=== PATIENT | male | born 1940 | race Caucasian/White ===

== ENCOUNTER → 2017-12-30 | Outpatient (CLI) | payer MEDICARE ==
[2017-12-30 13:58] LABS: Blood Urea Nitrogen 20 mg/dL (9-20)
--- NOTE | 2017-12-31 12:35 | CT ---
EXAMINATION TYPE: CT angio abd aorta wo/w con DATE OF EXAM: 12/30/2017 COMPARISON: Prior CT of the chest 05/16/2015, CT chest abdomen 08/11/2012 HISTORY: Abdominal aortic aneurysm CT DLP: 2625 mGycm, Automated Exposure Control for Dose Reduction was Utilized. CONTRAST: CT scan of the abdomen and pelvis is performed with oral and without and with IV Contrast, patient in jected with 125 ml mL of Omnipaque 350. Three-dimensional reconstructions performed on an alternate w orkstation. FINDINGS: Patient is post median sternotomy. Heart is enlarged. There are coronary artery calcificati ons. Aortic root is dilated at 4.5 cm. Aorta shows atheromatous changes. Superior mesenteric artery, celiac axis are patent. Renal arteries are patent but shows atheromatous changes proximally. Inferior mesenteric artery is patent. Infrarena l abdominal aortic aneurysm shows a diameter of approximately 4.9 cm. The neck of the aneurysm is greater than 3 cm below the renal arteries. Common iliac arteries show extensive atheromatous change. There is short segment occlusion suspected within the external iliac artery on the left. High-grade stenosis also suspected within the proximal external iliac artery on the right. The right superficial femoral arteries occluded proximally, deep femoral artery branches are patent, there is reconstitution of the popliteal artery. Segment of distal superficial femoral artery shows a stent is occluded. Atheromatous changes are present within the popliteal artery, the tibioperoneal t runk, anterior tibial artery are patent, trifurcation vasculature enhances proximally and is patent i nto the distal leg, anterior and posterior tibial arteries thought present into the foot are enhancin g. The left deep femoral artery branches enhance, there is atheromatous change proximally in the supe rficial femoral artery, segmental tandem stenoses are present, at the level of Paul's canal there i s a high-grade stenosis present at the junction of superficial femoral and popliteal arteries. Trifur cation vasculature enhances as on the right and is patent more distally into the foot. LUNG BASES: No significant abnormality is appreciated. LIVER/GB: No significant abnormality is appreciated. Colonic interposition noted anterior to the li radha. PANCREAS: No significant abnormality is seen. SPLEEN: No significant abnormality is seen. ADRENALS: No significant abnormality is seen. KIDNEYS: Suspect some subcentimeter cortical cysts within the right kidney. BOWEL: Extensive divertic ular change in the sigmoid colon. PROSTATE/SEMINAL VESICLES: No gross abnormality seen. LYMPH NODES: No greater than 1cm abdominal or pelvic lymph nodes are appreciated. OSSEOUS STRUCTURES: No significant abnormality is seen. OTHER: Prostate gland is enlarged. IMPRESSION: Extensive peripheral vascular occlusive disease as described, infrarenal abdominal aortic aneurysm, dilated aortic root, and additional findings as above.
== END | disposition home or self-care (01) ==
LOC: RADCTMAIN 13:10
PROVIDERS: ATTEND Surgery
DX: I99.8 Other disorder of circulatory system (principal); I71.4 Abdominal aortic aneurysm, without rupture; I77.819 Aortic ectasia, unspecified site
CPT/HCPCS: 82565; 84520; 75635; 36415; Q9967

== ENCOUNTER → 2019-03-02 | Outpatient (CLI) | payer MEDICARE ==
[2019-03-02 12:50] LABS: Potassium 5.6 mmol/L (3.5-5.1)
[2019-03-02 12:52] LABS: Basophils # (A) 0.1 k/uL (0-0.2); Basophils % (A) 1 %; Eosinophils # (A) 0.2 k/uL (0-0.7); Eosinophils % (A) 2 %; HCT 45.4 % (39.0-53.0); HGB 14.3 gm/dL (13.0-17.5); Lymphocytes # (A) 1.9 k/uL (1.0-4.8); Lymphocytes % (A) 19 %; MCH 30.9 pg (25.0-35.0); MCHC 31.5 g/dL (31.0-37.0); MCV 98.1 fL (80.0-100.0); Mean Platelet Volume 7.9; Monocytes # (A) 0.8 k/uL (0-1.0); Monocytes % (A) 8 %; Neutrophils # (A) 6.5 k/uL (1.3-7.7); Neutrophils % (A) 67 %; Platelet Count 184 k/uL (150-450); RBC 4.62 m/uL (4.30-5.90); RDW 13.8 % (11.5-15.5); WBC 9.7 k/uL (3.8-10.6)
== END ==
LOC: LABPAT 12:20
PROVIDERS: ATTEND Surgery
DX: Z01.812 Encounter for preprocedural laboratory examination (principal); I73.9 Peripheral vascular disease, unspecified
CPT/HCPCS: 36415; 80051; 82565; 84520; 85025

== ENCOUNTER → 2019-03-17 | Day surgery (SDC) | payer MEDICARE ==
[2019-03-12 08:50] VITALS: BMI 27.1
[~2019-03-17] MED LIST: HEPARIN SODIUM 1,000 UN/ML (10ML VL) IV ONE; IOPAMIDOL-250 100ML BTL INTRAARTER ONE; IOPAMIDOL-250 50ML BTL INTRAARTER ONE; LIDOCAINE 1% INJ 10MG/ML (20 ML MDV) SQ ONE; SODIUM CHLORIDE 0.9% 1,000 ML in EMPTY BAG 1 BAG IV ONE; fentaNYL (PF) 50 MCG/ML 2 ML AMP IV ONE
[2019-03-17 08:02] VITALS: RESP 18; TEMP 96.8
--- NOTE | 2019-03-17 09:29 | P.OP ---
Date of Procedure: 03/17/19 Preoperative Diagnosis: Bilateral lower extremity disabling claudication Postoperative Diagnosis: Infrarenal abdominal aortic aneurysm Right external iliac stenosis approximately 90% Right superficial femoral artery chronic total occlusion at the takeoff with recollateralization at proximal popliteal artery above-knee Left superficial femoral artery atherosclerotic disease with multiple areas of stenosis greatest one at the Paul's canal approximately 60% Bilateral tibioperoneal trunk severe atherosclerotic occlusive disease with poor visualization of the tibial vessels at the ankle but appears to have left posterior tibial artery and right posterior tibial artery to the ankle Procedure(s) Performed: Aortogram with bilateral lower extremity runoff via left common femoral artery ultrasound guided access Right iliofemoral selective angiogram with percutaneous transluminal balloon angioplasty of the external iliac artery and percutaneous stent placement Implants: 9 x 40 mm absolute Pro self-expanding stent Anesthesia: local (Moderate sedation 48 minutes) Surgeon: Brando Krueger Estimated Blood Loss (ml): 5 IV fluids (ml): 500 Pathology: none sent Condition: stable Disposition: same day Indications for Procedure: 78-year-old gentleman who presented to the office secondary to bilateral lower extremity pain with ambulation as well as intermittent pain in the right lower extremity at rest. He states he's been having worsening pain but it is intermittent secondary to his COPD and he states he sometimes cannot walk far due to his breathing issues. He does state when he does ambulate and feels good but with his lungs he can't walk due to pain in his lower extremities buttocks and calf. He recently underwent arterial Dopplers with ABIs which demonstrated significant decrease in his ABIs bilaterally but more on the right. He does have a history of a stent in his right superficial femoral artery which is likely occluded. Upon physical examination patient had severely diminished right femoral pulse compared to the left. Operative Findings: Aorta: Patent with some intramural thrombus noted as well as infrarenal abdominal aortic aneurysm. Iliacs: Bilateral common iliac arteries are tortuous with atherosclerotic disease noted and some ectasia. The right external iliac artery just after the takeoff of the internal iliac artery demonstrates >90% stenosis. Left external iliac artery is patent with some at the stenotic disease. Femorals: Bilateral femoral arteries are patent with minimal after stenotic disease. There is a patent profunda bilaterally. Right superficial femoral artery is occluded at the takeoff and re-collateralizes distal to the previous stent at the Paul's canal. Left SFA has multiple areas of stenosis with greatest one being around 60% Popliteal: Bilateral popliteal arteries are patent with minimal disease. Tibioperoneal trunk: Bilateral tibioperoneal trunks are difficult to visualize due to patient constantly moving secondary to pain. It does appear there is good takeoff of the left anterior tibial artery but then has significant diminished lumen and likely occlusion after that. Posterior tibial artery does require I and extends to the ankle on the left. The right anterior tibial peroneal and posterior tibial arteries are difficult to visualize but demonstrates some posterior tibial artery flow at the ankle. Description of Procedure: After written informed consent was obtained the patient all risks benefits and competitions were described the patient was brought to the [facility] and laid in a supine position. The area of the groins were prepped and draped in usual sterile fashion. Local anesthetic was then utilized to anesthetize the area over the left common femoral artery which was visualized under ultrasound. Patient was also administered fentanyl for pain control and sedation. Utilizing ultrasound the left common femoral artery was accessed with a multipurpose needle and a 4-Rwandan sheath was placed followed by a 035 Glidewire in the aorta. Pigtail catheter was then placed and aortogram with runoff was obtained. Due to the significant stenosis of the right external iliac artery and angled oblique view was obtained demonstrating proximally 90% or greater stenosis of the right external iliac artery. The pigtail catheter was then removed 035 Glidewire followed by a RBI catheter was then placed and an up and over fashion the right femoral artery was entered. Patient was administered 3000 units of heparin. The lesion was crossed and a 5 x 40 mm balloon was utilized for balloon angioplasty this opened easily and a repeat angiogram was obtained demonstrating no improvement of the lumen size. Therefore a 8 x 40 mm balloon was placed and balloon angioplasty was performed with some improvement of the stenosis but recoiling of the area was noted. Due to this a 9 x 40 mm self- expanding stent was then placed across the lesion followed by the 8 x 40 mm balloon. Finally gram was obtained demonstrating approximately 20% residual stenosis. All guidewires and catheters were removed as well as the sheath and pressure was placed for hemostasis. Hemostasis was assured and patient was sent to recovery in stable condition. Patient at the conclusion of the procedure had a palpable femoral pulse on the right as well as the left. Plan - Discharge Summary Discharge Rx Participant: No New Discharge Prescriptions: No Action Simvastatin [Zocor] 20 mg PO HS Fluticasone/Salmeterol [Advair 500-50 Diskus] 1 inhalation PO QAM PRN PRN Reason: sob Aspirin 325 mg PO DAILY Ipratropium Nebulized [Atrovent Nebulized 0.2 MG/ML] 0.5 mg INHALATION QID Lisinopril 5 mg PO DAILY Gabapentin [Neurontin] 300 mg PO TID Metoprolol Tartrate [Lopressor] 25 mg PO BID Multivitamins, Thera [Multivitamin (formulary)] 1 tab PO DAILY Magnesium(Unknown Dose) 1 tab PO DAILY 2new Meds To Bring Info Day Of Discharge Medication List Aspirin 325 mg PO DAILY 01/27/15 [History] Fluticasone/Salmeterol [Advair 500-50 Diskus] 1 inhalation PO QAM PRN 01/27/15 [History] Ipratropium Nebulized [Atrovent Nebulized 0.2 MG/ML] 0.5 mg INHALATION QID 01/27/15 [History] Simvastatin [Zocor] 20 mg PO HS 01/27/15 [History] Lisinopril 5 mg PO DAILY 09/19/16 [History] 2new Meds To Bring Info Day Of 03/12/19 [History] Gabapentin [Neurontin] 300 mg PO TID 03/12/19 [History] Magnesium(Unknown Dose) 1 tab PO DAILY 03/12/19 [History] Metoprolol Tartrate [Lopressor] 25 mg PO BID 03/12/19 [History] Multivitamins, Thera [Multivitamin (formulary)] 1 tab PO DAILY 03/12/19 [History] Follow up Appointment(s)/Referral(s): Brando Krueger DO [STAFF PHYSICIAN] - 2 Weeks Patient Instructions/Handouts: Peripheral Vascular Stent Placement (DC) Activity/Diet/Wound Care/Special Instructions: No heavy lifting greater than 15 lbs x 1 week. No driving x 48 hours. Discharge Disposition: HOME SELF-CARE
[2019-03-17 16:13] VITALS: BP 112/69; PULSE 56
--- NOTE | 2019-03-18 11:33 | IR ---
Fluoroscopy HISTORY: Peripheral vascular occlusive disease 8.1 minutes fluoroscopy time supplied to the referring clinician. 860 intraoperative C-arm images do cument the procedure. See dictated report from vascular surgery.
== END | disposition home or self-care (01) ==
LOC: CATHCVL 07:22
PROVIDERS: ATTEND Surgery
DX: I70.213 Atherosclerosis of native arteries of extremities with intermittent claudication, bilateral legs (principal); I71.4 Abdominal aortic aneurysm, without rupture; I70.92 Chronic total occlusion of artery of the extremities; J44.9 Chronic obstructive pulmonary disease, unspecified; G62.9 Polyneuropathy, unspecified; E78.5 Hyperlipidemia, unspecified; I10 Essential (primary) hypertension; I25.10 Atherosclerotic heart disease of native coronary artery without angina pectoris; Z95.820 Peripheral vascular angioplasty status with implants and grafts; Z79.82 Long term (current) use of aspirin; Z79.899 Other long term (current) drug therapy; Z95.1 Presence of aortocoronary bypass graft
CPT/HCPCS: 37221; 75625; 75716; 84132; C1894 ×3; C1769 ×5; C1725; C1876; J2001; J3010; J1644; Q9966 ×2

== ENCOUNTER 2019-09-06 15:18 | Inpatient (IN) | payer MEDICARE ==
[2019-09-06] MEDS ORDERED: IPRATROPIUM-ALBUTEROL 3 ML NEB INHALATION STA ×2 (16:14)
[2019-09-06] MEDS ORDERED: methylPREDNISolone SOD SUCCI 125 MG/2 ML VIAL IV STA (16:16)
[2019-09-06] MEDS ORDERED: SODIUM CHLORIDE 0.9% 500 ML 500 ML IV ONE (16:16)
--- NOTE | 2019-09-06 16:37 | ED ---
SOB HPI - General Chief Complaint: Shortness of Breath Stated Complaint: EDMOND Time Seen by Provider: 09/06/19 15:25 Source: patient, family Mode of arrival: wheelchair Limitations: no limitations - History of Present Illness Initial Comments: The patient is a 78 year old male with past history of asthma and COPD on 2 L of home O2 who presents emergency room in with reported cough and shortness of breath. He states that every year around this time he will get a viral infection that exacerbates breathing. He states that he started to feel short of breath with a cough earlier this week. He followed up in Dr. Hatch's office. He got a steroid injection on Saturday. He started him on antibiotics and a prednisone taper at home. States that on he did feel better however his symptoms worsen once again. He admits to chills without fever. Denies chest pain but admits chest pressure. No palpitations. No nausea or vomiting. No history of cardiac arrhythmias. Does have a history of a CABG in 2004. He sees Dr. Briggs. No ripping or tearing sensation to his back. Denies any unilateral numbness or weakness. No abdominal pain or changes in his bowel or bladder habits. There are no alleviating, precipitating or modifying factors - Related Data Home Medications Medication Instructions Recorded Confirmed Simvastatin [Zocor] 20 mg PO HS 01/27/15 09/06/19 Lisinopril 5 mg PO DAILY 09/19/16 09/06/19 Clopidogrel Bisulfate [Plavix] 75 mg PO DAILY 09/06/19 09/06/19 Formoterol Fumarate [Perforomist] 20 mcg INHALATION RT-BID 09/06/19 09/06/19 Ipratropium-Albuterol Nebulize 3 ml INHALATION RT-Q4H 09/06/19 09/06/19 [Duoneb 0.5 mg-3 mg/3 ml Soln] Levofloxacin 500 mg PO DAILY 09/06/19 09/06/19 Metoprolol Tartrate [Lopressor] 50 mg PO BID 09/06/19 09/06/19 Theophylline 24 Hour [Antoine-24] 400 mg PO HS 09/06/19 09/06/19 predniSONE See Taper PO DAILY 09/06/19 09/06/19 Allergies Allergy/AdvReac Type Severity Reaction Status Date / Time Penicillins Allergy Unknown Verified 09/06/19 18:48 Review of Systems ROS Statement: Those systems with pertinent positive or pertinent negative responses have been documented in the HPI. ROS Other: All systems not noted in ROS Statement are negative. Past Medical History Past Medical History: Asthma, Coronary Artery Disease (CAD), COPD, Eye Disorder, Hyperlipidemia, Hypertension Additional Past Medical History / Comment(s): "spot on lung". BILAT CATARACTS History of Any Multi-Drug Resistant Organisms: None Reported Past Surgical History: Coronary Bypass/CABG, Hernia Repair, Tonsillectomy Additional Past Surgical History / Comment(s): surgery for "blockages in legs with one stent",rt cataract Past Anesthesia/Blood Transfusion Reactions: Postoperative Nausea & Vomiting (PONV) Past Psychological History: No Psychological Hx Reported Smoking Status: Current every day smoker Past Alcohol Use History: Daily Past Drug Use History: None Reported - Past Family History Brother(s) Family Medical History: Cancer Father Additional Family Medical History / Comment(s): Father at age 57 from myocardial infarction. Mother Additional Family Medical History / Comment(s): Mother at age 75 from cancer, patient does not know type. Sister(s) Additional Family Medical History / Comment(s): Patient has one sister that is passed from emphysema. Patient has 2 sons with no major medical problems. General Exam Limitations: no limitations General appearance: alert, anxious, in distress Head exam: Present: atraumatic, normocephalic Eye exam: Present: PERRL, EOMI ENT exam: Present: normal exam, normal oropharynx, mucous membranes moist Neck exam: Present: normal inspection. Absent: tenderness, meningismus Respiratory exam: Present: respiratory distress, wheezes, accessory muscle use, decreased breath sounds, prolonged expiratory, other (tachypnia, conversational dyspnea) Cardiovascular Exam: Present: tachycardia, irregular rhythm GI/Abdominal exam: Present: soft. Absent: distended, tenderness, guarding, rebound, rigid Extremities exam: Present: pedal edema Back exam: Present: normal inspection, full ROM Neurological exam: Present: alert, oriented X3 Psychiatric exam: Present: normal mood, anxious Skin exam: Present: warm, dry, intact Course Vital Signs 09/06/19 09/06/19 09/06/19 15:20 15:31 15:56 Temperature 97.6 F Pulse Rate 78 Pulse Rate [ Pulse Oximetery ] Respiratory 18 24 Rate Blood Pressure 94/69 Blood Pressure [Left Arm] O2 Sat by Pulse 95 95 Oximetry 09/06/19 09/06/19 09/06/19 16:00 16:30 16:46 Temperature Pulse Rate 122 H 123 H 98 Pulse Rate [ Pulse Oximetery ] Respiratory 23 22 32 H Rate Blood Pressure 95/68 Blood Pressure [Left Arm] O2 Sat by Pulse 99 Oximetry 09/06/19 09/06/19 09/06/19 16:57 17:00 17:20 Temperature Pulse Rate 112 H 117 H 117 H Pulse Rate [ Pulse Oximetery ] Respiratory 29 H 24 24 Rate Blood Pressure 117/84 117/84 Blood Pressure [Left Arm] O2 Sat by Pulse 99 99 Oximetry 09/06/19 09/06/19 09/06/19 17:23 17:30 18:00 Temperature Pulse Rate 124 H 134 H Pulse Rate [ Pulse Oximetery ] Respiratory 22 24 23 Rate Blood Pressure 135/102 Blood Pressure [Left Arm] O2 Sat by Pulse 100 98 Oximetry 09/06/19 09/06/19 09/06/19 18:26 19:27 20:19 Temperature Pulse Rate 134 H 144 H 89 Pulse Rate [ Pulse Oximetery ] Respiratory 23 22 20 Rate Blood Pressure 135/102 124/89 131/81 Blood Pressure [Left Arm] O2 Sat by Pulse 98 96 98 Oximetry 09/06/19 09/06/19 21:06 21:17 Temperature 97.4 F L Pulse Rate 80 Pulse Rate [ 87 Pulse Oximetery ] Respiratory 20 20 Rate Blood Pressure 128/89 Blood Pressure 140/85 [Left Arm] O2 Sat by Pulse 96 95 Oximetry Medical Decision Making - Medical Decision Making Upon arrival the patient is placed into room 3. A thorough history and physical exam is performed. I evaluated the patient and he is extremely tachypneic with accessory muscle use. I did recommend placing the patient on BiPAP for which he did agree. Patient is notably tachycardic. I did obtain a 12-lead EKG on the patient which demonstrates an irregular heart rhythm. There is diffuse ST d epression in lateral leads. I do suspect this is new onset A. fib. The patient denies a history of cardiac arrhythmia. I did recommend laboratory studies per the patient was given 2 DuoNeb breathing treatments. I also provided him with 125 mg of Solu-Medrol and a gram of magnesium. I recommended laboratory studies. WBC 12.4. Coags were normal. Sodium is 129. Chloride 94. CO2 21. Troponin is elevated at 0.052. BNP is 6060. Influenza A and B are not detected. Theophylline is therapeutic at 10.3. Chest x-ray demonstrates no acute cardiac process. I did recommend obtaining blood cultures. I did give the patient a dose of Rocephin and azithromycin. The patient continues to have an elevated heart rate. Placed him on a Cardizem drip. I did provide the patient with 1500 mL of normal saline because of his low sodium. Chest x-ray does not demonstrate any signs of volume overload. Because the patient's abnormal EKG I did discuss the case with Dr. Briggs who is his meat and seafood manager. He does recommend heparinizing the patient. He does state that the patient can remain on a Cardizem drip and may be titrated as needed. I did reevaluate the patient and he does request to come off the biPap. His breathing is much improved. I did reevaluate the heart rate and it is better controlled. We did repeat an EKG at a slower rate which does demonstrate A. fib. Patient has no contraindications to heparin therefore the heparin drip was ordered I will continue the patient on breathing treatments and steroids. I discussed case with Dr. Manzano who accepted admission for the patient. We'll consult cardiology and pulmonology.The patient remained in stable condition and was transported to the floor - Lab Data Result diagrams: 09/08/19 05:53 09/09/19 05:32 Lab Results 09/06/19 09/06/19 09/06/19 Range/Units 15:49 15:49 15:49 WBC 12.4 H (3.8-10.6) k/uL RBC 4.65 (4.30-5.90) m/uL Hgb 16.0 (13.0-17.5) gm/dL Hct 47.6 (39.0-53.0) % MCV 102.3 H (80.0-100.0) fL MCH 34.5 (25.0-35.0) pg MCHC 33.7 (31.0-37.0) g/dL RDW 13.2 (11.5-15.5) % Plt Count 226 (150-450) k/uL Neutrophils % 86 % Lymphocytes % 5 % Monocytes % 6 % Eosinophils % 0 % Basophils % 2 % Neutrophils # 10.8 H (1.3-7.7) k/uL Lymphocytes # 0.6 L (1.0-4.8) k/uL Monocytes # 0.7 (0-1.0) k/uL Eosinophils # 0.0 (0-0.7) k/uL Basophils # 0.2 (0-0.2) k/uL Macrocytosis Slight PT (9.0-12.0) sec INR (<1.2) APTT (22.0-30.0) sec Sodium 129 L (137-145) mmol/L Potassium 4.8 (3.5-5.1) mmol/L Chloride 94 L (98-107) mmol/L Carbon Dioxide 21 L (22-30) mmol/L Anion Gap 14 mmol/L BUN 23 H (9-20) mg/dL Creatinine 1.19 (0.66-1.25) mg/dL Est GFR (CKD-EPI)AfAm 68 (>60 ml/min/1.73 sqM) Est GFR (CKD-EPI)NonAf 59 (>60 ml/min/1.73 sqM) Glucose 125 H (74-99) mg/dL Plasma Lactic Acid Renny (0.7-2.0) mmol/L Calcium 9.2 (8.4-10.2) mg/dL Magnesium 1.6 (1.6-2.3) mg/dL Total Bilirubin 0.6 (0.2-1.3) mg/dL AST 29 (17-59) U/L ALT 25 (21-72) U/L Alkaline Phosphatase 57 (38-126) U/L Troponin I (0.000-0.034) ng/mL NT-Pro-B Natriuret Pep 6060 pg/mL Total Protein 6.6 (6.3-8.2) g/dL Albumin 4.0 (3.5-5.0) g/dL Influenza Type A RNA (Not Detectd) Influenza Type B (PCR) (Not Detectd) 09/06/19 09/06/19 09/06/19 Range/Units 15:49 15:49 16:44 WBC (3.8-10.6) k/uL RBC (4.30-5.90) m/uL Hgb (13.0-17.5) gm/dL Hct (39.0-53.0) % MCV (80.0-100.0) fL MCH (25.0-35.0) pg MCHC (31.0-37.0) g/dL RDW (11.5-15.5) % Plt Count (150-450) k/uL Neutrophils % % Lymphocytes % % Monocytes % % Eosinophils % % Basophils % % Neutrophils # (1.3-7.7) k/uL Lymphocytes # (1.0-4.8) k/uL Monocytes # (0-1.0) k/uL Eosinophils # (0-0.7) k/uL Basophils # (0-0.2) k/uL Macrocytosis PT 10.7 (9.0-12.0) sec INR 1.0 (<1.2) APTT 23.7 (22.0-30.0) sec Sodium (137-145) mmol/L Potassium (3.5-5.1) mmol/L Chloride (98-107) mmol/L Carbon Dioxide (22-30) mmol/L Anion Gap mmol/L BUN (9-20) mg/dL Creatinine (0.66-1.25) mg/dL Est GFR (CKD-EPI)AfAm (>60 ml/min/1.73 sqM) Est GFR (CKD-EPI)NonAf (>60 ml/min/1.73 sqM) Glucose (74-99) mg/dL Plasma Lactic Acid Renny 1.7 (0.7-2.0) mmol/L Calcium (8.4-10.2) mg/dL Magnesium (1.6-2.3) mg/dL Total Bilirubin (0.2-1.3) mg/dL AST (17-59) U/L ALT (21-72) U/L Alkaline Phosphatase (38-126) U/L Troponin I 0.052 H* (0.000-0.034) ng/mL NT-Pro-B Natriuret Pep pg/mL Total Protein (6.3-8.2) g/dL Albumin (3.5-5.0) g/dL Influenza Type A RNA (Not Detectd) Influenza Type B (PCR) (Not Detectd) 09/06/19 Range/Units 16:49 WBC (3.8-10.6) k/uL RBC (4.30-5.90) m/uL Hgb (13.0-17.5) gm/dL Hct (39.0-53.0) % MCV (80.0-100.0) fL MCH (25.0-35.0) pg MCHC (31.0-37.0) g/dL RDW (11.5-15.5) % Plt Count (150-450) k/uL Neutrophils % % Lymphocytes % % Monocytes % % Eosinophils % % Basophils % % Neutrophils # (1.3-7.7) k/uL Lymphocytes # (1.0-4.8) k/uL Monocytes # (0-1.0) k/uL Eosinophils # (0-0.7) k/uL Basophils # (0-0.2) k/uL Macrocytosis PT (9.0-12.0) sec INR (<1.2) APTT (22.0-30.0) sec Sodium (137-145) mmol/L Potassium (3.5-5.1) mmol/L Chloride (98-107) mmol/L Carbon Dioxide (22-30) mmol/L Anion Gap mmol/L BUN (9-20) mg/dL Creatinine (0.66-1.25) mg/dL Est GFR (CKD-EPI)AfAm (>60 ml/min/1.73 sqM) Est GFR (CKD-EPI)NonAf (>60 ml/min/1.73 sqM) Glucose (74-99) mg/dL Plasma Lactic Acid Renny (0.7-2.0) mmol/L Calcium (8.4-10.2) mg/dL Magnesium (1.6-2.3) mg/dL Total Bilirubin (0.2-1.3) mg/dL AST (17-59) U/L ALT (21-72) U/L Alkaline Phosphatase (38-126) U/L Troponin I (0.000-0.034) ng/mL NT-Pro-B Natriuret Pep pg/mL Total Protein (6.3-8.2) g/dL Albumin (3.5-5.0) g/dL Influenza Type A RNA Not Detected (Not Detectd) Influenza Type B (PCR) Not Detected (Not Detectd) - EKG Data EKG Comments: EKG appears to be A. fib with a rapid ventricular response of 125. QRS 120. QTC 473. There is in incomplete left bundle-branch block. There is ST depression in V4 through V6 as well as leads 2, 3 and aVF. There is no previous EKG to compare to. EKG obtained at 2006 demonstrates A. fib with a rate of 92. QRS 128. QTC 432. There is ST depression and T-wave inversion in the 5 through V6 Critical Care Time Critical Care Time: Yes Total Critical Care Time: 35 (minutes) Critical Care Time: Critical care time for management of BiPap settings, Cardizem and heparin drip for new onset afib and consultation with cardiology regarding abnormal EKG. Disposition Clinical Impression: BiPAP (biphasic positive airway pressure) dependence, New onset a-fib, COPD with exacerbation, NSTEMI (non-ST elevated myocardial infarction), Hyponatremia Disposition: ADMITTED IP TO THIS HOSP Condition: Serious Is patient prescribed a controlled substance at d/c from ED?: No Decision to Admit Reason: Admit from EC Decision Date: 09/06/19 Decision Time: 20:50
[2019-09-06 16:42] LABS: Basophils # (A) 0.2 k/uL (0-0.2); Basophils % (A) 2 %; Eosinophils % (A) 0 %; HCT 47.6 % (39.0-53.0); Lymphocytes # (A) 0.6 k/uL (1.0-4.8); Lymphocytes % (A) 5 %; MCH 34.5 pg (25.0-35.0); MCHC 33.7 g/dL (31.0-37.0); MCV 102.3 fL (80.0-100.0); Macrocytosis Slight; Mean Platelet Volume 7.1; Monocytes # (A) 0.7 k/uL (0-1.0); Monocytes % (A) 6 %; Neutrophils # (A) 10.8 k/uL (1.3-7.7); Neutrophils % (A) 86 %; Platelet Count 226 k/uL (150-450); RBC 4.65 m/uL (4.30-5.90); RDW 13.2 % (11.5-15.5); WBC 12.4 k/uL (3.8-10.6)
[2019-09-06 16:53] LABS: Calcium 9.2 mg/dL (8.4-10.2); Magnesium 1.6 mg/dL (1.6-2.3); Potassium 4.8 mmol/L (3.5-5.1); Total Bilirubin 0.6 mg/dL (0.2-1.3); Total Protein 6.6 g/dL (6.3-8.2)
[2019-09-06 16:56] LABS: Partial Thromboplastin Time 23.7 sec (22.0-30.0); Prothrombin Time 10.7 sec (9.0-12.0)
--- NOTE | 2019-09-06 17:43 | XR ---
EXAMINATION TYPE: XR chest 1V DATE OF EXAM: 09/06/2019 COMPARISON: 01/21/2015, 06/17/2019 INDICATION: Difficulty breathing TECHNIQUE: Single frontal view of the chest is obtained. FINDINGS: The heart size is normal. The pulmonary vasculature is normal. There is an irregular lobular nodule in the right lower lobe currently measuring 1.2 cm. This appears increased from 01/21/2015 previous measurement of 0.7 cm. Closer evaluation with CT chest is recommen ded. IMPRESSION: 1. No acute pulmonary process. 2. There is a nodular density in the right lower lobe which is increasing from 2014 and possibly from May 2019. Neoplasm is not excluded
[2019-09-06] MEDS ORDERED: DILTIAZEM 125 MG in SODIUM CHLORIDE 0.9% 100 ML IV SCH (18:00)
[2019-09-06] MEDS ORDERED: SODIUM CHLORIDE 0.9% 1,000 ML IV ONE (18:06)
[2019-09-06] MEDS ORDERED: cefTRIAXone IN SWFI 1,000 MG/10 ML SYRINGE IVP STA (18:08)
[2019-09-06] MEDS ORDERED: AZITHROMYCIN 500 MG in SODIUM CHLORIDE 0.9% 250 ML IVPB STA (18:08)
[2019-09-06] MEDS ORDERED: ONDANSETRON 4 MG/2 ML VIAL IVP STA (20:04)
[2019-09-06] MEDS ORDERED: NALOXONE 0.4 MG/ML 1 ML VIAL IV PRN (20:10)
[2019-09-06] MEDS ORDERED: HEPARIN SODIUM,PORCINE 5,000 UNIT/ML 1 ML VIAL IV PRN (20:10)
[2019-09-06] MEDS ORDERED: HEPARIN SODIUM,PORCINE 5,000 UNIT/ML 1 ML VIAL IV ONE (20:10)
[2019-09-06] MEDS: MAGNESIUM SULFATE-D5W PMX 1 GM in DEXTROSE/WATER 1 100ML.BAG IVPB SCH ×2 (20:11→21:18)
[2019-09-06] MEDS ORDERED: HEPARIN SOD,PORK IN 0.45% NACL 25,000 UNIT in 0.45% NACL 1 250ML.BAG IV SCH (20:15)
[2019-09-06] MEDS ORDERED: NICOTINE 21MG/24HR PATCH TRANSDERM STA (22:02)
[2019-09-06] MEDS: ATORVASTATIN 10 MG TAB PO SCH (22:25)
[2019-09-06] MEDS: THEOPHYLLINE 24 HOUR 400 MG CAP.ER.24H PO SCH (22:27)
[2019-09-06] MEDS: methylPREDNISolone SOD SUCCI 125 MG/2 ML VIAL IV SCH (23:33)
[2019-09-07] MEDS: IPRATROPIUM-ALBUTEROL 3 ML NEB INHALATION SCH ×7 (00:32→23:19)
[2019-09-07] MEDS ORDERED: ONDANSETRON 4 MG/2 ML VIAL IVP PRN (02:03)
[2019-09-07 03:51] LABS: Basophils # (A) 0.3 k/uL (0-0.2); Basophils % (A) 3 %; Eosinophils % (A) 0 %; HCT 41.5 % (39.0-53.0); HGB 13.9 gm/dL (13.0-17.5); Lymphocytes # (A) 0.3 k/uL (1.0-4.8); Lymphocytes % (A) 4 %; MCH 34.3 pg (25.0-35.0); MCHC 33.4 g/dL (31.0-37.0); MCV 102.6 fL (80.0-100.0); Macrocytosis Slight; Monocytes # (A) 0.4 k/uL (0-1.0); Monocytes % (A) 5 %; Neutrophils # (A) 6.7 k/uL (1.3-7.7); Neutrophils % (A) 87 %; Platelet Count 202 k/uL (150-450); RBC 4.05 m/uL (4.30-5.90); RDW 13.2 % (11.5-15.5); WBC 7.7 k/uL (3.8-10.6)
[2019-09-07 04:17] LABS: Calcium 8.6 mg/dL (8.4-10.2); Magnesium 2.1 mg/dL (1.6-2.3); Potassium 4.3 mmol/L (3.5-5.1)
[2019-09-07] MEDS: LISINOPRIL 10 MG TAB PO SCH (08:30)
[2019-09-07] MEDS: methylPREDNISolone SOD SUCCI 125 MG/2 ML VIAL IV SCH ×4 (08:31→23:28)
[2019-09-07] MEDS: FORMOTEROL FUMARATE 20 MCG/2 ML NEBU INHALATION SCH ×2 (08:36→18:51)
[2019-09-07] MEDS ORDERED: PANTOPRAZOLE 40 MG/10 ML VIAL IVP SCH (09:00)
[2019-09-07] MEDS ORDERED: IPRATROPIUM-ALBUTEROL 3 ML NEB INHALATION PRN (10:00)
--- NOTE | 2019-09-07 10:34 | P.CRDCN ---
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 Briggs in the office. Presents to the hospital with symptoms of progressively worsening shortness of breath. Patient notices shortness of breath over the past couple of weeks, he was also having a productive cough, he went to his primary care doctor's office and received a steroid injection on Saturday and he was initiated on antibiotics. He seemed to feel somewhat better, and then continued to progressively get worse. He does state that he's been experiencing chills at home, denies any fever. He does feel his heart racing fast, and states that intermittently he notices this feeling in his chest. Patient also gets associated lightheadedness and at times feels as though he may pass out. Chest x-ray on presentation here did not reveal any acute pulmonary process. There is a nodular density in the right lower lobe which is increasing from 2014 and possibly from May 2019. Neoplasm is not excluded. EKG on presentation here showed atrial fibrillation with a rapid ventricular response, incomplete right bundle branch block pattern and ST depression noted in the anterior lateral leads. The patient denies any prior history of atrial fibrillation. Blood pressure 110/70, heart rate on admission 122, in the 70s this morning. Afebrile. White blood cell count on admission 12.4, 7.7 this morning, hemoglobin 13.9, 16 on admission, platelet count 202. Sodium 129, potassium 4. 3, BUN 25 and creatinine 1.0. A medium 2.1, 1.6 on admission. Troponins 0.5, 0.4, 0.3. BNP level 6060. Influenza A and B-. At the time of my examination this morning, patient still feels quite short of breath but states it significantly better than on presentation here. He continues to cough up a significant amount of sputum, which is mainly clear in color. Past Medical History Past Medical History: Asthma, Coronary Artery Disease (CAD), COPD, Eye Disorder, Hyperlipidemia, Hypertension Additional Past Medical History / Comment(s): "spot on lung". BILAT CATARACTS History of Any Multi-Drug Resistant Organisms: None Reported Past Surgical History: Coronary Bypass/CABG, Hernia Repair, Tonsillectomy Additional Past Surgical History / Comment(s): surgery for "blockages in legs with one stent",rt cataract Past Anesthesia/Blood Transfusion Reactions: Postoperative Nausea & Vomiting (PONV) Past Psychological History: No Psychological Hx Reported Smoking Status: Current every day smoker Past Alcohol Use History: Daily Past Drug Use History: None Reported - Past Family History Brother(s) Family Medical History: Cancer Medications and Allergies Home Medications Medication Instructions Recorded Confirmed Type Simvastatin [Zocor] 20 mg PO HS 01/27/15 09/06/19 History Lisinopril 5 mg PO DAILY 09/19/16 09/06/19 History Clopidogrel Bisulfate [Plavix] 75 mg PO DAILY 09/06/19 09/06/19 History Formoterol Fumarate [Perforomist] 20 mcg INHALATION RT-BID 09/06/19 09/06/19 History Ipratropium-Albuterol Nebulize 3 ml INHALATION RT-Q4H 09/06/19 09/06/19 History [Duoneb 0.5 mg-3 mg/3 ml Soln] Levofloxacin 500 mg PO DAILY 09/06/19 09/06/19 History Metoprolol Tartrate [Lopressor] 50 mg PO BID 09/06/19 09/06/19 History Theophylline 24 Hour [Antoine-24] 400 mg PO HS 09/06/19 09/06/19 History predniSONE See Taper PO DAILY 09/06/19 09/06/19 History Allergies Allergy/AdvReac Type Severity Reaction Status Date / Time Penicillins Allergy Unknown Verified 09/06/19 18:48 Physical Exam Vitals: Vital Signs Temp Pulse Pulse Pulse Resp BP BP 09/07/19 08:53 84 09/07/19 08:46 92 09/07/19 08:45 92 09/07/19 08:36 84 09/07/19 08:00 98.3 F 60 86 20 111/76 09/07/19 05:17 96 09/07/19 05:06 92 09/07/19 04:00 98.1 F 86 22 150/84 09/07/19 01:08 100 09/07/19 00:51 100 09/07/19 00:00 97.5 F L 95 22 160/90 09/06/19 21:17 97.4 F L 87 20 140/85 09/06/19 21:06 80 20 128/89 09/06/19 20:19 89 20 131/81 09/06/19 19:27 144 H 22 124/89 09/06/19 18:26 134 H 23 135/102 09/06/19 18:00 134 H 23 135/102 09/06/19 17:30 124 H 24 09/06/19 17:23 22 09/06/19 17:20 117 H 24 117/84 09/06/19 17:00 117 H 24 117/84 09/06/19 16:57 112 H 29 H 09/06/19 16:46 98 32 H 09/06/19 16:30 123 H 22 09/06/19 16:00 122 H 23 95/68 09/06/19 15:56 24 09/06/19 15:31 09/06/19 15:20 97.6 F 78 18 94/69 Pulse Ox 09/07/19 08:53 09/07/19 08:46 09/07/19 08:45 09/07/19 08:36 09/07/19 08:00 93 L 09/07/19 05:17 09/07/19 05:06 09/07/19 04:00 96 09/07/19 01:08 09/07/19 00:51 09/07/19 00:00 95 09/06/19 21:17 95 09/06/19 21:06 96 09/06/19 20:19 98 09/06/19 19:27 96 09/06/19 18:26 98 09/06/19 18:00 98 09/06/19 17:30 100 09/06/19 17:23 09/06/19 17:20 99 09/06/19 17:00 99 09/06/19 16:57 09/06/19 16:46 09/06/19 16:30 99 09/06/19 16:00 09/06/19 15:56 09/06/19 15:31 95 09/06/19 15:20 95 Intake and Output 09/06/19 09/07/19 09/07/19 22:59 06:59 14:59 Intake Total 240 236 Output Total 225 Balance 15 236 Intake: Oral 240 236 Output: Urine 225 Other: Voiding Method Toilet Urinal # Voids 1 Weight 80.739 kg 80.8 kg PHYSICAL EXAMINATION: GENERAL: 78-year-old gentleman in no acute distress at the time of my examination HEENT: Head is atraumatic, normocephalic. Pupils equal, round. Sclera anicteric. Conjunctiva are clear. Mucous membranes of the mouth are moist. Ne ck is supple. There is elevated jugular venous pressure. Bilateral carotid bruit heard. HEART EXAMINATION: Heart S1 and S2 irregularly irregular a systolic murmur is heard CHEST EXAMINATION: Lungs reveal scattered coarse wheezing and rhonchi throughout ABDOMEN: Soft, nontender. Bowel sounds are heard. No organomegaly noted. EXTREMITIES: 1+ peripheral pulses with evidence of peripheral edema and no calf tenderness noted. NEUROLOGIC patient is awake, alert and oriented 3 . Results 09/07/19 03:37 09/07/19 03:37 Cardiac Enzymes 09/06/19 09/06/19 09/06/19 Range/Units 15:49 15:49 21:34 AST 29 (17-59) U/L Troponin I 0.052 H* 0.041 H* (0.000-0.034) ng/mL 09/07/19 Range/Units 03:37 AST (17-59) U/L Troponin I 0.038 H* (0.000-0.034) ng/mL Coagulation 09/06/19 09/07/19 09/07/19 Range/Units 15:49 01:54 03:37 PT 10.7 11.0 (9.0-12.0) sec APTT 23.7 54.2 H (22.0-30.0) sec CBC 09/06/19 09/07/19 Range/Units 15:49 03:37 WBC 12.4 H 7.7 (3.8-10.6) k/uL RBC 4.65 4.05 L (4.30-5.90) m/uL Hgb 16.0 13.9 (13.0-17.5) gm/dL Hct 47.6 41.5 (39.0-53.0) % Plt Count 226 202 (150-450) k/uL Comprehensive Metabolic Panel 09/06/19 09/07/19 Range/Units 15:49 03:37 Sodium 129 L 129 L (137-145) mmol/L Potassium 4.8 4.3 (3.5-5.1) mmol/L Chloride 94 L 98 (98-107) mmol/L Carbon Dioxide 21 L 23 (22-30) mmol/L BUN 23 H 25 H (9-20) mg/dL Creatinine 1.19 1.06 (0.66-1.25) mg/dL Glucose 125 H 199 H (74-99) mg/dL Calcium 9.2 8.6 (8.4-10.2) mg/dL AST 29 (17-59) U/L ALT 25 (21-72) U/L Alkaline Phosphatase 57 (38-126) U/L Total Protein 6.6 (6.3-8.2) g/dL Albumin 4.0 (3.5-5.0) g/dL Current Medications Generic Name Dose Route Start Last Admin Trade Name Freq PRN Reason Stop Dose Admin Albuterol/Ipratropium 3 ml 09/07/19 00:00 09/07/19 08:36 Duoneb 0.5 Mg-3 Mg/3 Ml Soln INHALATION 3 ml RT-Q4H KASSY Administration Albuterol/Ipratropium 3 ml 09/07/19 10:00 Duoneb 0.5 Mg-3 Mg/3 Ml Soln INHALATION RT-Q2H PRN Shortness Of Breath Or Wheezing Atorvastatin Calcium 10 mg 09/06/19 21:00 09/06/19 22:25 Lipitor PO 10 mg HS KASSY Administration Azithromycin 500 mg 09/07/19 10:00 Zithromax PO DAILY KASSY Budesonide 1 mg 09/07/19 20:00 Pulmicort INHALATION RT-BID KASSY Clopidogrel Bisulfate 75 mg 09/07/19 09:00 Plavix PO DAILY KASSY Formoterol Fumarate 20 mcg 09/07/19 08:00 09/07/19 08:36 Perforomist INHALATION 20 mcg RT-BID KASSY Administration Heparin Sodium (Porcine) 0 unit 09/06/19 20:10 Heparin IV PER PROTOCOL PRN Low PTT Protocol Diltiazem HCl 125 mg/ Sodium 125 mls @ 5 mls/hr 09/06/19 18:00 09/06/19 18:53 Chloride IV 5 mg/hr .Q24H KASSY 5 mls/hr Administration 5 MG/HR Heparin Sodium/Sodium Chloride 250 mls @ 9.689 mls/hr 09/06/19 20:15 09/06/19 21:03 25,000 unit/ Sodium Chloride IV 12 units/kg/hr .Q24H KASSY 9.689 mls/hr Administration Protocol 12 UNITS/KG/HR Ceftriaxone Sodium 1 gm/ 50 mls @ 100 mls/hr 09/07/19 10:00 Sodium Chloride IVPB Q24HR KASSY Lisinopril 5 mg 09/07/19 09:00 09/07/19 08:30 Zestril PO 5 mg DAILY KASSY Administration Methylprednisolone Sodium Succinate 60 mg 09/07/19 12:00 Solu-Medrol IV Q6HR KASSY Metoprolol Tartrate 50 mg 09/07/19 09:00 Lopressor PO BID KASSY Naloxone HCl 0.2 mg 09/06/19 20:10 Narcan IV Q2M PRN Opioid Reversal Ondansetron HCl 4 mg 09/07/19 02:03 09/07/19 02:19 Zofran IVP 4 mg Q6HR PRN Administration Nausea And Vomiting Pantoprazole Sodium 40 mg 09/08/19 07:30 Protonix PO AC-BRKFST KASSY Theophylline 400 mg 09/06/19 21:00 09/06/19 22:27 Antoine-24 PO 400 mg HS KASSY Administration Intake and Output 09/06/19 09/07/19 09/07/19 22:59 06:59 14:59 Intake Total 240 236 Output Total 225 Balance 15 236 Intake: Oral 240 236 Output: Urine 225 Other: Voiding Method Toilet Urinal # Voids 1 Weight 80.739 kg 80.8 kg 09/07/19 03:37 09/07/19 03:37 EKG Interpretations (text) EKG shows atrial fibrillation with rapid ventricular response, incomplete right bundle branch block pattern and lateral ST depression Assessment and Plan Plan: Assessment and plan #1 atrial fibrillation with rapid ventricular response, appears to be of new onset for the patient, likely paroxysmal #2 moderate to severe shortness of breath with possible elevation of COPD exacerbation, and tracheobronchitis #3 mild congestive heart failure, LV function unknown #4 hyperlipidemia #5 hypertension #6 mildly abnormal troponins, likely secondary to A. fib with RVR no significant rise and fall pattern #7 PAD with prior C[employer] CLERK of both [employer], as well as iliac stenting #8 abdominal aortic aneurysm history #9 nicotine dependence #10 COPD history with home O2 use #11 Irregular lobular nodule in the right lower lobe, appears increased from previous measurements. Neoplasm is not excluded. Pulmonary following. Plan We will obtain an echocardiogram with Doppler study as well as a TSH level. Patient has also been educated regarding the importance of anticoagulation for stroke prevention, we will look into the patient's coverage for xarelto, consider the addition of Xarelto 15 mg daily along with the Plavix. Optimize rate control. Further recommendations to follow. DNP note has been reviewed, I agree with a documented findings and plan of care. Patient was seen and examined.
[2019-09-07] MEDS: CLOPIDOGREL 75 MG TAB PO SCH (10:43)
[2019-09-07] MEDS: METOPROLOL TARTRATE 50 MG TAB PO SCH ×2 (10:43→21:25)
[2019-09-07] MEDS: AZITHROMYCIN 500 MG TAB PO SCH (10:43)
[2019-09-07] MEDS: VERAPAMIL SR 180 MG TABLET.ER PO SCH (10:43)
[2019-09-07] MEDS ORDERED: RX INFO: IV CONTRAST WAS GIVEN 1 EACH MISC MISCELLANE PRN (10:49)
[2019-09-07 11:42] LABS: Glucose,Whole Blood 156 mg/dL (75-99)
--- NOTE | 2019-09-07 11:55 | P.CNPUL ---
History of Present Illness Consult date: 09/07/19 Reason for consult: dyspnea, cough, COPD, abnormal CXR/CT Chief complaint: Dyspnea, cough, acute COPD exacerbation, A. fib RVR History of present illness: This is 78-year-old white male patient of Dr. Hatch, with past medical history of advanced COPD on home oxygen, long history of smoking, patient had quit and recently restarted, currently smoking a pack a day, carries a 60 year history of smoking. 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 Bob, dyslipidem ia, hypertension, coronary artery disease with previous history of two-vessel bypass grafting [place] [address] Sorto. Patient follows with Dr. Shepherd in the pulmonary clinic, and his outpatient PFT showed FEV1 of 0.87 L or 26% of predicted, consistent with stage IV COPD, there was significant improvement in the FVC following administration of bronchodilators suggesting possibility of asthma component. Patient's maintenance breathing medications include Pulmicort, Perforomist, DuoNeb, theophylline, and a rescue inhaler. For the past week patient has been having increased difficulty breathing, cough or congestion, he had some subjective chills, but no fever. He was frequently using his nebulized treatments, he saw Dr. Hatch last week early in the week, and was given a steroid injection, in addition to antibiotics and steroid taper. Despite that his symptoms continue to worsen, he was 7 difficulty walking related to severe shortness of breath. Denied any chest pain. Denied any lower extremity swelling. In the emergency department on 09/06/2019 chest x-ray showed no acute pulmonary process but did show a nodular density in the right lower lobe which seems to have increased from 2015 and is now measuring 1.2 cm from previously 0.7 cm. EKG showed A. fib with RVR, with a rate of 125 BPM and incomplete left bundle branch block and ST-T wave abnormality in the anterolateral leads. Labs showed a white blood cell count of 12.4, hemoglobin of 16.0, sodium was 129, potassium is 4.8, chloride is 94, CO2 is 21, B1 is 23 and creatinine is 1.19. Troponins were positive at 0.052, 0.041, and 0.038, BNP was 6060. Patient was quite dyspneic, congested and wheezy, he was started on empiric antibiotics, IV steroids and breathing treatments, influenza screen was negative. He did require BiPAP support initially, he is currently on 2 L of oxygen with a pulse ox of 93%, his heart rate is better controlled on Cardizem drip, and he is on heparin drip for anticoagulation. Review of Systems All systems: negative Constitutional: Denies chills, Denies fever Eyes: denies blurred vision, denies pain Ears, nose, mouth and throat: Denies headache, Denies sore throat Cardiovascular: Reports shortness of breath, Denies chest pain Respiratory: Reports congestion, Reports cough with sputum, Reports dyspnea, Reports home oxygen, Reports respiratory infections, Reports wheezing, Denies cough Gastrointestinal: Denies abdominal pain, Denies diarrhea, Denies nausea, Denies vomiting Musculoskeletal: Denies myalgias Integumentary: Denies pruritus, Denies rash Neurological: Denies numbness, Denies weakness Psychiatric: Denies anxiety, Denies depression Endocrine: Denies fatigue, Denies weight change Past Medical History Past Medical History: Asthma, Coronary Artery Disease (CAD), COPD, Eye Disorder, Hyperlipidemia, Hypertension Additional Past Medical History / Comment(s): "spot on lung". BILAT CATARACTS History of Any Multi-Drug Resistant Organisms: None Reported Past Surgical History: Coronary Bypass/CABG, Hernia Repair, Tonsillectomy Additional Past Surgical History / Comment(s): surgery for "blockages in legs with one stent",rt cataract Past Anesthesia/Blood Transfusion Reactions: Postoperative Nausea & Vomiting (PONV) Past Psychological History: No Psychological Hx Reported Smoking Status: Current every day smoker Past Alcohol Use History: Daily Additional Past Alcohol Use History / Comment(s): Patient is a smoker greater than 1 pack per day since he was a teenager. He also drinks 4 beers per night. He was at home alone. He has home oxygen and nebulizer at home. Past Drug Use History: None Reported - Past Family History Brother(s) Family Medical History: Cancer Medications and Allergies Home Medications Medication Instructions Recorded Confirmed Type Simvastatin [Zocor] 20 mg PO HS 01/27/15 09/06/19 History Lisinopril 5 mg PO DAILY 09/19/16 09/06/19 History Clopidogrel Bisulfate [Plavix] 75 mg PO DAILY 09/06/19 09/06/19 History Formoterol Fumarate [Perforomist] 20 mcg INHALATION RT-BID 09/06/19 09/06/19 History Ipratropium-Albuterol Nebulize 3 ml INHALATION RT-Q4H 09/06/19 09/06/19 History [Duoneb 0.5 mg-3 mg/3 ml Soln] Levofloxacin 500 mg PO DAILY 09/06/19 09/06/19 History Metoprolol Tartrate [Lopressor] 50 mg PO BID 09/06/19 09/06/19 History Theophylline 24 Hour [Antoine-24] 400 mg PO HS 09/06/19 09/06/19 History predniSONE See Taper PO DAILY 09/06/19 09/06/19 History Allergies Allergy/AdvReac Type Severity Reaction Status Date / Time Penicillins Allergy Unknown Verified 09/06/19 18:48 Physical Exam Vitals: Vital Signs Temp Pulse Pulse Pulse Resp BP BP 09/07/19 08:53 84 09/07/19 08:46 92 09/07/19 08:45 92 09/07/19 08:36 84 09/07/19 08:00 98.3 F 60 86 20 111/76 09/07/19 05:17 96 09/07/19 05:06 92 09/07/19 04:00 98.1 F 86 22 150/84 09/07/19 01:08 100 09/07/19 00:51 100 09/07/19 00:00 97.5 F L 95 22 160/90 09/06/19 21:17 97.4 F L 87 20 140/85 09/06/19 21:06 80 20 128/89 09/06/19 20:19 89 20 131/81 09/06/19 19:27 144 H 22 124/89 09/06/19 18:26 134 H 23 135/102 09/06/19 18:00 134 H 23 135/102 09/06/19 17:30 124 H 24 09/06/19 17:23 22 09/06/19 17:20 117 H 24 117/84 09/06/19 17:00 117 H 24 117/84 09/06/19 16:57 112 H 29 H 09/06/19 16:46 98 32 H 09/06/19 16:30 123 H 22 09/06/19 16:00 122 H 23 95/68 09/06/19 15:56 24 09/06/19 15:31 09/06/19 15:20 97.6 F 78 18 94/69 Pulse Ox 09/07/19 08:53 09/07/19 08:46 09/07/19 08:45 09/07/19 08:36 09/07/19 08:00 93 L 09/07/19 05:17 09/07/19 05:06 09/07/19 04:00 96 09/07/19 01:08 09/07/19 00:51 09/07/19 00:00 95 09/06/19 21:17 95 09/06/19 21:06 96 09/06/19 20:19 98 09/06/19 19:27 96 09/06/19 18:26 98 09/06/19 18:00 98 09/06/19 17:30 100 09/06/19 17:23 09/06/19 17:20 99 09/06/19 17:00 99 09/06/19 16:57 09/06/19 16:46 09/06/19 16:30 99 09/06/19 16:00 09/06/19 15:56 09/06/19 15:31 95 09/06/19 15:20 95 Intake and Output 09/06/19 09/07/19 09/07/19 22:59 06:59 14:59 Intake Total 240 236 Output Total 225 Balance 15 236 Intake: Oral 240 236 Output: Urine 225 Other: Voiding Method Toilet Urinal # Voids 1 Weight 80.739 kg 80.8 kg GENERAL EXAM: Alert, very pleasant, 78-year-old white male, on 3 L of oxygen with a pulse ox of 93%, but short of breath with conversation, audibly conges vicente, comfortable in no apparent distress. HEAD: Normocephalic/atraumatic. EYES: Normal reaction of pupils, equal size. Conjunctiva pink, sclera white. NOSE: Clear with pink turbinates. THROAT: No erythema or exudates. NECK: No masses, no JVD, no thyroid enlargement, no adenopathy. CHEST: No chest wall deformity. Symmetrical expansion. LUNGS: Equal air entry with diffuse coarse rhonchi throughout the lung gregory and diffuse wheezes CVS: Irregular rate and rhythm, normal S1 and S2, no gallops, no murmurs, no rubs ABDOMEN: Soft, nontender. No hepatosplenomegaly, normal bowel sounds, no guardi ng or rigidity. EXTREMITIES: No clubbing, no edema, no cyanosis, 2+ pulses and upper and lower extremities. MUSCULOSKELETAL: Muscle strength and tone normal. SPINE: No scoliosis or deformity SKIN: No rashes CENTRAL NERVOUS SYSTEM: Alert and oriented -3. No focal deficits, tone is normal in all 4 extremities. PSYCHIATRIC: Alert and oriented -3. Appropriate affect. Intact judgment and insight. Results - Laboratory Findings CBC and BMP: 09/07/19 03:37 09/07/19 03:37 PT/INR, D-dimer PT 11.0 sec (9.0-12.0) 09/07/19 03:37 INR 1.0 (<1.2) 09/07/19 03:37 Abnormal lab findings: Abnormal Labs 09/06/19 09/06/19 09/06/19 15:49 15:49 15:49 WBC 12.4 H RBC MCV 102.3 H Neutrophils # 10.8 H Lymphocytes # 0.6 L Basophils # APTT Sodium 129 L Chloride 94 L Carbon Dioxide 21 L BUN 23 H Glucose 125 H Troponin I 0.052 H* 09/06/19 09/07/19 09/07/19 21:34 01:54 03:37 WBC RBC MCV Neutrophils # Lymphocytes # Basophils # APTT 54.2 H Sodium Chloride Carbon Dioxide BUN Glucose Troponin I 0.041 H* 0.038 H* 09/07/19 09/07/19 03:37 03:37 WBC RBC 4.05 L MCV 102.6 H Neutrophils # Lymphocytes # 0.3 L Basophils # 0.3 H APTT Sodium 129 L Chloride Carbon Dioxide BUN 25 H Glucose 199 H Troponin I - Diagnostic Findings Chest x-ray: report reviewed, image reviewed Additional studies: EKG reviewed Assessment and Plan Plan: Assessment: #1. Acute exacerbation of COPD complicated by purulent tracheobronchitis, chest x-ray showed no evidence of pneumonia #2. Right lower lobe nodule measuring 1.2 cm with increase in size from 2015 film from 0.7 cm, likely calcified. We will obtain CT chest with contrast to characterize #3. New onset A. fib with RVR #4. Elevated troponins, EKG did show significant ST and T-wave abnormality with depression and inversion involving the anterolateral leads #5. Acute exacerbation of chronic congestive heart failure, with unknown LV function #6. Peripheral arterial disease with history of prior percutaneous angioplasty of both SFA and iliac stenting #7. History of abdominal aortic aneurysm under surveillance #8. Chronic and ongoing nicotine dependence, patient carries a [id number] smoking history, did quit for a few months but recently restarted, and is smoking a pack a day #9. History of stage IV COPD, and outpatient PFT showed FEV1 of 0.87 L or 26% of predicted, with response to bronchodilators suggesting possibility of asthma component in addition to COPD. #10. Coronary artery disease status post 2 vessel coronary artery bypass grafting [place] [address] Sorto #11. Hypertension #12. Hyperlipidemia Plan: Continue IV steroids, nebulized bronchodilators, theophylline, and antibiotics. Chest x-ray has been reviewed with Dr. Singleton, and the nodular lesion in the right lower lobe appears to be calcified, we'll obtain CT chest with contrast to characterize lesion. Reviewing his previous CAT scan from 2014 there was a area of scarring in the right apex, and area of scarring in the right lower lobe although not mentioned by the radiologist. We may utilize BiPAP as needed, will follow with cardiology and await their further recommendations, echocardiogram is pending. Smoking cessation was advised. We will treat the patient's for acute COPD exacerbation. I performed a history & physical examination of the patient and discussed their management with my nurse practitioner, Char Orellana. I reviewed the nurse practitioner's note and agree with the documented findings and plan of care. Lung sounds are positive for diffuse wheezes and rhonchi throughout the lung gregory. The findings and the impression was discussed with the patient. I attest to the documentation by the nurse practitioner. Time with Patient: Greater than 30
--- NOTE | 2019-09-07 12:01 | ECHOF ---
Referral Reason:afib MEASUREMENTS -------- HEIGHT: 180.3 cm WEIGHT: 80.7 kg BP: IVSd: 1.6 cm (0.6 - 1.1) LVIDd: 4.7 cm (3.9 - 5.3) LVPWd: 1.4 cm (0.6 - 1.1) IVSs: 2.3 cm LVIDs: 3.7 cm LVPWs: 1.7 cm RVIDd: 2.5 cm (< 3.3) LAESV Index (A-L): 30.20 ml/m Ao Diam: 3.8 cm (2.0 - 3.7) LA Diam: 4.3 cm (2.7 - 3.8) AV Cusp: 2.1 cm (1.5 - 2.6) AR PHT: 330 ms RAP: 5.00 mmHg RVSP: 17.97 mmHg FINDINGS -------- Atrial fibrillation. This was a technically adequate study. The left ventricular size is normal. There is moderate concentric left ventricular hypertrophy. O verall left ventricular systolic function is low-normal with, an EF between 50 - 55 %. Left ventric ular fillimg pressure cannot be estimated due to Atrial fibrillation. The right ventricle is normal in size. LA is midly dilated 29-33ml/m2. The right atrial size is normal. Aortic valve is trileaflet and is mildly thickened. Trace amount of aortic regurgitation. The mitral valve is normal. The mitral valve leaflets are mildly thickened. Mild mitral regurgita tion is present. The tricuspid valve appears structurally normal. Mild tricuspid regurgitation present. Right vent ricular systolic pressure is normal at < 35 mmHg. There is no pulmonic regurgitation present. The aortic root size is normal. Normal inferior vena cava with normal inspiratory collapse consistent with estimated right atrial pre ssure of 5 mmHg. There is no pericardial effusion. CONCLUSIONS -------- 1. Atrial fibrillation. 2. This was a technically adequate study. 3. The left ventricular size is normal. 4. There is moderate concentric left ventricular hypertrophy. 5. Overall left ventricular systolic function is low-normal with, an EF between 50 - 55 %. 6. Left ventricular fillimg pressure cannot be estimated due to Atrial fibrillation. 7. The right ventricle is normal in size. 8. LA is midly dilated 29-33ml/m2. 9. The right atrial size is normal. 10. Aortic valve is trileaflet and is mildly thickened. 11. Trace amount of aortic regurgitation. 12. The mitral valve is normal. 13. The mitral valve leaflets are mildly thickened. 14. Mild mitral regurgitation is present. 15. The tricuspid valve appears structurally normal. 16. Mild tricuspid regurgitation present. 17. Right ventricular systolic pressure is normal at < 35 mmHg. 18. There is no pulmonic regurgitation present. 19. The aortic root size is normal. 20. Normal inferior vena cava with normal inspiratory collapse consistent with estimated right atrial pressure of 5 mmHg. 21. There is no pericardial effusion. [employer] ROOM ATTENDANT: Rowan Dhaliwal RDCS
[2019-09-07] MEDS: INSULIN ASPART (NovoLOG) 100 UNIT/ML VIAL SQ SCH ×3 (12:37→21:21)
--- NOTE | 2019-09-07 12:37 | P.HPIM ---
History of Present Illness H&P Date: 09/07/19 Chief Complaint: Shortness of breath, cough This is a 78-year-old male patient of Drs. Ravin Hatch, Joao and Nahomi Briggs with past medical history of COPD with chronic hypoxic respiratory failure on home O2 at 2 L, hypertension, hyperlipidemia, coronary artery disease status post 2 vessel CAB[place] [address] Sorto, infrarenal aortic aneurysm and lower extremity claudication of the care of Dr. Dr. Krueger, tobacco use and dependence. Patient states that he was having difficulty breathing with cough and was seen by his PCP Saturday of last week and placed on a steroid injection, oral steroid and Levaquin. He states that in the next day he was feeling better but it quickly came back and he had increasing shortness of breath and cough. He was using his home O2 at 2 L and tried to turn it up to 3 L but it did not work. He noticed that he had palpitations in his heart was racing and he could hardly get into the house to sit down. He complains of c ough with sputum production. Patient came into [facility] emergency center for evaluation. Pulse ox 98%, heart rate in the 80s up to 134, blood pressure 117/84. EKG was atrial fibrillation at rate of 125 and patient was started on Cardizem and heparin drips. WBC 12.4, hemoglobin 16.0. Sodium 129, potassium 4.8, chloride 94, CO2 21, BUN 23 creatinine 1.19, temperature 125. Magnesium 1.6 and was replaced, liver function test within normal limits, proBNP 6060, lactic acid 1.7 . Initial troponin 0.052. Influenza testing negative. Repeat EKG was atrial fibrillation with nonspecific T-wave abnormalities, heart rate 92. Chest x-ray shows no acute pulmonary process. There is nodular density in the right lower lobe which has increased from 2015 and possibly from May 2019. Neoplasm not excluded. Patient was admitted to the cardiac stepdown unit and consult requested with cardiology and pulmonary medicine. Repeat troponins are 0.041 and 0.038. Repeat sodium level this morning is 129. Review of Systems Constitutional: Reports fatigue, Denies anorexia, Denies chills, Denies fever, Denies poor appetite Eyes: denies blurred vision, denies pain Ears, nose, mouth and throat: Denies dental pain, Denies dysphagia, Denies headache, Denies nasal congestion, Denies nasal discharge, Denies sore throat, Denies vertigo Cardiovascular: Reports decreased exercise tolerance, Reports dyspnea on exertion, Reports palpitations, Reports rapid heart beat, Reports shortness of breath, Denies chest pain, Denies syncope Respiratory: Reports cough, Reports cough with sputum, Reports dyspnea, Reports home oxygen, Reports respiratory infections, Reports wheezing, Denies excessive sputum, Denies hemoptysis, Denies sleep apnea Gastrointestinal: Denies abdominal pain, Denies diarrhea, Denies nausea, Denies vomiting Genitourinary: Denies dysuria, Denies urinary frequency, Denies urinary retention Musculoskeletal: Reports muscle weakness, Denies frequent falls, Denies gait dysfunction, Denies myalgias Integumentary: Denies pruritus, Denies rash, Denies wounds Neurological: Denies change in mentation, Denies change in speech, Denies numbness, Denies seizures, Denies weakness Psychiatric: Denies anxiety, Denies depression Endocrine: Denies fatigue, Denies weight change Past Medical History Past Medical History: Asthma, Coronary Artery Disease (CAD), COPD, Eye Disorder, Hyperlipidemia, Hypertension Additional Past Medical History / Comment(s): "spot on lung", peripheral vascular disease. BILAT CATARACTS History of Any Multi-Drug Resistant Organisms: None Reported Past Surgical History: Coronary Bypass/CABG, Hernia Repair, Tonsillectomy Additional Past Surgical History / Comment(s): surgery for "blockages in legs with one stent",rt cataract Past Anesthesia/Blood Transfusion Reactions: Postoperative Nausea & Vomiting (PONV) Past Psychological History: No Psychological Hx Reported Smoking Status: Current every day smoker Past Alcohol Use History: Daily Additional Past Alcohol Use History / Comment(s): Patient is a smoker greater than 1 pack per day since he was a teenager. He also drinks 4 beers per night. He was at home alone. He has home oxygen and nebulizer at home. Past Drug Use History: None Reported - Past Family History Brother(s) Family Medical History: Cancer Additional Family Medical History / Comment(s): Patient has 4 brothers: 2 have from myocardial infarction and one has history of CABG, one brother from drowning. Father Additional Family Medical History / Comment(s): Father at age 57 from myocardial infarction. Mother Additional Family Medical History / Comment(s): Mother at age 75 from cancer, patient does not know type. Sister(s) Additional Family Medical History / Comment(s): Patient has one sister that is passed from emphysema. Patient has 2 sons with no major medical problems. Medications and Allergies Home Medications Medication Instructions Recorded Confirmed Type Simvastatin [Zocor] 20 mg PO HS 01/27/15 09/06/19 History Lisinopril 5 mg PO DAILY 09/19/16 09/06/19 History Clopidogrel Bisulfate [Plavix] 75 mg PO DAILY 09/06/19 09/06/19 History Formoterol Fumarate [Perforomist] 20 mcg INHALATION RT-BID 09/06/19 09/06/19 History Ipratropium-Albuterol Nebulize 3 ml INHALATION RT-Q4H 09/06/19 09/06/19 History [Duoneb 0.5 mg-3 mg/3 ml Soln] Levofloxacin 500 mg PO DAILY 09/06/19 09/06/19 History Metoprolol Tartrate [Lopressor] 50 mg PO BID 09/06/19 09/06/19 History Theophylline 24 Hour [Antoine-24] 400 mg PO HS 09/06/19 09/06/19 History predniSONE See Taper PO DAILY 09/06/19 09/06/19 History Allergies Allergy/AdvReac Type Severity Reaction Status Date / Time Penicillins Allergy Unknown Verified 09/06/19 18:48 Physical Exam Vitals: Vital Signs Temp Pulse Pulse Pulse Resp BP BP 09/07/19 08:36 84 09/07/19 08:00 98.3 F 60 20 111/76 09/07/19 05:17 96 09/07/19 05:06 92 09/07/19 04:00 98.1 F 86 22 150/84 09/07/19 01:08 100 09/07/19 00:51 100 09/07/19 00:00 97.5 F L 95 22 160/90 09/06/19 21:17 97.4 F L 87 20 140/85 09/06/19 21:06 80 20 128/89 09/06/19 20:19 89 20 131/81 09/06/19 19:27 144 H 22 124/89 09/06/19 18:26 134 H 23 135/102 09/06/19 18:00 134 H 23 135/102 09/06/19 17:30 124 H 24 09/06/19 17:23 22 09/06/19 17:20 117 H 24 117/84 09/06/19 17:00 117 H 24 117/84 09/06/19 16:57 112 H 29 H 09/06/19 16:46 98 32 H 09/06/19 16:30 123 H 22 09/06/19 16:00 122 H 23 95/68 09/06/19 15:56 24 09/06/19 15:31 09/06/19 15:20 97.6 F 78 18 94/69 Pulse Ox 09/07/19 08:36 09/07/19 08:00 93 L 09/07/19 05:17 09/07/19 05:06 09/07/19 04:00 96 09/07/19 01:08 09/07/19 00:51 09/07/19 00:00 95 09/06/19 21:17 95 09/06/19 21:06 96 09/06/19 20:19 98 09/06/19 19:27 96 09/06/19 18:26 98 09/06/19 18:00 98 09/06/19 17:30 100 09/06/19 17:23 09/06/19 17:20 99 09/06/19 17:00 99 09/06/19 16:57 09/06/19 16:46 09/06/19 16:30 99 09/06/19 16:00 09/06/19 15:56 09/06/19 15:31 95 09/06/19 15:20 95 Intake and Output 09/06/19 09/07/19 09/07/19 22:59 06:59 14:59 Intake Total 240 236 Output Total 225 Balance 15 236 Intake: Oral 240 236 Output: Urine 225 Other: Voiding Method Toilet Urinal # Voids 1 Weight 80.739 kg 80.8 kg Gen: This is a 78-year-old male. HEENT: Head is atraumatic, normocephalic. Pupils equal, round. Sclerae is anicteric. NECK: Supple. No JVD. No lymphadenopathy. No thyromegaly. LUNGS: Bilateral wheezing and rhonchi. No intercostal retractions. HEART: Irregular rate and rhythm. Systolic ejection murmur. ABDOMEN: Soft. Bowel sounds are present. No masses. No tenderness. EXTREMITIES: No pedal edema. No calf tenderness. NEUROLOGICAL: Patient is awake, alert and oriented x3. Cranial nerves 2 through 12 are grossly intact. Results CBC & Chem 7: 09/08/19 05:53 09/07/19 03:37 Labs: Abnormal Lab Results - Last 24 Hours (Table) 09/06/19 09/06/19 09/06/19 Range/Units 15:49 15:49 15:49 WBC 12.4 H (3.8-10.6) k/uL RBC (4.30-5.90) m/uL MCV 102.3 H (80.0-100.0) fL Neutrophils # 10.8 H (1.3-7.7) k/uL Lymphocytes # 0.6 L (1.0-4.8) k/uL Basophils # (0-0.2) k/uL APTT (22.0-30.0) sec Sodium 129 L (137-145) mmol/L Chloride 94 L (98-107) mmol/L Carbon Dioxide 21 L (22-30) mmol/L BUN 23 H (9-20) mg/dL Glucose 125 H (74-99) mg/dL Troponin I 0.052 H* (0.000-0.034) ng/mL 09/06/19 09/07/19 09/07/19 Range/Units 21:34 01:54 03:37 WBC (3.8-10.6) k/uL RBC (4.30-5.90) m/uL MCV (80.0-100.0) fL Neutrophils # (1.3-7.7) k/uL Lymphocytes # (1.0-4.8) k/uL Basophils # (0-0.2) k/uL APTT 54.2 H (22.0-30.0) sec Sodium (137-145) mmol/L Chloride (98-107) mmol/L Carbon Dioxide (22-30) mmol/L BUN (9-20) mg/dL Glucose (74-99) mg/dL Troponin I 0.041 H* 0.038 H* (0.000-0.034) ng/mL 09/07/19 09/07/19 Range/Units 03:37 03:37 WBC (3.8-10.6) k/uL RBC 4.05 L (4.30-5.90) m/uL MCV 102.6 H (80.0-100.0) fL Neutrophils # (1.3-7.7) k/uL Lymphocytes # 0.3 L (1.0-4.8) k/uL Basophils # 0.3 H (0-0.2) k/uL APTT (22.0-30.0) sec Sodium 129 L (137-145) mmol/L Chloride (98-107) mmol/L Carbon Dioxide (22-30) mmol/L BUN 25 H (9-20) mg/dL Glucose 199 H (74-99) mg/dL Troponin I (0.000-0.034) ng/mL Thrombosis Risk Factor Assmnt - DVT/VTE Prophylaxis DVT/VTE Prophylaxis: Pharmacologic Prophylaxis ordered - Choose All That Apply Each Factor Represents 1 point: Abnormal pulmonary function (COPD) Each Risk Factor Represents 3 Points: Age 75 years or older Thrombosis Risk Factor Assessment Total Risk Factor Score: 4 Thrombosis Risk Factor Assessment Level: Moderate Risk Assessment and Plan Plan: 1. New onset atrial fibrillation, probable paroxysmal atrial fibrillation. Patient has been started on Cardizem and heparin drips. Cardiology consult. Resume Lopressor 50 mg twice daily. Echocardiogram ordered. Xarelto coverage to be checked. 2. Hyponatremia. Patient has been on IV fluids. Recheck sodium tomorrow 3. Elevated troponins most likely secondary to A. fib with RVR. Cardiology consult appreciated. 4. COPD, acute exacerbation. Continue Solu-Medrol 60 mg IV every 6 hours, DuoNeb treatments every 4 hours, ceftriaxone, azithromycin, Perforomist 20 g twice daily, Pulmicort 1 mg twice daily, theophylline 400 mg at bedtime. Consult with pulmonary medicine 5. Chronic hypoxic respiratory failure on home O2 at 2 L nasal cannula. 6. Coronary artery disease status post CABG. continue Lasix, atorvastatin. 7. Hypertension. Continue lisinopril 5 mg daily and Lopressor 50 mg twice daily. 8. Hyperlipidemia. Continue atorvastatin. 9. Peripheral vascular disease: Infrarenal abdominal aortic aneurysm, right external iliac stenosis, chronic total occlusion of the right superficial femoral artery, status post balloon angioplasty of the external iliac artery and percutaneous stent placement February 2019. Continue Plavix 75 mg daily 10. Tobacco use and dependence. Nicotine patch. 11. Alcohol abuse. 12. Right lower lobe nodule. Pulmonary medicine on consult. 13. DVT prophylaxis. Heparin drip to be transitioned to Xarelto. 14. GI prophylaxis. Protonix. Patient will be admitted to the hospital for a minimum of 2 night stay. Discharge plan: To be determined Impression and plan of care have been directed as dictated by the signing physician. Lila Nur nurse practitioner acting as scribe for signing physician.
[2019-09-07 16:50] LABS: Glucose,Whole Blood 175 mg/dL (75-99)
[2019-09-07] MEDS: RIVAROXABAN 15 MG TAB PO SCH (18:06)
[2019-09-07] MEDS: BUDESONIDE 1 MG/2 ML NEBU INHALATION SCH (18:51)
[2019-09-07] MEDS ORDERED: FUROSEMIDE 10 MG/ML 2 ML VIAL IV ONE (18:53)
[2019-09-07] MEDS ORDERED: ALPRAZolam 0.25 MG TAB PO STA (18:54)
[2019-09-07 20:28] LABS: Glucose,Whole Blood 123 mg/dL (75-99)
[2019-09-07] MEDS: THEOPHYLLINE 24 HOUR 400 MG CAP.ER.24H PO SCH (21:25)
[2019-09-07] MEDS: ATORVASTATIN 10 MG TAB PO SCH (21:25)
[2019-09-08] MEDS: IPRATROPIUM-ALBUTEROL 3 ML NEB INHALATION SCH ×7 (04:19→23:01)
[2019-09-08 06:06] LABS: Glucose,Whole Blood 171 mg/dL (75-99)
[2019-09-08] MEDS: PANTOPRAZOLE 40 MG TABLET PO SCH (06:17)
[2019-09-08] MEDS: methylPREDNISolone SOD SUCCI 125 MG/2 ML VIAL IV SCH ×4 (06:17→23:11)
[2019-09-08 06:20] LABS: Basophils # (A) 0.3 k/uL (0-0.2); Basophils % (A) 2 %; Eosinophils % (A) 0 %; HCT 39.7 % (39.0-53.0); HGB 13.4 gm/dL (13.0-17.5); Lymphocytes # (A) 0.4 k/uL (1.0-4.8); Lymphocytes % (A) 3 %; MCH 34.8 pg (25.0-35.0); MCHC 33.8 g/dL (31.0-37.0); MCV 102.7 fL (80.0-100.0); Macrocytosis Slight; Mean Platelet Volume 6.3; Monocytes # (A) 0.7 k/uL (0-1.0); Monocytes % (A) 5 %; Neutrophils # (A) 11.8 k/uL (1.3-7.7); Neutrophils % (A) 88 %; Platelet Count 212 k/uL (150-450); RBC 3.86 m/uL (4.30-5.90); RDW 13.3 % (11.5-15.5); WBC 13.3 k/uL (3.8-10.6)
[2019-09-08 06:28] LABS: INR 1.3 (<1.2); Prothrombin Time 13.1 sec (9.0-12.0)
[2019-09-08] MEDS: INSULIN ASPART (NovoLOG) 100 UNIT/ML VIAL SQ SCH ×4 (06:40→20:29)
[2019-09-08] MEDS: BUDESONIDE 1 MG/2 ML NEBU INHALATION SCH ×2 (08:12→18:36)
[2019-09-08] MEDS: FORMOTEROL FUMARATE 20 MCG/2 ML NEBU INHALATION SCH ×2 (08:12→18:36)
--- NOTE | 2019-09-08 08:54 | P.PN ---
Subjective Progress Note Date: 09/08/19 Principal diagnosis: Paroxysmal atrial fibrillation This is a pleasant 78-year-old gentleman with history of COPD who was admitted to the hospital with atrial fibrillation with RVR as well as COPD exacerbation On follow-up with him today, is feeling overall better intermittent shortness of breath. No chest pain or chest discomfort. He continues to be in atrial fibrillation was controlled heart rate. We started the patient yesterday on oral anticoagulation he is tolerating it. The echo showed normal LV function. Objective - Vital Signs Vital signs: Vital Signs Temp 97.8 F 09/08/19 03:26 Pulse 84 09/08/19 08:36 Resp 22 09/08/19 03:26 BP 143/88 09/08/19 03:26 Pulse Ox 92 L 09/08/19 03:26 Intake & Output 09/07/19 09/08/19 09/08/19 18:59 06:59 18:59 Intake Total 472 240 Output Total 250 225 Balance 222 15 Weight 82.8 kg Intake: Oral 472 240 Output: Urine 250 225 Other: Voiding Method Toilet Urinal # Voids 300 - Constitutional General appearance: Present: no acute distress - Respiratory Respiratory: bilateral: diminished - Cardiovascular Rhythm: regular Heart sounds: normal: S1 (Is), S2 - Labs CBC & Chem 7: 09/08/19 05:53 09/07/19 03:37 Labs: Abnormal Lab Results - Last 24 Hours (Table) 09/07/19 09/07/19 09/07/19 Range/Units 03:37 11:41 16:48 WBC (3.8-10.6) k/uL RBC (4.30-5.90) m/uL MCV (80.0-100.0) fL Neutrophils # (1.3-7.7) k/uL Lymphocytes # (1.0-4.8) k/uL Basophils # (0-0.2) k/uL PT (9.0-12.0) sec INR (<1.2) POC Glucose (mg/dL) 156 H 175 H (75-99) mg/dL TSH 0.351 L (0.465-4.680) mIU/L 09/07/19 09/08/19 09/08/19 Range/Units 20:26 05:53 05:53 WBC 13.3 H (3.8-10.6) k/uL RBC 3.86 L (4.30-5.90) m/uL MCV 102.7 H (80.0-100.0) fL Neutrophils # 11.8 H (1.3-7.7) k/uL Lymphocytes # 0.4 L (1.0-4.8) k/uL Basophils # 0.3 H (0-0.2) k/uL PT 13.1 H (9.0-12.0) sec INR 1.3 H (<1.2) POC Glucose (mg/dL) 123 H (75-99) mg/dL TSH (0.465-4.680) mIU/L 09/08/19 Range/Units 06:05 WBC (3.8-10.6) k/uL RBC (4.30-5.90) m/uL MCV (80.0-100.0) fL Neutrophils # (1.3-7.7) k/uL Lymphocytes # (1.0-4.8) k/uL Basophils # (0-0.2) k/uL PT (9.0-12.0) sec INR (<1.2) POC Glucose (mg/dL) 171 H (75-99) mg/dL TSH (0.465-4.680) mIU/L Microbiology - Last 24 Hours (Table) 09/06/19 16:44 Blood Culture - Preliminary Blood No Growth after 24 hours Assessment and Plan Assessment: Assessment #1 COPD exacerbation #2 atrial fibrillation was controlled heart rate #3 probably paroxysmal atrial fibrillation Plan #1 continue the current medical regimen #2 the echo showed normal LV function #3 if he continues to be in atrial fibrillation now with consider EMEKA cardioversion down the line in 4 weeks
[2019-09-08] MEDS: AZITHROMYCIN 500 MG TAB PO SCH (09:01)
[2019-09-08] MEDS: CLOPIDOGREL 75 MG TAB PO SCH (09:01)
[2019-09-08] MEDS: LISINOPRIL 10 MG TAB PO SCH (09:01)
[2019-09-08] MEDS: VERAPAMIL SR 180 MG TABLET.ER PO SCH (09:01)
[2019-09-08] MEDS: METOPROLOL TARTRATE 50 MG TAB PO SCH ×2 (09:02→20:16)
[2019-09-08 11:50] LABS: Glucose,Whole Blood 176 mg/dL (75-99)
--- NOTE | 2019-09-08 13:37 | P.PN ---
Subjective Progress Note Date: 09/08/19 This is a 78-year-old male patient of Joao Delacruz and Nahomi Briggs with past medical history of COPD with chronic hypoxic respiratory failure on home O2 at 2 L, hypertension, hyperlipidemia, coronary artery disease status post 2 vessel CAB[place] [address] Sorto, infrarenal aortic aneurysm and lower extremity claudication of the care of Dr. Dr. Krueger, tobacco use and dependence. Patient states that he was having difficulty breathing with cough and was seen by his PCP Saturday of last week and placed on a steroid injection, oral steroid and Levaquin. He states that in the next day he was feeling better but it quickly came back and he had increasing shortness of breath and cough. He was using his home O2 at 2 L and tried to turn it up to 3 L but it did not work. He noticed that he had palpitations in his heart was racing and he could hardly get into the house to sit down. He complains of cough with sputum production. Patient came into [facility] emergency center for evaluation. Pulse ox 98%, heart rate in the 80s up to 134, blood pressure 117/84. EKG was atrial fibrillation at rate of 125 and patient was started on Cardizem and heparin drips. WBC 12.4, hemoglobin 16.0. Sodium 129, potassium 4.8, chloride 94, CO2 21, BUN 23 creatinine 1.19, temperature 125. Magnesium 1.6 and was replaced, liver function test within normal limits, proBNP 6060, lactic acid 1.7. Initial troponin 0.052. Influenza testing negative. Repeat EKG was atr ial fibrillation with nonspecific T-wave abnormalities, heart rate 92. Chest x- ray shows no acute pulmonary process. There is nodular density in the right lower lobe which has increased from 2015 and possibly from May 2019. Neoplasm not excluded. Patient was admitted to the cardiac stepdown unit and consult requested with cardiology and pulmonary medicine. Repeat troponins are 0.041 and 0.038. Repeat sodium level this morning is 129. 09/08: Patient's shortness of breath is somewhat improved today. He continues to have cough with sputum production. He is on Solu-Medrol at 60 mg every 6 hours which will be continued. He denies having any dizziness or lightheadedness. He states he slept well last night. He did try BiPAP but was unable to tolerate. He remains in atrial fibrillation with controlled rate. He has been started on Xarelto. Echocardiogram reveals EF 50-55%, moderate concentric left hypertrophy, trace aortic regurgitation, mild mitral regurgitation, mild tricuspid regurgitation. Cardiology May consider EMEKA and cardioversion in 4 weeks. Pulmonary has ordered CAT scan of the chest. Review of Systems Constitutional: Reports fatigue, Denies anorexia, Denies chills, Denies fever, Denies poor appetite Eyes: denies blurred vision, denies pain Ears, nose, mouth and throat: Denies dental pain, Denies dysphagia, Denies headache, Denies nasal congestion, Denies nasal discharge, Denies sore throat, Denies vertigo Cardiovascular: Reports decreased exercise tolerance, Reports dyspnea on exertion, Reports palpitations, Reports rapid heart beat, Reports shortness of breath, Denies chest pain, Denies syncope Respiratory: Reports cough, Reports cough with sputum, Reports dyspnea, Reports home oxygen, Reports respiratory infections, Reports wheezing, Denies excessive sputum, Denies hemoptysis, Denies sleep apnea Gastrointestinal: Denies abdominal pain, Denies diarrhea, Denies nausea, Denies vomiting Genitourinary: Denies dysuria, Denies urinary frequency, Denies urinary retention Musculoskeletal: Reports muscle weakness, Denies frequent falls, Denies gait dysfunction, Denies myalgias Integumentary: Denies pruritus, Denies rash, Denies wounds Neurological: Denies change in mentation, Denies change in speech, Denies numbness, Denies seizures, Denies weakness Psychiatric: Denies anxiety, Denies depression Endocrine: Denies fatigue, Objective - Vital Signs Vital signs: Vital Signs Temp 97.3 F L 09/08/19 08:50 Pulse 89 09/08/19 08:50 Resp 20 09/08/19 08:50 BP 131/67 09/08/19 08:50 Pulse Ox 92 L 09/08/19 08:50 Intake & Output 09/07/19 09/08/19 09/08/19 18:59 06:59 18:59 Intake Total 472 240 Output Total 250 225 Balance 222 15 Weight 82.8 kg Intake: Oral 472 240 Output: Urine 250 225 Other: Voiding Method Toilet Urinal # Voids 300 - Exam Gen: This is a 78-year-old male. Area and he is resting in bed and appears to be comfortable but having mild shortness of breath with conversation. HEENT: Head is atraumatic, normocephalic. Pupils equal, round. Sclerae is anicteric. NECK: Supple. No JVD. No lymphadenopathy. No thyromegaly. LUNGS: Bilateral wheezing and rhonchi. No intercostal retractions. HEART: Irregular rate and rhythm. Systolic ejection murmur. ABDOMEN: Soft. Bowel sounds are present. No masses. No tenderness. EXTREMITIES: No pedal edema. No calf tenderness. NEUROLOGICAL: Patient is awake, alert and oriented x3. Cranial nerves 2 through 12 are grossly intact. - Labs CBC & Chem 7: 09/08/19 05:53 09/07/19 03:37 Labs: Abnormal Lab Results - Last 24 Hours (Table) 09/07/19 09/07/19 09/07/19 Range/Units 03:37 11:41 16:48 WBC (3.8-10.6) k/uL RBC (4.30-5.90) m/uL MCV (80.0-100.0) fL Neutrophils # (1.3-7.7) k/uL Lymphocytes # (1.0-4.8) k/uL Basophils # (0-0.2) k/uL PT (9.0-12.0) sec INR (<1.2) POC Glucose (mg/dL) 156 H 175 H (75-99) mg/dL TSH 0.351 L (0.465-4.680) mIU/L 09/07/19 09/08/19 09/08/19 Range/Units 20:26 05:53 05:53 WBC 13.3 H (3.8-10.6) k/uL RBC 3.86 L (4.30-5.90) m/uL MCV 102.7 H (80.0-100.0) fL Neutrophils # 11.8 H (1.3-7.7) k/uL Lymphocytes # 0.4 L (1.0-4.8) k/uL Basophils # 0.3 H (0-0.2) k/uL PT 13.1 H (9.0-12.0) sec INR 1.3 H (<1.2) POC Glucose (mg/dL) 123 H (75-99) mg/dL TSH (0.465-4.680) mIU/L 09/08/19 Range/Units 06:05 WBC (3.8-10.6) k/uL RBC (4.30-5.90) m/uL MCV (80.0-100.0) fL Neutrophils # (1.3-7.7) k/uL Lymphocytes # (1.0-4.8) k/uL Basophils # (0-0.2) k/uL PT (9.0-12.0) sec INR (<1.2) POC Glucose (mg/dL) 171 H (75-99) mg/dL TSH (0.465-4.680) mIU/L Microbiology - Last 24 Hours (Table) 09/06/19 16:44 Blood Culture - Preliminary Blood No Growth after 24 hours Assessment and Plan Plan: 1. New onset atrial fibrillation, probable paroxysmal atrial fibrillation. Cardiology consult. Continue Lopressor 50 mg twice daily, Xarelto 50 mg daily, verapamil 180 mg day. Echocardiogram as above. 2. Hyponatremia. Patient has been on IV fluids. Recheck sodium tomorrow 3. Elevated troponins most likely secondary to A. fib with RVR. Cardiology consult appreciated. 4. COPD, acute exacerbation. Continue Solu-Medrol 60 mg IV every 6 hours, DuoNeb treatments every 4 hours, ceftriaxone, azithromycin, Perforomist 20 g twice daily, Pulmicort 1 mg twice daily, theophylline 400 mg at bedtime. Consult with pulmonary medicine appreciated. Computed tomography scan of the chest. 5. Chronic hypoxic respiratory failure on home O2 at 2 L nasal cannula. 6. Coronary artery disease status post CABG. continue Lasix, atorvastatin. 7. Hypertension. Continue lisinopril 5 mg daily and Lopressor 50 mg twice daily. 8. Hyperlipidemia. Continue atorvastatin. 9. Peripheral vascular disease: Infrarenal abdominal aortic aneurysm, right external iliac stenosis, chronic total occlusion of the right superficial femoral artery, status post balloon angioplasty of the external iliac artery and percutaneous stent placement February 2019. Continue Plavix 75 mg daily 10. Tobacco use and dependence. Nicotine patch. 11. Alcohol abuse. 12. Right lower lobe nodule. Pulmonary medicine on consult. Computed tomography scan of the chest 13. DVT prophylaxis. Xarelto. 14. GI prophylaxis. Protonix. Discharge plan: Home Impression and plan of care have been directed as dictated by the signing physic ian. Lila Nur nurse practitioner acting as scribe for signing physician.
--- NOTE | 2019-09-08 13:41 | P.PN ---
Subjective Progress Note Date: 09/08/19 Principal diagnosis: Dyspnea cough, acute COPD exacerbation A. fib RVR This is 78-year-old white male patient of Dr. Hatch, with past medical history of advanced COPD on home oxygen, long history of smoking, patient had quit and recently restarted, currently smoking a pack a day, carries a 60 year history of smoking. Other medical history includes peripheral vascular disease status post [employer] of both SFA angioplasty and stenting of the external iliac artery, abdominal aortic aneurysm under surveillance by Dr. Bob, dyslipidemia, hypertension, coronary artery disease with previous history of two-vessel bypass grafting in [address] Sorto. Patient follows with Dr. Shepherd in the pulmonary clinic, and his outpatient PFT showed FEV1 of 0.87 L or 26% of predicted, consistent with stage IV COPD, there was significant improvement in the FVC following administration of bronchodilators suggesting possibility of asthma component. Patient's maintenance breathing medications include Pulmicort, Perforomist, DuoNeb, theophylline, and a rescue inhaler. For the past week patient has been having increased difficulty breathing, cough or congestion, he had some subjective chills, but no fever. He was frequently using his nebulized treatments, he saw Dr. Hatch last week early in the week, and was given a steroid injection, in addition to antibiotics and steroid taper. Despite that his symptoms continue to worsen, he was 7 difficulty walking related to severe shortness of breath. Denied any chest pain. Denied any lower extremity swelling. In the emergency department on 09/06/2019 chest x-ray showed no acute pulmonary process but did show a nodular density in the right lower lobe which seems to have increased from 2015 and is now measuring 1.2 cm from previously 0.7 cm. EKG showed A. fib with RVR, with a rate of 125 BPM and incomplete left bundle branch block and ST-T wave abnormality in the anterolateral leads. Labs showed a white blood cell count of 12.4, hemoglobin of 16.0, sodium was 129, potassium is 4.8, chloride is 94, CO2 is 21, B1 is 23 and creatinine is 1.19. Troponins were positive at 0.052, 0.041, and 0.038, BNP was 6060. Patient was quite dyspneic, congested and wheezy, he was started on empiric antibiotics, IV steroids and breathing treatments, influenza screen was negative. He did require BiPAP support initially, he is currently on 2 L of oxygen with a pulse ox of 93%, his heart rate is better controlled on Cardizem drip, and he is on heparin drip for anticoagulation. On 09/08/2017 patient seen in follow-up on selective care unit, still dyspneic, and bronchospastic, but less congested on today's exam, he is starting to bring up large amounts of thick yellow sputum, no fever or chills, remains in A. fib with a controlled rate with a rate of 92 BPM, no complaints of chest pain, he was started on oral anticoagulation in the form of Xarelto and IV Cardizem was transitioned to oral Isoptin. Remains on IV steroids, nebulized bronchodilators, and empiric antibiotics, sounds slightly improved on today's exam. Yesterday we ordered BiPAP support on as-needed basis however patient was unable to tolerate it for longer than half an hour. Maintenance supplement oxygen at 3 L, and his pulse ox is 93%, no fever or chills. Objective - Vital Signs Vital signs: Vital Signs Temp 97 F L 09/08/19 12:18 Pulse 91 09/08/19 12:18 Resp 20 09/08/19 12:18 BP 149/80 09/08/19 12:18 Pulse Ox 93 L 09/08/19 12:18 Intake & Output 09/07/19 09/08/19 09/08/19 18:59 06:59 18:59 Intake Total 472 240 50 Output Total 250 225 Balance 222 15 50 Weight 82.8 kg Intake: Intake, IV Titration 50 Amount cefTRIAXone 1 gm In 50 Sodium Chloride 0.9% 50 ml @ 100 mls/hr IVPB Q24HR [facility] Rx#:[id number] Oral 472 240 Output: Urine 250 225 Other: Voiding Method Toilet Urinal # Voids 300 # Bowel Movements 0 - Exam GENERAL EXAM: Alert, pleasant, 78-year-old white male, on 3 L of oxygen with pulse ox of 93%, comfortable in no apparent distress. HEAD: Normocephalic/atraumatic. EYES: Normal reaction of pupils, equal size. Conjunctiva pink, sclera white. NOSE: Clear with pink turbinates. THROAT: No erythema or exudates. NECK: No masses, no JVD, no thyroid enlargement, no adenopathy. CHEST: No chest wall deformity. Symmetrical expansion. LUNGS: Equal air entry with diffuse wheezes and a few scattered rhonchi CVS: Irregular rate and rhythm, normal S1 and S2, no gallops, no murmurs, no rubs ABDOMEN: Soft, nontender. No hepatosplenomegaly, normal bowel sounds, no guarding or rigidity. EXTREMITIES: No clubbing, no edema, no cyanosis, 2+ pulses and upper and lower extremities. MUSCULOSKELETAL: Muscle strength and tone normal. SPINE: No scoliosis or deformity SKIN: No rashes CENTRAL NERVOUS SYSTEM: Alert and oriented -3. No focal deficits, tone is normal in all 4 extremities. PSYCHIATRIC: Alert and oriented -3. Appropriate affect. Intact judgment and insight. - Labs CBC & Chem 7: 09/08/19 05:53 09/07/19 03:37 Labs: Abnormal Lab Results - Last 24 Hours (Table) 09/07/19 09/07/19 09/08/19 Range/Units 16:48 20:26 05:53 WBC 13.3 H (3.8-10.6) k/uL RBC 3.86 L (4.30-5.90) m/uL MCV 102.7 H (80.0-100.0) fL Neutrophils # 11.8 H (1.3-7.7) k/uL Lymphocytes # 0.4 L (1.0-4.8) k/uL Basophils # 0.3 H (0-0.2) k/uL PT (9.0-12.0) sec INR (<1.2) POC Glucose (mg/dL) 175 H 123 H (75-99) mg/dL 09/08/19 09/08/19 09/08/19 Range/Units 05:53 06:05 11:49 WBC (3.8-10.6) k/uL RBC (4.30-5.90) m/uL MCV (80.0-100.0) fL Neutrophils # (1.3-7.7) k/uL Lymphocytes # (1.0-4.8) k/uL Basophils # (0-0.2) k/uL PT 13.1 H (9.0-12.0) sec INR 1.3 H (<1.2) POC Glucose (mg/dL) 171 H 176 H (75-99) mg/dL Microbiology - Last 24 Hours (Table) 09/06/19 16:44 Blood Culture - Preliminary Blood No Growth after 24 hours Assessment and Plan Plan: Assessment: #1. Acute exacerbation of COPD complicated by purulent tracheobronchitis, chest x-ray showed no evidence of pneumonia #2. Right lower lobe nodule measuring 1.2 cm with increase in size from 2015 film from 0.7 cm, likely calcified. We will obtain CT chest with contrast to characterize #3. New onset A. fib with RVR #4. Elevated troponins, EKG did show significant ST and T-wave abnormality with depression and inversion involving the anterolateral leads #5. Acute exacerbation of chronic congestive heart failure, with unknown LV function #6. Peripheral arterial disease with history of prior percutaneous angioplasty of both SFA and iliac stenting #7. History of abdominal aortic aneurysm under surveillance #8. Chronic and ongoing nicotine dependence, patient carries a [id number] smoking history, did quit for a few months but recently restarted, and is smok ing a pack a day #9. History of stage IV COPD, and outpatient PFT showed FEV1 of 0.87 L or 26% of predicted, with response to bronchodilators suggesting possibility of asthma component in addition to COPD. #10. Coronary artery disease status post 2 vessel coronary artery bypass grafting [place] [address] Sorto #11. Hypertension #12. Hyperlipidemia Plan: Continue current medical treatment, continue steroids, empiric antibiotics, send a sputum for culture, patient sounds slightly improved on today's exam, but still very dyspneic and bronchospastic, slightly less congested. He is clearing phlegm, no fever or chills, his heart rate is better controlled. I performed a history & physical examination of the patient and discussed their management with my nurse practitioner, Char Orellana. I reviewed the nurse practitioner's note and agree with the documented findings and plan of care. Lung sounds are positive for diffuse wheezes and rhonchi throughout the lung gregory. The findings and the impression was discussed with the patient. I attest to the documentation by the nurse practitioner. Time with Patient: Less than 30
[2019-09-08 16:59] LABS: Glucose,Whole Blood 265 mg/dL (75-99)
[2019-09-08] MEDS: RIVAROXABAN 15 MG TAB PO SCH (17:12)
[2019-09-08] MEDS: NICOTINE 21MG/24HR PATCH TRANSDERM SCH (18:23)
[2019-09-08] MEDS: ATORVASTATIN 10 MG TAB PO SCH (20:16)
[2019-09-08] MEDS: THEOPHYLLINE 24 HOUR 400 MG CAP.ER.24H PO SCH (20:16)
[2019-09-08 20:29] LABS: Glucose,Whole Blood 99 mg/dL (75-99)
[2019-09-08] MEDS ORDERED: ALPRAZolam 0.25 MG TAB PO STA (23:22)
[2019-09-09] MEDS: IPRATROPIUM-ALBUTEROL 3 ML NEB INHALATION SCH ×6 (03:32→23:23)
[2019-09-09 06:17] LABS: Glucose,Whole Blood 141 mg/dL (75-99)
[2019-09-09] MEDS: methylPREDNISolone SOD SUCCI 125 MG/2 ML VIAL IV SCH ×4 (06:22→22:15)
[2019-09-09] MEDS: PANTOPRAZOLE 40 MG TABLET PO SCH (06:22)
[2019-09-09] MEDS: INSULIN ASPART (NovoLOG) 100 UNIT/ML VIAL SQ SCH ×4 (06:23→22:15)
[2019-09-09 06:33] LABS: Calcium 8.9 mg/dL (8.4-10.2); Potassium 4.3 mmol/L (3.5-5.1)
[2019-09-09] MEDS: BUDESONIDE 1 MG/2 ML NEBU INHALATION SCH ×2 (08:40→20:15)
[2019-09-09] MEDS: FORMOTEROL FUMARATE 20 MCG/2 ML NEBU INHALATION SCH ×2 (08:40→20:15)
[2019-09-09] MEDS: CLOPIDOGREL 75 MG TAB PO SCH (08:41)
[2019-09-09] MEDS: LISINOPRIL 10 MG TAB PO SCH (08:41)
[2019-09-09] MEDS: VERAPAMIL SR 180 MG TABLET.ER PO SCH (08:41)
[2019-09-09] MEDS: NICOTINE 21MG/24HR PATCH TRANSDERM SCH (08:42)
[2019-09-09] MEDS: AZITHROMYCIN 500 MG TAB PO SCH (08:42)
[2019-09-09] MEDS: METOPROLOL TARTRATE 50 MG TAB PO SCH ×2 (08:42→21:01)
--- NOTE | 2019-09-09 10:31 | P.PN ---
Subjective Progress Note Date: 09/09/19 Principal diagnosis: Paroxysmal atrial fibrillation This is a pleasant 78-year-old gentleman with history of COPD who was admitted to the hospital with atrial fibrillation with RVR as well as COPD exacerbation On follow-up with the patient today, 09/09/2019, the patient still short of breath. On examination he does have diminished bilateral breathing sounds and wheezing. He continues to be on antibiotic as well as treatment for COPD exacerbation. The echo revealed normal LV function. The heart rate is under good control. He is on oral anticoagulation. Objective - Vital Signs Vital signs: Vital Signs Temp 97.8 F 09/09/19 08:00 Pulse 68 09/09/19 09:07 Resp 20 09/09/19 08:00 BP 137/61 09/09/19 08:00 Pulse Ox 96 09/09/19 08:00 Intake & Output 09/08/19 09/09/19 09/09/19 18:59 06:59 18:59 Intake Total 50 240 Output Total 200 300 Balance 50 -200 -60 Weight 80.7 kg Intake: Intake, IV Titration 50 Amount cefTRIAXone 1 gm In 50 Sodium Chloride 0.9% 50 ml @ 100 mls/hr IVPB Q24HR [facility] Rx#:[id number] Oral 240 Output: Urine 200 300 Other: Voiding Method Toilet Urinal # Voids 1 1 # Bowel Movements 0 - Constitutional General appearance: Present: no acute distress - Respiratory Respiratory: bilateral: diminished, wheezing - Cardiovascular Rhythm: regular Heart sounds: normal: S1, S2 - Labs CBC & Chem 7: 09/08/19 05:53 09/09/19 05:32 Labs: Abnormal Lab Results - Last 24 Hours (Table) 09/08/19 09/08/19 09/09/19 Range/Units 11:49 16:58 05:32 Sodium 131 L (137-145) mmol/L Chloride 95 L (98-107) mmol/L BUN 39 H (9-20) mg/dL Glucose 139 H (74-99) mg/dL POC Glucose (mg/dL) 176 H 265 H (75-99) mg/dL 09/09/19 Range/Units 06:16 Sodium (137-145) mmol/L Chloride (98-107) mmol/L BUN (9-20) mg/dL Glucose (74-99) mg/dL POC Glucose (mg/dL) 141 H (75-99) mg/dL Microbiology - Last 24 Hours (Table) 09/06/19 16:44 Blood Culture - Preliminary Blood No Growth after 48 hours Assessment and Plan Assessment: Assessment #1 COPD exacerbation #2 atrial fibrillation was controlled heart rate #3 probably paroxysmal atrial fibrillation Plan #1 continue the current medical regimen #2 the echo showed normal LV function #3 if he continues to be in atrial fibrillation now with consider EMEKA cardioversion down the line in 4 weeks
--- NOTE | 2019-09-09 10:32 | CT ---
EXAMINATION TYPE: CT chest w con DATE OF EXAM: 09/07/2019 COMPARISON: 05/16/2015 HISTORY: SOB, RLL nodule CT DLP: 463.6 mGycm Automated exposure control for dose reduction was used. CONTRAST: CT scan of the chest is performed with IV Contrast, patient injected with 100 mL of Isovue 300. FINDINGS: LUNGS: Stable right upper lobe spiculated scarring unchanged from prior study with current measuremen t 1.1 cm versus 1.7 cm previously. Parenchymal scarring left lower lobe. [id number] scattered e mphysematous changes. No focal consolidation or volume loss. No pleural effusion. MEDIASTINUM: There are no greater than 1 cm hilar or mediastinal lymph nodes. No pericardial effusi on is seen. Thoracic aorta is of normal caliber. The heart is not enlarged. UPPER ABDOMEN: Partially imaged upper abdominal aortic aneurysm at 4.7 cm AP dimension. OTHER: No additional significant abnormality is seen. IMPRESSION: 1. Stable areas of parenchymal scarring. No suspicious nodule or mass seen. 2. Partially imaged AAA. 3. [id number] scattered emphysematous changes.
[2019-09-09 11:32] LABS: Glucose,Whole Blood 129 mg/dL (75-99)
--- NOTE | 2019-09-09 13:46 | P.PN ---
Subjective Progress Note Date: 09/09/19 Principal diagnosis: Dyspnea cough, acute COPD exacerbation A. fib RVR This is 78-year-old white male patient of Dr. Hatch, with past medical history of advanced COPD on home oxygen, long history of smoking, patient had quit and recently restarted, currently smoking a pack a day, carries a 60 year history of smoking. Other medical history includes peripheral vascular disease status post [employer] of both SFA angioplasty and stenting of the external iliac artery, abdominal aortic aneurysm under surveillance by Dr. Bob, dyslipidemia, hypertension, coronary artery disease with previous history of two-vessel bypass grafting in [address] Sorto. Patient follows with Dr. Shepherd in the pulmonary clinic, and his outpatient PFT showed FEV1 of 0.87 L or 26% of predicted, consistent with stage IV COPD, there was significant improvement in the FVC following administration of bronchodilators suggesting possibility of asthma component. Patient's maintenance breathing medications include Pulmicort, Perforomist, DuoNeb, theophylline, and a rescue inhaler. For the past week patient has been having increased difficulty breathing, cough or congestion, he had some subjective chills, but no fever. He was frequently using his nebulized treatments, he saw Dr. Hatch last week early in the week, and was given a steroid injection, in addition to antibiotics and steroid taper. Despite that his symptoms continue to worsen, he was 7 difficulty walking related to severe shortness of breath. Denied any chest pain. Denied any lower extremity swelling. In the emergency department on 09/06/2019 chest x-ray showed no acute pulmonary process but did show a nodular density in the right lower lobe which seems to have increased from 2015 and is now measuring 1.2 cm from previously 0.7 cm. EKG showed A. fib with RVR, with a rate of 125 BPM and incomplete left bundle branch block and ST-T wave abnormality in the anterolateral leads. Labs showed a white blood cell count of 12.4, hemoglobin of 16.0, sodium was 129, potassium is 4.8, chloride is 94, CO2 is 21, B1 is 23 and creatinine is 1.19. Troponins were positive at 0.052, 0.041, and 0.038, BNP was 6060. Patient was quite dyspneic, congested and wheezy, he was started on empiric antibiotics, IV steroids and breathing treatments, influenza screen was negative. He did require BiPAP support initially, he is currently on 2 L of oxygen with a pulse ox of 93%, his heart rate is better controlled on Cardizem drip, and he is on heparin drip for anticoagulation. On 09/08/2017 patient seen in follow-up on selective care unit, still dyspneic, and bronchospastic, but less congested on today's exam, he is starting to bring up large amounts of thick yellow sputum, no fever or chills, remains in A. fib with a controlled rate with a rate of 92 BPM, no complaints of chest pain, he was started on oral anticoagulation in the form of Xarelto and IV Cardizem was transitioned to oral Isoptin. Remains on IV steroids, nebulized bronchodilators, and empiric antibiotics, sounds slightly improved on today's exam. Yesterday we ordered BiPAP support on as-needed basis however patient was unable to tolerate it for longer than half an hour. Maintenance supplement oxygen at 3 L, and his pulse ox is 93%, no fever or chills. On 09/09/2019 patient is seen in follow-up on selective care unit, he is awake and alert, in no acute distress, still has dyspnea and wheezing, but is improving, lung sounds reveal diminished breath sounds, with scattered wheezing and rhonchi, but less bronchospastic and congested compared to yesterday's exam. In A. fib with a controlled rate, he's been started on oral anticoagulation, he continues on IV steroids and breathing treatments and antibiotics. Bring up much sputum on today's exam, blood culture showed no growth, have been no fever or chills. Objective - Vital Signs Vital signs: Vital Signs Temp 97.3 F L 09/09/19 12:00 Pulse 68 09/09/19 12:21 Resp 20 09/09/19 12:00 BP 122/66 09/09/19 12:00 Pulse Ox 94 L 09/09/19 12:00 Intake & Output 09/08/19 09/09/19 09/09/19 18:59 06:59 18:59 Intake Total 50 480 Output Total 200 300 Balance 50 -200 180 Weight 80.7 kg Intake: Intake, IV Titration 50 Amount cefTRIAXone 1 gm In 50 Sodium Chloride 0.9% 50 ml @ 100 mls/hr IVPB Q24HR [facility] Rx#:[id number] Oral 480 Output: Urine 200 300 Other: Voiding Method Toilet Toilet Urinal Urinal # Voids 1 1 # Bowel Movements 0 - Exam GENERAL EXAM: Alert, pleasant, 78-year-old white male, on 3 L of oxygen with pulse ox of 93%, comfortable in no apparent distress. HEAD: Normocephalic/atraumatic. EYES: Normal reaction of pupils, equal size. Conjunctiva pink, sclera white. NOSE: Clear with pink turbinates. THROAT: No erythema or exudates. NECK: No masses, no JVD, no thyroid enlargement, no adenopathy. CHEST: No chest wall deformity. Symmetrical expansion. LUNGS: Equal air entry with diffuse wheezes and a few scattered rhonchi CVS: Irregular rate and rhythm, normal S1 and S2, no gallops, no murmurs, no rubs ABDOMEN: Soft, nontender. No hepatosplenomegaly, normal bowel sounds, no guarding or rigidity. EXTREMITIES: No clubbing, no edema, no cyanosis, 2+ pulses and upper and lower extremities. MUSCULOSKELETAL: Muscle strength and tone normal. SPINE: No scoliosis or deformity SKIN: No rashes CENTRAL NERVOUS SYSTEM: Alert and oriented -3. No focal deficits, tone is normal in all 4 extremities. PSYCHIATRIC: Alert and oriented -3. Appropriate affect. Intact judgment and insight. - Labs CBC & Chem 7: 09/08/19 05:53 09/09/19 05:32 Labs: Abnormal Lab Results - Last 24 Hours (Table) 09/08/19 09/09/19 09/09/19 Range/Units 16:58 05:32 06:16 Sodium 131 L (137-145) mmol/L Chloride 95 L (98-107) mmol/L BUN 39 H (9-20) mg/dL Glucose 139 H (74-99) mg/dL POC Glucose (mg/dL) 265 H 141 H (75-99) mg/dL 09/09/19 Range/Units 11:31 Sodium (137-145) mmol/L Chloride (98-107) mmol/L BUN (9-20) mg/dL Glucose (74-99) mg/dL POC Glucose (mg/dL) 129 H (75-99) mg/dL Microbiology - Last 24 Hours (Table) 09/06/19 16:44 Blood Culture - Preliminary Blood No Growth after 48 hours Assessment and Plan Plan: Assessment: #1. Acute exacerbation of COPD complicated by purulent tracheobronchitis, chest x-ray showed no evidence of pneumonia #2. Right lower lobe nodule measuring 1.2 cm with increase in size from 2015 film from 0.7 cm, likely calcified. We will obtain CT chest with contrast to characterize #3. New onset A. fib with RVR #4. Elevated troponins, EKG did show significant ST and T-wave abnormality with depression and inversion involving the anterolateral leads #5. Acute exacerbation of chronic congestive heart failure, with unknown LV function #6. Peripheral arterial disease with history of prior percutaneous angioplasty of both SFA and iliac stenting #7. History of abdominal aortic aneurysm under surveillance #8. Chronic and ongoing nicotine dependence, patient carries a [id number] smoking history, did quit for a few months but recently restarted, and is smoking a pack a day #9. History of stage IV COPD, and outpatient PFT showed FEV1 of 0.87 L or 26% of predicted, with response to bronchodilators suggesting possibility of asthma component in addition to COPD. #10. Coronary artery disease status post 2 vessel coronary artery bypass grafting [place] [address] Sorto #11. Hypertension #12. Hyperlipidemia Plan: Continue current antibiotics, current dose of IV steroids, patient is improving, still bronchospastic and dyspneic, quite back to baseline, CT chest with contrast has been reviewed, showing stable areas of parenchymal scarring, no suspicious nodule or mass. Mild to moderate scattered emphysematous changes. Continue with oral anticoagulation, will follow cardiology recommendation I performed a history & physical examination of the patient and discussed their management with my nurse practitioner, Char Orellana. I reviewed the nurse practitioner's note and agree with the documented findings and plan of care. Lung sounds are positive for diffuse wheezes and rhonchi throughout the lung gregory. The findings and the impression was discussed with the patient. I attest to the documentation by the nurse practitioner. Time with Patient: Less than 30
--- NOTE | 2019-09-09 14:31 | P.PN ---
Subjective Progress Note Date: 09/09/19 This is a 78-year-old male patient of Joao Delacruz and Nahomi Briggs with past medical history of COPD with chronic hypoxic respiratory failure on home O2 at 2 L, hypertension, hyperlipidemia, coronary artery disease status post 2 vessel CAB[place] [address] Sorto, infrarenal aortic aneurysm and lower extremity claudication of the care of Dr. Dr. Krueger, tobacco use and dependence. Patient states that he was having difficulty breathing with cough and was seen by his PCP Saturday of last week and placed on a steroid injection, oral steroid and Levaquin. He states that in the next day he was feeling better but it quickly came back and he had increasing shortness of breath and cough. He was using his home O2 at 2 L and tried to turn it up to 3 L but it did not work. He noticed that he had palpitations in his heart was racing and he could hardly get into the house to sit down. He complains of cough with sputum production. Patient came into [facility] emergency center for evaluation. Pulse ox 98%, heart rate in the 80s up to 134, blood pressure 117/84. EKG was atrial fibrillation at rate of 125 and patient was started on Cardizem and heparin drips. WBC 12.4, hemoglobin 16.0. Sodium 129, potassium 4.8, chloride 94, CO2 21, BUN 23 creatinine 1.19, temperature 125. Magnesium 1.6 and was replaced, liver function test within normal limits, proBNP 6060, lactic acid 1.7. Initial troponin 0.052. Influenza testing negative. Repeat EKG was atr ial fibrillation with nonspecific T-wave abnormalities, heart rate 92. Chest x- ray shows no acute pulmonary process. There is nodular density in the right lower lobe which has increased from 2015 and possibly from May 2019. Neoplasm not excluded. Patient was admitted to the cardiac stepdown unit and consult requested with cardiology and pulmonary medicine. Repeat troponins are 0.041 and 0.038. Repeat sodium level this morning is 129. 09/08: Patient's shortness of breath is somewhat improved today. He continues to have cough with sputum production. He is on Solu-Medrol at 60 mg every 6 hours which will be continued. He denies having any dizziness or lightheadedness. He states he slept well last night. He did try BiPAP but was unable to tolerate. He remains in atrial fibrillation with controlled rate. He has been started on Xarelto. Echocardiogram reveals EF 50-55%, moderate concentric left hypertrophy, trace aortic regurgitation, mild mitral regurgitation, mild tricuspid regurgitation. Cardiology May consider EMEKA and cardioversion in 4 weeks. Pulmonary has ordered CAT scan of the chest. 09/09: Patient states he continues to have a cough but not bringing up very much sputum. He is progressing and improving very slowly. He is still on Solu- Medrol 60 every 6 hours which will not be changed today. He has been afebrile, heart rate 64, blood pressure 122/66, pulse ox 94% on 2 L nasal cannula. Repeat lab work reveals sodium 131, potassium 4.3, chloride 95, CO2 30, BUN 3090 creatinine 1.15. Blood sugars running between 99-265. Review of Systems Constitutional: Reports fatigue, Denies anorexia, Denies chills, Denies fever, Denies poor appetite Ears, nose, mouth and throat: Denies dental pain, Denies dysphagia, Denies headache, Denies nasal congestion, Denies nasal discharge, Denies sore throat, Denies vertigo Cardiovascular: Reports decreased exercise tolerance, Reports dyspnea on exertion, Reports palpitations, Reports rapid heart beat, Reports shortness of breath, Denies chest pain, Denies syncope Respiratory: Reports cough, Reports cough with sputum, Reports dyspnea, Reports home oxygen, Reports respiratory infections, Reports wheezing, Denies excessive sputum, Denies hemoptysis, Denies sleep apnea Gastrointestinal: Denies abdominal pain, Denies diarrhea, Denies nausea, Denies vomiting Genitourinary: Denies dysuria, Denies urinary frequency, Denies urinary retention Musculoskeletal: Reports muscle weakness, Denies frequent falls, Denies gait dysfunction, Denies myalgias Integumentary: Denies pruritus, Denies rash, Denies wounds Neurological: Denies change in mentation, Denies change in speech, Denies numbness, Denies seizures, Denies weakness Psychiatric: Denies anxiety, Denies depression Endocrine: Denies fatigue, Objective - Vital Signs Vital signs: Vital Signs Temp 97.8 F 09/09/19 08:00 Pulse 68 09/09/19 09:07 Resp 20 09/09/19 08:00 BP 137/61 09/09/19 08:00 Pulse Ox 96 11/13/19 08:00 Intake & Output 09/08/19 09/09/19 09/09/19 18:59 06:59 18:59 Intake Total 50 240 Output Total 200 300 Balance 50 -200 -60 Weight 80.7 kg Intake: Intake, IV Titration 50 Amount cefTRIAXone 1 gm In 50 Sodium Chloride 0.9% 50 ml @ 100 mls/hr IVPB Q24HR [facility] Rx#:[id number] Oral 240 Output: Urine 200 300 Other: Voiding Method Toilet Urinal # Voids 1 1 # Bowel Movements 0 - Exam Gen: This is a 78-year-old male. He is resting in a chair and appears to be comfortable but having mild shortness of breath with conversation. HEENT: Head is atraumatic, normocephalic. Pupils equal, round. Sclerae is anicteric. NECK: Supple. No JVD. No lymphadenopathy. No thyromegaly. LUNGS: Bilateral wheezing and rhonchi. No intercostal retractions. HEART: Irregular rate and rhythm. Systolic ejection murmur. ABDOMEN: Soft. Bowel sounds are present. No masses. No tenderness. EXTREMITIES: No pedal edema. No calf tenderness. NEUROLOGICAL: Patient is awake, alert and oriented x3. Cranial nerves 2 through 12 are grossly intact. - Labs CBC & Chem 7: 09/08/19 05:53 09/09/19 05:32 Labs: Abnormal Lab Results - Last 24 Hours (Table) 09/08/19 09/08/19 09/09/19 Range/Units 11:49 16:58 05:32 Sodium 131 L (137-145) mmol/L Chloride 95 L (98-107) mmol/L BUN 39 H (9-20) mg/dL Glucose 139 H (74-99) mg/dL POC Glucose (mg/dL) 176 H 265 H (75-99) mg/dL 09/09/19 Range/Units 06:16 Sodium (137-145) mmol/L Chloride (98-107) mmol/L BUN (9-20) mg/dL Glucose (74-99) mg/dL POC Glucose (mg/dL) 141 H (75-99) mg/dL Microbiology - Last 24 Hours (Table) 09/06/19 16:44 Blood Culture - Preliminary Blood No Growth after 48 hours Assessment and Plan Plan: 1. New onset atrial fibrillation, probable paroxysmal atrial fibrillation. Cardiology consult. Continue Lopressor 50 mg twice daily, Xarelto 50 mg daily, verapamil 180 mg day. Echocardiogram as above. Patient remains in atrial fibrillation. 2. Hyponatremia. Patient has been on IV fluids. Recheck sodium tomorrow 3. Elevated troponins most likely secondary to A. fib with RVR. Cardiology consult appreciated. 4. COPD, acute exacerbation. Continue Solu-Medrol 60 mg IV every 6 hours, DuoNeb treatments every 4 hours, ceftriaxone, azithromycin, Perforomist 20 g twice daily, Pulmicort 1 mg twice daily, theophylline 400 mg at bedtime. Consult with pulmonary medicine appreciated. Computed tomography scan of the chest. 5. Chronic hypoxic respiratory failure on home O2 at 2 L nasal cannula. 6. Coronary artery disease status post CABG. continue Lasix, atorvastatin. 7. Hypertension. Continue lisinopril 5 mg daily and Lopressor 50 mg twice daily. 8. Hyperlipidemia. Continue atorvastatin. 9. Peripheral vascular disease: Infrarenal abdominal aortic aneurysm, right external iliac stenosis, chronic total occlusion of the right superficial femoral artery, status post balloon angioplasty of the external iliac artery and percutaneous stent placement February 2019. Continue Plavix 75 mg daily 10. Tobacco use and dependence. Nicotine patch. 11. Alcohol abuse. 12. Right lower lobe nodule. Pulmonary medicine on consult. Computed tomography scan of the chest 13. DVT prophylaxis. Xarelto. 14. GI prophylaxis. Protonix. Discharge plan: Home Impression and plan of care have been directed as dictated by the signing physician. Lila Nur nurse practitioner acting as scribe for signing physician.
[2019-09-09 16:50] LABS: Glucose,Whole Blood 155 mg/dL (75-99)
[2019-09-09] MEDS: RIVAROXABAN 15 MG TAB PO SCH (17:44)
[2019-09-09 20:40] LABS: Glucose,Whole Blood 206 mg/dL (75-99)
[2019-09-09] MEDS: ATORVASTATIN 10 MG TAB PO SCH (21:01)
[2019-09-09] MEDS: THEOPHYLLINE 24 HOUR 400 MG CAP.ER.24H PO SCH (21:01)
[2019-09-10] MEDS: IPRATROPIUM-ALBUTEROL 3 ML NEB INHALATION SCH ×6 (03:38→23:35)
[2019-09-10 06:30] LABS: Glucose,Whole Blood 168 mg/dL (75-99)
[2019-09-10] MEDS: methylPREDNISolone SOD SUCCI 125 MG/2 ML VIAL IV SCH (06:38)
[2019-09-10] MEDS: PANTOPRAZOLE 40 MG TABLET PO SCH (06:41)
[2019-09-10] MEDS: INSULIN ASPART (NovoLOG) 100 UNIT/ML VIAL SQ SCH ×4 (06:41→20:54)
[2019-09-10] MEDS: BUDESONIDE 1 MG/2 ML NEBU INHALATION SCH ×2 (08:15→19:51)
[2019-09-10] MEDS: FORMOTEROL FUMARATE 20 MCG/2 ML NEBU INHALATION SCH ×2 (08:15→19:51)
[2019-09-10] MEDS: NICOTINE 21MG/24HR PATCH TRANSDERM SCH (08:51)
[2019-09-10] MEDS: CLOPIDOGREL 75 MG TAB PO SCH (08:51)
[2019-09-10] MEDS: LISINOPRIL 10 MG TAB PO SCH (08:52)
--- NOTE | 2019-09-10 08:52 | P.PN ---
Subjective Progress Note Date: 09/10/19 Principal diagnosis: Paroxysmal atrial fibrillation This is a pleasant 78-year-old gentleman with history of COPD who was admitted to the hospital with atrial fibrillation with RVR as well as COPD exacerbation I did see the patient today 09/10/2019, he seems slightly better compared to yesterday. He still have diminished breathing sounds bilaterally and also bilateral expiratory wheezing. Hemodynamically he is stable. He continues to be on oral anticoagulation. Objective - Vital Signs Vital signs: Vital Signs Temp 97.4 F L 09/10/19 08:00 Pulse 72 09/10/19 08:36 Resp 24 09/10/19 08:00 BP 154/85 09/10/19 08:00 Pulse Ox 95 09/10/19 08:00 Intake & Output 09/09/19 09/10/19 09/10/19 18:59 06:59 18:59 Intake Total 560 736 Output Total 300 Balance 260 736 Weight 80.4 kg Intake: Oral 560 736 Output: Urine 300 Other: Voiding Method Toilet Toilet Urinal Urinal # Voids 3 1 - Constitutional General appearance: Present: no acute distress - Respiratory Respiratory: bilateral: diminished, wheezing - Cardiovascular Heart sounds: normal: S1, S2 - Labs CBC & Chem 7: 09/08/19 05:53 09/09/19 05:32 Labs: Abnormal Lab Results - Last 24 Hours (Table) 09/09/19 09/09/19 09/09/19 Range/Units 11:31 16:48 20:39 POC Glucose (mg/dL) 129 H 155 H 206 H (75-99) mg/dL 09/10/19 Range/Units 06:28 POC Glucose (mg/dL) 168 H (75-99) mg/dL Microbiology - Last 24 Hours (Table) 09/06/19 16:44 Blood Culture - Preliminary Blood No Growth after 72 hours Assessment and Plan Assessment: Assessment #1 COPD exacerbation #2 atrial fibrillation was controlled heart rate #3 paroxysmal atrial fibrillation Plan #1 continue the current medical regimen #2 the echo showed normal LV function
[2019-09-10] MEDS: VERAPAMIL SR 180 MG TABLET.ER PO SCH (08:53)
[2019-09-10] MEDS: METOPROLOL TARTRATE 50 MG TAB PO SCH ×2 (08:53→20:53)
[2019-09-10] MEDS: AZITHROMYCIN 500 MG TAB PO SCH (08:53)
[2019-09-10] MEDS: guaiFENesin 600 MG TABLET.ER PO SCH ×2 (11:05→20:53)
[2019-09-10] MEDS: PSYLLIUM HUSK 100% 6 GM PACKET PO SCH (11:06)
[2019-09-10 11:44] LABS: Glucose,Whole Blood 195 mg/dL (75-99)
--- NOTE | 2019-09-10 11:44 | P.PN ---
Subjective Progress Note Date: 09/10/19 Principal diagnosis: Dyspnea cough, acute COPD exacerbation A. fib RVR This is 78-year-old white male patient of Dr. Hatch, with past medical history of advanced COPD on home oxygen, long history of smoking, patient had quit and recently restarted, currently smoking a pack a day, carries a 60 year history of smoking. Other medical history includes peripheral vascular disease status post VALVE LAPPER of both SFA angioplasty and stenting of the external iliac artery, abdominal aortic aneurysm under surveillance by Dr. Bob, dyslipidemia, hypertension, coronary artery disease with previous history of two-vessel bypass grafting in [address] Sorto. Patient follows with Dr. Shepherd in the pulmonary clinic, and his outpatient PFT showed FEV1 of 0.87 L or 26% of predicted, consistent with stage IV COPD, there was significant improvement in the FVC following administration of bronchodilators suggesting possibility of asthma component. Patient's maintenance breathing medications include Pulmicort, Perforomist, DuoNeb, theophylline, and a rescue inhaler. For the past week patient has been having increased difficulty breathing, cough or congestion, he had some subjective chills, but no fever. He was frequently using his nebulized treatments, he saw Dr. Hatch last week early in the week, and was given a steroid injection, in addition to antibiotics and steroid taper. Despite that his symptoms continue to worsen, he was 7 difficulty walking related to severe shortness of breath. Denied any chest pain. Denied any lower extremity swelling. In the emergency department on 09/06/2019 chest x-ray showed no acute pulmonary process but did show a nodular density in the right lower lobe which seems to have increased from 2015 and is now measuring 1.2 cm from previously 0.7 cm. EKG showed A. fib with RVR, with a rate of 125 BPM and incomplete left bundle branch block and ST-T wave abnormality in the anterolateral leads. Labs showed a white blood cell count of 12.4, hemoglobin of 16.0, sodium was 129, potassium is 4.8, chloride is 94, CO2 is 21, B1 is 23 and creatinine is 1.19. Troponins were positive at 0.052, 0.041, and 0.038, BNP was 6060. Patient was quite dyspneic, congested and wheezy, he was started on empiric antibiotics, IV steroids and breathing treatments, influenza screen was negative. He did require BiPAP support initially, he is currently on 2 L of oxygen with a pulse ox of 93%, his heart rate is better controlled on Cardizem drip, and he is on heparin drip for anticoagulation. On 09/08/2017 patient seen in follow-up on selective care unit, still dyspneic, and bronchospastic, but less congested on today's exam, he is starting to bring up large amounts of thick yellow sputum, no fever or chills, remains in A. fib with a controlled rate with a rate of 92 BPM, no complaints of chest pain, he was started on oral anticoagulation in the form of Xarelto and IV Cardizem was transitioned to oral Isoptin. Remains on IV steroids, nebulized bronchodilators, and empiric antibiotics, sounds slightly improved on today's exam. Yesterday we ordered BiPAP support on as-needed basis however patient was unable to tolerate it for longer than half an hour. Maintenance supplement oxygen at 3 L, and his pulse ox is 93%, no fever or chills. On 09/09/2019 patient is seen in follow-up on selective care unit, he is awake and alert, in no acute distress, still has dyspnea and wheezing, but is improving, lung sounds reveal diminished breath sounds, with scattered wheezing and rhonchi, but less bronchospastic and congested compared to yesterday's exam. In A. fib with a controlled rate, he's been started on oral anticoagulation, he continues on IV steroids and breathing treatments and antibiotics. Bring up much sputum on today's exam, blood culture showed no growth, have been no fever or chills. On 09/10/2019 patient seen in follow-up on selective care unit. Awake and alert, in no acute distress. Breathing much easier today, much less bronchospastic and congested on today's exam, lung sounds reveal and expiratory wheezes, occasional cough, appears to be much more comfortable today, patient has been ambulating to the bathroom, and walking short distances within the room, and his son states he still dyspneic, but seems to be improving. Remains on oxygen, likely on 2 L, earlier his pulse ox was 95% on 3 L of oxygen, there has been no fever or chills, cough culture has shown no growth. No labs today. He remains in atrial fibrillation with a controlled rate, he is on oral anticoagulation, his IV Cardizem has been transitioned to verapamil. Echocardiogram was completed showing preserved left ventricular systolic function with low normal EF of 50-55%, mild MR, and mild TR. Clinically stable, significantly improved in the last 24-48 hours. Objective - Vital Signs Vital signs: Vital Signs Temp 97.4 F L 09/10/19 08:00 Pulse 72 09/10/19 08:36 Resp 24 09/10/19 08:00 BP 154/85 09/10/19 08:00 Pulse Ox 95 09/10/19 08:00 Intake & Output 09/09/19 09/10/19 09/10/19 18:59 06:59 18:59 Intake Total 560 786 Output Total 300 Balance 260 786 Weight 80.4 kg Intake: Oral 560 736 TPN/PPN 50 cefTRIAXone 1 gm In 50 Sodium Chloride 0.9% 50 ml @ 100 mls/hr IVPB Q24HR KASSY Rx#:[id number] Output: Urine 300 Other: Voiding Method Toilet Toilet Toilet Urinal Urinal Urinal # Voids 3 1 - Exam GENERAL EXAM: Alert, pleasant, 78-year-old white male, on 3 L of oxygen with pulse ox of 95%, comfortable in no apparent distress. HEAD: Normocephalic/atraumatic. EYES: Normal reaction of pupils, equal size. Conjunctiva pink, sclera white. NOSE: Clear with pink turbinates. THROAT: No erythema or exudates. NECK: No masses, no JVD, no thyroid enlargement, no adenopathy. CHEST: No chest wall deformity. Symmetrical expansion. LUNGS: Equal air entry with end expiratory wheezes CVS: Irregular rate and rhythm, normal S1 and S2, no gallops, no murmurs, no rubs ABDOMEN: Soft, nontender. No hepatosplenomegaly, normal bowel sounds, no guarding or rigidity. EXTREMITIES: No clubbing, no edema, no cyanosis, 2+ pulses and upper and lower extremities. MUSCULOSKELETAL: Muscle strength and tone normal. SPINE: No scoliosis or deformity SKIN: No rashes CENTRAL NERVOUS SYSTEM: Alert and oriented -3. No focal deficits, tone is normal in all 4 extremities. PSYCHIATRIC: Alert and oriented -3. Appropriate affect. Intact judgment and insight. - Labs CBC & Chem 7: 09/08/19 05:53 11/13/19 05:32 Labs: Abnormal Lab Results - Last 24 Hours (Table) 09/09/19 09/09/19 09/10/19 Range/Units 16:48 20:39 06:28 POC Glucose (mg/dL) 155 H 206 H 168 H (75-99) mg/dL Microbiology - Last 24 Hours (Table) 09/06/19 16:44 Blood Culture - Preliminary Blood No Growth after 72 hours Assessment and Plan Plan: Assessment: #1. Acute exacerbation of COPD complicated by purulent tracheobronchitis, chest x-ray showed no evidence of pneumonia #2. Right lower lobe nodule measuring 1.2 cm with increase in size from 2015 film from 0.7 cm, likely calcified. We will obtain CT chest with contrast to characterize. Chest CT with contrast was obtained, showing stable areas of parenchymal scarring no suspicious nodule or mass. This was on the background of [id number] scattered emphysematous changes. #3. New onset A. fib with RVR #4. Elevated troponins, EKG did show significant ST and T-wave abnormality with depression and inversion involving the anterolateral leads #5. Acute exacerbation of chronic congestive heart failure, with unknown LV fun ction #6. Peripheral arterial disease with history of prior percutaneous angioplasty of both SFA and iliac stenting #7. History of abdominal aortic aneurysm under surveillance #8. Chronic and ongoing nicotine dependence, patient carries a [id number] smoking history, did quit for a few months but recently restarted, and is smoking a pack a day #9. History of stage IV COPD, and outpatient PFT showed FEV1 of 0.87 L or 26% of predicted, with response to bronchodilators suggesting possibility of asthma component in addition to COPD. #10. Coronary artery disease status post 2 vessel coronary artery bypass grafting in [address] Sorto #11. Hypertension #12. Hyperlipidemia Plan: Continue current antibiotic coverage, continue IV steroids , as the patient remains inpatient, however in the last 24-48 hours patient has shown significant improvement in terms of wheezing, congestion, and shortness of breath. Still has some exertional dyspnea, but he has been tolerating ambulation around the room, normally he only wears oxygen at bedtime, currently he is on supplemental oxygen around the clock, we will do well home oxygen assessment patient may need oxygen around the clock until he fully recovers. No fever or chills, could possibly be considered for discharge home if has been cleared by cardiology. I performed a history & physical examination of the patient and discussed their management with my nurse practitioner, Char Orellana. I reviewed the nurse practitioner's note and agree with the documented findings and plan of care. Lung sounds are positive for diffuse wheezes and rhonchi throughout the lung gregory. The findings and the impression was discussed with the patient. I attest to the documentation by the nurse practitioner. Time with Patient: Less than 30
--- NOTE | 2019-09-10 14:09 | P.PN ---
Subjective Progress Note Date: 09/10/19 This is a 78-year-old male patient of Joao Delacruz and Nahomi Briggs with past medical history of COPD with chronic hypoxic respiratory failure on home O2 at 2 L, hypertension, hyperlipidemia, coronary artery disease status post 2 vessel CAB[place] [address] Sorto, infrarenal aortic aneurysm and lower extremity claudication of the care of Dr. Dr. Krueger, tobacco use and dependence. Patient states that he was having difficulty breathing with cough and was seen by his PCP Saturday of last week and placed on a steroid injection, oral steroid and Levaquin. He states that in the next day he was feeling better but it quickly came back and he had increasing shortness of breath and cough. He was using his home O2 at 2 L and tried to turn it up to 3 L but it did not work. He noticed that he had palpitations in his heart was racing and he could hardly get into the house to sit down. He complains of cough with sputum production. Patient came into [facility] emergency [facility] for evaluation. Pulse ox 98%, heart rate in the 80s up to 134, blood pressure 117/84. EKG was atrial fibrillation at rate of 125 and patient was started on Cardizem and heparin drips. WBC 12.4, hemoglobin 16.0. Sodium 129, potassium 4.8, chloride 94, CO2 21, BUN 23 creatinine 1.19, temperature 125. Magnesium 1.6 and was replaced, liver function test within normal limits, proBNP 6060, lactic acid 1.7. Initial troponin 0.052. Influenza testing negative. Repeat EKG was atr ial fibrillation with nonspecific T-wave abnormalities, heart rate 92. Chest x- ray shows no acute pulmonary process. There is nodular density in the right lower lobe which has increased from 2015 and possibly from May 2019. Neoplasm not excluded. Patient was admitted to the cardiac stepdown unit and consult requested with cardiology and pulmonary medicine. Repeat troponins are 0.041 and 0.038. Repeat sodium level this morning is 129. 09/08: Patient's shortness of breath is somewhat improved today. He continues to have cough with sputum production. He is on Solu-Medrol at 60 mg every 6 hours which will be continued. He denies having any dizziness or lightheadedness. He states he slept well last night. He did try BiPAP but was unable to tolerate. He remains in atrial fibrillation with controlled rate. He has been started on Xarelto. Echocardiogram reveals EF 50-55%, moderate concentric left hypertrophy, trace aortic regurgitation, mild mitral regurgitation, mild tricuspid regurgitation. Cardiology May consider EMEKA and cardioversion in 4 weeks. Pulmonary has ordered CAT scan of the chest. 09/09: Patient states he continues to have a cough but not bringing up very much sputum. He is progressing and improving very slowly. He is still on Solu- Medrol 60 every 6 hours which will not be changed today. He has been afebrile, heart rate 64, blood pressure 122/66, pulse ox 94% on 2 L nasal cannula. Repeat lab work reveals sodium 131, potassium 4.3, chloride 95, CO2 30, BUN 3090 creatinine 1.15. Blood sugars running between 99-265. 09/10: Patient is found sitting up in a chair. His breathing status is a little bit better from yesterday. We will decrease Solu-Medrol to 40 mg every 8 hours. Patient is requesting Mucinex. Patient also complains of constipation and Metamucil will be added as well as stool softener. Patient has been afebrile, heart rate 72, blood pressure 110/68, pulse ox 98% on 2 L nasal cannula. Blood sugars are running between 160-206. Review of Systems Constitutional: Reports fatigue, Denies anorexia, Denies chills, Denies fever, Denies poor appetite Ears, nose, mouth and throat: Denies dental pain, Denies dysphagia, Denies headache, Denies nasal congestion, Denies nasal discharge, Denies sore throat, Denies vertigo Cardiovascular: Reports decreased exercise tolerance, Reports dyspnea on exertion, Reports palpitations, Reports rapid heart beat, Reports shortness of breath, Denies chest pain, Denies syncope Respiratory: Reports cough, Reports cough with sputum, Reports dyspnea, Reports home oxygen, Reports respiratory infections, Reports wheezing, Denies excessive sputum, Denies hemoptysis, Denies sleep apnea Gastrointestinal: Denies abdominal pain, Denies diarrhea, Denies nausea, Denies vomiting, reports constipation Genitourinary: Denies dysuria, Denies urinary frequency, Denies urinary retention Musculoskeletal: Reports muscle weakness, Denies frequent falls, Denies gait dysfunction, Denies myalgias Integumentary: Denies pruritus, Denies rash, Denies wounds Neurological: Denies change in mentation, Denies change in speech, Denies numbness, Denies seizures, Denies weakness Psychiatric: Denies anxiety, Denies depression Endocrine: Denies fatigue, Objective - Vital Signs Vital signs: Vital Signs Temp 97.4 F L 09/10/19 08:00 Pulse 72 09/10/19 08:36 Resp 24 09/10/19 08:00 BP 154/85 09/10/19 08:00 Pulse Ox 95 09/10/19 08:00 Intake & Output 09/09/19 09/10/19 09/10/19 18:59 06:59 18:59 Intake Total 560 736 Output Total 300 Balance 260 736 Weight 80.4 kg Intake: Oral 560 736 Output: Urine 300 Other: Voiding Method Toilet Toilet Urinal Urinal # Voids 3 1 - Exam Gen: This is a 78-year-old male. He is resting in a chair and appears to be comfortable. HEENT: Head is atraumatic, normocephalic. Pupils equal, round. Sclerae is anicteric. NECK: Supple. No JVD. No lymphadenopathy. No thyromegaly. LUNGS: Bilateral wheezing and rhonchi-improving. No intercostal retractions. HEART: Irregular rate and rhythm. Systolic ejection murmur. ABDOMEN: Soft. Bowel sounds are present. No masses. No tenderness. EXTREMITIES: No pedal edema. No calf tenderness. NEUROLOGICAL: Patient is awake, alert and oriented x3. Cranial nerves 2 through 12 are grossly intact. - Labs CBC & Chem 7: 09/08/19 05:53 09/09/19 05:32 Labs: Abnormal Lab Results - Last 24 Hours (Table) 09/09/19 09/09/19 09/09/19 Range/Units 11:31 16:48 20:39 POC Glucose (mg/dL) 129 H 155 H 206 H (75-99) mg/dL 09/10/19 Range/Units 06:28 POC Glucose (mg/dL) 168 H (75-99) mg/dL Microbiology - Last 24 Hours (Table) 09/06/19 16:44 Blood Culture - Preliminary Blood No Growth after 72 hours Assessment and Plan Plan: 1. New onset atrial fibrillation, probable paroxysmal atrial fibrillation. Cardiology consult. Continue Lopressor 50 mg twice daily, Xarelto 50 mg daily, verapamil 180 mg day. Echocardiogram as above. Patient remains in atrial fibrillation. 2. Hyponatremia. Patient has been on IV fluids. Recheck sodium tomorrow 3. Elevated troponins most likely secondary to A. fib with RVR. Cardiology consult appreciated. 4. COPD, acute exacerbation. Continue Solu-Medrol but decreased to 40 mg every 8 hours, DuoNeb treatments every 4 hours, ceftriaxone, azithromycin, Perforomist 20 g twice daily, Pulmicort 1 mg twice daily, theophylline 400 mg at bedtime. Consult with pulmonary medicine appreciated. Computed tomography scan of the chest. 5. Chronic hypoxic respiratory failure on home O2 at 2 L nasal cannula. 6. Coronary artery disease status post CABG. continue Lasix, atorvastatin. 7. Hypertension. Continue lisinopril 5 mg daily and Lopressor 50 mg twice daily. 8. Hyperlipidemia. Continue atorvastatin. 9. Peripheral vascular disease: Infrarenal abdominal aortic aneurysm, right external iliac stenosis, chronic total occlusion of the right superficial femoral artery, status post balloon angioplasty of the external iliac artery and percutaneous stent placement February 2019. Continue Plavix 75 mg daily 10. Tobacco use and dependence. Nicotine patch. 11. Alcohol abuse. 12. Right lower lobe nodule. Pulmonary medicine on consult. Computed tomography scan of the chest 13. DVT prophylaxis. Xarelto. 14. GI prophylaxis. Protonix. Discharge plan: Home Impression and plan of care have been directed as dictated by the signing physician. Lila Nur nurse practitioner acting as scribe for signing physician.
[2019-09-10] MEDS: methylPREDNISolone SOD SUCCI 40 MG/ML 1 ML VIAL IV SCH ×2 (15:57→21:51)
[2019-09-10 16:53] LABS: Glucose,Whole Blood 123 mg/dL (75-99)
[2019-09-10] MEDS: RIVAROXABAN 15 MG TAB PO SCH (17:23)
[2019-09-10] MEDS: ATORVASTATIN 10 MG TAB PO SCH (20:53)
[2019-09-10] MEDS: SENNOSIDES-DOCUSATE SODIUM 1 EACH TAB PO SCH (20:53)
[2019-09-10 20:54] LABS: Glucose,Whole Blood 156 mg/dL (75-99)
[2019-09-10] MEDS: THEOPHYLLINE 24 HOUR 400 MG CAP.ER.24H PO SCH (20:54)
[2019-09-10] MEDS ORDERED: ALPRAZolam 0.25 MG TAB PO STA (21:47)
[2019-09-11] MEDS: IPRATROPIUM-ALBUTEROL 3 ML NEB INHALATION SCH ×6 (04:04→23:51)
[2019-09-11] MEDS: PANTOPRAZOLE 40 MG TABLET PO SCH (06:06)
[2019-09-11 06:12] LABS: Glucose,Whole Blood 129 mg/dL (75-99)
[2019-09-11] MEDS: INSULIN ASPART (NovoLOG) 100 UNIT/ML VIAL SQ SCH ×4 (06:56→20:31)
[2019-09-11] MEDS: BUDESONIDE 1 MG/2 ML NEBU INHALATION SCH ×2 (07:31→19:09)
[2019-09-11] MEDS: FORMOTEROL FUMARATE 20 MCG/2 ML NEBU INHALATION SCH ×2 (07:31→19:09)
[2019-09-11 07:59] LABS: Calcium 9.4 mg/dL (8.4-10.2); Potassium 4.9 mmol/L (3.5-5.1)
[2019-09-11 08:09] LABS: HCT 43.8 % (39.0-53.0); HGB 14.5 gm/dL (13.0-17.5); MCV 103.2 fL (80.0-100.0); Macrocytosis Slight; Mean Platelet Volume 7.7; Platelet Count 177 k/uL (150-450); RBC 4.25 m/uL (4.30-5.90); RDW 13.1 % (11.5-15.5); WBC 19.2 k/uL (3.8-10.6)
--- NOTE | 2019-09-11 08:36 | P.PN ---
Subjective Progress Note Date: 09/11/19 Principal diagnosis: Paroxysmal atrial fibrillation This is a pleasant 78-year-old gentleman with history of COPD who was admitted to the hospital with atrial fibrillation with RVR as well as COPD exacerbation The patient was seen this morning, 09/11/2019. Overall he is feeling better. On examination he still have very diminished breathing sounds bilaterally and mild bilateral lower extent is pitting edema. He continues to be in atrial fibrillation was controlled heart rate. I am going to add a small dose of hydrochlorothiazide to the current medical regimen for the lower extremities edema and also for the blood pressure. Objective - Vital Signs Vital signs: Vital Signs Temp 98.0 F 09/11/19 04:00 Pulse 76 09/11/19 07:52 Resp 19 09/11/19 04:00 BP 146/81 09/11/19 04:00 Pulse Ox 97 09/11/19 04:04 Intake & Output 09/10/19 09/11/19 09/11/19 18:59 06:59 18:59 Intake Total 2322 360 Output Total 400 Balance 2322 -400 360 Weight 85.8 kg Intake: Oral 2272 360 TPN/PPN 50 cefTRIAXone 1 gm In 50 Sodium Chloride 0.9% 50 ml @ 100 mls/hr IVPB Q24HR K[facility] Rx#:[id number] Output: Urine 400 Other: Voiding Method Toilet Toilet Urinal Urinal # Voids 1 - Constitutional General appearance: Present: no acute distress - Respiratory Respiratory: bilateral: diminished - Cardiovascular Rhythm: irregularly irregular Heart sounds: normal: S1, S2 - Labs CBC & Chem 7: 09/11/19 06:08 09/11/19 06:08 Labs: Abnormal Lab Results - Last 24 Hours (Table) 09/10/19 09/10/19 09/10/19 Range/Units 11:43 16:52 20:53 WBC (3.8-10.6) k/uL RBC (4.30-5.90) m/uL MCV (80.0-100.0) fL Sodium (137-145) mmol/L BUN (9-20) mg/dL Glucose (74-99) mg/dL POC Glucose (mg/dL) 195 H 123 H 156 H (75-99) mg/dL 09/11/19 09/11/19 09/11/19 Range/Units 06:08 06:08 06:11 WBC 19.2 H (3.8-10.6) k/uL RBC 4.25 L (4.30-5.90) m/uL MCV 103.2 H (80.0-100.0) fL Sodium 134 L (137-145) mmol/L BUN 44 H (9-20) mg/dL Glucose 126 H (74-99) mg/dL POC Glucose (mg/dL) 129 H (75-99) mg/dL Microbiology - Last 24 Hours (Table) 09/06/19 16:44 Blood Culture - Preliminary Blood No Growth after 96 hours Assessment and Plan Assessment: Assessment #1 COPD exacerbation #2 atrial fibrillation was controlled heart rate #3 paroxysmal atrial fibrillation Plan #1 continue the current medical regimen #2 add small dose of hydrochlorothiazide #3 from the cardiovascular standpoint of view, he can be discharged home
[2019-09-11] MEDS: VERAPAMIL SR 180 MG TABLET.ER PO SCH (09:17)
[2019-09-11] MEDS: CLOPIDOGREL 75 MG TAB PO SCH (09:17)
[2019-09-11] MEDS: guaiFENesin 600 MG TABLET.ER PO SCH ×2 (09:17→20:30)
[2019-09-11] MEDS: METOPROLOL TARTRATE 50 MG TAB PO SCH ×2 (09:17→20:31)
[2019-09-11] MEDS: HYDROCHLOROTHIAZIDE 12.5 MG CAP PO SCH (09:17)
[2019-09-11] MEDS: AZITHROMYCIN 500 MG TAB PO SCH (09:17)
[2019-09-11] MEDS: methylPREDNISolone SOD SUCCI 40 MG/ML 1 ML VIAL IV SCH (09:17)
[2019-09-11] MEDS: NICOTINE 21MG/24HR PATCH TRANSDERM SCH (09:17)
[2019-09-11] MEDS: PSYLLIUM HUSK 100% 6 GM PACKET PO SCH (09:17)
--- NOTE | 2019-09-11 10:13 | XR ---
EXAMINATION TYPE: XR chest 1V portable DATE OF EXAM: 09/11/2019 COMPARISON: 09/06/2019 HISTORY: Shortness of breath TECHNIQUE: Single frontal view of the chest is obtained. FINDINGS: Post CABG changes are seen of the chest. Tenting of the left hemidiaphragm is unchanged fr om the prior and may relate to an area of scarring at the left lung base. Underlying emphysematous ch enoc with biapical lucency. Cardia mediastinal silhouette is nonenlarged. Generalized osseous deminer alization. No new pleural effusion. Faint left basilar airspace disease could represent atelectasis o r early developing pneumonia. IMPRESSION: Faint left basilar airspace disease may represent atelectasis or early developing pneumo fina. Other chronic changes.
--- NOTE | 2019-09-11 10:14 | P.PN ---
Subjective Progress Note Date: 09/11/19 Principal diagnosis: Dyspnea cough, acute COPD exacerbation A. fib RVR This is 78-year-old white male patient of Dr. Hatch, with past medical history of advanced COPD on home oxygen, long history of smoking, patient had quit and recently restarted, currently smoking a pack a day, carries a 60 year history of smoking. Other medical history includes peripheral vascular disease status post FREIGHT ADJUSTER of both SFA angioplasty and stenting of the external iliac artery, abdominal aortic aneurysm under surveillance by Dr. Bob, dyslipidemia, hypertension, coronary artery disease with previous history of two-vessel bypass grafting in [address] Sorto. Patient follows with Dr. Shepherd in the pulmonary clinic, and his outpatient PFT showed FEV1 of 0.87 L or 26% of predicted, consistent with stage IV COPD, there was significant improvement in the FVC following administration of bronchodilators suggesting possibility of asthma component. Patient's maintenance breathing medications include Pulmicort, Perforomist, DuoNeb, theophylline, and a rescue inhaler. For the past week patient has been having increased difficulty breathing, cough or congestion, he had some subjective chills, but no fever. He was frequently using his nebulized treatments, he saw Dr. Hatch last week early in the week, and was given a steroid injection, in addition to antibiotics and steroid taper. Despite that his symptoms continue to worsen, he was 7 difficulty walking related to severe shortness of breath. Denied any chest pain. Denied any lower extremity swelling. In the emergency department on 09/06/2019 chest x-ray showed no acute pulmonary process but did show a nodular density in the right lower lobe which seems to have increased from 2015 and is now measuring 1.2 cm from previously 0.7 cm. EKG showed A. fib with RVR, with a rate of 125 BPM and incomplete left bundle branch block and ST-T wave abnormality in the anterolateral leads. Labs showed a white blood cell count of 12.4, hemoglobin of 16.0, sodium was 129, potassium is 4.8, chloride is 94, CO2 is 21, B1 is 23 and creatinine is 1.19. Troponins were positive at 0.052, 0.041, and 0.038, BNP was 6060. Patient was quite dyspneic, congested and wheezy, he was started on empiric antibiotics, IV steroids and breathing treatments, influenza screen was negative. He did require BiPAP support initially, he is currently on 2 L of oxygen with a pulse ox of 93%, his heart rate is better controlled on Cardizem drip, and he is on heparin drip for anticoagulation. On 09/08/2017 patient seen in follow-up on selective care unit, still dyspneic, and bronchospastic, but less congested on today's exam, he is starting to bring up large amounts of thick yellow sputum, no fever or chills, remains in A. fib with a controlled rate with a rate of 92 BPM, no complaints of chest pain, he was started on oral anticoagulation in the form of Xarelto and IV Cardizem was transitioned to oral Isoptin. Remains on IV steroids, nebulized bronchodilators, and empiric antibiotics, sounds slightly improved on today's exam. Yesterday we ordered BiPAP support on as-needed basis however patient was unable to tolerate it for longer than half an hour. Maintenance supplement oxygen at 3 L, and his pulse ox is 93%, no fever or chills. On 09/09/2019 patient is seen in follow-up on selective care unit, he is awake and alert, in no acute distress, still has dyspnea and wheezing, but is improving, lung sounds reveal diminished breath sounds, with scattered wheezing and rhonchi, but less bronchospastic and congested compared to yesterday's exam. In A. fib with a controlled rate, he's been started on oral anticoagulation, he continues on IV steroids and breathing treatments and antibiotics. Bring up much sputum on today's exam, blood culture showed no growth, have been no fever or chills. On 09/10/2019 patient seen in follow-up on selective care unit. Awake and alert, in no acute distress. Breathing much easier today, much less bronchospastic and congested on today's exam, lung sounds reveal and expiratory wheezes, occasional cough, appears to be much more comfortable today, patient has been ambulating to the bathroom, and walking short distances within the room, and his son states he still dyspneic, but seems to be improving. Remains on oxygen, likely on 2 L, earlier his pulse ox was 95% on 3 L of oxygen, there has been no fever or chills, cough culture has shown no growth. No labs today. He remains in atrial fibrillation with a controlled rate, he is on oral anticoagulation, his IV Cardizem has been transitioned to verapamil. Echocardiogram was completed showing preserved left ventricular systolic function with low normal EF of 50-55%, mild MR, and mild TR. Clinically stable, significantly improved in the last 24-48 hours. On 09/11/2019 patient seen in follow-up on selective care unit, he sitting up in the chair, he states he is having increasing shortness of breath today, his son stated that patient had episode of respiratory distress yesterday after walking to the bathroom, requiring breathing treatments and took him a while to recover. Lung sounds reveal very diminished lung sounds over right posterior upper and lower lobes, better air entry noted over anterior right chest, tight wheezes over left lung. Ration has developed lower extremity edema, he isn't positive 5.4 kg fluid balance over the last 24 hours, remains in A. fib with a controlled rate, this was discussed with the attending physician and Lasix was recommended, and added at 20 mg once daily, will obtain a stat chest x-ray, will continue with IV steroids, nebulized bronchodilators. No fever or chills. His lab work has been reviewed, showing white blood cell count of 19.2, hemoglobin of 14.5, sodium of 134, the rest of a left was were within normal limits, BUN was 44 creatinine was 1.0 Objective - Vital Signs Vital signs: Vital Signs Temp 98.0 F 09/11/19 04:00 Pulse 85 09/11/19 09:56 Resp 20 09/11/19 08:00 BP 122/69 09/11/19 08:00 Pulse Ox 94 L 09/11/19 08:30 Intake & Output 09/10/19 09/11/19 09/11/19 18:59 06:59 18:59 Intake Total 2322 360 Output Total 400 Balance 2322 -400 360 Weight 85.8 kg Intake: Oral 2272 360 TPN/PPN 50 cefTRIAXone 1 gm In 50 Sodium Chloride 0.9% 50 ml @ 100 mls/hr IVPB Q24HR [facility] Rx#:[id number] Output: Urine 400 Other: Voiding Method Toilet Toilet Urinal Urinal # Voids 1 - Exam GENERAL EXAM: Alert, pleasant, 78-year-old white male, on 2 L of oxygen with pulse ox of 96%, comfortable in no apparent distress. HEAD: Normocephalic/atraumatic. EYES: Normal reaction of pupils, equal size. Conjunctiva pink, sclera white. NOSE: Clear with pink turbinates. THROAT: No erythema or exudates. NECK: No masses, no JVD, no thyroid enlargement, no adenopathy. CHEST: No chest wall deformity. Symmetrical expansion. LUNGS: Very diminished breath sounds over posterior right upper and lower lobes, with better air entry over anterior right lung, diminished breath sounds on the left with end expiratory wheezes CVS: Irregular rate and rhythm, normal S1 and S2, no gallops, no murmurs, no rubs ABDOMEN: Soft, nontender. No hepatosplenomegaly, normal bowel sounds, no guarding or rigidity. EXTREMITIES: No clubbing, 1+ lower extremity edema and pedal edema, no cyanosis, 2+ pulses and upper and lower extremities. MUSCULOSKELETAL: Muscle strength and tone normal. SPINE: No scoliosis or deformity SKIN: No rashes CENTRAL NERVOUS SYSTEM: Alert and oriented -3. No focal deficits, tone is normal in all 4 extremities. PSYCHIATRIC: Alert and oriented -3. Appropriate affect. Intact judgment and insight. - Labs CBC & Chem 7: 09/11/19 06:08 09/11/19 06:08 Labs: Abnormal Lab Results - Last 24 Hours (Table) 09/10/19 09/10/19 09/10/19 Range/Units 11:43 16:52 20:53 WBC (3.8-10.6) k/uL RBC (4.30-5.90) m/uL MCV (80.0-100.0) fL Sodium (137-145) mmol/L BUN (9-20) mg/dL Glucose (74-99) mg/dL POC Glucose (mg/dL) 195 H 123 H 156 H (75-99) mg/dL 09/11/19 09/11/19 09/11/19 Range/Units 06:08 06:08 06:11 WBC 19.2 H (3.8-10.6) k/uL RBC 4.25 L (4.30-5.90) m/uL MCV 103.2 H (80.0-100.0) fL Sodium 134 L (137-145) mmol/L BUN 44 H (9-20) mg/dL Glucose 126 H (74-99) mg/dL POC Glucose (mg/dL) 129 H (75-99) mg/dL Microbiology - Last 24 Hours (Table) 09/06/19 16:44 Blood Culture - Preliminary Blood No Growth after 96 hours Assessment and Plan Plan: Assessment: #1. Acute exacerbation of COPD complicated by purulent tracheobronchitis, chest x-ray showed no evidence of pneumonia #2. Right lower lobe nodule measuring 1.2 cm with increase in size from 2015 film from 0.7 cm, likely calcified. We will obtain CT chest with contrast to characterize. Chest CT with contrast was obtained, showing stable areas of parenchymal scarring no suspicious nodule or mass. This was on the background of [id number] scattered emphysematous changes. #3. New onset A. fib with RVR #4. Elevated troponins, EKG did show significant ST and T-wave abnormality with depression and inversion involving the anterolateral leads #5. Acute exacerbation of chronic congestive heart failure, with unknown LV function #6. Peripheral arterial disease with history of prior percutaneous angioplasty of both SFA and iliac stenting #7. History of abdominal aortic aneurysm under surveillance #8. Chronic and ongoing nicotine dependence, patient carries a [id number] smoking history, did quit for a few months but recently restarted, and is smoking a pack a day #9. History of stage IV COPD, and outpatient PFT showed FEV1 of 0.87 L or 26% of predicted, with response to bronchodilators suggesting possibility of asthma component in addition to COPD. #10. Coronary artery disease status post 2 vessel coronary artery bypass grafting [place] [address] Sorto #11. Hypertension #12. Hyperlipidemia #13. Fluid volume overload with lower extremity edema and increased shortness of breath on today's exam on 09/11/2019, chest x-ray pending, and patient has been started on a daily dose of IV Lasix Plan: We will obtain a stat portable chest x-ray, patient is complaining of increased shortness of breath, he has developed lower extremity edema, he is a +5 kg over the last 24 hours, has been started on daily dose of IV Lasix, and continue with the IV steroids and nebulized bronchodilators, very dyspneic with any exertion, takes a while to recover. His discharge is being held today, and he will continue being monitored. I performed a history & physical examination of the patient and discussed their management with my nurse practitioner, Char Orellana. I reviewed the nurse practitioner's note and agree with the documented findings and plan of care. Lung sounds are positive for diffuse wheezes and rhonchi throughout the lung gregory. The findings and the impression was discussed with the patient. I attest to the documentation by the nurse practitioner. Time with Patient: Less than 30
[2019-09-11] MEDS: LISINOPRIL 10 MG TAB PO SCH (12:13)
[2019-09-11] MEDS: FUROSEMIDE 10 MG/ML 2 ML VIAL IV SCH (12:14)
[2019-09-11 12:21] LABS: Glucose,Whole Blood 115 mg/dL (75-99)
--- NOTE | 2019-09-11 13:10 | P.PN ---
Subjective Progress Note Date: 09/11/19 This is a 78-year-old male patient of Joao Delacruz and Nahomi Briggs with past medical history of COPD with chronic hypoxic respiratory failure on home O2 at 2 L, hypertension, hyperlipidemia, coronary artery disease status post 2 vessel CAB[place] [address] Sorto, infrarenal aortic aneurysm and lower extremity claudication of the care of Dr. Dr. Krueger, tobacco use and dependence. Patient states that he was having difficulty breathing with cough and was seen by his PCP Saturday of last week and placed on a steroid injection, oral steroid and Levaquin. He states that in the next day he was feeling better but it quickly came back and he had increasing shortness of breath and cough. He was using his home O2 at 2 L and tried to turn it up to 3 L but it did not work. He noticed that he had palpitations in his heart was racing and he could hardly get into the house to sit down. He complains of cough with sputum production. Patient came into [facility] emergency center for evaluation. Pulse ox 98%, heart rate in the 80s up to 134, blood pressure 117/84. EKG was atrial fibrillation at rate of 125 and patient was started on Cardizem and heparin drips. WBC 12.4, hemoglobin 16.0. Sodium 129, potassium 4.8, chloride 94, CO2 21, BUN 23 creatinine 1.19, temperature 125. Magnesium 1.6 and was replaced, liver function test within normal limits, proBNP 6060, lactic acid 1.7. Initial troponin 0.052. Influenza testing negative. Repeat EKG was atr ial fibrillation with nonspecific T-wave abnormalities, heart rate 92. Chest x- ray shows no acute pulmonary process. There is nodular density in the right lower lobe which has increased from 2015 and possibly from May 2019. Neoplasm not excluded. Patient was admitted to the cardiac stepdown unit and consult requested with cardiology and pulmonary medicine. Repeat troponins are 0.041 and 0.038. Repeat sodium level this morning is 129. 09/08: Patient's shortness of breath is somewhat improved today. He continues to have cough with sputum production. He is on Solu-Medrol at 60 mg every 6 hours which will be continued. He denies having any dizziness or lightheadedness. He states he slept well last night. He did try BiPAP but was unable to tolerate. He remains in atrial fibrillation with controlled rate. He has been started on Xarelto. Echocardiogram reveals EF 50-55%, moderate concentric left hypertrophy, trace aortic regurgitation, mild mitral regurgitation, mild tricuspid regurgitation. Cardiology May consider EMEKA and cardioversion in 4 weeks. Pulmonary has ordered CAT scan of the chest. 09/09: Patient states he continues to have a cough but not bringing up very much sputum. He is progressing and improving very slowly. He is still on Solu- Medrol 60 every 6 hours which will not be changed today. He has been afebrile, heart rate 64, blood pressure 122/66, pulse ox 94% on 2 L nasal cannula. Repeat lab work reveals sodium 131, potassium 4.3, chloride 95, CO2 30, BUN 3090 creatinine 1.15. Blood sugars running between 99-265. CT of the chest showed stable areas of surgical scarring. No suspicious nodule or mass. Partially imaged AAA. Mild to moderate scattered emphysematous changes. 09/10: Patient is found sitting up in a chair. His breathing status is a little bit better from yesterday. We will decrease Solu-Medrol to 40 mg every 8 hours. Patient is requesting Mucinex. Patient also complains of constipation and Metamucil will be added as well as stool softener. Patient has been afebrile, heart rate 72, blood pressure 110/68, pulse ox 98% on 2 L nasal cannula. Blood sugars are running between 160-206. 09/11: Patient is showing significant improvement since admission with shortness of breath and cough. Patient did have a rough night and had difficulty ambulating from bathroom back to bed due to dyspnea. Jaylon will be decreased to 40 mg IV every 12 hours and start prednisone in the morning. Due to lower extremity edema, patient started on Lasix 20 mg IV daily. Repeat chest x-ray reveals faint left basilar airspace disease may represent atelectasis or early developing pneumonia. Incentive spirometry will be added. Patient has worked with PT and OT and recommended walker which will be ordered in case management will make arrangements. Constipation has resolved. Anticipate probable discharge tomorrow. Review of Systems Constitutional: Reports fatigue, Denies anorexia, Denies chills, Denies fever, Denies poor appetite Ears, nose, mouth and throat: Denies dental pain, Denies dysphagia, Denies headache, Denies nasal congestion, Denies nasal discharge, Denies sore throat, Denies vertigo Cardiovascular: Reports decreased exercise tolerance, Reports dyspnea on exertion, Reports palpitations, denies rapid heart beat, Reports shortness of breath, Denies chest pain, Denies syncope Respiratory: Reports cough, Reports cough with sputum, Reports dyspnea, Reports home oxygen, Reports respiratory infections, Reports wheezing, Denies excessive sputum, Denies hemoptysis, Denies sleep apnea Gastrointestinal: Denies abdominal pain, Denies diarrhea, Denies nausea, Denies vomiting, reports constipation Genitourinary: Denies dysuria, Denies urinary frequency, Denies urinary retention Musculoskeletal: Reports muscle weakness, Denies frequent falls, Denies gait dysfunction, Denies myalgias Integumentary: Denies pruritus, Denies rash, Denies wounds Neurological: Denies change in mentation, Denies change in speech, Denies numbness, Denies seizures, Denies weakness Psychiatric: Denies anxiety, Denies depression Endocrine: Denies fatigue, Objective - Vital Signs Vital signs: Vital Signs Temp 98.0 F 09/11/19 04:00 Pulse 85 09/11/19 08:00 Resp 20 09/11/19 08:00 BP 122/69 09/11/19 08:00 Pulse Ox 94 L 09/11/19 08:30 Intake & Output 09/10/19 09/11/19 09/11/19 18:59 06:59 18:59 Intake Total 2322 360 Output Total 400 Balance 2322 -400 360 Weight 85.8 kg Intake: Oral 2272 360 TPN/PPN 50 cefTRIAXone 1 gm In 50 Sodium Chloride 0.9% 50 ml @ 100 mls/hr IVPB Q24HR [facility] Rx#:[id number] Output: Urine 400 Other: Voiding Method Toilet Toilet Urinal Urinal # Voids 1 - Exam Gen: This is a 78-year-old male. He is resting in a chair and appears to be comfortable. HEENT: Head is atraumatic, normocephalic. Pupils equal, round. Sclerae is anicteric. NECK: Supple. No JVD. No lymphadenopathy. No thyromegaly. LUNGS: Bilateral wheezing and rhonchi-improving diminished bilaterally. No intercostal retractions. HEART: Irregular rate and rhythm. Systolic ejection murmur. ABDOMEN: Soft. Bowel sounds are present. No masses. No tenderness. EXTREMITIES: 1+ pedal edema. No calf tenderness. NEUROLOGICAL: Patient is awake, alert and oriented x3. Cranial nerves 2 through 12 are grossly intact. - Labs CBC & Chem 7: 09/11/19 06:08 09/11/19 06:08 Labs: Abnormal Lab Results - Last 24 Hours (Table) 09/10/19 09/10/19 09/10/19 Range/Units 11:43 16:52 20:53 WBC (3.8-10.6) k/uL RBC (4.30-5.90) m/uL MCV (80.0-100.0) fL Sodium (137-145) mmol/L BUN (9-20) mg/dL Glucose (74-99) mg/dL POC Glucose (mg/dL) 195 H 123 H 156 H (75-99) mg/dL 09/11/19 09/11/19 09/11/19 Range/Units 06:08 06:08 06:11 WBC 19.2 H (3.8-10.6) k/uL RBC 4.25 L (4.30-5.90) m/uL MCV 103.2 H (80.0-100.0) fL Sodium 134 L (137-145) mmol/L BUN 44 H (9-20) mg/dL Glucose 126 H (74-99) mg/dL POC Glucose (mg/dL) 129 H (75-99) mg/dL Microbiology - Last 24 Hours (Table) 09/06/19 16:44 Blood Culture - Preliminary Blood No Growth after 96 hours Assessment and Plan Plan: 1. New onset atrial fibrillation, probable paroxysmal atrial fibrillation. Cardiology consult. Continue Lopressor 50 mg twice daily, Xarelto 50 mg daily, verapamil 180 mg day. Echocardiogram as above. Patient remains in atrial fibrillation. 2. Hyponatremia. Patient has been on IV fluids. Recheck sodium tomorrow 3. Elevated troponins most likely secondary to A. fib with RVR. Cardiology consult appreciated. 4. COPD, acute exacerbation. Continue Solu-Medrol but decreased to 40 mg every 12 hours and start oral prednisone in the morning, DuoNeb treatments every 4 hours, ceftriaxone, azithromycin, Perforomist 20 g twice daily, Pulmicort 1 mg twice daily, theophylline 400 mg at bedtime. Consult with pulmonary medicine appreciated. 5. Chronic hypoxic respiratory failure on home O2 at 2 L nasal cannula. 6. Coronary artery disease status post CABG. continue Lasix, atorvastatin. 7. Hypertension. Continue lisinopril 5 mg daily and Lopressor 50 mg twice daily. 8. Hyperlipidemia. Continue atorvastatin. 9. Peripheral vascular disease: Infrarenal abdominal aortic aneurysm, right external iliac stenosis, chronic total occlusion of the right superficial femoral artery, status post balloon angioplasty of the external iliac artery and percutaneous stent placement February 2019. Continue Plavix 75 mg daily 10. Tobacco use and dependence. Nicotine patch. 11. Alcohol abuse. 12. Right lower lobe nodule. Pulmonary medicine on consult. Computed tomography scan of the chest 13. DVT prophylaxis. Xarelto. 14. GI prophylaxis. Protonix. 15. Acute diastolic heart failure with chronic cor pulmonale. Patient started on Lasix 20 mg IV daily, continue lisinopril 5 mg daily Discharge plan: Home Impression and plan of care have been directed as dictated by the signing physician. Lila Nur nurse practitioner acting as scribe for signing physician.
[2019-09-11 14:09] VITALS: BMI 25.6
[2019-09-11 17:03] LABS: Glucose,Whole Blood 157 mg/dL (75-99)
[2019-09-11] MEDS: RIVAROXABAN 15 MG TAB PO SCH (17:11)
[2019-09-11 19:50] LABS: Glucose,Whole Blood 132 mg/dL (75-99)
[2019-09-11] MEDS: ATORVASTATIN 10 MG TAB PO SCH (20:30)
[2019-09-11] MEDS: THEOPHYLLINE 24 HOUR 400 MG CAP.ER.24H PO SCH (20:31)
[2019-09-11] MEDS: SENNOSIDES-DOCUSATE SODIUM 1 EACH TAB PO SCH (20:31)
[2019-09-11] MEDS ORDERED: methylPREDNISolone SOD SUCCI 40 MG/ML 1 ML VIAL IV SCH (21:00)
[2019-09-12] MEDS: IPRATROPIUM-ALBUTEROL 3 ML NEB INHALATION SCH ×3 (04:11→11:12)
[2019-09-12 05:04] VITALS: RESP 16; TEMP 97.4
[2019-09-12 06:05] LABS: Glucose,Whole Blood 190 mg/dL (75-99)
[2019-09-12] MEDS: PANTOPRAZOLE 40 MG TABLET PO SCH (06:33)
[2019-09-12] MEDS: INSULIN ASPART (NovoLOG) 100 UNIT/ML VIAL SQ SCH ×2 (06:33→12:11)
[2019-09-12] MEDS: BUDESONIDE 1 MG/2 ML NEBU INHALATION SCH (07:31)
[2019-09-12] MEDS: FORMOTEROL FUMARATE 20 MCG/2 ML NEBU INHALATION SCH (07:31)
[2019-09-12] MEDS ORDERED: predniSONE 20 MG TAB PO SCH (09:00)
[2019-09-12] MEDS: HYDROCHLOROTHIAZIDE 12.5 MG CAP PO SCH (09:04)
[2019-09-12] MEDS: NICOTINE 21MG/24HR PATCH TRANSDERM SCH (09:04)
[2019-09-12] MEDS: PSYLLIUM HUSK 100% 6 GM PACKET PO SCH (09:04)
[2019-09-12] MEDS: AZITHROMYCIN 500 MG TAB PO SCH (09:04)
[2019-09-12] MEDS: LISINOPRIL 10 MG TAB PO SCH (09:04)
[2019-09-12] MEDS: guaiFENesin 600 MG TABLET.ER PO SCH (09:04)
[2019-09-12] MEDS: VERAPAMIL SR 180 MG TABLET.ER PO SCH (09:04)
[2019-09-12] MEDS: METOPROLOL TARTRATE 50 MG TAB PO SCH (09:05)
[2019-09-12] MEDS: FUROSEMIDE 10 MG/ML 2 ML VIAL IV SCH (09:06)
[2019-09-12] MEDS: CLOPIDOGREL 75 MG TAB PO SCH (09:06)
[2019-09-12 09:16] VITALS: BP 136/81
[2019-09-12 11:15] VITALS: PULSE 68
--- NOTE | 2019-09-12 11:30 | P.PN ---
Progress Note - Text Progress Note Date: 09/12/19 This is a 78-year-old gentleman with history of COPD who was admitted to the hospital with COPD Exacerbation and atrial fibrillation with rapid ventricular response. Patient seemed to be doing better. He is chronically short of breath but seemed to be improved compared to the admission status. His heart rate is better controlled. His tolerating hydrochlorothiazide. The edema of the legs is cleared. From Cardec standpoint patient could be discharged home. Follow-up with with audioprosthologist in the office. Physical exam: Reveals elderly gentleman who is alert and oriented. Doesn't appear to be in acute distress. Blood pressure is 136/81. Pulse is in 68, respirations of 66. Lungs show diminished air exchange. Heart distant heart sounds but seemed to become rate control. Final impression: #1. Atypical fibrillation with controlled heart rate. #2. Exacerbation of COPD Plan: Patient could be discharged home.
--- NOTE | 2019-09-12 11:31 | P.PN ---
Subjective Progress Note Date: 09/12/19 Principal diagnosis: Acute exacerbation of chronic obstructive pulmonary disease, atrial fibrillation with a rapid ventricular response This is 78-year-old white male patient of Dr. Hatch, with past medical history of advanced COPD on home oxygen, long history of smoking, patient had quit and recently restarted, currently smoking a pack a day, carries a 60 year history of smoking. Other medical history includes peripheral vascular disease status post [employer] of both SFA angioplasty and stenting of the external iliac artery, abdominal aortic aneurysm under surveillance by Dr. Bob, dyslipidemia, hypertension, coronary artery disease with previous history of two-vessel bypass grafting [place] [address] Sorto. Patient follows with Dr. Shepherd in the pulmonary clinic, and his outpatient PFT showed FEV1 of 0.87 L or 26% of predicted, consistent with stage IV COPD, there was significant improvement in the FVC following administration of bronchodilators suggesting possibility of asthma component. Patient's maintenance breathing medications include Pulmicort, Perforomist, DuoNeb, theophylline, and a rescue inhaler. For the past week patient has been having increased difficulty breathing, cough or congestion, he had some subjective chills, but no fever. He was frequently using his nebulized treatments, he saw Dr. Hatch last week early in the week, and was given a steroid injection, in addition to antibiotics and steroid taper. Despite that his symptoms continue to worsen, he was 7 difficulty walking related to severe shortness of breath. Denied any chest pain. Denied any lower extremity swelling. In the emergency department on 09/06/2019 chest x-ray showed no acute pulmonary process but did show a nodular density in the right lower lobe which seems to have increased from 2015 and is now measuring 1.2 cm from previously 0.7 cm. EKG showed A. fib with RVR, with a rate of 125 BPM and incomplete left bundle branch block and ST-T wave abnormality in the anterolateral leads. Labs showed a white blood cell count of 12.4, hemoglobin of 16.0, sodium was 129, potassium is 4.8, chloride is 94, CO2 is 21, B1 is 23 and creatinine is 1.19. Troponins were positive at 0.052, 0.041, and 0.038, BNP was 6060. Patient was quite dyspneic, congested and wheezy, he was started on empiric antibiotics, IV steroids and breathing treatments, influenza screen was negative. He did require BiPAP support initially, he is currently on 2 L of oxygen with a pulse ox of 93%, his heart rate is better controlled on Cardizem drip, and he is on heparin drip for anticoagulation. On 09/08/2017 patient seen in follow-up on selective care unit, still dyspneic, and bronchospastic, but less congested on today's exam, he is starting to bring up large amounts of thick yellow sputum, no fever or chills, remains in A. fib with a controlled rate with a rate of 92 BPM, no complaints of chest pain, he was started on oral anticoagulation in the form of Xarelto and IV Cardizem was transitioned to oral Isoptin. Remains on IV steroids, nebulized bronchodilators, and empiric antibiotics, sounds slightly improved on today's exam. Yesterday we ordered BiPAP support on as-needed basis however patient was unable to tolerate it for longer than half an hour. Maintenance supplement oxygen at 3 L, and his pulse ox is 93%, no fever or chills. On 09/09/2019 patient is seen in follow-up on selective care unit, he is awake and alert, in no acute distress, still has dyspnea and wheezing, but is improving, lung sounds reveal diminished breath sounds, with scattered wheezing and rhonchi, but less bronchospastic and congested compared to yesterday's exam. In A. fib with a controlled rate, he's been started on oral anticoagulation, he continues on IV steroids and breathing treatments and antibiotics. Bring up much sputum on today's exam, blood culture showed no growth, have been no fever or chills. On 09/10/2019 patient seen in follow-up on selective care unit. Awake and alert, in no acute distress. Breathing much easier today, much less bronchospastic and congested on today's exam, lung sounds reveal and expiratory wheezes, occasional cough, appears to be much more comfortable today, patient has been ambulating to the bathroom, and walking short distances within the room, and his son states he still dyspneic, but seems to be improving. Remains on oxygen, likely on 2 L, earlier his pulse ox was 95% on 3 L of oxygen, there has been no fever or chills, cough culture has shown no growth. No labs today. He remains in atrial fibrillation with a controlled rate, he is on oral anticoagulation, his IV Cardizem has been transitioned to verapamil. Echo cardiogram was completed showing preserved left ventricular systolic function with low normal EF of 50-55%, mild MR, and mild TR. Clinically stable, significantly improved in the last 24-48 hours. On 09/11/2019 patient seen in follow-up on selective care unit, he sitting up in the chair, he states he is having increasing shortness of breath today, his son stated that patient had episode of respiratory distress yesterday after walking to the bathroom, requiring breathing treatments and took him a while to recover. Lung sounds reveal very diminished lung sounds over right posterior upper and lower lobes, better air entry noted over anterior right chest, tight wheezes over left lung. Ration has developed lower extremity edema, he isn't positive 5.4 kg fluid balance over the last 24 hours, remains in A. fib with a controlled rate, this was discussed with the attending physician and Lasix was recommended, and added at 20 mg once daily, will obtain a stat chest x-ray, will continue with IV steroids, nebulized bronchodilators. No fever or chills. His lab work has been reviewed, showing white blood cell count of 19.2, hemoglobin of 14.5, sodium of 134, the rest of a left was were within normal limits, BUN was 44 creatinine was 1.0 The patient is seen today 09/12/2019 in follow-up on the selective care unit. He is currently sitting up in a chair at the bedside. Awake and alert in no acute distress. He is currently maintaining O2 saturation in the mid 90s on room air. He's afebrile. Hemodynamically stable. He remains in atrial fibrillation with a controlled ventricular response. Anticoagulated with Xarelto. Blood glucose 190. Yesterday's chest x-ray revealed a faint left basilar airspace disease suggestive of atelectasis. Chronic changes. He has been maintained on DuoNeb inhalations, Pulmicort and Perforomist inhalations, prednisone, theophylline. Antibiotics in the form of ceftriaxone and azithromycin. IV diuretics. NicoDerm patch in place. Objective - Vital Signs Vital signs: Vital Signs Temp 97.4 F L 09/12/19 04:00 Pulse 68 09/12/19 11:14 Resp 16 09/12/19 08:00 BP 136/81 09/12/19 08:00 Pulse Ox 97 09/12/19 08:00 Intake & Output 09/11/19 09/12/19 09/12/19 18:59 06:59 18:59 Intake Total 1200 180 Output Total 900 250 Balance 300 -250 180 Weight 85.8 kg 85.5 kg Intake: Oral 1200 180 Output: Urine 900 250 Other: Voiding Method Toilet Toilet Toilet Urinal Urinal Urinal # Voids 1 - Exam GENERAL EXAM: Alert, 78-year-old white male, on room air with pulse ox of 97%, comfortable in no apparent distress. HEAD: Normocephalic/atraumatic. EYES: Normal reaction of pupils, equal size. Conjunctiva pink, sclera white. NOSE: Clear with pink turbinates. THROAT: No erythema or exudates. NECK: No masses, no JVD, no thyroid enlargement, no adenopathy. CHEST: No chest wall deformity. Symmetrical expansion. LUNGS: Very diminished breath sounds bilaterally. CVS: Irregular rate and rhythm, normal S1 and S2, no gallops, no murmurs, no rubs ABDOMEN: Soft, nontender. No hepatosplenomegaly, normal bowel sounds, no guarding or rigidity. EXTREMITIES: No clubbing, 1+ lower extremity edema and pedal edema, no cyanosis, 2+ pulses and upper and lower extremities. MUSCULOSKELETAL: Muscle strength and tone normal. SPINE: No scoliosis or deformity SKIN: No rashes CENTRAL NERVOUS SYSTEM: No focal deficits, tone is normal in all 4 extremities. PSYCHIATRIC: Alert and oriented -3. Appropriate affect. Intact judgment and insight. - Labs CBC & Chem 7: 09/11/19 06:08 09/11/19 06:08 Labs: Abnormal Lab Results - Last 24 Hours (Table) 09/11/19 09/11/19 09/11/19 Range/Units 12:01 17:01 19:48 POC Glucose (mg/dL) 115 H 157 H 132 H (75-99) mg/dL 09/12/19 Range/Units 06:04 POC Glucose (mg/dL) 190 H (75-99) mg/dL Microbiology - Last 24 Hours (Table) 09/06/19 16:44 Blood Culture - Preliminary Blood No Growth after 120 hours Assessment and Plan Assessment: #1. Acute exacerbation of COPD complicated by purulent tracheobronchitis #2. Right lower lobe nodule measuring 1.2 cm with increase in size from 2015 film from 0.7 cm, likely calcified. We will obtain CT chest with contrast to characterize. Chest CT with contrast was obtained, showing stable areas of parenchymal scarring no suspicious nodule or mass. This was on the background of [id number] scattered emphysematous changes. #3. New onset A. fib with RVR, initiated on Xarelto #4. Elevated troponins, EKG did show significant ST and T-wave abnormality with depression and inversion involving the anterolateral leads #5. Acute exacerbation of chronic congestive heart failure, with unknown LV function #6. Peripheral arterial disease with history of prior percutaneous angioplasty of both SFA and iliac stenting #7. History of abdominal aortic aneurysm under surveillance #8. Chronic and ongoing nicotine dependence, patient carries a [id number] smoking history, did quit for a few months but recently restarted, and is smoking a pack a day #9. History of stage IV COPD, and outpatient PFT showed FEV1 of 0.87 L or 26% of predicted, with response to bronchodilators suggesting possibility of asthma component in addition to COPD. #10. Coronary artery disease status post 2 vessel coronary artery bypass grafting [place] [address] Sorto #11. Hypertension #12. Hyperlipidemia Plan: The patient was seen and evaluated by Dr. Garcia. Chest x-ray reviewed. He is improved today compared to yesterday. On room air. Still quite dyspneic with minimal exertion. Continued on DuoNeb inhalations, Pulmicort and Perforomist inhalations, prednisone. On IV diuretics. We will increase his activity as tolerated. Home once cleared medically. He is again educated regarding the importance of complete smoking cessation. He'll follow up with Dr. Shepherd in our office in 1-2 weeks' time. I, the cosigning physician, performed a history & physical examination of the patient. Lungs sounds diminished throughout. Maintaining good O2 saturations in the 90s on room air. I discussed the assessment and plan of care with my nurse practitioner, Rachel Johnson. I attest to the above note as dictated by her.
[2019-09-12 12:05] LABS: Glucose,Whole Blood 116 mg/dL (75-99)
--- NOTE | 2019-09-14 13:41 | P.DS ---
Providers Date of admission: 09/06/19 20:49 Expected date of discharge: 09/12/19 Attending physician: Mireya Manzano Consults: 09/06/19 20:46 Consult Physician Urgent Consulting Provider: Ximena Paz Consult Reason/Comments: NIVDRF, AECOPD Do you want consulting provider notified?: Yes 09/06/19 20:47 Consult Physician Urgent Consulting Provider: Shad Briggs Consult Reason/Comments: new onset afib with rvr Do you want consulting provider notified?: Already Contacted [facility] Course: This is a 78-year-old male patient of Drs. Ravin Hatch, Joao and Nahomi Briggs with past medical history of COPD with chronic hypoxic respiratory failure on home O2 at 2 L, hypertension, hyperlipidemia, coronary artery disease status post 2 vessel CAB[place] [address] Sorto, infrarenal aortic aneurysm and lower extremity claudication of the care of Dr. Dr. Krueger, tobacco use and dependence. Patient states that he was having difficulty breathing with cough and was seen by his PCP Saturday of last week and placed on a steroid injection, oral steroid and Levaquin. He states that in the next day he was feeling better but it quickly came back and he had increasing shortness of breath and cough. He was using his home O2 at 2 L and tried to turn it up to 3 L but it did not work. He noticed that he had palpitations in his heart was racing and he could hardly get into the house to sit down. He complains of cough with sputum production. Patient came into [facility] emergency center for evaluation. Pulse ox 98%, heart rate in the 80s up to 134, blood pressure 117/84. EKG was atrial fibrillation at rate of 125 and patient was started on Cardizem and heparin drips. WBC 12.4, hemoglobin 16.0. Sodium 129, potassium 4.8, chloride 94, CO2 21, BUN 23 creatinine 1.19, temperature 125. Magnesium 1.6 and was replaced, liver function test within normal limits, proBNP 6060, lactic acid 1.7. Initial troponin 0.052. Influenza testing negative. Repeat EKG was atrial fibrillation with nonspecific T-wave abnormalities, heart rate 92. Chest x-ray shows no acute pulmonary process. There is nodular density in the right lower lobe which has increased from 2014 and possibly from May 2019. Neoplasm not excluded. Patient was admitted to the cardiac stepdown unit and consult requested with cardiology and pulmonary medicine. Repeat troponins are 0.041 and 0.038. Repeat sodium level this morning is 129. 09/08: Patient's shortness of breath is somewhat improved today. He continues to have cough with sputum production. He is on Solu-Medrol at 60 mg every 6 hours which will be continued. He denies having any dizziness or lightheadedness. He states he slept well last night. He did try BiPAP but was unable to tolerate. He remains in atrial fibrillation with controlled rate. He has been started on Xarelto. Echocardiogram reveals EF 50-55%, moderate concentric left hypertrophy, trace aortic regurgitation, mild mitral regurgitation, mild tricuspid regurgitation. Cardiology May consider EMEKA and cardioversion in 4 weeks. Pulmonary has ordered CAT scan of the chest. 09/09: Patient states he continues to have a cough but not bringing up very much sputum. He is progressing and improving very slowly. He is still on Solu- Medrol 60 every 6 hours which will not be changed today. He has been afebrile, heart rate 64, blood pressure 122/66, pulse ox 94% on 2 L nasal cannula. Repeat lab work reveals sodium 131, potassium 4.3, chloride 95, CO2 30, BUN 3090 creatinine 1.15. Blood sugars running between 99-265. CT of the chest showed stable areas of surgical scarring. No suspicious nodule or mass. Partially imaged AAA. Mild to moderate scattered emphysematous changes. 09/10: Patient is found sitting up in a chair. His breathing status is a little bit better from yesterday. We will decrease Solu-Medrol to 40 mg every 8 hours. Patient is requesting Mucinex. Patient also complains of constipation and Metamucil will be added as well as stool softener. Patient has been afebrile, heart rate 72, blood pressure 110/68, pulse ox 98% on 2 L nasal cannula. Blood sugars are running between 160-206. 09/11: Patient is showing significant improvement since admission with shortness of breath and cough. Patient did have a rough night and had difficulty ambulating from bathroom back to bed due to dyspnea. Jaylon will be decreased to 40 mg IV every 12 hours and start prednisone in the morning. Due to lower extremity edema, patient started on Lasix 20 mg IV daily. Repeat chest x-ray reveals faint left basilar airspace disease may represent atelectasis or early developing pneumonia. Incentive spirometry will be added. Patient has worked with PT and OT and recommended walker which will be ordered in case management will make arrangements. Constipation has resolved. Anticipate probable discharge tomorrow. 09/12: Patient is seen today. He is sitting up and dressed for discharge. Patient is anxious to be discharged home today and has been cleared by consultants. He has been afebrile, heart rate 68, blood pressure 136/81 and pulse ox 97% on room air. Patient will be discharged home today in stable condition. Discharge diagnoses: 1. New onset atrial fibrillation, probable paroxysmal atrial fibrillation. 2. Hyponatremia. 3. Elevated troponins most likely secondary to A. fib with RVR. 4. COPD, acute exacerbation. 5. Chronic hypoxic respiratory failure on home O2 at night at 2 L nasal cannula. 6. Coronary artery disease status post CABG. 7. Hypertension. 8. Hyperlipidemia. 9. Peripheral vascular disease: Infrarenal abdominal aortic aneurysm, right external iliac stenosis, chronic total occlusion of the right superficial femoral artery, status post balloon angioplasty of the external iliac artery and percutaneous stent placement February 2019. 10. Tobacco use and dependence. 11. Alcohol abuse. 12. Right lower lobe nodule. 13. Acute diastolic heart failure with chronic cor pulmonale. Discharge plan: Home Impression and plan of care have been directed as dictated by the signing ysician. Lila Nur nurse practitioner acting as scribe for signing physician. Patient Condition at Discharge: Good Plan - Discharge Summary Discharge Rx Participant: No New Discharge Prescriptions: New Verapamil Sr [Isoptin Sr] 180 mg PO DAILY #30 tablet.er Potassium Chloride ER [K-Dur 10] 10 meq PO DAILY #30 tab Furosemide [Lasix] 20 mg PO DAILY #30 tab guaiFENesin [Mucinex] 1,200 mg PO Q12HR tablet.er predniSONE 0 mg PO DIRECTED #30 tab Budesonide [Pulmicort] 1 mg INHALATION RT-BID #60 nebu Rivaroxaban [Xarelto] 15 mg PO W/SUPPER #30 tab Continue Simvastatin [Zocor] 20 mg PO HS Lisinopril 5 mg PO DAILY Levofloxacin 500 mg PO DAILY Formoterol Fumarate [Perforomist] 20 mcg INHALATION RT-BID Theophylline 24 Hour [Antoine-24] 400 mg PO HS Metoprolol Tartrate [Lopressor] 50 mg PO BID Ipratropium-Albuterol Nebulize [Duoneb 0.5 mg-3 mg/3 ml Soln] 3 ml INHALATION RT-Q4H Clopidogrel Bisulfate [Plavix] 75 mg PO DAILY Discontinued predniSONE See Taper PO DAILY Discharge Medication List Simvastatin [Zocor] 20 mg PO HS 01/27/15 [History] Lisinopril 5 mg PO DAILY 09/19/16 [History] Clopidogrel Bisulfate [Plavix] 75 mg PO DAILY 09/06/19 [History] Formoterol Fumarate [Perforomist] 20 mcg INHALATION RT-BID 09/06/19 [History] Ipratropium-Albuterol Nebulize [Duoneb 0.5 mg-3 mg/3 ml Soln] 3 ml INHALATION RT-Q4H 09/06/19 [History] Levofloxacin 500 mg PO DAILY 09/06/19 [History] Metoprolol Tartrate [Lopressor] 50 mg PO BID 09/06/19 [History] Theophylline 24 Hour [Antoine-24] 400 mg PO HS 09/06/19 [History] Budesonide [Pulmicort] 1 mg INHALATION RT-BID #60 nebu 09/12/19 [Rx] Furosemide [Lasix] 20 mg PO DAILY #30 tab 09/12/19 [Rx] Potassium Chloride ER [K-Dur 10] 10 meq PO DAILY #30 tab 09/12/19 [Rx] Rivaroxaban [Xarelto] 15 mg PO W/SUPPER #30 tab 09/12/19 [Rx] Verapamil Sr [Isoptin Sr] 180 mg PO DAILY #30 tablet.er 09/12/19 [Rx] guaiFENesin [Mucinex] 1,200 mg PO Q12HR tablet.er 09/12/19 [Rx] predniSONE 0 mg PO DIRECTED #30 tab 09/12/19 [Rx] Follow up Appointment(s)/Referral(s): Klever Escobar [NON-STAFF] - Frederic Shepherd DO [Doctor of Osteopathic Medicine] - 09/30/19 1:30 pm (Pulmonary) Shad Briggs MD [STAFF PHYSICIAN] - 09/15/19 3:30 pm Mahad Hatch MD [Primary Care Provider] - 1 Week (Office closed September 11 - . Please call Saturday and make a follow up appointment. ) Patient Instructions/Handouts: A-fib (Atrial Fibrillation) (DC), Pulmonary Nodules (DC), Safe Use of Anticoagulants (DC) Discharge Disposition: HOME WITH HOME HEALTH SERVICES
== END 2019-09-12 13:23 | disposition home health service (06) | DRG 308 ==
LOC: EC 15:18 → 3SCARD 20:49
PROVIDERS: ADMIT Internal Medicine; ATTEND Internal Medicine
PROC: 5A09557 Assistance with Respiratory Ventilation, Greater than 96 Consecutive Hours, Continuous Positive Airway Pressure (ICD-10-PCS; principal; 2019-09-04)
DX: I48.0 Paroxysmal atrial fibrillation (principal); I50.31 Acute diastolic (congestive) heart failure; E87.1 Hypo-osmolality and hyponatremia; J44.1 Chronic obstructive pulmonary disease with (acute) exacerbation; J96.11 Chronic respiratory failure with hypoxia; I70.92 Chronic total occlusion of artery of the extremities; I11.0 Hypertensive heart disease with heart failure; E78.5 Hyperlipidemia, unspecified; F32.9 Major depressive disorder, single episode, unspecified; I25.10 Atherosclerotic heart disease of native coronary artery without angina pectoris; H26.9 Unspecified cataract; F17.200 Nicotine dependence, unspecified, uncomplicated; I71.4 Abdominal aortic aneurysm, without rupture; I73.9 Peripheral vascular disease, unspecified; K59.00 Constipation, unspecified; I08.3 Combined rheumatic disorders of mitral, aortic and tricuspid valves; F10.10 Alcohol abuse, uncomplicated; R91.1 Solitary pulmonary nodule; I44.7 Left bundle-branch block, unspecified; Z86.79 Personal history of other diseases of the circulatory system; Z99.81 Dependence on supplemental oxygen; Z82.49 Family history of ischemic heart disease and other diseases of the circulatory system; Z82.5 Family history of asthma and other chronic lower respiratory diseases; Z80.9 Family history of malignant neoplasm, unspecified; Z95.1 Presence of aortocoronary bypass graft; Z79.51 Long term (current) use of inhaled steroids; Z79.01 Long term (current) use of anticoagulants; Z79.899 Other long term (current) drug therapy; Z79.02 Long term (current) use of antithrombotics/antiplatelets; Z79.52 Long term (current) use of systemic steroids; Z88.0 Allergy status to penicillin; Z98.890 Other specified postprocedural states; Z90.89 Acquired absence of other organs; Z98.41 Cataract extraction status, right eye; Z95.820 Peripheral vascular angioplasty status with implants and grafts; Z99.89 Dependence on other enabling machines and devices
CPT/HCPCS: 36415; 71045; 71260; 80048; 80053; 80198; 83605; 83735; 83880; 84443; 84484; 85025; 85027; 85610; 85730; 87040; 87502; 93005; 93306; 94640; 94660; 94760; 96361; 96365; 96366; 96367; 96368; 96375; 96376; 99291

== ENCOUNTER 2019-09-30 13:47 | Emergency (ER) | payer MEDICARE ==
[2019-09-30 13:57] VITALS: TEMP 97.7
[2019-09-30] MEDS ORDERED: ALBUTEROL NEBULIZED 2.5 MG/3 ML INHALATION STA (14:09)
[2019-09-30] MEDS ORDERED: methylPREDNISolone SOD SUCCI 125 MG/2 ML VIAL IV STA (14:09)
[2019-09-30] MEDS ORDERED: IPRATROPIUM 0.5 MG/2.5 ML NEBU INHALATION STA (14:09)
--- NOTE | 2019-09-30 14:21 | ED ---
General Adult HPI - General Chief complaint: Shortness of Breath Stated complaint: SOB Time Seen by Provider: 09/30/19 14:00 Source: patient, family, RN notes reviewed, old records reviewed Mode of arrival: wheelchair Limitations: no limitations - History of Present Illness Initial comments: 78-year-old male presents for evaluation of dyspnea, cough, generalized weakness. Patient was sent in by his home care nurse for evaluation of low blood pressure, low heart rate and worsening cough. Patient also reports abnormal lab test from his primary care physician but is uncertain what this lab abnormality was. He denies fever or chills. He reports a mild chest pain which is worse with cough. He has history of A. fib and is anticoagulated. His been taking breathing treatments at home with minimal improvement. - Related Data Home Medications Medication Instructions Recorded Confirmed Simvastatin [Zocor] 20 mg PO HS 01/27/15 09/06/19 Lisinopril 5 mg PO DAILY 09/19/16 09/06/19 Clopidogrel Bisulfate [Plavix] 75 mg PO DAILY 09/06/19 09/06/19 Formoterol Fumarate [Perforomist] 20 mcg INHALATION RT-BID 09/06/19 09/06/19 Ipratropium-Albuterol Nebulize 3 ml INHALATION RT-Q4H 09/06/19 09/06/19 [Duoneb 0.5 mg-3 mg/3 ml Soln] Levofloxacin 500 mg PO DAILY 09/06/19 09/06/19 Metoprolol Tartrate [Lopressor] 50 mg PO BID 09/06/19 09/06/19 Theophylline 24 Hour [Antoine-24] 400 mg PO HS 09/06/19 09/06/19 Previous Rx's Medication Instructions Recorded Budesonide [Pulmicort] 1 mg INHALATION RT-BID #60 nebu 09/12/19 Furosemide [Lasix] 20 mg PO DAILY #30 tab 09/12/19 Potassium Chloride ER [K-Dur 10] 10 meq PO DAILY #30 tab 09/12/19 Rivaroxaban [Xarelto] 15 mg PO W/SUPPER #30 tab 09/12/19 Verapamil Sr [Isoptin Sr] 180 mg PO DAILY #30 tablet.er 09/12/19 guaiFENesin [Mucinex] 1,200 mg PO Q12HR tablet.er 09/12/19 predniSONE 0 mg PO DIRECTED #30 tab 09/12/19 ALPRAZolam [Xanax] 0.25 mg PO Q8HR PRN 3 Days #15 tab 09/30/19 Furosemide [Lasix] 20 mg PO DAILY #45 tab 09/30/19 Allergies Allergy/AdvReac Type Severity Reaction Status Date / Time Penicillins Allergy Unknown Verified 09/30/19 13:57 Review of Systems ROS Statement: Those systems with pertinent positive or pertinent negative responses have been documented in the HPI. ROS Other: All systems not noted in ROS Statement are negative. Past Medical History Past Medical History: Asthma, Coronary Artery Disease (CAD), COPD, Eye Disorder, Hyperlipidemia, Hypertension Additional Past Medical History / Comment(s): "spot on lung". BILAT CATARACTS History of Any Multi-Drug Resistant Organisms: None Reported Past Surgical History: Coronary Bypass/CABG, Hernia Repair, Tonsillectomy Additional Past Surgical History / Comment(s): surgery for "blockages in legs with one stent",rt cataract Past Anesthesia/Blood Transfusion Reactions: Postoperative Nausea & Vomiting (PONV) Past Psychological History: No Psychological Hx Reported Smoking Status: Current every day smoker Past Alcohol Use History: Daily Past Drug Use History: None Reported - Past Family History Father Additional Family Medical History / Comment(s): Father at age 57 from myocardial infarction. Mother Additional Family Medical History / Comment(s): Mother at age 75 from cancer, patient does not know type. Sister(s) Additional Family Medical History / Comment(s): Patient has one sister that is passed from emphysema. Patient has 2 sons with no major medical problems. Brother(s) Family Medical History: Cancer General Exam Limitations: no limitations General appearance: alert, in no apparent distress Head exam: Present: atraumatic, normocephalic Eye exam: Present: normal appearance, PERRL ENT exam: Present: normal exam Neck exam: Present: normal inspection. Absent: tenderness, meningismus Respiratory exam: Present: wheezes, decreased breath sounds Cardiovascular Exam: Present: regular rate, normal rhythm GI/Abdominal exam: Present: soft. Absent: distended, tenderness Extremities exam: Present: normal inspection, normal capillary refill Neurological exam: Present: alert, oriented X3 Psychiatric exam: Present: normal affect, normal mood Skin exam: Present: warm, dry, intact. Absent: cyanosis, diaphoretic Course Vital Signs 09/30/19 09/30/19 09/30/19 13:53 13:57 14:13 Temperature 97.7 F Pulse Rate 53 L Respiratory 22 20 18 Rate Blood Pressure 108/59 O2 Sat by Pulse 96 Oximetry 09/30/19 09/30/19 14:57 15:36 Temperature Pulse Rate 45 L Respiratory 18 Rate Blood Pressure 110/80 O2 Sat by Pulse Oximetry EKG Findings - EKG Comments: EKG Findings:: EKG: Sinus bradycardia with first-degree AV block and PAC, incomplete left bundle rate of 47, UT interval 282, QRS duration 112, QTC [address] segment elevation Medical Decision Making - Medical Decision Making 78 -year-old male with cough dyspnea, low heart rate and blood pressure at home as well as an unknown lab abnormality. Patient has decreased air entry bilaterally, wheezing. Blood pressure stable, he is bradycardic which is sinus bradycardia and EKG, he's had been bradycardic since discharge he is currently on metoprolol. Laboratory studies reveal white count normal 10.1, hemoglobin stable at 13.3, creatinine is mildly elevated 1.5 agreeable 1. He has down trending BNP at 2000 from 6000 and previous admission, negative troponin. He has a chest x-ray showing COPD with no yashira pulmonary edema. I suspect the patient has been over diuresed with 40 mg of daily Lasix given the up trending creatinine as well as blood pressure on the low side of normal. I offered admission to this patient for further treatment of COPD., And for close m onitoring of vital signs. Patient declines she prefers outpatient follow-up. He will drop his Lasix dose from 40 daily 240 every other day and 20 mg every other day. He will follow-up with his primary care physician. Return with worsening or changing symptoms. - Lab Data Result diagrams: 09/30/19 14:35 09/30/19 14:35 Lab Results 09/30/19 09/30/19 09/30/19 Range/Units 14:35 14:35 14:35 WBC 10.1 (3.8-10.6) k/uL RBC 3.83 L (4.30-5.90) m/uL Hgb 13.3 (13.0-17.5) gm/dL Hct 39.3 (39.0-53.0) % MCV 102.7 H (80.0-100.0) fL MCH 34.8 (25.0-35.0) pg MCHC 33.9 (31.0-37.0) g/dL RDW 13.3 (11.5-15.5) % Plt Count 179 (150-450) k/uL Neutrophils % 77 % Lymphocytes % 12 % Monocytes % 7 % Eosinophils % 2 % Basophils % 0 % Neutrophils # 7.7 (1.3-7.7) k/uL Lymphocytes # 1.3 (1.0-4.8) k/uL Monocytes # 0.8 (0-1.0) k/uL Eosinophils # 0.2 (0-0.7) k/uL Basophils # 0.0 (0-0.2) k/uL Macrocytosis Slight PT (9.0-12.0) sec INR (<1.2) APTT (22.0-30.0) sec Sodium 135 L (137-145) mmol/L Potassium 4.3 (3.5-5.1) mmol/L Chloride 98 (98-107) mmol/L Carbon Dioxide 29 (22-30) mmol/L Anion Gap 8 mmol/L BUN 39 H (9-20) mg/dL Creatinine 1.53 H (0.66-1.25) mg/dL Est GFR (CKD-EPI)AfAm 50 (>60 ml/min/1.73 sqM) Est GFR (CKD-EPI)NonAf 44 (>60 ml/min/1.73 sqM) Glucose 127 H (74-99) mg/dL Plasma Lactic Acid Renny (0.7-2.0) mmol/L Calcium 9.1 (8.4-10.2) mg/dL Magnesium 1.8 (1.6-2.3) mg/dL Total Bilirubin 0.9 (0.2-1.3) mg/dL AST 20 (17-59) U/L ALT 16 L (21-72) U/L Alkaline Phosphatase 67 (38-126) U/L Troponin I (0.000-0.034) ng/mL NT-Pro-B Natriuret Pep 2060 pg/mL Total Protein 5.8 L (6.3-8.2) g/dL Albumin 3.5 (3.5-5.0) g/dL Influenza Type A RNA (Not Detectd) Influenza Type B (PCR) (Not Detectd) 09/30/19 09/30/19 09/30/19 Range/Units 14:35 14:35 14:35 WBC (3.8-10.6) k/uL RBC (4.30-5.90) m/uL Hgb (13.0-17.5) gm/dL Hct (39.0-53.0) % MCV (80.0-100.0) fL MCH (25.0-35.0) pg MCHC (31.0-37.0) g/dL RDW (11.5-15.5) % Plt Count (150-450) k/uL Neutrophils % % Lymphocytes % % Monocytes % % Eosinophils % % Basophils % % Neutrophils # (1.3-7.7) k/uL Lymphocytes # (1.0-4.8) k/uL Monocytes # (0-1.0) k/uL Eosinophils # (0-0.7) k/uL Basophils # (0-0.2) k/uL Macrocytosis PT 11.7 (9.0-12.0) sec INR 1.1 (<1.2) APTT 31.6 H (22.0-30.0) sec Sodium (137-145) mmol/L Potassium (3.5-5.1) mmol/L Chloride (98-107) mmol/L Carbon Dioxide (22-30) mmol/L Anion Gap mmol/L BUN (9-20) mg/dL Creatinine (0.66-1.25) mg/dL Est GFR (CKD-EPI)AfAm (>60 ml/min/1.73 sqM) Est GFR (CKD-EPI)NonAf (>60 ml/min/1.73 sqM) Glucose (74-99) mg/dL Plasma Lactic Acid Renny 1.3 (0.7-2.0) mmol/L Calcium (8.4-10.2) mg/dL Magnesium (1.6-2.3) mg/dL Total Bilirubin (0.2-1.3) mg/dL AST (17-59) U/L ALT (21-72) U/L Alkaline Phosphatase (38-126) U/L Troponin I <0.012 (0.000-0.034) ng/mL NT-Pro-B Natriuret Pep pg/mL Total Protein (6.3-8.2) g/dL Albumin (3.5-5.0) g/dL Influenza Type A RNA (Not Detectd) Influenza Type B (PCR) (Not Detectd) 09/30/19 Range/Units 15:03 WBC (3.8-10.6) k/uL RBC (4.30-5.90) m/uL Hgb (13.0-17.5) gm/dL Hct (39.0-53.0) % MCV (80.0-100.0) fL MCH (25.0-35.0) pg MCHC (31.0-37.0) g/dL RDW (11.5-15.5) % Plt Count (150-450) k/uL Neutrophils % % Lymphocytes % % Monocytes % % Eosinophils % % Basophils % % Neutrophils # (1.3-7.7) k/uL Lymphocytes # (1.0-4.8) k/uL Monocytes # (0-1.0) k/uL Eosinophils # (0-0.7) k/uL Basophils # (0-0.2) k/uL Macrocytosis PT (9.0-12.0) sec INR (<1.2) APTT (22.0-30.0) sec Sodium (137-145) mmol/L Potassium (3.5-5.1) mmol/L Chloride (98-107) mmol/L Carbon Dioxide (22-30) mmol/L Anion Gap mmol/L BUN (9-20) mg/dL Creatinine (0.66-1.25) mg/dL Est GFR (CKD-EPI)AfAm (>60 ml/min/1.73 sqM) Est GFR (CKD-EPI)NonAf (>60 ml/min/1.73 sqM) Glucose (74-99) mg/dL Plasma Lactic Acid Renny (0.7-2.0) mmol/L Calcium (8.4-10.2) mg/dL Magnesium (1.6-2.3) mg/dL Total Bilirubin (0.2-1.3) mg/dL AST (17-59) U/L ALT (21-72) U/L Alkaline Phosphatase (38-126) U/L Troponin I (0.000-0.034) ng/mL NT-Pro-B Natriuret Pep pg/mL Total Protein (6.3-8.2) g/dL Albumin (3.5-5.0) g/dL Influenza Type A RNA Not Detected (Not Detectd) Influenza Type B (PCR) Not Detected (Not Detectd) Disposition Clinical Impression: COPD (chronic obstructive pulmonary disease) Disposition: HOME SELF-CARE Condition: Fair Instructions (If sedation given, give patient instructions): COPD (Chronic Obstructive Pulmonary Disease) (ED) Additional Instructions: Please decreased Lasix dose from 40 daily to 40 every other day, 20 every other day. Prescriptions: Furosemide [Lasix] 20 mg PO DAILY #45 tab ALPRAZolam [Xanax] 0.25 mg PO Q8HR PRN 3 Days #15 tab PRN Reason: Agitation Is patient prescribed a controlled substance at d/c from ED?: No Referrals: Mahad Hatch MD [Primary Care Provider] - 1-2 days Time of Disposition: 15:55
[2019-09-30 14:48] LABS: Basophils % (A) 0 %; Eosinophils # (A) 0.2 k/uL (0-0.7); Eosinophils % (A) 2 %; HCT 39.3 % (39.0-53.0); HGB 13.3 gm/dL (13.0-17.5); Lymphocytes # (A) 1.3 k/uL (1.0-4.8); Lymphocytes % (A) 12 %; MCH 34.8 pg (25.0-35.0); MCHC 33.9 g/dL (31.0-37.0); MCV 102.7 fL (80.0-100.0); Macrocytosis Slight; Mean Platelet Volume 7.6; Monocytes # (A) 0.8 k/uL (0-1.0); Monocytes % (A) 7 %; Neutrophils # (A) 7.7 k/uL (1.3-7.7); Neutrophils % (A) 77 %; Platelet Count 179 k/uL (150-450); RBC 3.83 m/uL (4.30-5.90); RDW 13.3 % (11.5-15.5); WBC 10.1 k/uL (3.8-10.6)
[2019-09-30 14:59] LABS: INR 1.1 (<1.2); Partial Thromboplastin Time 31.6 sec (22.0-30.0); Prothrombin Time 11.7 sec (9.0-12.0)
[2019-09-30 15:12] LABS: Albumin 3.5 g/dL (3.5-5.0); Calcium 9.1 mg/dL (8.4-10.2); Magnesium 1.8 mg/dL (1.6-2.3); Potassium 4.3 mmol/L (3.5-5.1); Total Bilirubin 0.9 mg/dL (0.2-1.3); Total Protein 5.8 g/dL (6.3-8.2)
--- NOTE | 2019-09-30 15:21 | XR ---
EXAMINATION TYPE: XR chest 2V DATE OF EXAM: 09/30/2019 COMPARISON: 09/11/2019 HISTORY: Shortness of breath. History of asthma and CABG. TECHNIQUE: Frontal and lateral views of the chest are obtained. FINDINGS: There is no focal air space opacity, pleural effusion, or pneumothorax seen. Increased ret rosternal airspace and flattening of the diaphragms on the lateral view is indicative of underlying C OPD. The cardiac silhouette size is within normal limits. Post CABG changes the chest are seen. The osseous structures are intact. There is diffuse osseous demineralization seen. IMPRESSION: No acute cardiopulmonary process. Underlying COPD.
[2019-09-30 16:09] VITALS: BP 118/70; PULSE 58; RESP 20
== END 2019-09-30 16:13 | disposition home or self-care (01) ==
LOC: EC 13:47
DX: J44.9 Chronic obstructive pulmonary disease, unspecified (principal); R00.1 Bradycardia, unspecified; R79.89 Other specified abnormal findings of blood chemistry; R53.1 Weakness; I48.91 Unspecified atrial fibrillation; I25.10 Atherosclerotic heart disease of native coronary artery without angina pectoris; E78.5 Hyperlipidemia, unspecified; I10 Essential (primary) hypertension; F17.200 Nicotine dependence, unspecified, uncomplicated; Z88.0 Allergy status to penicillin; Z79.01 Long term (current) use of anticoagulants; Z79.02 Long term (current) use of antithrombotics/antiplatelets; Z79.899 Other long term (current) drug therapy; Z95.1 Presence of aortocoronary bypass graft; Z90.89 Acquired absence of other organs; Z82.5 Family history of asthma and other chronic lower respiratory diseases; Z82.49 Family history of ischemic heart disease and other diseases of the circulatory system; Z53.20 Procedure and treatment not carried out because of patient's decision for unspecified reasons
CPT/HCPCS: 36415; 94640; 83880; 80053; 83605; 83735; 84484; 85025; 85610; 85730; 87040; 87502; 71046; 99285; 96374; J2930

== ENCOUNTER 2019-12-28 08:22 | Inpatient (IN) | payer MEDICARE ==
[2019-12-28] MEDS: SODIUM CHLORIDE 0.9% 500 ML 500 ML IV SCH ×2 (09:29→11:20)
[2019-12-28 09:36] LABS: Basophils % (A) 0 %; Eosinophils # (A) 0.1 k/uL (0-0.7); Eosinophils % (A) 0 %; HCT 33.1 % (39.0-53.0); HGB 10.9 gm/dL (13.0-17.5); Lymphocytes # (A) 1.1 k/uL (1.0-4.8); Lymphocytes % (A) 6 %; MCH 34.8 pg (25.0-35.0); MCV 105.4 fL (80.0-100.0); Macrocytosis Moderate; Mean Platelet Volume 8.4; Monocytes # (A) 1.7 k/uL (0-1.0); Monocytes % (A) 10 %; Neutrophils # (A) 14.4 k/uL (1.3-7.7); Neutrophils % (A) 82 %; Platelet Count 150 k/uL (150-450); RBC 3.14 m/uL (4.30-5.90); RDW 14.3 % (11.5-15.5); WBC 17.6 k/uL (3.8-10.6)
[2019-12-28] MEDS ORDERED: CLINDAMYCIN 600 MG in DEXTROSE 5% IN WATER 50 ML IVPB STA ×2 (09:40)
[2019-12-28 09:44] LABS: Partial Thromboplastin Time 26.7 sec (22.0-30.0); Prothrombin Time 10.6 sec (9.0-12.0)
[2019-12-28] MEDS ORDERED: HYDROmorphone 0.5 MG/0.5 ML SYRINGE IVP STA (09:46)
[2019-12-28 09:49] LABS: ALT 16 U/L (4-49); AST 37 U/L (17-59); African American GFR (CKD) 25 (>60 ml/min/1.73 sqM); Albumin 3.5 g/dL (3.5-5.0); Alcohol <10 mg/dL; Alkaline Phosphatase 54 U/L (38-126); Anion Gap 11 mmol/L; Blood Urea Nitrogen 69 mg/dL (9-20); Calcium 9.2 mg/dL (8.4-10.2); Carbon Dioxide 22 mmol/L (22-30); Chloride 97 mmol/L (98-107); Glucose 86 mg/dL (74-99); Magnesium 2.2 mg/dL (1.6-2.3); Non-African American GFR(CKD) 21 (>60 ml/min/1.73 sqM); Potassium 4.9 mmol/L (3.5-5.1); Sodium 130 mmol/L (137-145); Total Bilirubin 1.2 mg/dL (0.2-1.3); Total Protein 5.8 g/dL (6.3-8.2)
--- NOTE | 2019-12-28 10:06 | ED ---
General Adult HPI - General Chief complaint: Psychiatric Symptoms Stated complaint: mental health Source: patient, RN notes reviewed Mode of arrival: ambulatory Limitations: no limitations - History of Present Illness Initial comments: 79-year-old male presents to the emergency room for multiple complaints. Patient's daughter states that he called her this morning and stated that there were people in his house. States that he was out of it. However daughter states he is back to normal mentation at this time. Patient does admit to drinking alcohol today. States he "drank a few beers". Patient also states that he fell a week ago onto his right lower extremity. He is a poor historian and was not able to actually tell me type fall but does deny hitting his head or headaches over the past week. States that R leg has been purple black for the past week. States it is very painful. Patient had a 9 x 40 mm self expanding stent placed in the right femoral artery in February 2019. Denies fevers or chills. States he did see his doctor and had x-rays performed and it was recommended he went to the emergency department at that time but did not go. Patient is currently anticoagulated on Eliquis and Plavix. Patient has no other complaints at this time including shortness of breath, chest pain, abdominal pain, nausea or vomiting, headache, or visual changes. - Related Data Home Medications Medication Instructions Recorded Confirmed Simvastatin [Zocor] 20 mg PO HS 01/27/15 12/28/19 Lisinopril 5 mg PO DAILY 09/19/16 12/28/19 Clopidogrel Bisulfate [Plavix] 75 mg PO DAILY 09/06/19 12/28/19 Formoterol Fumarate [Perforomist] 20 mcg INHALATION RT-BID 09/06/19 12/28/19 Ipratropium-Albuterol Nebulize 3 ml INHALATION RT-QID 09/06/19 12/28/19 [Duoneb 0.5 mg-3 mg/3 ml Soln] Metoprolol Tartrate [Lopressor] 25 mg PO DAILY 09/06/19 12/28/19 Theophylline 24 Hour [Antoine-24] 400 mg PO HS 09/06/19 12/28/19 Albuterol Sulfate [Ventolin HFA] 1 puff INHALATION RT-BID PRN 12/28/19 12/28/19 Apixaban [Eliquis] 5 mg PO BID 12/28/19 12/28/19 Aspirin EC [Ecotrin] 162.5 mg PO DAILY 12/28/19 12/28/19 Budesonide [Pulmicort] 0.5 mg INHALATION RT-BID 12/28/19 12/28/19 Famotidine [Pepcid] 20 mg PO BID 12/28/19 12/28/19 Furosemide [Lasix] 40 mg PO DAILY 12/28/19 12/28/19 Magnesium 250 mg PO DAILY 12/28/19 12/28/19 Multivitamins, Thera [Multivitamin 1 tab PO DAILY 12/28/19 12/28/19 (formulary)] Potassium Chloride [Klor-Con 10] 10 meq PO DAILY 12/28/19 12/28/19 Tamsulosin HCl [Flomax] 0.4 mg PO HS 12/28/19 12/28/19 Thiamine [Vitamin B-1] 100 mg PO DAILY 12/28/19 12/28/19 predniSONE See Taper PO DIRECTED 12/28/19 12/28/19 Previous Rx's Medication Instructions Recorded Verapamil Sr [Isoptin Sr] 180 mg PO DAILY #30 tablet.er 09/12/19 Allergies Allergy/AdvReac Type Severity Reaction Status Date / Time Penicillins Allergy Unknown Verified 12/28/19 10:21 Review of Systems ROS Statement: Those systems with pertinent positive or pertinent negative responses have been documented in the HPI. ROS Other: All systems not noted in ROS Statement are negative. Past Medical History Past Medical History: Asthma, Coronary Artery Disease (CAD), COPD, Eye Disorder, Hyperlipidemia, Hypertension Additional Past Medical History / Comment(s): "spot on lung". BILAT CATARACTS History of Any Multi-Drug Resistant Organisms: None Reported Past Surgical History: Coronary Bypass/CABG, Hernia Repair, Tonsillectomy Additional Past Surgical History / Comment(s): surgery for "blockages in legs with one stent",rt cataract Past Anesthesia/Blood Transfusion Reactions: Postoperative Nausea & Vomiting (PONV) Past Psychological History: No Psychological Hx Reported Smoking Status: Current every day smoker Past Alcohol Use History: Daily Past Drug Use History: None Reported - Past Family History Father Additional Family Medical History / Comment(s): Father at age 57 from myocardial infarction. Mother Additional Family Medical History / Comment(s): Mother at age 75 from cancer, patient does not know type. Sister(s) Additional Family Medical History / Comment(s): Patient has one sister that is passed from emphysema. Patient has 2 sons with no major medical problems. Brother(s) Family Medical History: Cancer General Exam Limitations: no limitations General appearance: alert, in no apparent distress Head exam: Present: atraumatic, normocephalic, normal inspection Eye exam: Present: normal appearance, PERRL, EOMI. Absent: scleral icterus, conjunctival injection, periorbital swelling ENT exam: Present: normal exam, mucous membranes moist Neck exam: Present: normal inspection, full ROM. Absent: tenderness, meningismus, lymphadenopathy Respiratory exam: Present: normal lung sounds bilaterally. Absent: respiratory distress, wheezes, rales, rhonchi, stridor Cardiovascular Exam: Present: regular rate, normal rhythm, normal heart sounds. Absent: systolic murmur, diastolic murmur, rubs, gallop, clicks GI/Abdominal exam: Present: soft, normal bowel sounds. Absent: distended, tenderness, guarding, rebound, rigid Extremities exam: Present: full ROM (Range of motion of the right lower extremity. Full range of motion of the right hip and knee. Patient is able to wiggle toes.), normal capillary refill (Capillary refill diminished. PT pulse on doppler. No DP pulse), other (Patient has significant ecchymosis noted to the right foot with puprlish dark discoloartion and erythema extending proximally to just inferior to the right knee). Absent: tenderness (Patient has tenderness generalized in nature from the distal tib-fib down to the right foot.), pedal edema, joint swelling, calf tenderness Course Vital Signs 12/28/19 12/28/19 12/28/19 08:27 09:27 09:30 Temperature 97.8 F Pulse Rate 68 66 Respiratory 18 Rate Blood Pressure 99/47 100/65 O2 Sat by Pulse 99 100 96 Oximetry 12/28/19 12/28/19 09:40 10:20 Temperature Pulse Rate 71 68 Respiratory Rate Blood Pressure 103/66 114/65 O2 Sat by Pulse 97 97 Oximetry EKG Findings - EKG Comments: EKG Findings:: Sinus rhythm with sinus arrhythmia, left bundle branch block, ventricular rate 68, CO interval 224, QTc 463, compared to previous EKG from 09/30/2019, reviewed by Dr. Cervantes Procedures - Orthopedic Splinting/Casting Injury #1 Side: right Lower Extremity Injury Location: short leg Lower Extremity Immobilizer: stirrup splint Medical Decision Making - Medical Decision Making Vitals are stable. HPI and physical exam is documented. Concern for ecchymosis versus vascular compromise of the right lower extremity. PT signals evident on Doppler. Cap refill is sluggish. Patient does have history of stents in the right lower extremity which does have history of reocclusion. CBC does show white blood cell count of 17.6, patient was started on clindamycin and given penicillin ALLERGY In combination with acute renal failure. Troponin is elevated which is likely secondary to renal failure. He is anticoagulated currently. X-ray of the tib-fib shows an obliquely oriented distal fibular fracture with mild displacement and minimal impaction. CTA of the right lower started was not performed given renal failure. Patient will be admitted. Vascular did see him down in the emergency department as well as Dr. Manzano. - Lab Data Result diagrams: 12/28/19 08:40 12/28/19 08:40 Lab Results 12/28/19 12/28/19 12/28/19 Range/Units 08:40 08:40 08:40 WBC 17.6 H (3.8-10.6) k/uL RBC 3.14 L (4.30-5.90) m/uL Hgb 10.9 L (13.0-17.5) gm/dL Hct 33.1 L (39.0-53.0) % MCV 105.4 H (80.0-100.0) fL MCH 34.8 (25.0-35.0) pg MCHC 33.0 (31.0-37.0) g/dL RDW 14.3 (11.5-15.5) % Plt Count 150 (150-450) k/uL Neutrophils % 82 % Lymphocytes % 6 % Monocytes % 10 % Eosinophils % 0 % Basophils % 0 % Neutrophils # 14.4 H (1.3-7.7) k/uL Lymphocytes # 1.1 (1.0-4.8) k/uL Monocytes # 1.7 H (0-1.0) k/uL Eosinophils # 0.1 (0-0.7) k/uL Basophils # 0.0 (0-0.2) k/uL Macrocytosis Moderate PT 10.6 (9.0-12.0) sec INR 1.0 (<1.2) APTT 26.7 (22.0-30.0) sec Sodium 130 L (137-145) mmol/L Potassium 4.9 (3.5-5.1) mmol/L Chloride 97 L (98-107) mmol/L Carbon Dioxide 22 (22-30) mmol/L Anion Gap 11 mmol/L BUN 69 H (9-20) mg/dL Creatinine 2.73 H (0.66-1.25) mg/dL Est GFR (CKD-EPI)AfAm 25 (>60 ml/min/1.73 sqM) Est GFR (CKD-EPI)NonAf 21 (>60 ml/min/1.73 sqM) Glucose 86 (74-99) mg/dL Plasma Lactic Acid Renny (0.7-2.0) mmol/L Calcium 9.2 (8.4-10.2) mg/dL Magnesium 2.2 (1.6-2.3) mg/dL Total Bilirubin 1.2 (0.2-1.3) mg/dL AST 37 (17-59) U/L ALT 16 (4-49) U/L Alkaline Phosphatase 54 (38-126) U/L Troponin I (0.000-0.034) ng/mL Total Protein 5.8 L (6.3-8.2) g/dL Albumin 3.5 (3.5-5.0) g/dL Serum Alcohol <10 mg/dL 12/28/19 12/28/19 Range/Units 08:40 08:40 WBC (3.8-10.6) k/uL RBC (4.30-5.90) m/uL Hgb (13.0-17.5) gm/dL Hct (39.0-53.0) % MCV (80.0-100.0) fL MCH (25.0-35.0) pg MCHC (31.0-37.0) g/dL RDW (11.5-15.5) % Plt Count (150-450) k/uL Neutrophils % % Lymphocytes % % Monocytes % % Eosinophils % % Basophils % % Neutrophils # (1.3-7.7) k/uL Lymphocytes # (1.0-4.8) k/uL Monocytes # (0-1.0) k/uL Eosinophils # (0-0.7) k/uL Basophils # (0-0.2) k/uL Macrocytosis PT (9.0-12.0) sec INR (<1.2) APTT (22.0-30.0) sec Sodium (137-145) mmol/L Potassium (3.5-5.1) mmol/L Chloride (98-107) mmol/L Carbon Dioxide (22-30) mmol/L Anion Gap mmol/L BUN (9-20) mg/dL Creatinine (0.66-1.25) mg/dL Est GFR (CKD-EPI)AfAm (>60 ml/min/1.73 sqM) Est GFR (CKD-EPI)NonAf (>60 ml/min/1.73 sqM) Glucose (74-99) mg/dL Plasma Lactic Acid Renny 2.0 (0.7-2.0) mmol/L Calcium (8.4-10.2) mg/dL Magnesium (1.6-2.3) mg/dL Total Bilirubin (0.2-1.3) mg/dL AST (17-59) U/L ALT (4-49) U/L Alkaline Phosphatase (38-126) U/L Troponin I 0.147 H* (0.000-0.034) ng/mL Total Protein (6.3-8.2) g/dL Albumin (3.5-5.0) g/dL Serum Alcohol mg/dL Disposition Clinical Impression: Leukocytosis, PAD (peripheral artery disease), Fibula fracture, Acute renal failure Disposition: ADMITTED IP TO THIS [facility] Condition: Serious Time of Disposition: 11:44
--- NOTE | 2019-12-28 10:12 | XR ---
EXAMINATION TYPE: XR foot complete RT DATE OF EXAM: 12/28/2019 CLINICAL HISTORY: Fall one week ago. Lower extremity bruising. Foot pain. TECHNIQUE: Frontal, lateral, and oblique images of the left foot are obtained. COMPARISON: None FINDINGS: There is no acute fracture/dislocation evident in the left foot. The joint spaces in the left foot appear aligned however there is marked arthropathy of the first metatarsophalangeal joint w ith joint space narrowing and bony proliferative change as well as opposing surface sclerosis. Angulo 's toe is incidentally noted. Old fracture deformity of the proximal fourth phalanx. Small vessel ath erosclerosis noted. Extensive soft tissue swelling of the dorsal midfoot. Small plantar heel spur. IMPRESSION: There is no acute fracture or dislocation in the left foot. Pronounced soft tissue swell ing over the dorsal midfoot.
--- NOTE | 2019-12-28 10:23 | XR ---
EXAMINATION TYPE: XR tibia fibula RT DATE OF EXAM: 12/28/2019 CLINICAL HISTORY: Right lower extremity pain and bruising after fall TECHNIQUE: Two views of the right leg are obtained. COMPARISON: None. FINDINGS: There is an obliquely oriented distal fibular fracture with 5 mm displacement of the distal fracture fragment and some minimal 2 mm impaction. No comminution. This extends into the syndesmosis . Ankle alignment is maintained. Small vessel atherosclerosis seen. Diffuse osseous demineralization. No additional fracture. IMPRESSION: Obliquely oriented distal fibular fracture with mild displacement and minimal impaction.
[2019-12-28] MEDS ORDERED: NALOXONE 0.4 MG/ML 1 ML VIAL IV PRN (11:45)
[2019-12-28] MEDS: SODIUM CHLORIDE 0.9% 1,000 ML IV SCH (12:41)
--- NOTE | 2019-12-28 13:05 | P.GSCN ---
History of Present Illness Consult date: 12/28/19 Reason for Consult: Chronic peripheral arterial disease with possible acute vascular compromise History of present illness: The patient is a 79-year-old male who presented to the emergency room with confusion and right sided bruaising after sustaining a fall. The patient's daughter states her father called her stating there were people in his house. When she got to his home she had seen that he had altered mental status, bruisin g along heis right lower extremity and stated he had fallen on his right side last week Saturday. The patient has a significant history for alcohol abuse and tobacco abuse. His past medical history includes asthma, coronary artery disease, COPD, cataracts, hyperlipidemia, hypertension, and chronic peripheral arterial disease. States he had 4-5 beers this morning before coming to the hospital. The patient himself is a poor historian, he is drifting off to sleep. His son and daughter are at the bedside, the son and daughter both state that they do not recall him complaining of any prior lower extremity pain, difficulty walking other than shortness of breath from his lungs, or any discoloration of his right lower extremity prior to the fall. The patient has chronic peripheral arterial disease, who underwent a right iliofemoral selective angiogram with percutaneous transluminal balloon angioplasty of the external iliac artery and percutaneous stent placement with Dr. Krueger in February 2019. The patient has been maintained on Plavix, Eliquis, and aspirin daily. White blood cell count 17.6, hemoglobin 10.9, hematocrit 33, platelets are 105, INR is 1.0, BUNs 69, creatinine 2.73. Right x-ray of tibia fibula shows obliquely oriented distal fibular fracture with 5 mm displacement of the distal fracture fragment and minimal 2 mm impaction. The patient has pain to the right lower extremity, with edema to the dorsal aspect of the right foot with weeping of serosanguineous drainage, he has chronic shortness of breath denies any chest pain. Review of Systems Review of systems completed and all pertinent positives and negatives as stated in the HPI. Past Medical History Past Medical History: Asthma, Coronary Artery Disease (CAD), COPD, Eye Disorder, Hyperlipidemia, Hypertension Additional Past Medical History / Comment(s): "spot on lung". BILAT CATARACTS History of Any Multi-Drug Resistant Organisms: None Reported Past Surgical History: Coronary Bypass/CABG, Hernia Repair, Tonsillectomy Additional Past Surgical History / Comment(s): surgery for "blockages in legs with one stent",rt cataract Past Anesthesia/Blood Transfusion Reactions: Postoperative Nausea & Vomiting (PONV) Past Psychological History: No Psychological Hx Reported Smoking Status: Current every day smoker Past Alcohol Use History: Daily Past Drug Use History: None Reported - Past Family History Father Additional Family Medical History / Comment(s): Father at age 57 from myocardial infarction. Mother Additional Family Medical History / Comment(s): Mother at age 75 from cancer, patient does not know type. Sister(s) Additional Family Medical History / Comment(s): Patient has one sister that is passed from emphysema. Patient has 2 sons with no major medical problems. Brother(s) Family Medical History: Cancer Medications and Allergies Home Medications Medication Instructions Recorded Confirmed Type Simvastatin [Zocor] 20 mg PO HS 01/27/15 12/28/19 History Lisinopril 5 mg PO DAILY 09/19/16 12/28/19 History Clopidogrel Bisulfate [Plavix] 75 mg PO DAILY 09/06/19 12/28/19 History Formoterol Fumarate [Perforomist] 20 mcg INHALATION RT-BID 09/06/19 12/28/19 History Ipratropium-Albuterol Nebulize 3 ml INHALATION RT-QID 09/06/19 12/28/19 History [Duoneb 0.5 mg-3 mg/3 ml Soln] Metoprolol Tartrate [Lopressor] 25 mg PO DAILY 09/06/19 12/28/19 History Theophylline 24 Hour [Antoine-24] 400 mg PO HS 09/06/19 12/28/19 History Verapamil Sr [Isoptin Sr] 180 mg PO DAILY #30 tablet.er 09/12/19 12/28/19 Rx Albuterol Sulfate [Ventolin HFA] 1 puff INHALATION RT-BID PRN 12/28/19 12/28/19 History Apixaban [Eliquis] 5 mg PO BID 12/28/19 12/28/19 History Aspirin EC [Ecotrin] 162.5 mg PO DAILY 12/28/19 12/28/19 History Budesonide [Pulmicort] 0.5 mg INHALATION RT-BID 12/28/19 12/28/19 History Famotidine [Pepcid] 20 mg PO BID 12/28/19 12/28/19 History Furosemide [Lasix] 40 mg PO DAILY 12/28/19 12/28/19 History Magnesium 250 mg PO DAILY 12/28/19 12/28/19 History Multivitamins, Thera [Multivitamin 1 tab PO DAILY 12/28/19 12/28/19 History (formulary)] Potassium Chloride [Klor-Con 10] 10 meq PO DAILY 12/28/19 12/28/19 History Tamsulosin HCl [Flomax] 0.4 mg PO HS 12/28/19 12/28/19 History Thiamine [Vitamin B-1] 100 mg PO DAILY 12/28/19 12/28/19 History predniSONE See Taper PO DIRECTED 12/28/19 12/28/19 History Allergies Allergy/AdvReac Type Severity Reaction Status Date / Time Penicillins Allergy Unknown Verified 12/28/19 10:21 Surgical - Exam Vital Signs Temp Pulse Resp BP Pulse Ox 97.8 F 68 18 99/47 99 12/28/19 08:27 12/28/19 08:27 12/28/19 08:27 12/28/19 08:27 12/28/19 08:27 General appearance: The patient is asleep but easily arousable. Somewhat confused and disoriented. HET: Head is normocephalic and atraumatic. Neck: Supple without lymphadenopathy. Trachea midline. Heart: S1 S2. Regular rate and rhythm. Lungs: No crackles or wheezes are heard. Abdomen: Soft, nontender, nondistended with bowel sounds. Extremities: Right lateral lower extremity with full range of motion, patient is able to wiggle toes. Palpable bilateral femoral and popliteal pulses, monophasic PT Doppler signal, unable to obtain dorsalis pedis Doppler signal likely related to edema. Left monophasic PT and DP signal. Right lower extremity anterior and posterior ecchymosis from his knee down to his toes, dark purple ecchymosis and pedal edema with weeping serosanguineous drainage. Neurological: Motor-sensory intact. Results - Labs 12/28/19 08:40 12/28/19 08:40 Abnormal Lab Results - Last 24 Hours (Table) 12/28/19 12/28/19 12/28/19 Range/Units 08:40 08:40 08:40 WBC 17.6 H (3.8-10.6) k/uL RBC 3.14 L (4.30-5.90) m/uL Hgb 10.9 L (13.0-17.5) gm/dL Hct 33.1 L (39.0-53.0) % MCV 105.4 H (80.0-100.0) fL Neutrophils # 14.4 H (1.3-7.7) k/uL Monocytes # 1.7 H (0-1.0) k/uL Sodium 130 L (137-145) mmol/L Chloride 97 L (98-107) mmol/L BUN 69 H (9-20) mg/dL Creatinine 2.73 H (0.66-1.25) mg/dL Troponin I 0.147 H* (0.000-0.034) ng/mL Total Protein 5.8 L (6.3-8.2) g/dL Diabetes panel 12/28/19 Range/Units 08:40 Sodium 130 L (137-145) mmol/L Potassium 4.9 (3.5-5.1) mmol/L Chloride 97 L (98-107) mmol/L Carbon Dioxide 22 (22-30) mmol/L BUN 69 H (9-20) mg/dL Creatinine 2.73 H (0.66-1.25) mg/dL Glucose 86 (74-99) mg/dL Calcium 9.2 (8.4-10.2) mg/dL AST 37 (17-59) U/L ALT 16 (4-49) U/L Alkaline Phosphatase 54 (38-126) U/L Total Protein 5.8 L (6.3-8.2) g/dL Albumin 3.5 (3.5-5.0) g/dL Calcium panel 12/28/19 Range/Units 08:40 Calcium 9.2 (8.4-10.2) mg/dL Albumin 3.5 (3.5-5.0) g/dL Pituitary panel 12/28/19 Range/Units 08:40 Sodium 130 L (137-145) mmol/L Potassium 4.9 (3.5-5.1) mmol/L Chloride 97 L (98-107) mmol/L Carbon Dioxide 22 (22-30) mmol/L BUN 69 H (9-20) mg/dL Creatinine 2.73 H (0.66-1.25) mg/dL Glucose 86 (74-99) mg/dL Calcium 9.2 (8.4-10.2) mg/dL Adrenal panel 12/28/19 Range/Units 08:40 Sodium 130 L (137-145) mmol/L Potassium 4.9 (3.5-5.1) mmol/L Chloride 97 L (98-107) mmol/L Carbon Dioxide 22 (22-30) mmol/L BUN 69 H (9-20) mg/dL Creatinine 2.73 H (0.66-1.25) mg/dL Glucose 86 (74-99) mg/dL Calcium 9.2 (8.4-10.2) mg/dL Total Bilirubin 1.2 (0.2-1.3) mg/dL AST 37 (17-59) U/L ALT 16 (4-49) U/L Alkaline Phosphatase 54 (38-126) U/L Total Protein 5.8 L (6.3-8.2) g/dL Albumin 3.5 (3.5-5.0) g/dL Assessment and Plan Assessment: #1 Chronic peripheral arterial disease with prior history of right iliofemoral angiogram and transluminal balloon angioplasty of the external iliac artery and stent placement #2 right distal fibular fracture with mild displacement and minimal impaction #3 acute renal failure #4 EtOH abuse #5 tobacco abuse #6 hypertension #7 hyperlipidemia Plan: Right lower extremity coloring likely due to bruising from recent fall and fibular fracture. At this time due to acute kidney failure unable to perform CT angiogram with run-off. We will order ALFONSO for waveform of bilateral lower extremities. Discussed with Dr. Olivarez. Further recommendations to follow. Thank you for this consultation and allowing us to take part plan of care of this patient during his hospital stay. The above dictated assessment and findings were discussed with Dr. Olivarez. The impression and plan of care have been directed as dictated.
[2019-12-28] MEDS ORDERED: LORazepam 2 MG/ML INJ IV PRN ×3 (14:47)
[2019-12-28] MEDS ORDERED: THIAMINE 100 MG/ML 2 ML VIAL IM STA (14:47)
--- NOTE | 2019-12-28 15:07 | P.HPIM ---
History of Present Illness H&P Date: 12/28/19 Chief Complaint: Hallucinations This is a 79-year-old male patient of Drs. Ravin Hatch, Nahomi Shepherd and Evans with past medical history of COPD with chronic hypoxic respiratory failure on home O2 at 2 L, hypertension, hyperlipidemia, coronary artery disease status post 2 vessel CAB[place] [address] Sorto, infrarenal aortic aneurysm and lower extremity claudication of the care of Dr. Dr. Krueger, tobacco use and dependence, alcohol abuse. Patient was last hospitalized in August 2019 for new onset atrial fibrillation and hyponatremia and patient was discharged home. Family brought patient into the hospital as he called them last week and injured his right leg now presents with a purple black discoloration that apparently has been going on for one week. He complains of pain to the area, no fever no chills. Patient came into [facility] emergency center for evaluation. Pulse ox 99%, heart rate 68, blood pressure 99/47. EKG was sinus rhythm with left bundle branch block. WBC 17.6, hemoglobin 10.9, platelet count 150. Sodium 130, potassium 4.9, chloride 97, CO2 22, BUN 69 creatinine 2.73, liver function tests normal. Lactic acid 2.0, troponin 0.147. X-ray of the right tib- fib shows an obliquely oriented distal fibular fracture with mild displacement and minimal impaction. Dorsalis pedis is unobtainable by Doppler. Dorsalis pedis palpable. Patient was started on clindamycin and admitted to the [facility] floor with consults to vascular surgeon, orthopedics, nephrology. Review of Systems Constitutional: Reports daytime sleepiness, Reports fatigue, Reports lethargy, Reports malaise, Reports poor appetite Eyes: denies blurred vision, denies pain Ears, nose, mouth and throat: Denies headache, Denies nasal congestion, Denies nasal discharge, Denies sore throat Cardiovascular: Reports leg edema, Denies chest pain, Denies decreased exercise tolerance, Denies dyspnea on exertion, Denies edema, Denies lightheadedness, Denies palpitations, Denies shortness of breath, Denies syncope Respiratory: Denies congestion, Denies cough, Denies cough with sputum, Denies dyspnea, Denies excessive sputum, Denies hemoptysis, Denies home oxygen, Denies respiratory infections, Denies wheezing Gastrointestinal: Denies abdominal pain, Denies diarrhea, Denies loss of appetite, Denies nausea, Denies vomiting Genitourinary: Denies dysuria, Denies urinary retention Musculoskeletal: Reports gait dysfunction, Reports muscle weakness, Denies myalgias Integumentary: Reports darkening of skin, Reports unusual bruising, Reports wounds, Denies pruritus, Denies rash Neurological: Reports change in mentation, Reports gait dysfunction, Denies change in speech, Denies numbness, Denies seizures, Denies weakness Psychiatric: Denies anxiety, Denies depression Endocrine: Denies fatigue, Denies weight change Past Medical History Past Medical History: Asthma, Coronary Artery Disease (CAD), COPD, Eye Disorder, Hyperlipidemia, Hypertension Additional Past Medical History / Comment(s): "spot on lung". BILAT CATARACTS History of Any Multi-Drug Resistant Organisms: None Reported Past Surgical History: Coronary Bypass/CABG, Hernia Repair, Tonsillectomy Additional Past Surgical History / Comment(s): surgery for "blockages in legs with one stent",rt cataract Past Anesthesia/Blood Transfusion Reactions: Postoperative Nausea & Vomiting (PONV) Past Psychological History: No Psychological Hx Reported Smoking Status: Current every day smoker Past Alcohol Use History: Daily Additional Past Alcohol Use History / Comment(s): Patient is a smoker of 2 packs per day since he was a teenager. Patient drinks between 4 and 12 beers per day. He lives at home alone. He has home oxygen and nebulizer. Past Drug Use History: None Reported - Past Family History Father Additional Family Medical History / Comment(s): Father at age 57 from myocardial infarction. Mother Additional Family Medical History / Comment(s): Mother at age 75 from cancer, patient does not know type. Sister(s) Additional Family Medical History / Comment(s): Patient has one sister that is passed from emphysema. Patient has 2 sons with no major medical problems. Brother(s) Family Medical History: Cancer Additional Family Medical History / Comment(s): Patient has 4 brothers: 2 have from myocardial infarction and one has history of CABG, one brother from drowning. Medications and Allergies Home Medications Medication Instructions Recorded Confirmed Type Simvastatin [Zocor] 20 mg PO HS 01/27/15 12/28/19 History Lisinopril 5 mg PO DAILY 09/19/16 12/28/19 History Clopidogrel Bisulfate [Plavix] 75 mg PO DAILY 09/06/19 12/28/19 History Formoterol Fumarate [Perforomist] 20 mcg INHALATION RT-BID 09/06/19 12/28/19 History Ipratropium-Albuterol Nebulize 3 ml INHALATION RT-QID 09/06/19 12/28/19 History [Duoneb 0.5 mg-3 mg/3 ml Soln] Metoprolol Tartrate [Lopressor] 25 mg PO DAILY 09/06/19 12/28/19 History Theophylline 24 Hour [Antoine-24] 400 mg PO HS 09/06/19 12/28/19 History Verapamil Sr [Isoptin Sr] 180 mg PO DAILY #30 tablet.er 09/12/19 12/28/19 Rx Albuterol Sulfate [Ventolin HFA] 1 puff INHALATION RT-BID PRN 12/28/19 12/28/19 History Apixaban [Eliquis] 5 mg PO BID 12/28/19 12/28/19 History Aspirin EC [Ecotrin] 162.5 mg PO DAILY 12/28/19 12/28/19 History Budesonide [Pulmicort] 0.5 mg INHALATION RT-BID 12/28/19 12/28/19 History Famotidine [Pepcid] 20 mg PO BID 12/28/19 12/28/19 History Furosemide [Lasix] 40 mg PO DAILY 12/28/19 12/28/19 History Magnesium 250 mg PO DAILY 12/28/19 12/28/19 History Multivitamins, Thera [Multivitamin 1 tab PO DAILY 12/28/19 12/28/19 History (formulary)] Potassium Chloride [Klor-Con 10] 10 meq PO DAILY 12/28/19 12/28/19 History Tamsulosin HCl [Flomax] 0.4 mg PO HS 12/28/19 12/28/19 History Thiamine [Vitamin B-1] 100 mg PO DAILY 12/28/19 12/28/19 History predniSONE See Taper PO DIRECTED 12/28/19 12/28/19 History Allergies Allergy/AdvReac Type Severity Reaction Status Date / Time Penicillins Allergy Unknown Verified 12/28/19 10:21 Physical Exam Vitals: Vital Signs Temp Pulse Resp BP Pulse Ox 12/28/19 10:20 68 114/65 97 12/28/19 09:40 71 103/66 97 12/28/19 09:30 66 100/65 96 12/28/19 09:27 100 12/28/19 08:27 97.8 F 68 18 99/47 99 Intake and Output 12/27/19 12/28/19 12/28/19 22:59 06:59 14:59 Other: Weight 80.739 kg Gen: This is a 78-year-old male found in the ER on the stretcher. Patient is awake but unable to answer questions appropriately.. HEENT: Head is atraumatic, normocephalic. Pupils equal, round. Sclerae is ani cteric. NECK: Supple. No JVD. No lymphadenopathy. No thyromegaly. LUNGS: Bilateral wheezing and rhonchi. No intercostal retractions. HEART: Irregular rate and rhythm. Systolic ejection murmur. ABDOMEN: Soft. Bowel sounds are present. No masses. No tenderness. EXTREMITIES: To the right lower extremity. Posterior tibial is obtainable by Doppler, no dorsalis pedis. Significant edema and ecchymosis from the knee down to his toes with purple ecchymosis along with repeat of serosanguineous corry inage. NEUROLOGICAL: Patient is awake, oriented to person, place. Cranial nerves 2 through 12 are grossly intact. Generalized weakness noted. Results CBC & Chem 7: 12/28/19 08:40 12/28/19 08:40 Labs: Abnormal Lab Results - Last 24 Hours (Table) 12/28/19 12/28/19 12/28/19 Range/Units 08:40 08:40 08:40 WBC 17.6 H (3.8-10.6) k/uL RBC 3.14 L (4.30-5.90) m/uL Hgb 10.9 L (13.0-17.5) gm/dL Hct 33.1 L (39.0-53.0) % MCV 105.4 H (80.0-100.0) fL Neutrophils # 14.4 H (1.3-7.7) k/uL Monocytes # 1.7 H (0-1.0) k/uL Sodium 130 L (137-145) mmol/L Chloride 97 L (98-107) mmol/L BUN 69 H (9-20) mg/dL Creatinine 2.73 H (0.66-1.25) mg/dL Troponin I 0.147 H* (0.000-0.034) ng/mL Total Protein 5.8 L (6.3-8.2) g/dL Thrombosis Risk Factor Assmnt - DVT/VTE Prophylaxis DVT/VTE Prophylaxis: Pharmacologic Prophylaxis ordered Assessment and Plan Plan: 1. Toxic encephalopathy secondary to alcohol intoxication with hallucinations. Patient will be started on the CIWA protocol. Family is asking regarding substance abuse rehab. Consult with social work will be placed. Continue thiamine twice daily, multivitamin 2. Acute right fibular fracture. Splint to be placed in the ER. Consult with orthopedics. 3. Acute kidney injury most likely due to poor oral intake. Continue IV fluids, consult nephrology, hold Lasix and lisinopril. 4. Chronic peripheral artery disease with prior right iliofemoral angiogram and transluminal balloon angioplasty of the external iliac artery are and stent placement. Continue clindamycin. Resume Plavix. 3. Paroxysmal atrial fibrillation. Continue Lopressor, resume eliquis. 4. Hyponatremia most likely secondary to alcohol abuse. 5. COPD. Continue Perforomist twice daily, Pulmicort twice daily, DuoNeb treatments 4 times daily. 6. Chronic hypoxic respiratory failure on home O2 at 2 L nasal cannula. 7. Coronary artery disease status post CABG. Hold aspirin. Continue simva statin, Plavix, Lopressor. 8. Hyperlipidemia. Continue statin. 9. Hypertension. Hold Lasix and lisinopril. Continue verapamil with parameters, continue Lopressor 10. Tobacco use and dependence. Nicotine patch. 11. DVT prophylaxis. Eliquis. 12. GI prophylaxis. Protonix daily. 13. Benign prostatic hypertrophy. Continue Flomax 0.4 mg daily, monitor for urinary retention. 14. Chronic kidney disease stage III. Patient will be admitted to the hospital for a minimum of 2 night stay. Discharge plan: To be determined. Impression and plan of care have been directed as dictated by the signing physician. Lila Nur nurse practitioner acting as scribe for signing physician.
--- NOTE | 2019-12-28 16:01 | P.CNOR ---
History of Present Illness - [facility] Consult date: 12/28/19 Consult reason: fracture History of present illness: 79-year-old patient who was admitted for peripheral artery disease with history of lower extremity claudication and concern for vascular compromise. He reports injuring his ankle about 1 week ago. He reports progressive discoloration of the right foot since his injury. He has been full weightbearing on his ankle since injury. He is on blood thinners. He denies any other current orthopedic complaints other than the right ankle/leg pain. Review of Systems Constitutional: Reports as per HPI Past Medical History Past Medical History: Asthma, Coronary Artery Disease (CAD), COPD, Eye Disorder, Hyperlipidemia, Hypertension Additional Past Medical History / Comment(s): "spot on lung". BILAT CATARACTS Last Myocardial Infarction Date:: 2006 History of Any Multi-Drug Resistant Organisms: None Reported Past Surgical History: Coronary Bypass/CABG, Hernia Repair, Tonsillectomy Additional Past Surgical History / Comment(s): surgery for "blockages in legs with one stent",rt cataract Past Anesthesia/Blood Transfusion Reactions: Postoperative Nausea & Vomiting (PONV) Additional Past Anesthesia/Blood Transfusion Reaction / Comm: Seizure Past Psychological History: No Psychological Hx Reported Smoking Status: Current every day smoker Past Alcohol Use History: Daily Additional Past Alcohol Use History / Comment(s): Patient is a smoker of 2 packs per day since he was a teenager. Patient drinks between 4 and 12 beers per day. He lives at home alone. He has home oxygen and nebulizer. Past Drug Use History: None Reported - Past Family History Father Additional Family Medical History / Comment(s): Father at age 57 from myocardial infarction. Mother Additional Family Medical History / Comment(s): Mother at age 75 from cancer, patient does not know type. Sister(s) Additional Family Medical History / Comment(s): Patient has one sister that is passed from emphysema. Patient has 2 sons with no major medical problems. Brother(s) Family Medical History: Cancer Additional Family Medical History / Comment(s): Patient has 4 brothers: 2 have from myocardial infarction and one has history of CABG, one brother from drowning. Medications and Allergies Home Medications Medication Instructions Recorded Confirmed Type Simvastatin [Zocor] 20 mg PO HS 01/27/15 12/28/19 History Lisinopril 5 mg PO DAILY 09/19/16 12/28/19 History Clopidogrel Bisulfate [Plavix] 75 mg PO DAILY 09/06/19 12/28/19 History Formoterol Fumarate [Perforomist] 20 mcg INHALATION RT-BID 09/06/19 12/28/19 History Ipratropium-Albuterol Nebulize 3 ml INHALATION RT-QID 09/06/19 12/28/19 History [Duoneb 0.5 mg-3 mg/3 ml Soln] Metoprolol Tartrate [Lopressor] 25 mg PO DAILY 09/06/19 12/28/19 History Theophylline 24 Hour [Antoine-24] 400 mg PO HS 09/06/19 12/28/19 History Verapamil Sr [Isoptin Sr] 180 mg PO DAILY #30 tablet.er 09/12/19 12/28/19 Rx Albuterol Sulfate [Ventolin HFA] 1 puff INHALATION RT-BID PRN 12/28/19 12/28/19 History Apixaban [Eliquis] 5 mg PO BID 12/28/19 12/28/19 History Aspirin EC [Ecotrin] 162.5 mg PO DAILY 12/28/19 12/28/19 History Budesonide [Pulmicort] 0.5 mg INHALATION RT-BID 12/28/19 12/28/19 History Famotidine [Pepcid] 20 mg PO BID 12/28/19 12/28/19 History Furosemide [Lasix] 40 mg PO DAILY 12/28/19 12/28/19 History Magnesium 250 mg PO DAILY 12/28/19 12/28/19 History Multivitamins, Thera [Multivitamin 1 tab PO DAILY 12/28/19 12/28/19 History (formulary)] Potassium Chloride [Klor-Con 10] 10 meq PO DAILY 12/28/19 12/28/19 History Tamsulosin HCl [Flomax] 0.4 mg PO HS 12/28/19 12/28/19 History Thiamine [Vitamin B-1] 100 mg PO DAILY 12/28/19 12/28/19 History predniSONE See Taper PO DIRECTED 12/28/19 12/28/19 History Allergies Allergy/AdvReac Type Severity Reaction Status Date / Time Penicillins Allergy Unknown Verified 12/28/19 10:21 Physical Examination Osteopathic Statement: *. No significant issues noted on an osteopathic structural exam other than those noted in the History and Physical/Consult. There is significant bruising of the right foot. There is a fair amount of swelling along the dorsal aspect of the right foot. I am unable to palpate a dorsalis pedis pulse. The right foot and toes however are nice and warm and in fact are warmer than the left foot and toes. He is able to gently wiggle his toes with no pain. He does have tenderness along the anterior lateral malle olus. Homans and Maurilio are negative. Gentle log rolling of the hip is without pain. He appears to have some decreased global sensation distally. Results - Labs Labs: Abnormal Lab Results - Last 24 Hours (Table) 12/28/19 12/28/19 12/28/19 Range/Units 08:40 08:40 08:40 WBC 17.6 H (3.8-10.6) k/uL RBC 3.14 L (4.30-5.90) m/uL Hgb 10.9 L (13.0-17.5) gm/dL Hct 33.1 L (39.0-53.0) % MCV 105.4 H (80.0-100.0) fL Neutrophils # 14.4 H (1.3-7.7) k/uL Monocytes # 1.7 H (0-1.0) k/uL Sodium 130 L (137-145) mmol/L Chloride 97 L (98-107) mmol/L BUN 69 H (9-20) mg/dL Creatinine 2.73 H (0.66-1.25) mg/dL Troponin I 0.147 H* (0.000-0.034) ng/mL Total Protein 5.8 L (6.3-8.2) g/dL H & H 12/28/19 Range/Units 08:40 Hgb 10.9 L (13.0-17.5) gm/dL Hct 33.1 L (39.0-53.0) % Coagulation 12/28/19 Range/Units 08:40 INR 1.0 (<1.2) Result Diagrams: 12/28/19 08:40 12/28/19 08:40 - Diagnostic results Ankle/Foot x-ray: image reviewed (Mildly displaced right ankle lateral malleolus fracture, mortise is stable) Assessment and Plan Assessment: 1. Right ankle lateral malleolar fracture with minimal displacement and stable- appearing mortise' 2. Significant bruising to the right footprobably secondary to acute fracture and concomitant blood thinners 3. History of peripheral artery disease 4. History of multiple medical comorbidities Plan: 1. Fracture brace right lower extremity 2. Await vascular recommendations 3. From my perspective the patient may begin progressive ambulation nonweightbearing right lower extremity with a fracture brace I took the opportunity to discuss the case with the patient and his family who were present. I reviewed his minimally displaced fracture with stable mortise. I recommended conservative treatment for this. I discussed my recommendation for the fracture brace and nonweightbearing status. Of course we will await the final recommendations from vascular surgery. Questions were answered to the family the patient's satisfaction. Time with Patient: Less than 30
[2019-12-28] MEDS: IPRATROPIUM-ALBUTEROL 3 ML NEB INHALATION SCH ×2 (16:54→20:17)
[2019-12-28] MEDS ORDERED: THIAMINE 100 MG TAB PO SCH (17:30)
[2019-12-28] MEDS: HYDROmorphone 0.5 MG/0.5 ML SYRINGE IVP PRN ×2 (18:21→21:11)
[2019-12-28] MEDS: CLINDAMYCIN 600 MG in DEXTROSE 5% IN WATER 50 ML IVPB SCH ×2 (19:29)
[2019-12-28] MEDS ORDERED: BUDESONIDE 0.5 MG/2 ML NEBU INHALATION SCH (20:00)
[2019-12-28] MEDS: FORMOTEROL FUMARATE 20 MCG/2 ML NEBU INHALATION SCH (20:17)
[2019-12-28] MEDS ORDERED: FAMOTIDINE 20 MG TAB PO SCH (21:00)
[2019-12-28] MEDS ORDERED: ATORVASTATIN 10 MG TAB PO SCH (21:00)
[2019-12-28] MEDS: THEOPHYLLINE 24 HOUR 400 MG CAP.ER.24H PO SCH (21:18)
[2019-12-28] MEDS: TAMSULOSIN 0.4 MG CAP.ER.24H PO SCH (21:18)
[2019-12-28] MEDS: APIXABAN 5 MG TAB PO SCH (21:18)
[2019-12-29] MEDS: IPRATROPIUM-ALBUTEROL 3 ML NEB INHALATION SCH ×5 (04:24→19:39)
[2019-12-29 04:38] LABS: Glucose,Whole Blood 97 mg/dL (75-99)
--- NOTE | 2019-12-29 04:41 | XR ---
EXAMINATION TYPE: XR chest 1V portable DATE OF EXAM: 12/29/2019 COMPARISON: 09/30/2019 HISTORY: Short of breath TECHNIQUE: FINDINGS: There is no heart failure nor confluent pneumonic infiltrate. Costophrenic angles are clear . There are sternal wires. There is no pleural effusion. IMPRESSION: No active cardiopulmonary disease. No change.
[2019-12-29 05:08] LABS: ABG Base Excess -5.2 mmol/L; ABG HCO3 21 mmol/L (21-25); ABG Oxygen Saturation 97.4 % (94-97); ABG PCO2 43 mmHg (35-45); ABG PO2 201 mmHg (83-108); ABG TCO2 23 mmol/L (19-24); Allen Test Performed? Yes
[2019-12-29 05:09] LABS: Basophils % (A) 0 %; Eosinophils # (A) 0.1 k/uL (0-0.7); Eosinophils % (A) 0 %; HCT 32.9 % (39.0-53.0); HGB 10.2 gm/dL (13.0-17.5); Hypochromasia Slight; Lymphocytes # (A) 1.1 k/uL (1.0-4.8); Lymphocytes % (A) 6 %; MCH 34.4 pg (25.0-35.0); Macrocytosis Marked; Mean Platelet Volume 8.5; Monocytes # (A) 1.8 k/uL (0-1.0); Monocytes % (A) 10 %; Neutrophils # (A) 15.4 k/uL (1.3-7.7); Neutrophils % (A) 82 %; Platelet Count 136 k/uL (150-450); RBC 2.97 m/uL (4.30-5.90); RDW 14.2 % (11.5-15.5); WBC 18.9 k/uL (3.8-10.6)
[2019-12-29 05:18] LABS: Albumin 3.3 g/dL (3.5-5.0); Potassium 5.3 mmol/L (3.5-5.1); Total Bilirubin 0.8 mg/dL (0.2-1.3); Total Protein 5.6 g/dL (6.3-8.2)
[2019-12-29] MEDS: CLINDAMYCIN 600 MG in DEXTROSE 5% IN WATER 50 ML IVPB SCH ×6 (06:36→18:06)
--- NOTE | 2019-12-29 08:16 | US ---
EXAMINATION TYPE: US venous doppler duplex LE RT DATE OF EXAM: 12/29/2019 7:51 AM COMPARISON: NONE CLINICAL HISTORY: edema, fibular fx. Right leg edema SIDE PERFORMED: Right TECHNIQUE: The lower extremity deep venous system is examined utilizing real time linear array sonog lottie with graded compression, doppler sonography and color-flow sonography. VESSELS IMAGED: External Iliac Vein (EIV) Common Femoral Vein Deep Femoral Vein Greater Saphenous Vein * Femoral Vein Popliteal Vein Small Saphenous Vein * Proximal Calf Veins (* superficial vessels) Only one transverse image done of popliteal vein due to patient unable to straighten leg Right Leg: Visualized portion appear negative for DVT IMPRESSION: 1. Right lower extremity ultrasound negative for deep venous thrombosis
[2019-12-29] MEDS: BUDESONIDE 1 MG/2 ML NEBU INHALATION SCH ×2 (08:56→19:39)
[2019-12-29] MEDS: FORMOTEROL FUMARATE 20 MCG/2 ML NEBU INHALATION SCH ×2 (08:56→19:39)
[2019-12-29] MEDS ORDERED: VERAPAMIL SR 180 MG TABLET.ER PO SCH (09:00)
[2019-12-29] MEDS ORDERED: METOPROLOL TARTRATE 25 MG TAB PO SCH (09:00)
[2019-12-29] MEDS ORDERED: THIAMINE 100 MG TAB PO SCH (09:00)
[2019-12-29] MEDS ORDERED: CLOPIDOGREL 75 MG TAB PO SCH (09:00)
[2019-12-29] MEDS ORDERED: SODIUM CHLORIDE 0.9% 500 ML 500 ML IV ONE ×3 (09:40→12:00)
--- NOTE | 2019-12-29 09:42 | CONS ---
CONSULTATION Mr. Rivera is a 79-year-old male who presented with change in mental status after a fall. The timing of the fall is unclear. Patient had a distal fibular fracture on the right side. He has a known history of coronary artery disease, status post coronary artery bypass grafting, history of peripheral disease, status post percutaneous revascularization who has been followed by Dr. Iraheta. The patient has a known history of chronic tobacco use as well as chronic alcohol intake. He is not able to answer question. He is on BiPAP. Last night, he became hypoxic. Patient was admitted to the hospital in August, was paroxysmal fibrillation, anticoagulation was initiated at that time and he is in sinus mechanism since his presentation. He has been seen by Dr. Olivarez upon his admission. I am not able to obtain any other history from him at this time. His coronary risk factors are remarkable for history of hypertension, hyperlipidemia, and chronic tobacco use. He is a non diabetic. MEDICATIONS: Include Eliquis 5 mg twice a day, Pulmicort, Plavix, Lasix, DuoNeb, lisinopril 5 mg daily, metoprolol tartrate 25 mg daily, simvastatin 20 mg daily, tamsulosin, thiamin, and verapamil SR 180 mg daily. REVIEW OF SYSTEMS: Review of systems could not be well obtained and documented, but the patient has a history of chronic obstructive lung disease with chronic tobacco use. He has history of chronic alcohol intake. PHYSICAL EXAMINATION: He is a 79-year-old male, answering some questions, confused on BiPAP. Blood pressure 104/60 with a heart rate in the 80s. HEAD: Normocephalic. EYES : Sclerae nonicteric. NECK: Good upstroke, no bruit. LUNGS: Decreased air exchange, no wheezes. HEART: Regular rate and rhythm, S1, S2. No S3 with systolic ejection murmur, no diastolic murmur, no rub. ABDOMEN: Soft, nontender. Positive bowel sounds, no organomegaly. EXTREMITIES: Cast noted on the right lower extremity with ecchymoses and bluish toes on the right side. Good pulses on the left side. No edema. LAB DATA: Revealed a hemoglobin of 10.9, white blood cell of 17.9, BUN and creatinine 69 and 2.73, which is much worse than in August of last year when it was normal. His pH 7.3, PCO2 of 43, PO2 of 201. His troponin 0.147 and 0.483, NT proBNP 5907. His alcohol level was less than 10 on presentation. His EKG revealed a sinus mechanism with a left bundle branch block, left axis deviation with occasional PVCs. His chest x-ray revealed no acute infiltrate. IMPRESSION: 1. Change in mental status with possible alcoholic component. 2. History of coronary artery disease with mild troponin elevation. No clear evidence to suggest acute ischemic event. 3. History of peripheral vascular disease, status post revascularization done by Dr. Krueger in February of 2019. 4. Paroxysmal atrial fibrillation. 5. Renal failure new. RECOMMENDATION: From the cardiac standpoint, I will stop the Plavix at this time. I will continue on the anticoagulation. I will obtain echocardiogram with Doppler. Continue on the beta mackenzie. I will follow his renal function closely. Continue supportive care and depending on his progress, further recommendation will be made. Thank you for this consult. Will follow with you. CHACE / ALEXN: [id number] /
--- NOTE | 2019-12-29 09:51 | CONS ---
CONSULTATION PULMONARY/CRITICAL CARE CONSULTATION: DATE OF CONSULTATION: December 29, 2019. This is a 79-year-old male who apparently was evaluated in the emergency room yesterday about 8:30 in the morning. He came into the emergency room with multiple complaints. Apparently his daughter stated that he was claiming that there were people in his house. This was not true. He apparently was not behaving normally. The patient apparently was back to normal mentation when he presented to the emergency room. He apparently does drink on a daily basis. He is a heavy smoker as well. The patient apparently also injured his right lower extremity a week prior to admission. Very poor historian in the emergency room. Currently cannot give any additional history. His right foot apparently had been turning purple/black over the last week or so, this is from the recent injury. The patient does have a history of peripheral artery disease and did have a self expanding stent placed in his right femoral artery back in February 2019. Apparently last night, he became very confused and disoriented. His respiratory status declined. It apparently occurred after he received some Dilaudid and Ativan. An A team was called. I was called by the nurse and we decided to move him to the ICU. I actually spoke to his primary doctor, Dr. Manzano. The patient was placed on BiPAP at 10 and 5 and 40%. In addition, blood gases were done at that time, and his pO2 was 201, pCO2 was 43, and pH was 7.30, that was on 60% FiO2. He was admitted to the hospital on the and moved to the ICU on 28 of December. He has been seen by Vascular Surgery. Again, he is a very poor historian. Very confused and disoriented. I am not sure whether or not the Dilaudid and Ativan had an effect on his respiratory status, which required transfer. It certainly may have. MEDICATIONS: His home medications are reviewed. He is on Zocor, lisinopril, Plavix, Perforomist, DuoNeb, metoprolol, theophylline, albuterol inhaler, Eliquis, Ecotrin, Pulmicort, Pepcid, Lasix, magnesium, multivitamins, potassium replacement, Flomax, thiamine, and prednisone with a taper. He was also on verapamil as well. ALLERGIES: PENICILLIN. MEDICAL HISTORY: Medical history includes COPD/asthma, CAD, hyperlipidemia, hypertension, solitary pulmonary nodule, and bilateral cataracts. SURGICAL HISTORY: Surgical history includes among other things bypass grafting, hernia repair, tonsillectomy, and stent placements in the lower extremities. SOCIAL HISTORY: Positive for daily alcohol use and ongoing tobacco use. There is no history of illicit drug use. FAMILY HISTORY: Positive for a father who at age 57 from [place]. A mother who at age 75 from cancer and a sister that from emphysema. He has 2 sons with no major medical problems. He has another brother with cancer. REVIEW OF SYSTEMS: The patient cannot give an actual review of systems at this time. He is way too confused and disoriented. He actually came in with mental status changes initially. Please see my history of present illness. PHYSICAL EXAMINATION: VITAL SIGNS: Current vital signs are reviewed. His temperature is 98.7, heart rate 80, respiratory rate 18, blood pressure 104/61, mean 75, saturations are 97% on the BiPAP at 40%. GENERAL: Appears in no acute distress. Very confused and disoriented. He does arouse. Does not speak in full sentences and does not really make much sense when he does speak. HEENT: Examination is grossly unremarkable. BiPAP mask in place. NECK: Supple. Full range of motion. CARDIOVASCULAR: Examination reveals regular rhythm and rate. S1, S2 normal. Heart rate 80. There is a well-healed scar from previous median sternotomy. LUNGS: Reveal diffuse coarse rhonchi. No wheezes. No crackles. Breath sounds equal. ABDOMEN: Soft. EXTREMITIES: Are intact. The right lower extremity is quite purple in color. There is some edema bilaterally, more so on the right side. There is also some chronic venous stasis changes bilaterally. SKIN: Without rash other than what was mentioned above. NEUROLOGIC: Examination is difficult to assess. He appears to be very confused. LAB DATA: Lab data is reviewed. White count 18.9, hemoglobin 10.2, hematocrit 32.9, platelet count 136,000. PT/INR, PTT all normal. D-dimer normal. Blood gases have been mentioned. Sodium 132, potassium 5.3, chloride 103, CO2 is 19. Anion gap is 10. BUN and creatinine were 73 and 2.40 down from 69 and 2.73. Troponins were 0.147 and 0.483. N terminal proBNP is elevated at 5970. Albumin 3.3. His most recent chest x-ray dated December 28 shows it to be normal. Tib-fib x-rays show an obliquely oriented distal fibular fracture with mild displacement and minimal impaction. The foot x-ray shows no fracture or dislocation. There is some soft tissue swelling. MEDICATIONS: Medications are reviewed. From the pulmonary standpoint, he is on Pulmicort 0.5 mg, formoterol 20 mcg, DuoNeb, nicotine patch, and theophylline. ASSESSMENT: 1. Acute mental status changes with respiratory decline, of unclear etiology. This could relate to medications including Dilaudid and Ativan or something more ominous such as chronic obstructive pulmonary disease exacerbation and/or myocardial infarction. 2. Current BiPAP therapy for respiratory distress and desaturation. 3. Mental status changes, of unclear etiology. May relate to chronic alcohol use/abuse. 4. Rule out acute myocardial infarction. 5. Right distal fibular fracture. 6. History of chronic obstructive pulmonary disease, seemingly quite severe. 7. Coronary artery disease. 8. Hyperlipidemia. 9. Hypertension. 10.History of bilateral cataracts. 11.Solitary pulmonary nodule. 12.Status post bypass grafting. 13.Severe peripheral artery disease with previous femoral stent. PLAN: Cardiology should be consulted. Additional recommendations and suggestions are forthcoming. We will make sure that his updrafts are okay. He was also on prednisone recently. We will likely give him a dose of prednisone as well maybe Solu-Medrol. We will continue the formoterol and budesonide. Additional recommendations and suggestions are forthcoming. Prognosis is guarded. For the time being, he can stay on BiPAP. We will attempt to remove him off BiPAP later today. MMODL / IJN: [id number] /
[2019-12-29] MEDS: methylPREDNISolone SOD SUCCI 40 MG/ML 1 ML VIAL IV SCH ×3 (09:57→23:30)
[2019-12-29] MEDS: NICOTINE 21MG/24HR PATCH TRANSDERM SCH (09:57)
[2019-12-29] MEDS: PANTOPRAZOLE 40 MG/10 ML VIAL IVP SCH (09:57)
[2019-12-29] MEDS: SODIUM CHLORIDE 0.9% 1,000 ML IV SCH ×3 (10:14→18:06)
--- NOTE | 2019-12-29 11:04 | P.NPCON ---
History of Present Illness - Reason for Consult acute renal failure - History of Present Illness Reason for consultation: Acute kidney injury History of present illness: Patient is a 79-year-old male seen in renal consultation for acute kidney injury. Patient's creatinine in August 2019 was 1.0. It was elevated at 2.73 this admission and is down to 2.4 today. Patient sustained a fall about 2 weeks ago but did not follow up with physician. He has history of alcohol abuse. Patient is noted to have a fibula fracture and is being followed by orthopedic surgery. No surgical interventions are planned at this time. Patient is currently not a reliable historian. Patient's blood pressure is low in the systolic 70s. He is currently not receiving IV fluids. No edema. Chest x-ray reveals no evidence of congestive heart failure. Patient was taking lisinopril as well as Lasix at home which are both currently held. His serum alcohol level was less than 10. No history of diabetes. I don't see any nonsteroidals and his home medications. No history of diabetes. Vital signs are stable. Blood pressure on the lower side. General: The patient appeared well nourished and normally developed. HEENT: Head exam is unremarkable. Neck is without jugular venous distension. LUNGS: Lungs are clear to auscultation and percussion. Breath sounds decreased. HEART: Rate and Rhythm are regular. First and second heart sounds normal. No murmurs, rubs or gallops. ABDOMEN: Abdominal exam reveals normal bowel sounds. Non-tender and non- distended. EXTREMITITES: No clubbing, cyanosis, or edema. Past Medical History Past Medical History: Asthma, Coronary Artery Disease (CAD), COPD, Eye Disorder, Hyperlipidemia, Hypertension Additional Past Medical History / Comment(s): "spot on lung". BILAT CATARACTS Last Myocardial Infarction Date:: 2006 History of Any Multi-Drug Resistant Organisms: None Reported Past Surgical History: Coronary Bypass/CABG, Hernia Repair, Tonsillectomy Additional Past Surgical History / Comment(s): surgery for "blockages in legs with one stent",rt cataract Past Anesthesia/Blood Transfusion Reactions: Postoperative Nausea & Vomiting (PONV) Additional Past Anesthesia/Blood Transfusion Reaction / Comment(s): Seizure Past Psychological History: No Psychological Hx Reported Smoking Status: Current every day smoker Past Alcohol Use History: Daily Additional Past Alcohol Use History / Comment(s): Patient is a smoker of 2 packs per day since he was a teenager. Patient drinks between 4 and 12 beers per day. He lives at home alone. He has home oxygen and nebulizer. Past Drug Use History: None Reported - Past Family History Father Additional Family Medical History / Comment(s): Father at age 57 from myocardial infarction. Mother Additional Family Medical History / Comment(s): Mother at age 75 from cancer, patient does not know type. Sister(s) Additional Family Medical History / Comment(s): Patient has one sister that is passed from emphysema. Patient has 2 sons with no major medical problems. Brother(s) Family Medical History: Cancer Additional Family Medical History / Comment(s): Patient has 4 brothers: 2 have from myocardial infarction and one has history of CABG, one brother from drowning. Medications and Allergies Home Medications Medication Instructions Recorded Confirmed Type Simvastatin [Zocor] 20 mg PO HS 01/27/15 12/28/19 History Lisinopril 5 mg PO DAILY 09/19/16 12/28/19 History Clopidogrel Bisulfate [Plavix] 75 mg PO DAILY 09/06/19 12/28/19 History Formoterol Fumarate [Perforomist] 20 mcg INHALATION RT-BID 09/06/19 12/28/19 History Ipratropium-Albuterol Nebulize 3 ml INHALATION RT-QID 09/06/19 12/28/19 History [Duoneb 0.5 mg-3 mg/3 ml Soln] Metoprolol Tartrate [Lopressor] 25 mg PO DAILY 09/06/19 12/28/19 History Theophylline 24 Hour [Antoine-24] 400 mg PO HS 09/06/19 12/28/19 History Verapamil Sr [Isoptin Sr] 180 mg PO DAILY #30 tablet.er 09/12/19 12/28/19 Rx Albuterol Sulfate [Ventolin HFA] 1 puff INHALATION RT-BID PRN 12/28/19 12/28/19 History Apixaban [Eliquis] 5 mg PO BID 12/28/19 12/28/19 History Aspirin EC [Ecotrin] 162.5 mg PO DAILY 12/28/19 12/28/19 History Budesonide [Pulmicort] 0.5 mg INHALATION RT-BID 12/28/19 12/28/19 History Famotidine [Pepcid] 20 mg PO BID 12/28/19 12/28/19 History Furosemide [Lasix] 40 mg PO DAILY 12/28/19 12/28/19 History Magnesium 250 mg PO DAILY 12/28/19 12/28/19 History Multivitamins, Thera [Multivitamin 1 tab PO DAILY 12/28/19 12/28/19 History (formulary)] Potassium Chloride [Klor-Con 10] 10 meq PO DAILY 12/28/19 12/28/19 History Tamsulosin HCl [Flomax] 0.4 mg PO HS 12/28/19 12/28/19 History Thiamine [Vitamin B-1] 100 mg PO DAILY 12/28/19 12/28/19 History predniSONE See Taper PO DIRECTED 12/28/19 12/28/19 History Allergies Allergy/AdvReac Type Severity Reaction Status Date / Time Penicillins Allergy Unknown Verified 12/28/19 10:21 Physical Exam Vitals: Vital Signs Temp Pulse Pulse Resp BP BP Pulse Ox 12/29/19 10:00 92 22 83/58 96 12/29/19 09:31 86 12/29/19 09:20 82 12/29/19 09:19 82 12/29/19 09:00 82 29 H 99/67 99 12/29/19 08:56 83 12/29/19 08:00 86 70 H 113/102 100 12/29/19 07:40 81 18 12/29/19 07:00 80 18 104/61 97 12/29/19 06:00 80 18 103/66 96 12/29/19 04:48 88 12/29/19 04:24 85 12/29/19 00:00 81 20 108/70 90 L 12/28/19 20:00 82 20 110/62 91 L 12/28/19 17:12 80 12/28/19 16:54 78 100 12/28/19 16:00 98.7 F 77 18 116/51 93 L 12/28/19 14:27 97.8 F 83 18 91/57 97 12/28/19 14:21 83 18 91/57 97 12/28/19 12:48 75 18 167/88 98 Intake and Output 12/28/19 12/29/19 12/29/19 22:59 06:59 14:59 Intake Total 20 560 Output Total 100 210 Balance -80 350 Intake: IV 20 560 0.9 NS 20 560 Output: Urine 100 210 Stool 0 Other: Voiding Method Indwelling Catheter # Voids 0 0 Weight 90 kg Results - Lab Results Most recent lab results ABG pH 7.30 (7.35-7.45) L 12/29/19 05:05 ABG pCO2 43 mmHg (35-45) 12/29/19 05:05 ABG pO2 201 mmHg (83-108) H 12/29/19 05:05 ABG HCO3 21 mmol/L (21-25) 12/29/19 05:05 ABG O2 Saturation 97.4 % (94-97) H 12/29/19 05:05 Calcium 9.0 mg/dL (8.4-10.2) 12/29/19 04:41 Magnesium 2.2 mg/dL (1.6-2.3) 12/28/19 08:40 12/29/19 04:41 12/29/19 04:41 Assessment and Plan Plan: Assessment: 1. Acute kidney injury mostly prerenal secondary to hypotension and further worsened with the use of lisinopril and Lasix. Creatinine 2.73 on admission and is 2.4 today. 2. Hypovolemic hyponatremia improving with IV hydration. 3. Metabolic acidosis secondary to acute kidney injury and IV fluids. 4. Status post fall with fibula fracture. 5. Chronic diastolic CHF. 6. History of alcohol abuse. Plan: Start normal saline at 75 mL an hour. 1 L bolus with normal saline now. Add oral sodium bicarbonate. Check urinalysis. Check renal ultrasound. Avoid nephrotoxins. Continue to monitor renal function and urine output. Thank you for the consultation. I will continue to follow the patient with you during his hospital stay.
[2019-12-29] MEDS: APIXABAN 5 MG TAB PO SCH (11:07)
[2019-12-29] MEDS: ASPIRIN 81 MG PO SCH (11:08)
[2019-12-29] MEDS: MULTIVITAMINS, THERA 1 EACH TAB PO SCH (11:08)
[2019-12-29] MEDS: METOPROLOL TARTRATE 25 MG TAB PO SCH ×2 (11:08→20:41)
[2019-12-29] MEDS: MAGNESIUM OXIDE 400 MG TAB PO SCH (11:08)
[2019-12-29 11:30] LABS: Appearance,Urine Cloudy (Clear); Bacteria,Urine Rare /hpf; Bilirubin,Urine Negative (Negative); Blood,Urine Large (Negative); Color,Urine Yellow; Glucose,Urine (UA) Negative (Negative); Ketones,Urine Trace (Negative); Leukocyte Esterase,Urine Large (Negative); Mucus,Urine Rare /hpf; Nitrite,Urine Negative (Negative); Protein,Urine Trace (Negative); RBC,Urine >182 /hpf (0-5); Specific Gravity,Urine 1.016 (1.001-1.035); Squamous Epithelial Cell,Urine <1 /hpf (0-4); Urobilinogen,Urine <2.0 mg/dL (<2.0); WBC,Urine 111 /hpf (0-5)
--- NOTE | 2019-12-29 11:33 | P.PN ---
Subjective Progress Note Date: 12/29/19 Patient seen and evaluated lying in bed asleep, however easily arousable. His right lower extremity is splinted with an Alex bandage wrap. Patient was transferred from the medical unit to the ICU last night for changes in mental status, and hypoxemia. His nurse yesterday evening found him to be difficult to arouse, had to use sternal rub, had some foaming from the mouth, and a drop in his oxygen saturation on room air to 79%. He was brought to the ICU and put on BiPAP. This morning he is only requiring oxygen supplementation per nasal cannula. He is only oriented to self, however did follow commands. Upon evaluation of the patient's right lower extremity he did moan with some discomfort. Doppler ultrasound of the right lower extremity was negative for DVT. Objective - Vital Signs Vital signs: Vital Signs Temp 98.7 F 12/28/19 16:00 Pulse 93 12/29/19 11:00 Resp 29 H 12/29/19 11:00 BP 89/60 12/29/19 10:45 Pulse Ox 98 12/29/19 11:00 Intake & Output 12/28/19 12/29/19 12/29/19 18:59 06:59 18:59 Intake Total 140 20 685 Output Total 2 100 260 Balance 138 -80 425 Weight 80.739 kg 90 kg Intake: IV 20 685 0.9 NS 20 635 Clindamycin 600 mg In 50 Dextrose 5% in Water 50 ml @ 50 mls/hr IVPB Q8H [facility] Rx#:[id number] Oral 140 Output: Urine 2 100 260 Stool 0 0 Other: Voiding Method Indwelling Catheter # Voids 0 - Exam General appearance: Drousy, arousable. HET: Head is normocephalic and atraumatic. Neck: Supple without lymphadenopathy. Trachea midline. Heart: S1 S2. Regular rate and rhythm. Lungs: Bilateral crackles and wheezes Abdomen: Soft, nontender, nondistended with bowel sounds. Extremities: Right lower extremity with splint and Alex bandage. Bilateral palpable femoral pulses. PT doppler signal present. Sensory motor intact bilaterally. Patient able to move toes. Tenderness to palpation. Ecchymosis to the right leg and foot, sparing the plantar side of toes . Edema, ecchymosis and hematoma to dorsal side of right foot. Decreased capillary refill. Neurological: Easily arousable, follows commands. - Labs CBC & Chem 7: 12/29/19 04:41 12/29/19 04:41 Labs: Abnormal Lab Results - Last 24 Hours (Table) 12/29/19 12/29/19 12/29/19 Range/Units 04:41 04:41 04:52 WBC 18.9 H (3.8-10.6) k/uL RBC 2.97 L (4.30-5.90) m/uL Hgb 10.2 L (13.0-17.5) gm/dL Hct 32.9 L (39.0-53.0) % MCV 111.0 H D (80.0-100.0) fL Plt Count 136 L (150-450) k/uL Neutrophils # 15.4 H (1.3-7.7) k/uL Monocytes # 1.8 H (0-1.0) k/uL Macrocytosis Marked A ABG pH (7.35-7.45) ABG pO2 (83-108) mmHg ABG O2 Saturation (94-97) % Sodium 132 L (137-145) mmol/L Potassium 5.3 H (3.5-5.1) mmol/L Carbon Dioxide 19 L (22-30) mmol/L BUN 73 H (9-20) mg/dL Creatinine 2.40 H (0.66-1.25) mg/dL Troponin I 0.483 H* (0.000-0.034) ng/mL Total Protein 5.6 L (6.3-8.2) g/dL Albumin 3.3 L (3.5-5.0) g/dL 12/29/19 Range/Units 05:05 WBC (3.8-10.6) k/uL RBC (4.30-5.90) m/uL Hgb (13.0-17.5) gm/dL Hct (39.0-53.0) % MCV (80.0-100.0) fL Plt Count (150-450) k/uL Neutrophils # (1.3-7.7) k/uL Monocytes # (0-1.0) k/uL Macrocytosis ABG pH 7.30 L (7.35-7.45) ABG pO2 201 H (83-108) mmHg ABG O2 Saturation 97.4 H (94-97) % Sodium (137-145) mmol/L Potassium (3.5-5.1) mmol/L Carbon Dioxide (22-30) mmol/L BUN (9-20) mg/dL Creatinine (0.66-1.25) mg/dL Troponin I (0.000-0.034) ng/mL Total Protein (6.3-8.2) g/dL Albumin (3.5-5.0) g/dL Assessment and Plan Assessment: #1 Chronic peripheral arterial disease with prior history of right iliofemoral angiogram and transluminal balloon angioplasty of the external iliac artery and stent placement #2 right distal fibular fracture with mild displacement and minimal impaction #3 acute renal failure #4 EtOH abuse #5 tobacco abuse #6 hypertension #7 hyperlipidemia Plan: Plavix was discontinued. Recommend holding Eliquis if okay with cardiology. Continue to monitor for sensory motor changes and maintain pain control. Continue to follow recommendations per orthopedic service. Alex wrap to right lower extremity to help reduce swelling. Further recommendations to follow. The above dictated assessment and findings were discussed with Dr. Olivarez. The impression and plan of care have been directed as dictated.
--- NOTE | 2019-12-29 12:03 | P.PN ---
Subjective Progress Note Date: 12/29/19 Principal diagnosis: Minimally displaced right ankle lateral malleolus fracture, peripheral vascular disease, multiple medical comorbidities Patient is examined today at bedside, he was transferred to the ICU unit due to change in mental status and hypoxemia. He is being followed by multiple medical specialties at this time. Discussed with the nurse at bedside, they did place the order for the Cam Walker boot. He remains in the posterior touch splint with Alex bandage fixation. He is on BiPAP at this time on the ICU unit, significant agitation as noted Objective - Vital Signs Vital signs: Vital Signs Temp 98.7 F 12/28/19 16:00 Pulse 93 12/29/19 11:42 Resp 29 H 12/29/19 11:15 BP 89/60 12/29/19 10:45 Pulse Ox 98 12/29/19 11:00 Intake & Output 12/28/19 12/29/19 12/29/19 18:59 06:59 18:59 Intake Total 140 20 685 Output Total 2 100 260 Balance 138 -80 425 Weight 80.739 kg 90 kg Intake: IV 20 685 0.9 NS 20 635 Clindamycin 600 mg In 50 Dextrose 5% in Water 50 ml @ 50 mls/hr IVPB Q8H [facility] Rx#:[id number] Oral 140 Output: Urine 2 100 260 Stool 0 0 Other: Voiding Method Indwelling Catheter # Voids 0 - Exam Right lower extremity: Alex bandage and posterior splinter in good position and condition. No obvious open lesions are visualized. Significant ecchymosis and soft tissue swelling present throughout the dorsum of the foot. Ecchymosis noted over the dorsum of the foot on the medial and lateral aspects of the ankle and also to the dorsal aspect of the foot. Skin is warm to touch on the dorsal and plantar aspect of the foot. He does wiggle the toes with minimal difficulty. - Labs CBC & Chem 7: 12/29/19 04:41 12/29/19 04:41 Labs: Abnormal Lab Results - Last 24 Hours (Table) 12/29/19 12/29/19 12/29/19 Range/Units 04:41 04:41 04:52 WBC 18.9 H (3.8-10.6) k/uL RBC 2.97 L (4.30-5.90) m/uL Hgb 10.2 L (13.0-17.5) gm/dL Hct 32.9 L (39.0-53.0) % MCV 111.0 H D (80.0-100.0) fL Plt Count 136 L (150-450) k/uL Neutrophils # 15.4 H (1.3-7.7) k/uL Monocytes # 1.8 H (0-1.0) k/uL Macrocytosis Marked A ABG pH (7.35-7.45) ABG pO2 (83-108) mmHg ABG O2 Saturation (94-97) % Sodium 132 L (137-145) mmol/L Potassium 5.3 H (3.5-5.1) mmol/L Carbon Dioxide 19 L (22-30) mmol/L BUN 73 H (9-20) mg/dL Creatinine 2.40 H (0.66-1.25) mg/dL Troponin I 0.483 H* (0.000-0.034) ng/mL Total Protein 5.6 L (6.3-8.2) g/dL Albumin 3.3 L (3.5-5.0) g/dL Urine Protein (Negative) Urine Ketones (Negative) Urine Blood (Negative) Ur Leukocyte Esterase (Negative) Urine RBC (0-5) /hpf Urine WBC (0-5) /hpf Urine Bacteria (None) /hpf Urine Mucus (None) /hpf 12/29/19 12/29/19 Range/Units 05:05 10:50 WBC (3.8-10.6) k/uL RBC (4.30-5.90) m/uL Hgb (13.0-17.5) gm/dL Hct (39.0-53.0) % MCV (80.0-100.0) fL Plt Count (150-450) k/uL Neutrophils # (1.3-7.7) k/uL Monocytes # (0-1.0) k/uL Macrocytosis ABG pH 7.30 L (7.35-7.45) ABG pO2 201 H (83-108) mmHg ABG O2 Saturation 97.4 H (94-97) % Sodium (137-145) mmol/L Potassium (3.5-5.1) mmol/L Carbon Dioxide (22-30) mmol/L BUN (9-20) mg/dL Creatinine (0.66-1.25) mg/dL Troponin I (0.000-0.034) ng/mL Total Protein (6.3-8.2) g/dL Albumin (3.5-5.0) g/dL Urine Protein Trace H (Negative) Urine Ketones Trace H (Negative) Urine Blood Large H (Negative) Ur Leukocyte Esterase Large H (Negative) Urine RBC >182 H (0-5) /hpf Urine WBC 111 H (0-5) /hpf Urine Bacteria Rare H (None) /hpf Urine Mucus Rare H (None) /hpf Assessment and Plan Assessment: Minimally displaced right ankle lateral malleolus fracture, stable mortise History of recent fall Peripheral vascular disease Multiple medical comorbidities Plan: Awaiting fracture boot at this time, continue Alex bandage and posterior splint. After being fitted with a boot, he will remain nonweightbearing on the right lower extremity all times. He will utilize the boot at all times Elevate the extremity 20/05 Other director of medical services recommendations Please contact with any questions regarding the fracture boot Time with Patient: Less than 30
--- NOTE | 2019-12-29 12:09 | US ---
EXAMINATION TYPE: US kidneys/renal and bladder DATE OF EXAM: 12/29/2019 COMPARISON: CT CLINICAL HISTORY: cat. EXAM MEASUREMENTS: Right Kidney: 8.8 x 4.9 x 5.1 cm Left Kidney: 8.9 x 5.1 x 5.0 cm Technically difficult study performed portably on a patient in ICU who was rolled up to right side an d would not lay flat. Left renal imaged first due to patient position. Right Kidney: limited visualization due to patient position. Left Kidney: Small exophytic cyst measures 0.7 x 0.6 x 0.7 cm. Bladder: not seen, patient has catheter. Olivarez catheter balloon identified. IMPRESSION: 1. Limited examination. No suspicious acute renal abnormality by ultrasound
[2019-12-29] MEDS: LORazepam 2 MG/ML INJ IV PRN ×4 (13:09→16:12)
--- NOTE | 2019-12-29 15:47 | P.PN ---
Subjective Progress Note Date: 12/29/19 This is a 79-year-old male patient of Drs. Ravin Hatch, Nahomi Shepherd and Evans with past medical history of COPD with chronic hypoxic respiratory failure on home O2 at 2 L, hypertension, hyperlipidemia, coronary artery disease status post 2 vessel CAB[place] [address] Sorto, infrarenal aortic aneurysm and lower extremity claudication of the care of Dr. Dr. Krueger, tobacco use and dependence, alcohol abuse. Patient was last hospitalized in August 2019 for new onset atrial fibrillation and hyponatremia and patient was discharged home. Family brought patient into the hospital as he called them last week and injured his right leg now presents with a purple black discoloration that apparently has been going on for one week. He complains of pain to the area, no fever no chills. Patient came into [facility] emergency center for evaluation. Pulse ox 99%, heart rate 68, blood pressure 99/47. EKG was sinus rhythm with left bundle branch block. WBC 17.6, hemoglobin 10.9, platelet count 150. Sodium 130, potassium 4.9, chloride 97, CO2 22, BUN 69 creatinine 2.73, liver function tests normal. Lactic acid 2.0, troponin 0.147. X-ray of the right tib- fib shows an obliquely oriented distal fibular fracture with mild displacement and minimal impaction. Dorsalis pedis is unobtainable by Doppler. Dorsalis pedis palpable. Patient was started on clindamycin and admitted to the [facility] floor with consults to vascular surgeon, orthopedics, nephrology. 3/3: 4 AM this morning, patient was found by his nurse arousable to name but foaming at the mouth. Mouth was suctioned. Pulse ox was low at 79% on room air. O2 was applied and pulse ox came up to 90%. Patient was arousable to sternal rub and oriented to person. A-Team was called and patient was placed on BiPAP and patient became somewhat more alert and arousable. Patient was transferred to the intensive care unit. The patient has been hypotensive status post 500 mL fluid bolus. Patient is having tremors and confusion and narcotics and sedatives of all been discontinued. Patient is not able to take any oral intake or take oral medications. We do have blood culture are ready yet obtain ed in the emergency center urine culture was never obtained which will be done now and sputum culture added. Temperature max 99.1 axillary, heart rate 93, heart rate 29, blood pressure 103/73, pulse ox 96% on 2 L nasal cannula. Repeat blood work reveals WBC 18.9, hemoglobin 10.2, platelet count 136. Sodium 132, potassium 5.3, chloride 103, CO2 19, BUN 73 and creatinine 2.4. Troponin this morning was 0.483. Urinalysis cloudy, blood large, ketones trace, leukoesterase large, RBCs greater than 182, wbc's 111. Chest x-ray reveals no acute cardio primary process. Ultrasound of the right lower extremity was negative for DVT. Patient is seen and followed by multiple consultants including Dr. Johnson from cardiology. No clear evidence of acute ischemic event. Plavix stopped. Echocardiogram is pending. Patient was seen by vascular surgeon is acute ischemic issue with the right leg is doubtful. Monitor for compartment syndrome from swelling. No Plavix going forward, iliac stent procedure was greater than 6 months ago and resumption of eliquis upon cardiology recommendations. Dr. Ramon has ordered for IV fluids at 75 mL per hour and bolus as needed for blood pressure, sodium bicarb is been added. Renal ultrasound reveals no suspicious acute renal abnormality. The patient has been seen by orthopedics with plan for cam walker boot. For now splint is in place. Discussed patient's condition with the son in detail and discuss CODE STATUS. Son is adamant that he and his father wish for him to be full CODE STATUS and want him to be treated aggressively. Objective - Vital Signs Vital signs: Vital Signs Temp 98.7 F 12/28/19 16:00 Pulse 92 12/29/19 10:00 Resp 22 12/29/19 10:00 BP 83/58 12/29/19 10:00 Pulse Ox 96 12/29/19 10:00 Intake & Output 12/28/19 12/29/19 12/29/19 18:59 06:59 18:59 Intake Total 140 20 560 Output Total 2 100 210 Balance 138 -80 350 Weight 80.739 kg 90 kg Intake: IV 20 560 0.9 NS 20 560 Oral 140 Output: Urine 2 100 210 Stool 0 0 Other: Voiding Method Indwelling Catheter # Voids 0 - Exam Review of Systems--unable to be obtained due to mental status changes Physical examination: Gen: This is a 78-year-old male in the ICU bed. Patient is obtunded and unable to answer any questions. Tremors noted. HEENT: Head is atraumatic, normocephalic. Pupils equal, round. Sclerae is anicteric. NECK: Supple. No JVD. No lymphadenopathy. No thyromegaly. LUNGS: Decreased breath sounds bilaterally with coarse rhonchi. No intercostal retractions. Tachypneic. HEART: regular rate and rhythm. Systolic ejection murmur. ABDOMEN: Soft. Bowel sounds are present. No masses. No tenderness. Olivarez catheter in place EXTREMITIES: To the right lower extremity. Posterior tibial is obtainable by Doppler, no dorsalis pedis. Significant edema and ecchymosis from the knee down to his toes with purple ecchymosis, posterior splint with Alex wrap in place. Dorsalis pedis palpable on the left, no edema. NEUROLOGICAL: Patient is obtunded and unable to follow directions. - Labs CBC & Chem 7: 12/29/19 04:41 12/29/19 04:41 Labs: Abnormal Lab Results - Last 24 Hours (Table) 12/29/19 12/29/19 12/29/19 Range/Units 04:41 04:41 04:52 WBC 18.9 H (3.8-10.6) k/uL RBC 2.97 L (4.30-5.90) m/uL Hgb 10.2 L (13.0-17.5) gm/dL Hct 32.9 L (39.0-53.0) % MCV 111.0 H D (80.0-100.0) fL Plt Count 136 L (150-450) k/uL Neutrophils # 15.4 H (1.3-7.7) k/uL Monocytes # 1.8 H (0-1.0) k/uL Macrocytosis Marked A ABG pH (7.35-7.45) ABG pO2 (83-108) mmHg ABG O2 Saturation (94-97) % Sodium 132 L (137-145) mmol/L Potassium 5.3 H (3.5-5.1) mmol/L Carbon Dioxide 19 L (22-30) mmol/L BUN 73 H (9-20) mg/dL Creatinine 2.40 H (0.66-1.25) mg/dL Troponin I 0.483 H* (0.000-0.034) ng/mL Total Protein 5.6 L (6.3-8.2) g/dL Albumin 3.3 L (3.5-5.0) g/dL 12/29/19 Range/Units 05:05 WBC (3.8-10.6) k/uL RBC (4.30-5.90) m/uL Hgb (13.0-17.5) gm/dL Hct (39.0-53.0) % MCV (80.0-100.0) fL Plt Count (150-450) k/uL Neutrophils # (1.3-7.7) k/uL Monocytes # (0-1.0) k/uL Macrocytosis ABG pH 7.30 L (7.35-7.45) ABG pO2 201 H (83-108) mmHg ABG O2 Saturation 97.4 H (94-97) % Sodium (137-145) mmol/L Potassium (3.5-5.1) mmol/L Carbon Dioxide (22-30) mmol/L BUN (9-20) mg/dL Creatinine (0.66-1.25) mg/dL Troponin I (0.000-0.034) ng/mL Total Protein (6.3-8.2) g/dL Albumin (3.5-5.0) g/dL Assessment and Plan Plan: 1. Toxic encephalopathy secondary to alcohol intoxication with hallucinations and active delirium tremors with hypotension, present on admission. CIWA protocol discontinued when patient went to the intensive care unit. Patient is currently hypotensive status post fluid bolus. Patient is followed by multiple consultants. Consult with social work. Continue thiamine, multivitamin 2. Acute right fibular fracture. Splint to be placed in the ER. Consult with orthopedics appreciated. Awaiting cam boot. 3. Acute kidney injury most likely due to poor oral intake, lisinopril and Lasix. Continue IV fluids, consult nephrology, hold Lasix and lisinopril. 4. Chronic peripheral artery disease with prior right iliofemoral angiogram and transluminal balloon angioplasty of the external iliac artery are and stent placement. Continue clindamycin. Discontinue Plavix. 5. Paroxysmal atrial fibrillation. Continue Lopressor, discontinue eliquis. Cardiology consult appreciated. 6. Hyponatremia most likely secondary to alcohol abuse. 7. Acute hypoxic respiratory failure requiring transfer into the intensive care unit. Patient has been on BiPAP. Consult with Dr. Shepherd appreciated. 8. COPD, exacerbation. Continue Perforomist twice daily, Pulmicort twice daily, DuoNeb treatments 4 times daily, Solu-Medrol 40 mg IV every 8. 9. Chronic hypoxic respiratory failure on home O2 at 2 L nasal cannula. 10. Coronary artery disease status post CABG. resume aspirin and hold Plavix. Continue simvastatin, Lopressor. 11. Hyperlipidemia. Continue statin. 12. Hypertension. Hold Lasix, lisinopril, verapamil, continue Lopressor 13. Tobacco use and dependence. Nicotine patch. 14. DVT prophylaxis. 15. GI prophylaxis. Protonix daily. 16. Benign prostatic hypertrophy. Continue Flomax 0.4 mg daily, monitor for urinary retention. 17. Chronic kidney disease stage III. 18. Elevated troponins. Cardiology consult appreciated. Acute coronary syndrome ruled out. CODE STATUS: Full code. Discussed with patient's son. He verbalizes that patient wishes would be as focal and all aggressive treatment. Discharge plan: [facility] or [facility]. Impression and plan of care have been directed as dictated by the signing physician. Lila Nur nurse practitioner acting as scribe for signing physician.
[2019-12-29] MEDS: ATORVASTATIN 40 MG TAB PO SCH (20:41)
[2019-12-29] MEDS: TAMSULOSIN 0.4 MG CAP.ER.24H PO SCH (20:41)
[2019-12-29] MEDS: THEOPHYLLINE 24 HOUR 400 MG CAP.ER.24H PO SCH (20:41)
[2019-12-30] MEDS: CLINDAMYCIN 600 MG in DEXTROSE 5% IN WATER 50 ML IVPB SCH ×6 (02:08→18:36)
[2019-12-30 05:00] LABS: Basophils % (A) 0 %; Eosinophils % (A) 0 %; HCT 30.2 % (39.0-53.0); HGB 9.4 gm/dL (13.0-17.5); Hypochromasia Slight; Lymphocytes # (A) 0.6 k/uL (1.0-4.8); Lymphocytes % (A) 6 %; MCH 34.4 pg (25.0-35.0); MCHC 31.2 g/dL (31.0-37.0); MCV 110.2 fL (80.0-100.0); Macrocytosis Marked; Mean Platelet Volume 8.3; Monocytes # (A) 0.8 k/uL (0-1.0); Monocytes % (A) 7 %; Neutrophils # (A) 9.5 k/uL (1.3-7.7); Neutrophils % (A) 86 %; Platelet Count 141 k/uL (150-450); RBC 2.74 m/uL (4.30-5.90); RDW 14.3 % (11.5-15.5)
[2019-12-30 05:03] LABS: Potassium 5.3 mmol/L (3.5-5.1)
[2019-12-30] MEDS: SODIUM CHLORIDE 0.9% 1,000 ML IV SCH ×2 (05:26→16:57)
[2019-12-30 05:41] LABS: Polychromasia Present
[2019-12-30] MEDS: BUDESONIDE 1 MG/2 ML NEBU INHALATION SCH ×2 (07:32→19:13)
[2019-12-30] MEDS: IPRATROPIUM-ALBUTEROL 3 ML NEB INHALATION SCH ×4 (07:32→19:13)
[2019-12-30] MEDS: FORMOTEROL FUMARATE 20 MCG/2 ML NEBU INHALATION SCH ×2 (07:32→19:13)
--- NOTE | 2019-12-30 07:51 | PN ---
PROGRESS NOTE PULMONARY/CRITICAL CARE PROGRESS NOTE: DATE OF SERVICE: 12/30/2019 This is a 79-year-old gentleman who we have seen in the past. We saw him in consultation yesterday. My impression was that he had acute mental status changes with respiratory decline, which may have related to excess Dilaudid and Ativan. In addition, the patient could have had a COPD exacerbation and/or myocardial infarction. Currently, he is in the ICU on BiPAP at 10/5 and 40% receiving saline at 75 mL an hour. Other medical issues include right distal fibular fracture, COPD, CAD, hyperlipidemia, hypertension, history of bilateral cataracts, solitary pulmonary nodule, status post bypass grafting, and history of severe peripheral artery disease with previous femoral stent. Anyway, the patient appears according to the nurse to be doing a bit better. Currently still on BiPAP. We are going to recommend some nasal O2. Currently, he has no complaints. Current vital signs include temperature 97.4, heart rate 92, respiratory rate 28, blood pressure 143/77 mean 99, and saturations are 100% on BiPAP 10, 5 and 40%. There is no acute distress. Somewhat restless but thus settled down. HEENT: Examination is grossly unremarkable. BiPAP mask in place. NECK: Supple. Full range of motion. No adenopathy. Neck veins are flat. CARDIOVASCULAR: Examination reveals regular rhythm and rate. Heart rate about 100 beats per minute. S1, S2 normal. LUNGS: Reveal a few scattered rhonchi. No wheezes or crackles. Breath sounds are equal but diminished throughout. ABDOMEN: Soft. No bowel sounds. EXTREMITIES: Intact. Both lower extremities are edematous. The right lower extremity is purplish in color and much more swollen. NEUROLOGIC: Examination is difficult to assess. He does settle down. Seems a bit agitated initially. Does move all 4 extremities. Microbiology is thus far negative. LABS: Reviewed. White count 11, hemoglobin 9.4, hematocrit 30.2, platelet count 141,000, sodium 139, potassium 5.3, chloride 112. CO2 is 21, anion gap is 6. BUN and creatinine were 57 and 1.43 compared to 73 and 2.40 yesterday. Troponins were 0.147 and 0.483. N terminal proBNP was 5970. Urine looked suspicious for a urinary tract infection. Chest x-ray looks pretty stable. MEDICATIONS: Reviewed. He is currently on aspirin, Lipitor, Pulmicort, clindamycin, formoterol, DuoNeb, Ativan per CIWA scale, Mag-Ox, Solu-Medrol metoprolol, multivitamins, Narcan p.r.n., nicotine patch, Protonix, 0.9 IV, Flomax and theophylline. ASSESSMENT: 1. Acute mental status changes with respiratory decline, of unclear etiology. This may relate to excessive Dilaudid and/or Ativan or more ominously, chronic obstructive pulmonary disease exacerbation and/or an WI. 2. Current BiPAP therapy for respiratory distress and desaturation, improved. 3. Mental status changes of unclear etiology, may relate to chronic alcohol use/abuse. 4. Rule out acute myocardial infarction. 5. Right distal fibular fracture. 6. History of chronic obstructive pulmonary disease, severe. 7. History of coronary artery disease. 8. Hyperlipidemia by history. 9. Hypertension. 10.History of bilateral cataracts. 11.Solitary pulmonary nodule, being followed on outpatient basis. 12.Status post bypass grafting. 13.Severe peripheral artery disease with previous femoral stent. PLAN: Medications are reviewed. Overall prognosis remains guarded. We will try the patient off the BiPAP today. We can go with either nasal O2 or Venturi mask. Additional recommendations and suggestions are forthcoming. Prognosis is guarded. I did speak to Dr. Manzano about this patient yesterday. CHACE / ALEXN: [id number] /
--- NOTE | 2019-12-30 08:06 | PN ---
PROGRESS NOTE Mr. Rivera is a 79-year-old male who presented to the hospital after being found with a fractured right tibia. He has a known history of coronary artery disease, status post coronary artery bypass grafting, history of peripheral vascular disease, history of chronic tobacco and alcohol intake. He is awake, but confused. He is in sinus mechanism with episode of sinus tachycardia. He has been seen by the Vascular Surgeon as well as Nephrology. His blood pressure is stable. There is no evidence of malignant arrhythmia. He continues to be at this time on aspirin once a day, Lipitor 80 mg daily, metoprolol tartrate 25 mg twice a day. His anticoagulation was held per the vascular surgery service. PHYSICAL EXAMINATION: Blood pressure 126/80 with the heart rate in the low 100s. The patient is alert, but confused. HEAD: Normocephalic. EYES: Sclerae anicteric. LUNGS: Clear to auscultation anteriorly. HEART: Tachycardic, S1, S2. No S3 with a systolic murmur. ABDOMEN: Soft, nontender. No organomegaly. EXTREMITIES: Left side no edema; right side with ecchymoses Alex wrap in place. LAB DATA: Lab data revealed a hemoglobin 9.4, white blood cell of 11,000. BUN and creatinine of 57 and 1.43, which is much improved compared with yesterday. His potassium is 5.3. IMPRESSION: 1. Status post fall and fracture of the right leg. 2. History of coronary artery disease, status post coronary artery bypass grafting. No evidence of acute ischemic event. 3. Paroxysmal atrial fibrillation. 4. Renal failure improving with acute renal injury. 5. Peripheral vascular disease. 6. Confusion. 7. History of alcohol use. RECOMMENDATION: I will review the results of his echocardiogram. Continue the rest of his medical regimen. Will continue to hold his anticoagulation until it is agreeable with the vascular surgery service to re-initiate because of his history of paroxysmal atrial fibrillation. Depending on his blood pressure and heart rate, the dose of his beta mackenzie can be further adjusted. MMODL / IJN: [id number] /
--- NOTE | 2019-12-30 08:33 | XR ---
EXAMINATION TYPE: XR chest 1V DATE OF EXAM: 12/30/2019 COMPARISON: 12/29/2019 HISTORY: COPD. Shortness of breath. TECHNIQUE: Single frontal view of the chest is obtained. FINDINGS: Cardiomediastinal silhouette is enlarged with post CABG changes. Biapical pleural-parenchy mal scarring is seen with stable nodular component of the right lung apex. Pulmonary hyperinflation o f underlying COPD. Right basilar 1 cm pulmonary nodule is not seen. CT could assess this finding as a spiculated nodule in the right upper lobe as seen on the prior CT of 09/07/2019. No sizable pneumoth orax or pleural effusion. No acute osseous pathology. IMPRESSION: 1. Right lower lobe 1.0 cm pulmonary nodule that could be further evaluated with CT thorax. 2. Radiographic sequela of COPD.
[2019-12-30] MEDS: MAGNESIUM OXIDE 400 MG TAB PO SCH (08:50)
[2019-12-30] MEDS: PANTOPRAZOLE 40 MG/10 ML VIAL IVP SCH (08:50)
[2019-12-30] MEDS: methylPREDNISolone SOD SUCCI 40 MG/ML 1 ML VIAL IV SCH ×2 (08:50→16:58)
[2019-12-30] MEDS: NICOTINE 21MG/24HR PATCH TRANSDERM SCH (08:51)
[2019-12-30] MEDS: METOPROLOL TARTRATE 25 MG TAB PO SCH ×2 (08:51→20:34)
[2019-12-30] MEDS: ASPIRIN 81 MG PO SCH (08:51)
[2019-12-30] MEDS: MULTIVITAMINS, THERA 1 EACH TAB PO SCH (08:51)
--- NOTE | 2019-12-30 09:04 | ECHOF ---
Referral Reason:cad MEASUREMENTS -------- HEIGHT: 180.3 cm WEIGHT: 89.8 kg BP: RVIDd: 3.3 cm (< 3.3) IVSd: 1.4 cm (0.6 - 1.1) LVIDd: 4.7 cm (3.9 - 5.3) LVPWd: 1.4 cm (0.6 - 1.1) IVSs: 1.2 cm LVIDs: 4.3 cm LVPWs: 1.5 cm LAESV Index (A-L): 31.16 ml/m Ao Diam: 4.1 cm (2.0 - 3.7) AV Cusp: 2.5 cm (1.5 - 2.6) LA Diam: 4.4 cm (2.7 - 3.8) MV EXCURSION: 14.447 mm (> 18.000) MV EF SLOPE: 85 mm/s (70 - 150) EPSS: 1.3 cm MV E Kevyn: 1.25 m/s MV DecT: 75 ms MV A Kevyn: 0.40 m/s MV E/A Ratio: 3.11 AR PHT: 479 ms RAP: 5.00 mmHg RVSP: 28.70 mmHg FINDINGS -------- Undetermined rhythm. This was a technically difficult study with suboptimal views. The left ventricular size is normal. There is moderate concentric left ventricular hypertrophy. O verall left ventricular systolic function is moderately impaired with, an EF between 35 - 40 %. The right ventricle is mildly enlarged. LA is midly dilated 29-33ml/m2. The right atrial size is normal. Lumason used Aortic valve is trileaflet and is mildly thickened. There is mild aortic regurgitation. The mitral valve is normal. The mitral valve leaflets are mildly thickened. Mild mitral annular c alcification present. There is trace mitral regurgitation. The tricuspid valve appears structurally normal. Mild tricuspid regurgitation present. Right vent ricular systolic pressure is normal at < 35 mmHg. There is no pulmonic regurgitation present. The aortic root size is normal. IVC Not well visulized. There is no pericardial effusion. CONCLUSIONS -------- 1. Undetermined rhythm. 2. This was a technically difficult study with suboptimal views. 3. The left ventricular size is normal. 4. There is moderate concentric left ventricular hypertrophy. 5. Overall left ventricular systolic function is moderately impaired with, an EF between 35 - 40 %. 6. The right ventricle is mildly enlarged. 7. LA is midly dilated 29-33ml/m2. 8. The inferior wall is hypokinetic 9. Lumason used 10. Aortic valve is trileaflet and is mildly thickened. 11. There is mild aortic regurgitation. 12. The mitral valve is normal. 13. The mitral valve leaflets are mildly thickened. 14. Mild mitral annular calcification present. 15. There is trace mitral regurgitation. 16. The tricuspid valve appears structurally normal. 17. Mild tricuspid regurgitation present. 18. Right ventricular systolic pressure is normal at < 35 mmHg. 19. There is no pulmonic regurgitation present. 20. The aortic root size is normal. 21. IVC Not well visulized. 22. There is no pericardial effusion. DIRECTOR OF DIRECT MARKETING: Rowan Dhaliwal RDCS
[2019-12-30] MEDS: LORazepam 2 MG/ML INJ IV PRN ×6 (09:25→23:01)
[2019-12-30] MEDS ORDERED: SODIUM BICARB 8.4% 50 ML SYR (1 MEQ/ML) IV STA ×2 (09:36→09:58)
--- NOTE | 2019-12-30 10:19 | P.ARTDOP ---
Arterial Doppler LOWER EXTREMITY ARTERIAL DOPPLER: DATE OF SERVICE: 12/28/2019 Reason for study: Bilateral leg ulcers. Doppler waveforms: Atypical at the femoral level and popliteal level. Monophasic below. Pulse volume recording: []. Pressure gradients: No pressures recorded on either side. No arterial flow detected in the toes Ankle-brachial indices: Cannot measure. Toe brachial indices: [] on the right, [] on the left Impression: Severe bilateral femoral popliteal disease with possible iliac components bilaterally.
--- NOTE | 2019-12-30 10:28 | P.PN ---
Subjective Patient is seen in follow-up for acute kidney injury. Renal function is improving. Creatinine down to 1.43 today. He is maintained on IV fluids. Currently nothing by mouth. Vital signs are stable. General: The patient appeared well nourished and normally developed. HEENT: Head exam is unremarkable. Neck is without jugular venous distension. LUNGS: Lungs are clear to auscultation and percussion. Breath sounds decreased. HEART: Rate and Rhythm are regular. First and second heart sounds normal. No murmurs, rubs or gallops. ABDOMEN: Abdominal exam reveals normal bowel sounds. Non-tender and non- distended. No evidence of peritonitis. EXTREMITITES: No clubbing, cyanosis, or edema. Objective - Vital Signs Vital signs: Vital Signs Temp 97.4 F L 12/30/19 04:00 Pulse 112 H 12/30/19 07:59 Resp 17 12/30/19 07:00 BP 126/85 12/30/19 07:00 Pulse Ox 98 12/30/19 07:00 Intake & Output 12/29/19 12/30/19 12/30/19 18:59 06:59 18:59 Intake Total 1685 900 75 Output Total 924 800 30 Balance 761 100 45 Weight 77.6 kg Intake: IV 1685 900 75 0.9 NS 1585 900 75 Clindamycin 600 mg In 100 Dextrose 5% in Water 50 ml @ 50 mls/hr IVPB Q8H [facility] Rx#:[id number] Output: Urine 924 800 30 Stool 0 Other: Voiding Method Indwelling Catheter Indwelling Catheter - Labs CBC & Chem 7: 12/30/19 04:11 12/30/19 04:11 Labs: Abnormal Lab Results - Last 24 Hours (Table) 12/29/19 12/30/19 12/30/19 Range/Units 10:50 04:11 04:11 WBC 11.0 H (3.8-10.6) k/uL RBC 2.74 L (4.30-5.90) m/uL Hgb 9.4 L (13.0-17.5) gm/dL Hct 30.2 L (39.0-53.0) % MCV 110.2 H (80.0-100.0) fL Plt Count 141 L (150-450) k/uL Neutrophils # 9.5 H (1.3-7.7) k/uL Lymphocytes # 0.6 L (1.0-4.8) k/uL Macrocytosis Marked A Potassium 5.3 H (3.5-5.1) mmol/L Chloride 112 H (98-107) mmol/L Carbon Dioxide 21 L (22-30) mmol/L BUN 57 H (9-20) mg/dL Creatinine 1.43 H (0.66-1.25) mg/dL Glucose 121 H (74-99) mg/dL Urine Protein Trace H (Negative) Urine Ketones Trace H (Negative) Urine Blood Large H (Negative) Ur Leukocyte Esterase Large H (Negative) Urine RBC >182 H (0-5) /hpf Urine WBC 111 H (0-5) /hpf Urine Bacteria Rare H (None) /hpf Urine Mucus Rare H (None) /hpf Microbiology - Last 24 Hours (Table) 12/29/19 10:50 Urine Culture - Preliminary Urine,Voided 12/28/19 14:15 Blood Culture - Preliminary Blood No Growth after 24 hours Assessment and Plan Plan: Assessment: 1. Acute kidney injury mostly prerenal secondary to hypotension and further worsened with the use of lisinopril and Lasix. Creatinine 2.73 on admission and is 1.43 today. Kidneys noted to be small in size. No hydronephrosis noted. 2. Hypovolemic hyponatremia improved with IV hydration. 3. Metabolic acidosis secondary to acute kidney injury and IV fluids. Better. 4. Status post fall with fibula fracture. 5. Chronic diastolic CHF. 6. History of alcohol abuse. 7. Mild hyperkalemia secondary to metabolic acidosis. Plan: Maintain normal saline at 75 mL an hour. 2 amps of bicarb IV push. Avoid nephrotoxins. Continue to monitor renal function and urine output. Swallow eval today.
[2019-12-30] MEDS: ACETAMINOPHEN IV (For NPO) 1,000 MG in EMPTY BAG 1 BAG IVPB SCH ×2 (10:40→15:13)
--- NOTE | 2019-12-30 12:11 | P.PN ---
Subjective Progress Note Date: 12/30/19 Principal diagnosis: Minimally displaced right ankle lateral malleolus fracture, peripheral vascular disease, multiple medical comorbidities Patient is examined today at bedside, he remains on BiPAP in the ICU. They have noted improvement, they are attempting to wean him off BiPAP today. Patient still remains agitated with regards to lower extremity. He did receive the [facility] ture boot yesterday, they have not placed at this time. Objective - Vital Signs Vital signs: Vital Signs Temp 97.4 F L 12/30/19 04:00 Pulse 112 H 12/30/19 07:59 Resp 17 12/30/19 07:00 BP 126/85 12/30/19 07:00 Pulse Ox 98 12/30/19 07:00 Intake & Output 12/29/19 12/30/19 12/30/19 18:59 06:59 18:59 Intake Total 1685 900 75 Output Total 924 800 30 Balance 761 100 45 Weight 77.6 kg Intake: IV 1685 900 75 0.9 NS 1585 900 75 Clindamycin 600 mg In 100 Dextrose 5% in Water 50 ml @ 50 mls/hr IVPB Q8H [facility] Rx#:[id number] Output: Urine 924 800 30 Stool 0 Other: Voiding Method Indwelling Catheter Indwelling Catheter - Exam Right lower extremity: Posterior splint and Alex wrap were removed. Significant ecchymosis and swelling noted throughout the foot, there is slight improvement. There are a few blisters noted on the dorsum and medial and lateral aspects of the ankle. These were dressed by myself today at bedside with ointment based bandages. He is able to wiggle the toes, the skin is warm to touch. Unable to appreciate a dorsalis pedis pulse. Soft, no tenderness with palpation. - Labs CBC & Chem 7: 12/30/19 04:11 12/30/19 04:11 Labs: Abnormal Lab Results - Last 24 Hours (Table) 12/30/19 12/30/19 Range/Units 04:11 04:11 WBC 11.0 H (3.8-10.6) k/uL RBC 2.74 L (4.30-5.90) m/uL Hgb 9.4 L (13.0-17.5) gm/dL Hct 30.2 L (39.0-53.0) % MCV 110.2 H (80.0-100.0) fL Plt Count 141 L (150-450) k/uL Neutrophils # 9.5 H (1.3-7.7) k/uL Lymphocytes # 0.6 L (1.0-4.8) k/uL Macrocytosis Marked A Potassium 5.3 H (3.5-5.1) mmol/L Chloride 112 H (98-107) mmol/L Carbon Dioxide 21 L (22-30) mmol/L BUN 57 H (9-20) mg/dL Creatinine 1.43 H (0.66-1.25) mg/dL Glucose 121 H (74-99) mg/dL Microbiology - Last 24 Hours (Table) 12/29/19 10:50 Urine Culture - Preliminary Urine,Voided 12/28/19 14:15 Blood Culture - Preliminary Blood No Growth after 24 hours Assessment and Plan Plan: Fracture boot was placed today at bedside. The blisters along the foot and ankle were addressed. He will remain nonweightbearing at this time, he must utilize the boot at all times. Elevate the extremity 20/05 Other medical superintendent recommendations Please contact with any questions regarding the fracture boot Time with Patient: Less than 30
--- NOTE | 2019-12-30 13:31 | P.PN ---
Subjective Progress Note Date: 12/30/19 Patient seen and examined sitting up in bed with BiPAP. Patient does not have orthopedic boot to right lower extremity. Alex wrap to right lower extremity with serosanguineous drainage. No acute changes through the night. Anticoagulants remain on hold at this time. Objective - Vital Signs Vital signs: Vital Signs Temp 97.4 F L 12/30/19 04:00 Pulse 112 H 12/30/19 07:59 Resp 17 12/30/19 07:00 BP 126/85 12/30/19 07:00 Pulse Ox 98 12/30/19 07:00 Intake & Output 12/29/19 12/30/19 12/30/19 18:59 06:59 18:59 Intake Total 1685 900 75 Output Total 924 800 30 Balance 761 100 45 Weight 77.6 kg Intake: IV 1685 900 75 0.9 NS 1585 900 75 Clindamycin 600 mg In 100 Dextrose 5% in Water 50 ml @ 50 mls/hr IVPB Q8H [facility] Rx#:[id number] Output: Urine 924 800 30 Stool 0 Other: Voiding Method Indwelling Catheter Indwelling Catheter - Exam General appearance: Awake and Alert to person. HET: Head is normocephalic and atraumatic. Neck: Supple without lymphadenopathy. Trachea midline. Heart: S1 S2. Regular rate and rhythm. Lungs: Bilateral crackles and wheezes Abdomen: Soft, nontender, nondistended with bowel sounds. Extremities: Right lower extremity with Alex bandage with serosanguineous corry inage Bilateral palpable femoral pulses. PT doppler signal present. Sensory motor intact bilaterally. Patient able to move toes. Tenderness to palpation. Ecchymosis to the right leg and foot, sparing the plantar side of toes . Edema, ecchymosis and hematoma to dorsal side of right foot. Decreased capillary refill. The medial lateral aspect of foot with blisters, and areas with skin tears and weeping. Neurological: Alert, follows commands. - Labs CBC & Chem 7: 12/30/19 04:11 12/30/19 04:11 Labs: Abnormal Lab Results - Last 24 Hours (Table) 12/29/19 12/30/19 12/30/19 Range/Units 10:50 04:11 04:11 WBC 11.0 H (3.8-10.6) k/uL RBC 2.74 L (4.30-5.90) m/uL Hgb 9.4 L (13.0-17.5) gm/dL Hct 30.2 L (39.0-53.0) % MCV 110.2 H (80.0-100.0) fL Plt Count 141 L (150-450) k/uL Neutrophils # 9.5 H (1.3-7.7) k/uL Lymphocytes # 0.6 L (1.0-4.8) k/uL Macrocytosis Marked A Potassium 5.3 H (3.5-5.1) mmol/L Chloride 112 H (98-107) mmol/L Carbon Dioxide 21 L (22-30) mmol/L BUN 57 H (9-20) mg/dL Creatinine 1.43 H (0.66-1.25) mg/dL Glucose 121 H (74-99) mg/dL Urine Protein Trace H (Negative) Urine Ketones Trace H (Negative) Urine Blood Large H (Negative) Ur Leukocyte Esterase Large H (Negative) Urine RBC >182 H (0-5) /hpf Urine WBC 111 H (0-5) /hpf Urine Bacteria Rare H (None) /hpf Urine Mucus Rare H (None) /hpf Microbiology - Last 24 Hours (Table) 12/29/19 10:50 Urine Culture - Preliminary Urine,Voided 12/28/19 14:15 Blood Culture - Preliminary Blood No Growth after 24 hours Assessment and Plan Assessment: #1 Chronic peripheral arterial disease with prior history of right iliofemoral angiogram and transluminal balloon angioplasty of the external iliac artery and stent placement #2 right distal fibular fracture with mild displacement and minimal impaction #3 acute renal failure #4 EtOH abuse #5 tobacco abuse #6 hypertension #7 hyperlipidemia Plan: Continue to hold Plavix and Eliquis. Continue to monitor for sensory motor mooney ges and maintain pain control. Continue to follow recommendations per orthopedic service. Alex wrap to right lower extremity to help reduce swelling. We will continue to follow. The above dictated assessment and findings were discussed with Dr. Olivarez. The impression and plan of care have been directed as dictated.
--- NOTE | 2019-12-30 15:16 | P.PN ---
Subjective Progress Note Date: 12/30/19 This is a 79-year-old male patient of Drs. Ravin Hatch, Nahomi Shepherd and Evans with past medical history of COPD with chronic hypoxic respiratory failure on home O2 at 2 L, hypertension, hyperlipidemia, coronary artery disease status post 2 vessel CAB[place] [address] Sorto, infrarenal aortic aneurysm and lower extremity claudication of the care of Dr. Krueger, tobacco use and dependence, alcohol abuse. Patient was last hospitalized in August 2019 for new onset atrial fibrillation and hyponatremia and patient was discharged home. Family brought patient into the hospital as he called them last week and injured his right leg now presents with a purple black discoloration that apparently has been going on for one week. He complains of pain to the area, no fever no chills. Patient came into [facility] emergency center for evaluation. Pulse ox 99%, heart rate 68, blood pressure 99/47. EKG was sinus rhythm with left bundle branch block. WBC 17.6, hemoglobin 10.9, platelet count 150. Sodium 130, potassium 4.9, chloride 97, CO2 22, BUN 69 creatinine 2.73, liver function tests normal. Lactic acid 2.0, troponin 0.147. X-ray of the right tib- fib shows an obliquely oriented distal fibular fracture with mild displacement and minimal impaction. Dorsalis pedis is unobtainable by Doppler. Dorsalis pedis palpable. Patient was started on clindamycin and admitted to the [facility] floor with consults to vascular surgeon, orthopedics, nephrology. 3/3: 4 AM this morning, patient was found by his nurse arousable to name but foaming at the mouth. Mouth was suctioned. Pulse ox was low at 79% on room air. O2 was applied and pulse ox came up to 90%. Patient was arousable to sternal rub and oriented to person. A-Team was called and patient was placed on BiPAP and patient became somewhat more alert and arousable. Patient was transferred to the intensive care unit. The patient has been hypotensive status post 500 mL fluid bolus. Patient is having tremors and confusion and narcotics and sedatives of all been discontinued. Patient is not able to take any oral intake or take oral medications. We do have blood culture are ready yet obtained in the emergency center urine culture was never obtained which will be done now and sputum culture added. Temperature max 99.1 axillary, heart rate 93, heart rate 29, blood pressure 103/73, pulse ox 96% on 2 L nasal cannula. Repeat blood work reveals WBC 18.9, hemoglobin 10.2, platelet count 136. Sodium 132, potassium 5.3, chloride 103, CO2 19, BUN 73 and creatinine 2.4. Troponin this morning was 0.483. Urinalysis cloudy, blood large, ketones trace, leukoesterase large, RBCs greater than 182, wbc's 111. Chest x-ray reveals no acute cardio primary process. Ultrasound of the right lower extremity was negative for DVT. Patient is seen and followed by multiple consultants including Dr. Johnson from cardiology. No clear evidence of acute ischemic event. Plavix stopped. Echocardiogram is pending. Patient was seen by vascular surgeon is acute ischemic issue with the right leg is doubtful. Monitor for compartment syndrome from swelling. No Plavix going forward, iliac stent procedure was greater than 6 months ago and resumption of eliquis upon cardiology recommendations. Dr. Ramon has ordered for IV fluids at 75 mL per hour and bolus as needed for blood pressure, sodium bicarb is been added. Renal ultrasound reveals no suspicious acute renal abnormality. The patient has been seen by orthopedics with plan for cam walker boot. For now splint is in place. Discussed patient's condition with the son in detail and discuss CODE STATUS. Son is adamant that he and his father wish for him to be full CODE STATUS and want him to be treated aggressively. 3/4: Patient remains in the intensive care unit. He has been on and off BiPAP as he is not tolerating it very well. Patient is slightly more alert today from yesterday. He knows his name and where he is. He can follow simple commands but is still very agitated, tremorous. Patient has been to Neck. Respiratory rate is been in the 30s. Speech therapy has been consulted due to concern for aspiration. Patient is currently nothing by mouth due to mental status as well. Repeat chest x-ray reveals a right lower lobe 1 cm pulmonary nodule could be further evaluated by CAT scan of the thorax. COPD. Dr. Ramon is recommended IV fluids at 75 and 2 A of bicarb IV push. Arterial study reveals severe bilateral femoral popliteal disease with possible iliac components bilaterally. Eliquis and Plavix remain on hold. Patient is waiting for boot for the right lower extremity. Objective - Vital Signs Vital signs: Vital Signs Temp 97.4 F L 12/30/19 04:00 Pulse 112 H 12/30/19 07:59 Resp 17 12/30/19 07:00 BP 126/85 12/30/19 07:00 Pulse Ox 98 12/30/19 07:00 Intake & Output 12/29/19 12/30/19 12/30/19 18:59 06:59 18:59 Intake Total 1685 900 75 Output Total 924 800 30 Balance 761 100 45 Weight 77.6 kg Intake: IV 1685 900 75 0.9 NS 1585 900 75 Clindamycin 600 mg In 100 Dextrose 5% in Water 50 ml @ 50 mls/hr IVPB Q8H [facility] 234 BEDS AT THE [facility] Rx#:[id number] Output: Urine 924 800 30 Stool 0 Other: Voiding Method Indwelling Catheter Indwelling Catheter - Exam Review of Systems--unable to be obtained due to mental status changes Physical examination: Gen: This is a 78-year-old male in the ICU bed. HEENT: Head is atraumatic, normocephalic. Pupils equal, round. Sclerae is anicteric. NECK: Supple. No JVD. No lymphadenopathy. No thyromegaly. LUNGS: Decreased breath sounds bilaterally with coarse rhonchi. No intercostal retractions. Tachypneic. HEART: regular rate and rhythm. Systolic ejection murmur. ABDOMEN: Soft. Bowel sounds are present. No masses. No tenderness. Olivarez catheter in place EXTREMITIES: To the right lower extremity. Posterior tibial is obtainable by Doppler, no dorsalis pedis. Significant edema and ecchymosis from the knee down to his toes with purple ecchymosis, posterior splint with Alex wrap in place. Dorsalis pedis palpable on the left, no edema. NEUROLOGICAL: Patient is awake and able to answer a few simple questions and able to follow simple instructions with poor short-term memory and needs redirection constantly - Labs CBC & Chem 7: 12/30/19 04:11 12/30/19 04:11 Labs: Abnormal Lab Results - Last 24 Hours (Table) 12/30/19 12/30/19 Range/Units 04:11 04:11 WBC 11.0 H (3.8-10.6) k/uL RBC 2.74 L (4.30-5.90) m/uL Hgb 9.4 L (13.0-17.5) gm/dL Hct 30.2 L (39.0-53.0) % MCV 110.2 H (80.0-100.0) fL Plt Count 141 L (150-450) k/uL Neutrophils # 9.5 H (1.3-7.7) k/uL Lymphocytes # 0.6 L (1.0-4.8) k/uL Macrocytosis Marked A Potassium 5.3 H (3.5-5.1) mmol/L Chloride 112 H (98-107) mmol/L Carbon Dioxide 21 L (22-30) mmol/L BUN 57 H (9-20) mg/dL Creatinine 1.43 H (0.66-1.25) mg/dL Glucose 121 H (74-99) mg/dL Microbiology - Last 24 Hours (Table) 12/29/19 10:50 Urine Culture - Preliminary Urine,Voided 12/28/19 14:15 Blood Culture - Preliminary Blood No Growth after 24 hours Assessment and Plan Plan: 1. Toxic encephalopathy secondary to alcohol intoxication with hallucinations and active delirium tremors with hypotension, present on admission. CIWA protocol discontinued when patient went to the intensive care unit. Patient is currently hypotensive status post fluid bolus. Patient is followed by multiple consultants. Consult with social work. Continue thiamine, multivitamin 2. Acute right fibular fracture. Splint to be placed in the ER. Consult with orthopedics appreciated. Awaiting cam boot. 3. Acute kidney injury most likely due to poor oral intake, lisinopril and Lasix. Continue IV fluids, consult nephrology, hold Lasix and lisinopril. 4. Chronic peripheral artery disease with prior right iliofemoral angiogram and transluminal balloon angioplasty of the external iliac artery are and stent placement. Continue clindamycin. Discontinue Plavix. 5. Paroxysmal atrial fibrillation. Continue Lopressor, discontinue eliquis. Cardiology consult appreciated. 6. Hyponatremia most likely secondary to alcohol abuse. 7. Acute hypoxic respiratory failure requiring transfer into the intensive care unit. Patient has been on BiPAP. Consult with Dr. Shepherd appreciated. 8. COPD, exacerbation. Continue Perforomist twice daily, Pulmicort twice daily, DuoNeb treatments 4 times daily, Solu-Medrol 40 mg IV every 8. 9. Chronic hypoxic respiratory failure on home O2 at 2 L nasal cannula. 10. Coronary artery disease status post CABG. resume aspirin and hold Plavix. Continue simvastatin, Lopressor. 11. Hyperlipidemia. Continue statin. 12. Hypertension. Hold Lasix, lisinopril, verapamil, continue Lopressor 13. Tobacco use and dependence. Nicotine patch. 14. DVT prophylaxis. 15. GI prophylaxis. Protonix daily. 16. Benign prostatic hypertrophy. Continue Flomax 0.4 mg daily, monitor for urinary retention. 17. Chronic kidney disease stage III. 18. Elevated troponins. Cardiology consult appreciated. Acute coronary syndrome ruled out. 19. Metabolic acidosis secondary to acute kidney injury. Patient's been ordered by nephrology for sodium bicarb IV push. CODE STATUS: Full code. Discussed with patient's son. He verbalizes that patient wishes would be as focal and all aggressive treatment. Discharge plan: [facility] or [facility] [place]. Impression and plan of care have been directed as dictated by the signing physician. Lila Nur nurse practitioner acting as scribe for signing physician.
[2019-12-30 16:31] LABS: ABG Base Excess -1.4 mmol/L; ABG HCO3 24 mmol/L (21-25); ABG Oxygen Saturation 94.7 % (94-97); ABG PCO2 39 mmHg (35-45); ABG PH 7.39 (7.35-7.45); ABG PO2 86 mmHg (83-108); ABG TCO2 25 mmol/L (19-24); Allen Test Performed? Yes
[2019-12-30] MEDS: ACETAMINOPHEN IV (For NPO) 1,000 MG in EMPTY BAG 1 BAG IVPB PRN (17:54)
[2019-12-30] MEDS: THEOPHYLLINE 24 HOUR 400 MG CAP.ER.24H PO SCH (20:22)
[2019-12-30] MEDS: TAMSULOSIN 0.4 MG CAP.ER.24H PO SCH (20:22)
[2019-12-30] MEDS: ATORVASTATIN 40 MG TAB PO SCH (20:34)
[2019-12-31] MEDS: LORazepam 2 MG/ML INJ IV PRN ×6 (00:09→05:51)
[2019-12-31] MEDS: methylPREDNISolone SOD SUCCI 40 MG/ML 1 ML VIAL IV SCH ×4 (00:09→23:11)
[2019-12-31] MEDS: CLINDAMYCIN 600 MG in DEXTROSE 5% IN WATER 50 ML IVPB SCH ×6 (01:20→17:14)
[2019-12-31] MEDS: ACETAMINOPHEN IV (For NPO) 1,000 MG in EMPTY BAG 1 BAG IVPB PRN ×2 (02:28→14:02)
[2019-12-31 05:52] LABS: Calcium 8.8 mg/dL (8.4-10.2); Potassium 5.1 mmol/L (3.5-5.1)
[2019-12-31] MEDS: SODIUM CHLORIDE 0.9% 1,000 ML IV SCH (05:52)
[2019-12-31 06:02] LABS: HCT 28.8 % (39.0-53.0); HGB 9.1 gm/dL (13.0-17.5); MCH 34.3 pg (25.0-35.0); MCHC 31.6 g/dL (31.0-37.0); Macrocytosis Marked; Mean Platelet Volume 9.4; Platelet Count 100 k/uL (150-450); RBC 2.66 m/uL (4.30-5.90); RDW 14.4 % (11.5-15.5)
[2019-12-31 06:04] LABS: MCV 108.5 fL (80.0-100.0)
[2019-12-31 06:22] LABS: Band Neutrophils % 2 %; Neutrophils % (M) 91 %; Nucleated Red Blood Cells 4 /100 WBC (0-0); Total Cells Counted 200
[2019-12-31 06:23] LABS: Eosinophils # (M) 0.13 k/uL (0-0.7); Lymphocytes # (M) 0.52 k/uL (1.0-4.8); Monocytes # (M) 0.26 k/uL (0-1.0); WBC 13.1 k/uL (3.8-10.6)
[2019-12-31] MEDS: FORMOTEROL FUMARATE 20 MCG/2 ML NEBU INHALATION SCH ×2 (07:15→19:23)
[2019-12-31] MEDS: BUDESONIDE 1 MG/2 ML NEBU INHALATION SCH ×2 (07:15→19:23)
[2019-12-31] MEDS: IPRATROPIUM-ALBUTEROL 3 ML NEB INHALATION SCH ×4 (07:15→19:23)
--- NOTE | 2019-12-31 07:26 | XR ---
EXAMINATION TYPE: XR chest 1V DATE OF EXAM: 12/31/2019 COMPARISON: 12/30/2019 HISTORY: Shortness of breath and COPD. TECHNIQUE: Single frontal view of the chest is obtained. FINDINGS: Enlarged cardiomediastinal silhouette with post CABG change. Obscuration of the previously seen right basilar nodule by new layering small pleural effusions and associated bibasilar airspace disease. Pulmonary hyperinflation of underlying COPD. Chronic interstitial prominence. Diffuse osseou s demineralization. IMPRESSION: New small bilateral layering pleural effusions and associated airspace disease, probable atelectasis. There is obscuration of the previously noted right basilar pulmonary nodule.
--- NOTE | 2019-12-31 08:20 | PN ---
PROGRESS NOTE Mr. Rivera is a 79-year-old male with history of coronary artery disease, history of peripheral vascular disease, who presented after a fall and a fractured right lower extremity. He is status post coronary artery bypass grafting, history of prior chronic tobacco and alcohol intake. He is more confused during the night. He continued to be in sinus mechanism with episode of sinus tachycardia. There is no evidence of hypotension. There is no evidence of ventricular ectopic activity. He underwent an echocardiogram that showed ejection fraction 35% to 40% with mild tricuspid regurgitation. No significant pulmonary hypertension. He continues to be at this time on aspirin once a day, Lipitor 40 mg daily, metoprolol tartrate 25 mg twice a day. His Eliquis has been on hold per the vascular surgery department. PHYSICAL EXAMINATION: Blood pressure 114/70 with the heart rate in the 80s. The patient is confused, not answering questions. LUNGS: Clear. HEART: Regular rate and rhythm. S1, S2. No S3. No rub appreciated. ABDOMEN: Soft, nontender. EXTREMITIES: Right lower extremity in a brace. Ecchymosis noted. Left lower extremity no edema. LAB DATA: Lab data revealed BUN and creatinine 71 and 2.2, potassium 5.1, hemoglobin of 9.1. IMPRESSION: 1. Fall and fracture of the right lower extremity. 2. History of coronary artery disease with moderate severe ischemic cardiomyopathy. 3. History of peripheral vascular disease. 4. Renal failure, worsening. 5. Change in mental status with history of alcohol intake. RECOMMENDATION: From the cardiac standpoint, will continue holding his anticoagulation until cleared by the vascular surgery. At this time, he is not a candidate for NENITA inhibitor because of the worsening renal function. Depending on the status, will either add a hydralazine depending on the blood pressure. Otherwise, continue the rest of his medical regimen. Unfortunately, the prognosis is guarded. MMODL / IJN: [id number] /
[2019-12-31] MEDS: PANTOPRAZOLE 40 MG/10 ML VIAL IVP SCH (08:24)
[2019-12-31] MEDS: NICOTINE 21MG/24HR PATCH TRANSDERM SCH (08:24)
--- NOTE | 2019-12-31 10:53 | P.PN ---
Subjective Progress Note Date: 12/31/19 On today's evaluation of seeing the patient for a follow-up. The patient is being seen in follow-up on 12/31/2019. Clinically he is quite lethargic and sleepy. Overnight he was given a total of 20 mg of Ativan for symptoms of delirium tremens. He is an alcoholic and he drinks excessively. He is also a smoker and he has multiple other medical problems and comorbidities. Note that the patient also diminished pulses in lower extremities. Vascular surgery was consulted. There is a Doppler significant and the right foot. The right lower extremity remains quite swollen and there is extensive ecchymosis of the skin. The appropriate dressing has been applied and he is wearing a splint moved or now. He is receiving IV fluids in the form of normal saline the rate of 75 mL an hour. He had an acute kidney injury. Creatinine was up to 2.7 and is currently down to 2.2 and is making adequate adequate urine output. He was briefly placed on BiPAP for increased respiratory distress and COPD exa cerbation. Currently is off the BiPAP. His respiratory rate is still fasting ranging between 29 and 33. Mucous membranes are dry. On oxygen at 2 L per minute nasal cannula. Influenza screen was negative. Noted the patient has a right distal fibular fracture with mild displacement. The patient also has severe peripheral vascular disease and previous iliofemoral angiogram and angioplasty with insertion of a stent in the external iliac artery. He is known to have coronary artery disease with previous bypass surgery. Objective - Vital Signs Vital signs: Vital Signs Temp 97.5 F L 12/31/19 09:00 Pulse 87 12/31/19 10:00 Resp 24 12/31/19 10:00 BP 123/79 12/31/19 10:00 Pulse Ox 96 12/31/19 10:00 Intake & Output 12/30/19 12/31/19 12/31/19 18:59 06:59 18:59 Intake Total 1200 950 350 Output Total 523 238 115 Balance 677 712 235 Weight 78 kg Intake: IV 1200 950 350 0.9 NS 75 ACETAMINOPHEN IV (For NPO 200 ) 1,000 mg In Empty Bag 1 bag @ 400 mls/hr IVPB Q8HR PRN Rx#:[id number] Clindamycin 600 mg In 100 50 50 Dextrose 5% in Water 50 ml @ 50 mls/hr IVPB Q8H KASSY Rx#:[id number] Sodium Chloride 0.9% 1, 825 900 300 000 ml @ 75 mls/hr IV . [id number] KASSY Rx#:[id number] Output: Urine 523 238 115 Other: Voiding Method Indwelling Catheter Indwelling Catheter Indwelling Catheter - Exam Appearance the patient is lethargic sleepy resting comfortably in bed. No agitation for now. A sitter is at the bedside. Head exam was generally normal. There was no scleral icterus or corneal arcus. Mucous membranes were dry Neck was supple and without jugular venous distension, thyromegaly, or carotid bruits. Carotids were easily palpable bilaterally. There was no adenopathy. Mucous membranes are dry Cardiac exam revealed the PMI to be normally situated and sized. The rhythm was regular and no extrasystoles were noted during several minutes of auscultation. The first and second heart sounds were normal and physiologic splitting of the second heart sound was noted. There were no murmurs, rubs, clicks, or gallops. Lungs sounds are diminished bilaterally along with some few scattered external wheeze Abdominal exam revealed normal bowel sounds. The abdomen was soft, non-tender, and without masses, organomegaly, or appreciable enlargement of the abdominal aorta. Extremities revealed that the patient has extensive ecchymotic changes especial ly in the right foot ankle and the right lower extremity area. The skin is very brittle and 10 and there are areas of dry scab formation. Pulses are obtainable by significant right foot. Femoral pulses in lower extremities are quite diminished. The wounds are covered with dressing and Alex wrap has been applied and the patient is wearing a splint removed. Neurologically the patient is moving all 4 extremities. Unable to answer any questions or follow any commands as the patient is under the effect of Ativan for noninvasive see significant amount of Ativan overnight. He has short term memory deficits according to the family. Neurologic exam was essentially nonfocal. - Labs CBC & Chem 7: 12/31/19 04:52 12/31/19 04:52 Labs: Abnormal Lab Results - Last 24 Hours (Table) 12/30/19 12/31/19 12/31/19 Range/Units 16:28 04:52 04:52 WBC 13.1 H (3.8-10.6) k/uL RBC 2.66 L (4.30-5.90) m/uL Hgb 9.1 L (13.0-17.5) gm/dL Hct 28.8 L (39.0-53.0) % MCV 108.5 H (80.0-100.0) fL Plt Count 100 L (150-450) k/uL Neutrophils # (Manual) 12.10 H (1.3-7.7) k/uL Lymphocytes # (Manual) 0.52 L (1.0-4.8) k/uL Nucleated RBCs 4 H (0-0) /100 WBC Macrocytosis Marked A ABG Total CO2 25 H (19-24) mmol/L Chloride 111 H (98-107) mmol/L BUN 71 H (9-20) mg/dL Creatinine 2.21 H (0.66-1.25) mg/dL Glucose 136 H (74-99) mg/dL Microbiology - Last 24 Hours (Table) 12/28/19 14:15 Blood Culture - Preliminary Blood No Growth after 48 hours 12/29/19 10:50 Urine Culture - Final Urine,Voided Assessment and Plan Plan: 1 delirium tremens with altered mentation and the patient is known history of alcoholism currently on Ativan and received a total of 20 mg of Ativan overnight. Sitter at the bedside. Currently hemodynamically stable. Agitation is improved. 2 fall with right fibular fracture with extensive multiple swelling. Also is on the case and the patient was given a splint bruits awaiting for the swelling to improve 3 COPD exacerbation, improved currently off the BiPAP and oxygen at 2 L per minute nasal cannula. 4 small bilateral pleural effusions/atelectasis 5 right apical scar seen on previous CAT scans the dates back to 2014 without a ny significant interval change. There is no evidence of any malignancy and this is most likely a scar 6 coronary artery disease with previous bypass surgery 7 hypertension 8 hyperlipidemia 9 alcoholism 10 history of smoking 11 severe peripheral vascular disease with diminished pulses in lower extre mities and the patient has undergone angioplasty and stenting of the right iliofemoral artery in February 2019 12 acute kidney injury, improving and the creatinine is down to 2.2 13 CHF with moderate impairment of the LV function with an ejection fraction of 35-40% and concentric LVH. 14 medical debility secondary to above-mentioned comorbidities Plan Continue IV fluids and monitor the urine output in the creatinine Monitor the pulses in lower extremities bilaterally Keep the boot splint to the right lower extremity Off the BiPAP for now Keep nothing by mouth Ativan for delirium tremens and consider Precedex if the patient continues to be quite agitated and requires significantly large doses of Ativan Pain control Dressing change to the left lower extremity and wound care Continue bronchodilators Sitter at the bedside IV thiamine along with the running infusion We'll continue to follow
[2019-12-31] MEDS: METOPROLOL TARTRATE 25 MG TAB PO SCH ×2 (11:04→20:06)
[2019-12-31] MEDS: MULTIVITAMINS, THERA 1 EACH TAB PO SCH (11:04)
[2019-12-31] MEDS: MAGNESIUM OXIDE 400 MG TAB PO SCH (11:04)
[2019-12-31] MEDS: ASPIRIN 81 MG PO SCH (11:05)
[2019-12-31] MEDS: 1: MVI, ADULT NO.4 WITH VIT K 10 ML, THIAMINE 100 MG, FOLIC ACID 1 MG in SODIUM CHLORIDE IV SCH ×4 (11:33)
--- NOTE | 2019-12-31 11:45 | P.PN ---
Subjective Progress Note Date: 12/31/19 This is a 79-year-old male patient of Drs. Ravin Hatch, Nahomi Shepherd and Evans with past medical history of COPD with chronic hypoxic respiratory failure on home O2 at 2 L, hypertension, hyperlipidemia, coronary artery disease status post 2 vessel CAB[place] [address] Sorto, infrarenal aortic aneurysm and lower extremity claudication of the care of Dr. Krueger, tobacco use and dependence, alcohol abuse. Patient was last hospitalized in August 2019 for new onset atrial fibrillation and hyponatremia and patient was discharged home. Family brought patient into the hospital as he called them last week and injured his right leg now presents with a purple black discoloration that apparently has been going on for one week. He complains of pain to the area, no fever no chills. Patient came into [facility] emergency center for evaluation. Pulse ox 99%, heart rate 68, blood pressure 99/47. EKG was sinus rhythm with left bundle branch block. WBC 17.6, hemoglobin 10.9, platelet count 150. Sodium 130, potassium 4.9, chloride 97, CO2 22, BUN 69 creatinine 2.73, liver function tests normal. Lactic acid 2.0, troponin 0.147. X-ray of the right tib- fib shows an obliquely oriented distal fibular fracture with mild displacement and minimal impaction. Dorsalis pedis is unobtainable by Doppler. Dorsalis pedis palpable. Patient was started on clindamycin and admitted to the [facility] floor with consults to vascular surgeon, orthopedics, nephrology. 3/3: 4 AM this morning, patient was found by his nurse arousable to name but foaming at the mouth. Mouth was suctioned. Pulse ox was low at 79% on room air. O2 was applied and pulse ox came up to 90%. Patient was arousable to sternal rub and oriented to person. A-Team was called and patient was placed on BiPAP and patient became somewhat more alert and arousable. Patient was transferred to the intensive care unit. The patient has been hypotensive status post 500 mL fluid bolus. Patient is having tremors and confusion and narcotics and sedatives of all been discontinued. Patient is not able to take any oral intake or take oral medications. We do have blood culture are ready yet obtained in the emergency center urine culture was never obtained which will be done now and sputum culture added. Temperature max 99.1 axillary, heart rate 93, heart rate 29, blood pressure 103/73, pulse ox 96% on 2 L nasal cannula. Repeat blood work reveals WBC 18.9, hemoglobin 10.2, platelet count 136. Sodium 132, potassium 5.3, chloride 103, CO2 19, BUN 73 and creatinine 2.4. Troponin this morning was 0.483. Urinalysis cloudy, blood large, ketones trace, leukoesterase large, RBCs greater than 182, wbc's 111. Chest x-ray reveals no acute cardio primary process. Ultrasound of the right lower extremity was negative for DVT. Patient is seen and followed by multiple consultants including Dr. Johnson from cardiology. No clear evidence of acute ischemic event. Plavix stopped. Echocardiogram is pending. Patient was seen by vascular surgeon is acute ischemic issue with the right leg is doubtful. Monitor for compartment syndrome from swelling. No Plavix going forward, iliac stent procedure was greater than 6 months ago and resumption of eliquis upon cardiology recommendations. Dr. Ramon has ordered for IV fluids at 75 mL per hour and bolus as needed for blood pressure, sodium bicarb is been added. Renal ultrasound reveals no suspicious acute renal abnormality. The patient has been seen by orthopedics with plan for cam walker boot. For now splint is in place. Discussed patient's condition with the son in detail and discuss CODE STATUS. Son is adamant that he and his father wish for him to be full CODE STATUS and want him to be treated aggressively. 3/4: Patient remains in the intensive care unit. He has been on and off BiPAP as he is not tolerating it very well. Patient is slightly more alert today from yesterday. He knows his name and where he is. He can follow simple commands but is still very agitated, tremorous. Patient has been to Neck. Respiratory rate is been in the 30s. Speech therapy has been consulted due to concern for aspiration. Patient is currently nothing by mouth due to mental status as well. Repeat chest x-ray reveals a right lower lobe 1 cm pulmonary nodule could be further evaluated by CAT scan of the thorax. COPD. Dr. Ramon is recommended IV fluids at 75 and 2 A of bicarb IV push. Arterial study reveals severe bilateral femoral popliteal disease with possible iliac components bilaterally. Eliquis and Plavix remain on hold. Patient is waiting for boot for the right lower extremity. 12/30: Patient remains in the intensive care unit. He did receive several doses of Ativan through the night he is more lethargic today from yesterday. He is unable to follow. He has been nothing by mouth. Urine output has been about 2 5-30 mL per hour T-colored. Temperature has been down to 95.9 currently at 97.5. Patient was on BiPAP during the night. He is currently on nasal cannula pulse ox 98% on 2 L, he remains to Running in the 30s, blood pressure 122/75, heart rate 89. Repeat blood work reveals Doris BC 13.1, hemoglobin 9.1, platelet count 100. Repeat renal function is BUN 71 creatinine 2.21 which is increasing from yesterday, CO2 is 24. Blood sugar 136. Patient is continued on IV fluids. He has a splint in place to the right lower extremity. Repeat chest x-ray reveals new small bilateral layering pleural effusions and associated airspace disease probably atelectasis. Anticoagulation remains on hold. He is not a candidate for ALEX inhibitor due to worsening renal function. Objective - Vital Signs Vital signs: Vital Signs Temp 97.5 F L 12/31/19 09:00 Pulse 87 12/31/19 10:00 Resp 24 12/31/19 10:00 BP 123/79 12/31/19 10:00 Pulse Ox 96 12/31/19 10:00 Intake & Output 12/30/19 12/31/19 12/31/19 18:59 06:59 18:59 Intake Total 1200 950 350 Output Total 523 238 115 Balance 677 712 235 Weight 78 kg Intake: IV 1200 950 350 0.9 NS 75 ACETAMINOPHEN IV (For NPO 200 ) 1,000 mg In Empty Bag 1 bag @ 400 mls/hr IVPB Q8HR PRN Rx#:[id number] Clindamycin 600 mg In 100 50 50 Dextrose 5% in Water 50 ml @ 50 mls/hr IVPB Q8H KASSY Rx#:[id number] Sodium Chloride 0.9% 1, 825 900 300 000 ml @ 75 mls/hr IV . [id number] KASSY Rx#:[id number] Output: Urine 523 238 115 Other: Voiding Method Indwelling Catheter Indwelling Catheter Indwelling Catheter - Exam Review of Systems--unable to be obtained due to mental status changes Physical examination: Gen: This is a 78-year-old male in the ICU bed. He appears to be comfortable but is noted to be tachypneic. Less accessory muscle usage today. HEENT: Head is atraumatic, normocephalic. Pupils equal, round. Sclerae is anicteric. NECK: Supple. No JVD. No lymphadenopathy. No thyromegaly. LUNGS: Decreased breath sounds with few scattered wheezing. Tachypneic. HEART: regular rate and rhythm. Systolic ejection murmur. ABDOMEN: Soft. Bowel sounds are present. No masses. No tenderness. Olivarez catheter in place with tea-colored urine EXTREMITIES: To the right lower extremity. Posterior tibial is obtainable by Doppler, no dorsalis pedis. Significant edema and ecchymosis from the knee down to his toes with purple ecchymosis, posterior splint with Alex wrap in place. Dorsalis pedis palpable on the left, no edema. NEUROLOGICAL: Patient is unable to answer questions unable to follow simple instructions with known poor short-term memory - Labs CBC & Chem 7: 12/31/19 04:52 12/31/19 04:52 Labs: Abnormal Lab Results - Last 24 Hours (Table) 12/30/19 12/31/19 12/31/19 Range/Units 16:28 04:52 04:52 WBC 13.1 H (3.8-10.6) k/uL RBC 2.66 L (4.30-5.90) m/uL Hgb 9.1 L (13.0-17.5) gm/dL Hct 28.8 L (39.0-53.0) % MCV 108.5 H (80.0-100.0) fL Plt Count 100 L (150-450) k/uL Neutrophils # (Manual) 12.10 H (1.3-7.7) k/uL Lymphocytes # (Manual) 0.52 L (1.0-4.8) k/uL Nucleated RBCs 4 H (0-0) /100 WBC Macrocytosis Marked A ABG Total CO2 25 H (19-24) mmol/L Chloride 111 H (98-107) mmol/L BUN 71 H (9-20) mg/dL Creatinine 2.21 H (0.66-1.25) mg/dL Glucose 136 H (74-99) mg/dL Microbiology - Last 24 Hours (Table) 12/28/19 14:15 Blood Culture - Preliminary Blood No Growth after 48 hours 12/29/19 10:50 Urine Culture - Final Urine,Voided Assessment and Plan Plan: 1. Toxic encephalopathy secondary to alcohol intoxication with hallucinations and active delirium tremors with hypotension, present on admission. [facility] protocol, continue care in the intensive care unit. Patient is followed by multiple consultants. Consult with social work. 2. Acute right fibular fracture. Splint in place. Consult with orthopedics appreciated. Awaiting cam boot. 3. Acute kidney injury most likely due to poor oral intake, hypotension lisinopril, Lasix. Continue IV fluids, consult with nephrology appreciated, hold Lasix and lisinopril. 4. Chronic peripheral artery disease with prior right iliofemoral angiogram and transluminal balloon angioplasty of the external iliac artery are and stent placement. Continue clindamycin. Discontinue Plavix. Continue aspirin 81 mg daily only for now. 5. Paroxysmal atrial fibrillation. Continue Lopressor, discontinue eliquis. Cardiology consult appreciated. 6. Hyponatremia most likely secondary to alcohol abuse. 7. Acute hypoxic respiratory failure requiring transfer into the intensive care unit. Patient has been on BiPAP. Consult with Dr. Shepherd appreciated. 8. COPD, exacerbation. Continue Perforomist twice daily, Pulmicort twice daily, DuoNeb treatments 4 times daily, theophylline 400 mg daily, Solu-Medrol 40 mg IV every 8. 9. Chronic hypoxic respiratory failure on home O2 at 2 L nasal cannula. 10. Coronary artery disease status post CABG. resume aspirin and hold Plavix. Continue simvastatin, Lopressor. 11. Hyperlipidemia. Continue statin. 12. Hypertension. Hold Lasix, lisinopril, verapamil, continue Lopressor 13. Tobacco use and dependence. Nicotine patch. 14. DVT prophylaxis. 15. GI prophylaxis. Protonix daily. 16. Benign prostatic hypertrophy. Continue Flomax 0.4 mg daily, monitor for urinary retention. Olivarez is currently in place. 17. Chronic kidney disease stage III. 18. Elevated troponins. Cardiology consult appreciated. Acute coronary syndrome ruled out. 19. Metabolic acidosis secondary to acute kidney injury. Status post sodium bicarb IV push. CODE STATUS: Full code. Discussed with patient's son. He verbalizes that patient wishes would be full code with all aggressive treatment. Discharge plan: [facility] or [facility]. Impression and plan of care have been directed as dictated by the signing physician. Lila Nur nurse practitioner acting as scribe for signing physician.
--- NOTE | 2019-12-31 13:42 | P.PN ---
Subjective Progress Note Date: 12/31/19 The patient is seen and examined lying in bed, he is unresponsive today. He is off the BiPAP machine, maintained on nasal cannula. Vital signs have been stable. He has kept his fracture boot in place to the right lower extremity. Objective - Vital Signs Vital signs: Vital Signs Temp 97.5 F L 12/31/19 09:00 Pulse 89 12/31/19 09:00 Resp 41 H 12/31/19 09:00 BP 122/75 12/31/19 09:00 Pulse Ox 98 12/31/19 09:00 Intake & Output 12/30/19 12/31/19 12/31/19 18:59 06:59 18:59 Intake Total 1200 950 225 Output Total 523 238 80 Balance 677 712 145 Weight 78 kg Intake: IV 1200 950 225 0.9 NS 75 ACETAMINOPHEN IV (For NPO 200 ) 1,000 mg In Empty Bag 1 bag @ 400 mls/hr IVPB Q8HR PRN Rx#:[id number] Clindamycin 600 mg In 100 50 Dextrose 5% in Water 50 ml @ 50 mls/hr IVPB Q8H KASSY Rx#:[id number] Sodium Chloride 0.9% 1, 825 900 225 000 ml @ 75 mls/hr IV . [id number] KASSY Rx#:[id number] Output: Urine 523 238 80 Other: Voiding Method Indwelling Catheter Indwelling Catheter - Exam General appearance: Sleeping, non-arousable. HET: Head is normocephalic and atraumatic. Neck: Supple without lymphadenopathy. Trachea midline. Heart: S1 S2. Regular rate and rhythm. Lungs: Bilateral crackles and wheezes. Rapid breathing. Abdomen: Soft, nontender, nondistended with bowel sounds. Extremities: Right lower extremity with Alex bandage with serosanguineous drainage Bilateral palpable femoral pulses. PT and DP doppler signal present. Sensory motor intact bilaterally. Patient able to move toes. Tenderness to palpation. Ecchymosis to the right leg and foot, sparing the plantar side of toes. Edema has improved, ecchymosis and hematoma to dorsal side of right foot. Decreased capillary refill. The medial and lateral aspect of foot with blisters, and areas with skin tears and weeping. Neurological: non-responsive to commands. - Labs CBC & Chem 7: 12/31/19 04:52 12/31/19 04:52 Labs: Abnormal Lab Results - Last 24 Hours (Table) 12/30/19 12/31/19 12/31/19 Range/Units 16:28 04:52 04:52 WBC 13.1 H (3.8-10.6) k/uL RBC 2.66 L (4.30-5.90) m/uL Hgb 9.1 L (13.0-17.5) gm/dL Hct 28.8 L (39.0-53.0) % MCV 108.5 H (80.0-100.0) fL Plt Count 100 L (150-450) k/uL Neutrophils # (Manual) 12.10 H (1.3-7.7) k/uL Lymphocytes # (Manual) 0.52 L (1.0-4.8) k/uL Nucleated RBCs 4 H (0-0) /100 WBC Macrocytosis Marked A ABG Total CO2 25 H (19-24) mmol/L Chloride 111 H (98-107) mmol/L BUN 71 H (9-20) mg/dL Creatinine 2.21 H (0.66-1.25) mg/dL Glucose 136 H (74-99) mg/dL Microbiology - Last 24 Hours (Table) 12/28/19 14:15 Blood Culture - Preliminary Blood No Growth after 48 hours 12/29/19 10:50 Urine Culture - Final Urine,Voided Assessment and Plan Assessment: #1 Chronic peripheral arterial disease with prior history of right iliofemoral angiogram and transluminal balloon angioplasty of the external iliac artery and stent placement #2 right distal fibular fracture with mild displacement and minimal impaction #3 acute renal failure #4 EtOH abuse #5 tobacco abuse #6 hypertension #7 hyperlipidemia Plan: Continue to hold Plavix and Eliquis. Continue to monitor for sensory motor changes and maintain pain control. Continue to follow recommendations per o rthopedic service. Alex wrap to right lower extremity to help reduce swelling. We will continue to follow. The above dictated assessment and findings were discussed with Dr. Singh. The impression and plan of care have been directed as dictated.
--- NOTE | 2019-12-31 18:26 | PN ---
PROGRESS NOTE The patient is seen for followup for acute kidney injury. He was seen earlier this morning. The patient is maintained on normal saline. His creatinine has increased from 1.4 to 2.2 mg/dL. His urine output has been at about 15-20 mL an hour earlier but then picked up to about 35-40 mL an hour. The patient currently has a sitter at bedside. He is not able to answer questions at this time. PHYSICAL EXAMINATION: This morning blood pressure was 113/76, heart rate of 90 per minute. The patient is afebrile. EXAMINATION OF THE HEART: S1 and S2. EXAMINATION OF THE LUNGS: Bilateral breath sounds are heard. ABDOMEN: Soft, nontender. Examination of the lower extremities shows discoloration of the feet, mainly in the right leg which is wrapped. Left foot is also discolored. No significant edema is noted. SHOER exam cannot be performed. LABS: Labs show hemoglobin 9.1, white cell count 13.1. Sodium 143, potassium 5.1, chloride 111, BUN 71, serum creatinine 2.21. CK was 5794. UA shows WBCs 111, trace protein is noted. ASSESSMENT: 1. Acute kidney injury, acute tubular necrosis, nonoliguric. Serum creatinine has increased further today. I will continue with IV fluids. There are no nephrotoxic agents on board. Continue off of NENITA inhibitors. 2. Hypovolemic hyponatremia, improved with IV hydration. 3. History of chronic diastolic congestive heart failure, currently not in failure. 4. Metabolic acidosis secondary to IV fluid, currently improved. 5. History of alcohol abuse. 6. Chronic obstructive pulmonary disease exacerbation, currently improved. 7. Peripheral vascular disease with previous history of lower extremity stent placement. 8. Extensive fall with right fibular fracture. PLAN: Continue with IV fluids. Continue to avoid nephrotoxic agents. Repeat chest x-ray in a.m. Continue empiric antibiotics. Overall prognosis is guarded. MMODL / IJN: [id number] /
[2019-12-31] MEDS: TAMSULOSIN 0.4 MG CAP.ER.24H PO SCH (20:06)
[2019-12-31] MEDS: THEOPHYLLINE 24 HOUR 400 MG CAP.ER.24H PO SCH (20:06)
[2019-12-31] MEDS: ATORVASTATIN 40 MG TAB PO SCH (20:06)
[2020-01-01] MEDS: LORazepam 2 MG/ML INJ IV PRN ×2 (01:20→02:22)
[2020-01-01] MEDS: 1: MVI, ADULT NO.4 WITH VIT K 10 ML, THIAMINE 100 MG, FOLIC ACID 1 MG in SODIUM CHLORIDE IV SCH ×8 (01:45→14:36)
[2020-01-01] MEDS: CLINDAMYCIN 600 MG in DEXTROSE 5% IN WATER 50 ML IVPB SCH ×4 (01:47→14:34)
[2020-01-01] MEDS ORDERED: SODIUM BICARB 8.4% 50 ML SYR (1 MEQ/ML) ONE ×2 (03:11→08:59)
[2020-01-01] MEDS ORDERED: EPINEPHrine 10 ML SYRINGE (0.1 MG/ML) ONE (03:11)
[2020-01-01 03:20] LABS: Glucose,Whole Blood 154 mg/dL (75-99)
--- NOTE | 2020-01-01 03:53 | P.PN ---
Progress Note - Text Progress Note Date: 01/01/20 CODE GASPER TEAM NOTE Code gasper activated at 3:10 am. Arrived on the scene at 3:13 am. RN notified the typewriter repairer that the patient had become unresponsive and had lost his pulse. CPR was initiated, with one round given, and one epinephrine IV push, with subsequent ROSC for a total down-time of 3 minutes, prior to arrival at the scene. Vitals upon arrival: RR 35, P110, BP 124/88. The patient was intubated by MIRROR INSPECTOR and placed on mechanical ventilation. The patient's RN updated the family, who noted that the wish for everything to be done. EKG was obtained, revealing wide complex rhythm @ 67 bpm. Subsequent EKG 10 minutes later revealed tachycardia with wide QRS @ 105 bpm. Cardiology notified of the change. General: Ill appearing M, intubated, appears stated age, normal weight HEENT: NC/AT, anicteric sclerae, moist conjunctiva, no lid-lag, PERRLA Cardiovascular: S1/S2 wnl, no murmurs, rubs, or gallops Lungs: Gutierrez coarse breath sounds Abdominal: Soft, non-distended, no rigidity Skin: Warm, dry Extremities: No edema or contractures, multiple bruises throughout Neuro: Moving all extremities, not following any commands Assessment/Plan Cardiac arrest, with down-time 3 minutes with subsequent ROSC (1 epi given) -C/w mechanical ventilation -Obtain stat CBC, BMP, mag -Obtain CXR to confirm ET and NGT placement -Cardiology and Pulm/Crit teams notified -Family wishes to continue with any and all life-saving measures -Notify primary attending
--- NOTE | 2020-01-01 04:00 | XR ---
EXAMINATION TYPE: XR chest 1V DATE OF EXAM: 01/01/2020 COMPARISON: 12/31/2019 HISTORY: Respiratory failure TECHNIQUE: Single view FINDINGS: There is endotracheal tube 5 cm from the ronni. Nasogastric tube is in the stomach. There is no heart failure. There is mild blunting of the costophrenic angles. There are chest leads. There are sternal wires. IMPRESSION: No heart failure seen. Small pleural effusions unchanged.
[2020-01-01 04:03] LABS: ABG Base Excess -9.7 mmol/L; ABG HCO3 19 mmol/L (21-25); ABG Oxygen Saturation 97.6 % (94-97); ABG PCO2 52 mmHg (35-45); ABG PO2 206 mmHg (83-108); ABG TCO2 21 mmol/L (19-24); Allen Test Performed? Yes
[2020-01-01 04:07] LABS: ABG PH 7.17 (7.35-7.45)
[2020-01-01] MEDS ORDERED: PROPOFOL 1,000 MG in EMPTY BAG 1 BAG IV SCH (04:15)
[2020-01-01] MEDS ORDERED: NOREPINEPHRINE 4 MG in SODIUM CHLORIDE 0.9% 250 ML IV SCH (04:30)
[2020-01-01 04:36] LABS: HCT 30.5 % (39.0-53.0); HGB 9.4 gm/dL (13.0-17.5); Hypochromasia Moderate; MCH 34.6 pg (25.0-35.0); MCHC 30.6 g/dL (31.0-37.0); Macrocytosis Marked; Mean Platelet Volume 9.7; Platelet Count 100 k/uL (150-450); RDW 14.7 % (11.5-15.5)
[2020-01-01 04:45] LABS: Calcium 8.2 mg/dL (8.4-10.2); Magnesium 2.8 mg/dL (1.6-2.3); Potassium 5.9 mmol/L (3.5-5.1)
[2020-01-01 05:31] LABS: Band Neutrophils % 2 %; Lymphocytes # (M) 0.41 k/uL (1.0-4.8); Metamyelocytes # (M) 0.55 k/uL (0); Metamyelocytes % 4 %; Monocytes # (M) 0.27 k/uL (0-1.0); Myelocytes # (M) 0.27 k/uL (0); Myelocytes % 2 %; Neutrophils % (M) 89 %; Nucleated Red Blood Cells 4 /100 WBC (0-0); Total Cells Counted 200; WBC 13.7 k/uL (3.8-10.6)
[2020-01-01] MEDS: IPRATROPIUM-ALBUTEROL 3 ML NEB INHALATION SCH ×2 (07:10→11:09)
[2020-01-01] MEDS: BUDESONIDE 1 MG/2 ML NEBU INHALATION SCH (07:10)
[2020-01-01] MEDS: FORMOTEROL FUMARATE 20 MCG/2 ML NEBU INHALATION SCH (07:10)
--- NOTE | 2020-01-01 07:21 | XR ---
EXAMINATION TYPE: XR chest 1V DATE OF EXAM: 01/01/2020 COMPARISON: 01/01/2020 HISTORY: Ventilatory dependent respiratory failure TECHNIQUE: Single frontal view of the chest is obtained. FINDINGS: Enteric tube and endotracheal tube are similar in position and satisfactory. Post CABG brad nges the chest are seen. Very trace pleural effusions blunt the costophrenic angles. Left lung apex i s not included on the imaging and cannot be evaluated. Otherwise no new focal consolidation. Diffuse osseous demineralization is seen. IMPRESSION: Trace bilateral pleural effusions. No new focal consolidation.
[2020-01-01 07:31] VITALS: RESP 24
[2020-01-01 08:14] LABS: ABG Base Excess -6.3 mmol/L; ABG HCO3 21 mmol/L (21-25); ABG Oxygen Saturation 98.1 % (94-97); ABG PCO2 46 mmHg (35-45); ABG PH 7.26 (7.35-7.45); ABG PO2 127 mmHg (83-108); ABG TCO2 22 mmol/L (19-24); Allen Test Performed? Yes
[2020-01-01] MEDS ORDERED: SODIUM CHLORIDE 0.9% 1,000 ML IV ONE (08:18)
[2020-01-01] MEDS ORDERED: DEXTROSE 5% IN WATER 1,000 ML with SODIUM BICARB (1 MEQ/ML) 150 ML IV SCH (08:30)
--- NOTE | 2020-01-01 08:31 | P.EN ---
Code Blue Note: Arrived to room to find code in progress. Patient unknown to myself Prior to my arrival: Initial rhythm asystole, Recieved 1 dose of epi with return of ROSC. on Arrival: Patient in sinus tach with BP 160/101. + Pulse. Labs reviewed PH on morning ABG 7.17 and noted to have K+ of 5.9. Ordered sodium bicarb for acidosis and K+ level. Also ordered calcium chloride 1 gram to be given in a separate IV. Patient then was in noraml sinus rhythm at 78 He then developed what looked like stable V-Tach on the monitor at a rate of 150 with BP quickly decreasing to 115/75. Synchronized cardio at 200 joules given. Patient with decreased HR to 120 and stable BP. Oredered amio 150 bolus and then gtt to follow. Reviewed prior EKG which showed RBB and sinus arthytmia. Repeat EKG obtained with showed sinus arythmia with RBBB and J point depression. Patient HR stable at 115. BP stable. Stat CXR, 1L 0.9 NS bolus to be given. Check lactic acid and repeat electrolytes . Report given to Bhargavi Sharpe. Dr. Johnson had been at bedside. Awaiting call back from Dr. Manzano. Family had been called by nursing and is on the way to the hospital. Total [place] 35 minutes.
--- NOTE | 2020-01-01 08:44 | XR ---
EXAMINATION TYPE: XR chest 1V portable DATE OF EXAM: 01/01/2020 COMPARISON: 01/01/2020 at 6:19 AM HISTORY: Intubation. Ventilatory dependent respiratory failure. TECHNIQUE: Single frontal view of the chest is obtained. FINDINGS: Endotracheal tube proximally 3.7 cm in the ronni, similar to the prior. Enteric tube is a ppropriately placed. Lung apices are not imaged and cannot be evaluated. Post CABG changes are seen o f the chest with enlarged cardiac mediastinal silhouette. Right costophrenic angle is also noted imag e and cannot be evaluated. Trace left pleural effusion. Right lower lobe pulmonary nodules again rede monstrated. IMPRESSION: Trace left pleural effusion and nonvisualization of the right costophrenic angle. Right basilar pulmonary nodule again noted. Stable lines and tubes.
--- NOTE | 2020-01-01 08:57 | PN ---
PROGRESS NOTE Mr. Rivera is a 79-year-old male with a history of paroxysmal atrial fibrillation, history of peripheral vascular disease, history of coronary artery disease who presented with a fall and fractured right lower extremity. He has a known history of chronic tobacco and alcohol intake. Yesterday he became more confused and had an episode of asystole requiring CPR and mechanical ventilation. Early this morning, he had 2 similar episodes recurring, he improved with epinephrine and CPR. He continues to be intubated. His medication prior included norepinephrine, he was on aspirin, Lipitor. His anticoagulation was on hold. He was on metoprolol tartrate 25 mg twice a day. PHYSICAL EXAMINATION: Blood pressure 127/100 with the heart rate in the 100s, intubated. LUNGS: Decreased air exchange anteriorly. HEART: Tachycardic, S1, S2. No S3 with systolic murmur. ABDOMEN: Soft, nontender. EXTREMITIES: Left extremity, no edema; right extremity boot in place with ecchymosis. LAB DATA: Lab data revealed pH 7.26, pCO2 of 46, pO2 of 127. His BUN and creatinine 83 and 2.69. Potassium of 5.9. His magnesium is 2.8. His CK is down to 1356. His white blood cells 13.7 with hemoglobin 9.4. IMPRESSION: 1. Asystole with CPR and cardiac arrest requiring mechanical ventilation with recurring episodes. 2. History of coronary artery disease. 3. History of paroxysmal atrial fibrillation. 4. Peripheral vascular disease. 5. Chronic kidney disease. 6. Ischemic cardiomyopathy. 7. History of chronic alcohol and tobacco use. RECOMMENDATION: At this time, we will continue supportive care. The family will be re-contacted by his primary physician regarding code status. The prognosis is very poor at this time. MMODL / IJN: [id number] /
[2020-01-01] MEDS ORDERED: CHLORHEXIDINE GLUCONATE 15 ML CUP MUCOUS MEM SCH (09:00)
[2020-01-01] MEDS ORDERED: AMIODARONE 360 MG in DEXTROSE 5% IN WATER 200 ML IV ONE ×2 (09:05)
[2020-01-01 09:27] LABS: Albumin 2.1 g/dL (3.5-5.0); Calcium 8.9 mg/dL (8.4-10.2); Potassium 5.7 mmol/L (3.5-5.1); Total Bilirubin 1.9 mg/dL (0.2-1.3); Total Protein 4.1 g/dL (6.3-8.2)
[2020-01-01] MEDS ORDERED: HEPARIN SODIUM,PORCINE 5,000 UNIT/ML 1 ML VIAL IV PRN (09:57)
[2020-01-01] MEDS ORDERED: HEPARIN SODIUM,PORCINE 5,000 UNIT/ML 1 ML VIAL IV ONE (09:57)
[2020-01-01] MEDS ORDERED: EPINEPHrine 1 MG/ML 1 ML AMP IV STA (09:59)
[2020-01-01] MEDS ORDERED: EPINEPHrine 4 MG in DEXTROSE 5% IN WATER 250 ML IV SCH ×4 (10:00)
[2020-01-01] MEDS ORDERED: HEPARIN SOD,PORK IN 0.45% NACL 25,000 UNIT in 0.45% NACL 1 250ML.BAG IV SCH (10:00)
--- NOTE | 2020-01-01 10:02 | P.PN ---
Subjective Progress Note Date: 01/01/20 On today's evaluation the patient is being seen in follow-up on 01/01/2020 in intensive care unit. Note that, at around 3:00 in the morning, the patient went acutely into asystole. There was no pulse and the patient had agonal breathing. CODE LISA was called and the patient received CPR for a total of 3 minutes. There was administration of epinephrine with return of spontaneous circulation at 3:15. During the arrest, the patient was intubated and placed on a mechanical ventilator. Subsequently, the patient had additional 3 more codes where the patient went asystolic and during each time the patient received CPR. Note that these codes were lasting all less than 10 minutes. The patient mady grier is still intubated and placed on a mechanical ventilator. The cardiac rhythm is sinus with some left axis deviation and a incomplete or complete bundle-branch block pattern that was present on earlier EKGs. He was placed on pressors for hemodynamic support. Norepinephrine infusion is running at 0.18 g per KG 5 minutes. Urine output is in order of 20 mL over the past 4 hours. His lactic acid level currently is at 5.0. Most recent blood gas showed a pH of 7.26 with a pCO2 of 46 and pO2 127 and this was done while he is an assist- control mode of ventilation at the rate of 24 with a tidal volume of 500 and FiO2 of 60% with a PEEP of 5. Chest x-ray shows no acute abnormalities. ET t ube is in a good location. Creatinine is at 2.6 with a BUN of 83. He is currently on propofol which is running at 35 mg per KG per minute. The right lower extremity is ecchymotic. Doppler signals is felt in the dorsalis pedis. A stat echocardiogram was ordered. Cardiac enzymes are still pending for now. The CPK peaked at 5794 from yesterday and this was related to a mild component of rhabdomyolysis. He is afebrile. He is on clindamycin as an empiric antibiotic coverage. Objective - Vital Signs Vital signs: Vital Signs Temp 97 F L 01/01/20 04:00 Pulse 140 H 01/01/20 07:00 Resp 24 01/01/20 07:00 BP 127/106 01/01/20 07:00 Pulse Ox 86 L 01/01/20 07:00 Intake & Output 0301/01/20 01/01/20 18:59 06:59 18:59 Intake Total 1050 1156.312 100 Output Total 350 305 0 Balance 700 851.312 100 Weight 79.3 kg Intake: IV 1050 1075 100 ACETAMINOPHEN IV (For NPO 100 ) 1,000 mg In Empty Bag 1 bag @ 400 mls/hr IVPB Q8HR PRN Rx#:[id number] Clindamycin 600 mg In 50 50 Dextrose 5% in Water 50 ml @ 50 mls/hr IVPB Q8H KASSY Rx#:[id number] Mvi, Adult No.4 with Vit 525 525 K 10 ml Thiamine 100 mg Folic Acid 1 mg In Sodium Chloride 0.9% 1,000 ml @ 75 mls/hr IV .BY DURATION KASSY Rx#: [id number] Sodium Chloride 0.9% 1, 500 100 000 ml @ 100 mls/hr IV . BY DURATION KASSY Rx#: [id number] Sodium Chloride 0.9% 1, 375 000 ml @ 75 mls/hr IV . [id number] KASSY Rx#:[id number] Intake, IV Titration 81.312 Amount Norepinephrine 4 mg In 78.504 Sodium Chloride 0.9% 250 ml @ 0.05 MCG/KG/MIN 14. 859 mls/hr IV .[id number] KASSY Rx#:[id number] Propofol 1,000 mg In 2.808 Empty Bag 1 bag @ Titrate IV .Q0M KASSY Rx#: [id number] Output: Urine 350 305 0 Other: Voiding Method Indwelling Catheter Indwelling Catheter - Exam The patient is currently intubated on a mechanical ventilator. The patient was sedated synchronous with the mechanical ventilator. Head exam was generally normal. There was no scleral icterus or corneal arcus. Mucous membranes were dry Neck was supple and without jugular venous distension, thyromegaly, or carotid bruits. Carotids were easily palpable bilaterally. There was no adenopathy. Mucous membranes are dry Cardiac exam revealed the PMI to be normally situated and sized. The rhythm was regular and no extrasystoles were noted during several minutes of auscultation. The first and second heart sounds were normal and physiologic splitting of the second heart sound was noted. There were no murmurs, rubs, clicks, or gallops. Lungs sounds are diminished bilaterally along with some few scattered external wheeze Abdominal exam revealed normal bowel sounds. The abdomen was soft, non-tender, and without masses, organomegaly, or appreciable enlargement of the abdominal aorta. Extremities revealed that the patient has extensive ecchymotic changes especially in the right foot ankle and the right lower extremity area. The skin is very brittle and 10 and there are areas of dry scab formation. Pulses are obtainable by significant right foot. Femoral pulses in lower extremities are quite diminished. The wounds are covered with dressing and Alex wrap has been applied and the patient is wearing a splint removed. Neurologically the patient is addicted on a mechanical ventilator. - Labs CBC & Chem 7: 01/01/20 04:19 01/01/20 08:52 Labs: Abnormal Lab Results - Last 24 Hours (Table) 12/31/19 01/01/20 01/01/20 Range/Units 04:52 03:18 04:02 WBC (3.8-10.6) k/uL RBC (4.30-5.90) m/uL Hgb (13.0-17.5) gm/dL Hct (39.0-53.0) % MCV (80.0-100.0) fL MCHC (31.0-37.0) g/dL Plt Count (150-450) k/uL Neutrophils # (Manual) (1.3-7.7) k/uL Lymphocytes # (Manual) (1.0-4.8) k/uL Metamyelocytes # (Man) (0) k/uL Myelocytes # (Manual) (0) k/uL Nucleated RBCs (0-0) /100 WBC Macrocytosis ABG pH 7.17 L* (7.35-7.45) ABG pCO2 52 H (35-45) mmHg ABG pO2 206 H (83-108) mmHg ABG HCO3 19 L (21-25) mmol/L ABG O2 Saturation 97.6 H (94-97) % ABG Lactic Acid (0.5-1.6) mmol/L Sodium (137-145) mmol/L Potassium (3.5-5.1) mmol/L Chloride (98-107) mmol/L Carbon Dioxide (22-30) mmol/L BUN (9-20) mg/dL Creatinine (0.66-1.25) mg/dL Glucose (74-99) mg/dL POC Glucose (mg/dL) 154 H (75-99) mg/dL Calcium (8.4-10.2) mg/dL Magnesium (1.6-2.3) mg/dL Total Bilirubin (0.2-1.3) mg/dL AST (17-59) U/L ALT (4-49) U/L Creatine Kinase 5794 H* (55-170) U/L Total Protein (6.3-8.2) g/dL Albumin (3.5-5.0) g/dL 01/01/20 01/01/20 01/01/20 Range/Units 04:19 04:30 08:12 WBC 13.7 H (3.8-10.6) k/uL RBC 2.70 L (4.30-5.90) m/uL Hgb 9.4 L (13.0-17.5) gm/dL Hct 30.5 L (39.0-53.0) % MCV 113.0 H (80.0-100.0) fL MCHC 30.6 L (31.0-37.0) g/dL Plt Count 100 L (150-450) k/uL Neutrophils # (Manual) 12.40 H (1.3-7.7) k/uL Lymphocytes # (Manual) 0.41 L (1.0-4.8) k/uL Metamyelocytes # (Man) 0.55 H (0) k/uL Myelocytes # (Manual) 0.27 H (0) k/uL Nucleated RBCs 4 H (0-0) /100 WBC Macrocytosis Marked A ABG pH 7.26 L (7.35-7.45) ABG pCO2 46 H (35-45) mmHg ABG pO2 127 H (83-108) mmHg ABG HCO3 (21-25) mmol/L ABG O2 Saturation 98.1 H (94-97) % ABG Lactic Acid (0.5-1.6) mmol/L Sodium 147 H (137-145) mmol/L Potassium 5.9 H (3.5-5.1) mmol/L Chloride 115 H (98-107) mmol/L Carbon Dioxide (22-30) mmol/L BUN 83 H (9-20) mg/dL Creatinine 2.69 H (0.66-1.25) mg/dL Glucose 170 H (74-99) mg/dL POC Glucose (mg/dL) (75-99) mg/dL Calcium 8.2 L (8.4-10.2) mg/dL Magnesium 2.8 H (1.6-2.3) mg/dL Total Bilirubin (0.2-1.3) mg/dL AST (17-59) U/L ALT (4-49) U/L Creatine Kinase 1356 H* (55-170) U/L Total Protein (6.3-8.2) g/dL Albumin (3.5-5.0) g/dL 01/01/20 01/01/20 Range/Units 08:52 08:52 WBC (3.8-10.6) k/uL RBC (4.30-5.90) m/uL Hgb (13.0-17.5) gm/dL Hct (39.0-53.0) % MCV (80.0-100.0) fL MCHC (31.0-37.0) g/dL Plt Count (150-450) k/uL Neutrophils # (Manual) (1.3-7.7) k/uL Lymphocytes # (Manual) (1.0-4.8) k/uL Metamyelocytes # (Man) (0) k/uL Myelocytes # (Manual) (0) k/uL Nucleated RBCs (0-0) /100 WBC Macrocytosis ABG pH (7.35-7.45) ABG pCO2 (35-45) mmHg ABG pO2 (83-108) mmHg ABG HCO3 (21-25) mmol/L ABG O2 Saturation (94-97) % ABG Lactic Acid 5.0 H* (0.5-1.6) mmol/L Sodium 146 H (137-145) mmol/L Potassium 5.7 H (3.5-5.1) mmol/L Chloride 120 H (98-107) mmol/L Carbon Dioxide 19 L (22-30) mmol/L BUN 82 H (9-20) mg/dL Creatinine 2.80 H (0.66-1.25) mg/dL Glucose 153 H (74-99) mg/dL POC Glucose (mg/dL) (75-99) mg/dL Calcium (8.4-10.2) mg/dL Magnesium (1.6-2.3) mg/dL Total Bilirubin 1.9 H (0.2-1.3) mg/dL AST 1011 H (17-59) U/L ALT 932 H (4-49) U/L Creatine Kinase (55-170) U/L Total Protein 4.1 L (6.3-8.2) g/dL Albumin 2.1 L (3.5-5.0) g/dL Microbiology - Last 24 Hours (Table) 12/28/19 14:15 Blood Culture - Preliminary Blood No Growth after 72 hours Assessment and Plan Plan: 1 acute and recurrent cardiac arrest as the patient goes into asystole and the patient had a total of 4 cardiac arrest resuscitated successfully with downtime of less than 10 minutes with return of spontaneous circulation following CPR and resuscitation per ACLS protocol. Strongly suspect an underlying cardiac event, likely of an ischemic in nature as the patient is acutely going into asystoly. A stat echocardiogram was done and is showing impairment of the LV with a furt her drop in the left ventricular ejection fraction down to 20%. The patient is on norepinephrine infusion at 0.18 g per KG per minute. Currently intubated on mechanical ventilator. 2 acute hypoxic respiratory failure secondary to above 3 acute lactic acidosis secondary to cardiac arrest 4 acute on chronic kidney injury with oligoria and drop in urine output 5 delirium tremens with altered mentation and the patient is known history of alcoholism currently on propofol 6 fall with right fibular fracture with extensive multiple swelling. Also is on the case and the patient was given a splint bruits awaiting for the swelling to improve 7 COPD exacerbation, improved currently off the BiPAP and oxygen at 2 L per minute nasal cannula. 8 small bilateral pleural effusions/atelectasis 9 right apical scar seen on previous CAT scans the dates back to 2014 without any significant interval change. There is no evidence of any malignancy and this is most likely a scar 10 coronary artery disease with previous bypass surgery 11 hypertension 12 hyperlipidemia 13 alcoholism 14 history of smoking 15 severe peripheral vascular disease with diminished pulses in lower extremities and the patient has undergone angioplasty and stenting of the right iliofemoral artery in February 2019 16 acute kidney injury, improving and the creatinine is down to 2.2 17 CHF with moderate impairment of the LV function with an ejection fraction of 35-40% and concentric LVH. 18 medical debility secondary to above-mentioned comorbidities Plan Patient is critically ill with recurrent cardiac arrest possibly secondary to ischemic cardiac events as the patient has atherosclerotic heart disease and severe atherosclerosis. Continue vent support Keep propofol At epinephrine drip Repeat echocardiogram showed further drop in ejection fraction was is less than 20% Cardiac enzymes Monitor lactate Monitor blood gases IV heparin Discussed the case with cardiology He and are close status per family and were not didn't apply any further CPR should he recorded again low doses poor baseline above-mentioned comorbidities. This critically care evaluation was done and more than 1 hour. Time with Patient: Greater than 30
--- NOTE | 2020-01-01 10:24 | ECHOF ---
Referral Reason:cardiac arrest MEASUREMENTS -------- HEIGHT: 182.9 cm WEIGHT: 78.9 kg BP: 115/62 IVSd: 1.3 cm (0.6 - 1.1) LVIDd: 5.3 cm (3.9 - 5.3) LVPWd: 1.8 cm (0.6 - 1.1) IVSs: 1.5 cm LVIDs: 4.8 cm LVPWs: 1.5 cm RAP: 5.00 mmHg RVSP: 44.11 mmHg FINDINGS -------- Undetermined rhythm. This was a technically adequate study. Cardiac Arrest. There is severe global hypokinesis of LV . Overall left ventricular systolic function is severely i mpaired with, an EF < 20%. There is mild aortic regurgitation. [id number] mitral regurgitation is present. Moderate tricuspid regurgitation present. CONCLUSIONS -------- 1. Undetermined rhythm. 2. This was a technically adequate study. 3. Cardiac Arrest. 4. There is severe global hypokinesis of LV . 5. Overall left ventricular systolic function is severely impaired with, an EF < 20%. 6. There is mild aortic regurgitation. 7. [id number] mitral regurgitation is present. 8. Moderate tricuspid regurgitation present. PLANNING MANAGER: April Parker RDCS
[2020-01-01 10:46] LABS: HCT 26.2 % (39.0-53.0); HGB 8.2 gm/dL (13.0-17.5); Hypochromasia Moderate; MCH 35.3 pg (25.0-35.0); MCHC 31.4 g/dL (31.0-37.0); MCV 112.4 fL (80.0-100.0); Macrocytosis Marked; Mean Platelet Volume 9.9; RBC 2.33 m/uL (4.30-5.90); RDW 14.9 % (11.5-15.5)
[2020-01-01 10:58] LABS: INR 1.4 (<1.2); Prothrombin Time 13.5 sec (9.0-12.0)
[2020-01-01 11:04] LABS: Band Neutrophils % 1 %; Metamyelocytes % 4 %; Myelocytes % 3 %; Neutrophils % (M) 89 %; Nucleated Red Blood Cells 3 /100 WBC (0-0); Total Cells Counted 200
[2020-01-01 11:05] LABS: Lymphocytes # (M) 0.49 k/uL (1.0-4.8); Metamyelocytes # (M) 0.65 k/uL (0); Monocytes # (M) 0.33 k/uL (0-1.0); Myelocytes # (M) 0.49 k/uL (0); WBC 16.3 k/uL (3.8-10.6)
[2020-01-01 11:06] LABS: Poikilocytosis (M) Present; Toxic Granulation Present
[2020-01-01 11:07] LABS: Partial Thromboplastin Time 20.7 sec (22.0-30.0); Platelet Count 89 k/uL (150-450)
[2020-01-01] MEDS ORDERED: EPINEPHrine 1 MG/ML 1 ML AMP IV PRN (11:20)
--- NOTE | 2020-01-01 11:25 | P.PN ---
Subjective Progress Note Date: 01/01/20 Patient seen and examined in the intensive care unit. The patient went into asystole around 3 AM, with a cold blue that was called in the patient received CPR. The patient had an additional 3 more CODES early this morning, he is now intubated and placed on mechanical ventilator. The patient underwent an echocardiogram which showed his overall left ventricular systolic function is severely impaired with, an EF less than 20%. The patient has been changed to a NO CODE, DO NOT RESUSCITATE status. Objective - Vital Signs Vital signs: Vital Signs Temp 97 F L 01/01/20 04:00 Pulse 140 H 01/01/20 07:00 Resp 24 01/01/20 07:00 BP 127/106 01/01/20 07:00 Pulse Ox 86 L 01/01/20 07:00 Intake & Output 12/31/19 01/01/20 01/01/20 18:59 06:59 18:59 Intake Total 1050 1156.312 100 Output Total 350 305 0 Balance 700 851.312 100 Weight 79.3 kg Intake: IV 1050 1075 100 ACETAMINOPHEN IV (For NPO 100 ) 1,000 mg In Empty Bag 1 bag @ 400 mls/hr IVPB Q8HR PRN Rx#:[id number] Clindamycin 600 mg In 50 50 Dextrose 5% in Water 50 ml @ 50 mls/hr IVPB Q8H KASSY Rx#:[id number] Mvi, Adult No.4 with Vit 525 525 K 10 ml Thiamine 100 mg Folic Acid 1 mg In Sodium Chloride 0.9% 1,000 ml @ 75 mls/hr IV .BY DURATION KASSY Rx#: [id number] Sodium Chloride 0.9% 1, 500 100 000 ml @ 100 mls/hr IV . BY DURATION KASSY Rx#: [id number] Sodium Chloride 0.9% 1, 375 000 ml @ 75 mls/hr IV . [id number] KASSY Rx#:[id number] Intake, IV Titration 81.312 Amount Norepinephrine 4 mg In 78.504 Sodium Chloride 0.9% 250 ml @ 0.05 MCG/KG/MIN 14. 859 mls/hr IV .[id number] KASSY Rx#:[id number] Propofol 1,000 mg In 2.808 Empty Bag 1 bag @ Titrate IV .Q0M KASSY Rx#: [id number] Output: Urine 350 305 0 Other: Voiding Method Indwelling Catheter Indwelling Catheter - Exam General appearance: The patient is currently intubated on a mechanical venti lator with sedation. HET: Head is normocephalic and atraumatic. Neck: Supple without lymphadenopathy. Trachea midline. Heart: S1 S2. Regular rate and rhythm. Lungs: Somewhat diminished with scattered expiratory wheeze. Abdomen: Soft, nontender, nondistended with bowel sounds. Extremities: Right lower extremity with Kerlix wrap that is CDI, with fracture boot in place. PT doppler signal present. Patient is currently intubated and sedated, however is moving bilateral lower extremities. Ecchymosis to the right leg and foot, sparing the plantar side of toes. Edema has improved, ecchymosis to dorsal side of right foot. Decreased capillary refill. - Labs CBC & Chem 7: 01/01/20 08:52 01/01/20 08:52 Labs: Abnormal Lab Results - Last 24 Hours (Table) 12/31/19 01/01/20 01/01/20 Range/Units 04:52 03:18 04:02 WBC (3.8-10.6) k/uL RBC (4.30-5.90) m/uL Hgb (13.0-17.5) gm/dL Hct (39.0-53.0) % MCV (80.0-100.0) fL MCH (25.0-35.0) pg MCHC (31.0-37.0) g/dL Plt Count (150-450) k/uL Neutrophils # (Manual) (1.3-7.7) k/uL Lymphocytes # (Manual) (1.0-4.8) k/uL Metamyelocytes # (Man) (0) k/uL Myelocytes # (Manual) (0) k/uL Nucleated RBCs (0-0) /100 WBC Macrocytosis ABG pH 7.17 L* (7.35-7.45) ABG pCO2 52 H (35-45) mmHg ABG pO2 206 H (83-108) mmHg ABG HCO3 19 L (21-25) mmol/L ABG O2 Saturation 97.6 H (94-97) % ABG Lactic Acid (0.5-1.6) mmol/L Sodium (137-145) mmol/L Potassium (3.5-5.1) mmol/L Chloride (98-107) mmol/L Carbon Dioxide (22-30) mmol/L BUN (9-20) mg/dL Creatinine (0.66-1.25) mg/dL Glucose (74-99) mg/dL POC Glucose (mg/dL) 154 H (75-99) mg/dL Calcium (8.4-10.2) mg/dL Magnesium (1.6-2.3) mg/dL Total Bilirubin (0.2-1.3) mg/dL AST (17-59) U/L ALT (4-49) U/L Creatine Kinase 5794 H* (55-170) U/L Troponin I (0.000-0.034) ng/mL Total Protein (6.3-8.2) g/dL Albumin (3.5-5.0) g/dL 01/01/20 01/01/20 01/01/20 Range/Units 04:19 04:30 08:12 WBC 13.7 H (3.8-10.6) k/uL RBC 2.70 L (4.30-5.90) m/uL Hgb 9.4 L (13.0-17.5) gm/dL Hct 30.5 L (39.0-53.0) % MCV 113.0 H (80.0-100.0) fL MCH (25.0-35.0) pg MCHC 30.6 L (31.0-37.0) g/dL Plt Count 100 L (150-450) k/uL Neutrophils # (Manual) 12.40 H (1.3-7.7) k/uL Lymphocytes # (Manual) 0.41 L (1.0-4.8) k/uL Metamyelocytes # (Man) 0.55 H (0) k/uL Myelocytes # (Manual) 0.27 H (0) k/uL Nucleated RBCs 4 H (0-0) /100 WBC Macrocytosis Marked A ABG pH 7.26 L (7.35-7.45) ABG pCO2 46 H (35-45) mmHg ABG pO2 127 H (83-108) mmHg ABG HCO3 (21-25) mmol/L ABG O2 Saturation 98.1 H (94-97) % ABG Lactic Acid (0.5-1.6) mmol/L Sodium 147 H (137-145) mmol/L Potassium 5.9 H (3.5-5.1) mmol/L Chloride 115 H (98-107) mmol/L Carbon Dioxide (22-30) mmol/L BUN 83 H (9-20) mg/dL Creatinine 2.69 H (0.66-1.25) mg/dL Glucose 170 H (74-99) mg/dL POC Glucose (mg/dL) (75-99) mg/dL Calcium 8.2 L (8.4-10.2) mg/dL Magnesium 2.8 H (1.6-2.3) mg/dL Total Bilirubin (0.2-1.3) mg/dL AST (17-59) U/L ALT (4-49) U/L Creatine Kinase 1356 H* (55-170) U/L Troponin I (0.000-0.034) ng/mL Total Protein (6.3-8.2) g/dL Albumin (3.5-5.0) g/dL 01/01/20 01/01/20 01/01/20 Range/Units 08:52 08:52 08:52 WBC (3.8-10.6) k/uL RBC (4.30-5.90) m/uL Hgb (13.0-17.5) gm/dL Hct (39.0-53.0) % MCV (80.0-100.0) fL MCH (25.0-35.0) pg MCHC (31.0-37.0) g/dL Plt Count (150-450) k/uL Neutrophils # (Manual) (1.3-7.7) k/uL Lymphocytes # (Manual) (1.0-4.8) k/uL Metamyelocytes # (Man) (0) k/uL Myelocytes # (Manual) (0) k/uL Nucleated RBCs (0-0) /100 WBC Macrocytosis ABG pH (7.35-7.45) ABG pCO2 (35-45) mmHg ABG pO2 (83-108) mmHg ABG HCO3 (21-25) mmol/L ABG O2 Saturation (94-97) % ABG Lactic Acid 5.0 H* (0.5-1.6) mmol/L Sodium 146 H (137-145) mmol/L Potassium 5.7 H (3.5-5.1) mmol/L Chloride 120 H (98-107) mmol/L Carbon Dioxide 19 L (22-30) mmol/L BUN 82 H (9-20) mg/dL Creatinine 2.80 H (0.66-1.25) mg/dL Glucose 153 H (74-99) mg/dL POC Glucose (mg/dL) (75-99) mg/dL Calcium (8.4-10.2) mg/dL Magnesium (1.6-2.3) mg/dL Total Bilirubin 1.9 H (0.2-1.3) mg/dL AST 1011 H (17-59) U/L ALT 932 H (4-49) U/L Creatine Kinase (55-170) U/L Troponin I 17.800 H* (0.000-0.034) ng/mL Total Protein 4.1 L (6.3-8.2) g/dL Albumin 2.1 L (3.5-5.0) g/dL 01/01/20 Range/Units 08:52 WBC 16.8 H (3.8-10.6) k/uL RBC 2.33 L (4.30-5.90) m/uL Hgb 8.2 L (13.0-17.5) gm/dL Hct 26.2 L (39.0-53.0) % MCV 112.4 H (80.0-100.0) fL MCH 35.3 H (25.0-35.0) pg MCHC (31.0-37.0) g/dL Plt Count (150-450) k/uL Neutrophils # (Manual) (1.3-7.7) k/uL Lymphocytes # (Manual) (1.0-4.8) k/uL Metamyelocytes # (Man) (0) k/uL Myelocytes # (Manual) (0) k/uL Nucleated RBCs (0-0) /100 WBC Macrocytosis Marked A ABG pH (7.35-7.45) ABG pCO2 (35-45) mmHg ABG pO2 (83-108) mmHg ABG HCO3 (21-25) mmol/L ABG O2 Saturation (94-97) % ABG Lactic Acid (0.5-1.6) mmol/L Sodium (137-145) mmol/L Potassium (3.5-5.1) mmol/L Chloride (98-107) mmol/L Carbon Dioxide (22-30) mmol/L BUN (9-20) mg/dL Creatinine (0.66-1.25) mg/dL Glucose (74-99) mg/dL POC Glucose (mg/dL) (75-99) mg/dL Calcium (8.4-10.2) mg/dL Magnesium (1.6-2.3) mg/dL Total Bilirubin (0.2-1.3) mg/dL AST (17-59) U/L ALT (4-49) U/L Creatine Kinase (55-170) U/L Troponin I (0.000-0.034) ng/mL Total Protein (6.3-8.2) g/dL Albumin (3.5-5.0) g/dL Microbiology - Last 24 Hours (Table) 12/28/19 14:15 Blood Culture - Preliminary Blood No Growth after 72 hours Assessment and Plan Assessment: #1 Chronic peripheral arterial disease with prior history of right iliofemoral angiogram and transluminal balloon angioplasty of the external iliac artery and stent placement #2 acute and recurrent cardiac arrest, resuscitated successfully #3 right distal fibular fracture with mild displacement and minimal impaction #4 acute renal failure #5 EtOH abuse #6 tobacco abuse #7 hypertension #8 hyperlipidemia Plan: Continue to monitor for sensory motor changes and right lower extremity PT Doppler signal. Continue to follow recommendations per orthopedic service. Continue vent support and ICU management as recommended. Vascular surgery service will standby. The above dictated assessment and findings were discussed with Dr. Olivarez. The impression and plan of care have been directed as dictated.
[2020-01-01] MEDS ORDERED: EPINEPHrine 10 ML SYRINGE (0.1 MG/ML) IV PRN (11:27)
[2020-01-01] MEDS ORDERED: MORPHINE SULFATE 4 MG/ML SYRINGE IV PRN (11:36)
[2020-01-01] MEDS ORDERED: MORPHINE SULFATE (100 MG/2 ML) 100 MG in SODIUM CHLORIDE 0.9% 100 ML IV SCH (11:45)
[2020-01-01] MEDS ORDERED: MORPHINE SULFATE 4 MG/ML SYRINGE IVP STA (11:47)
--- NOTE | 2020-01-01 12:12 | PN ---
PROGRESS NOTE Patient is seen for followup for acute kidney injury. Patient's general condition has deteriorated significantly. He has had multiple cardiac arrests with asystole. Patient is currently on the vent. He is maintained on pressors. He is on Levophed. Urine output is minimal. There were changes noted in the EKG. Troponins are pending. PHYSICAL EXAMINATION: Currently patient is sedated, he is on the vent. Blood pressure was 127/106, heart rate 88 to 140 per minute. Patient is afebrile. Examination of the heart S1, S2. Examination of the lungs, bilateral breath sounds are heard. ABDOMEN: Soft. Examination of the lower extremities shows discoloration of the feet bilaterally. No significant edema is noted. LABS: Show hemoglobin 8.2 g/dL, this morning sodium 146, potassium 5.7, chloride 120, BUN 82, serum creatinine 2.8. Troponin is 17.8. ASSESSMENT: 1. Acute kidney injury post cardiac arrest, ischemic acute tubular necrosis, oliguric. No nephrotoxic agents on board. Patient is maintained on IV fluids which I will continue for now. 2. Status post multiple cardiac arrest with asystole, most likely from an acute cardiac event, acute [place]. Patient is being followed by Cardiology. 3. Hyperkalemia associated with acute kidney injury and rhabdomyolysis as well as status post cardiac arrest. 4. Hypoxic respiratory failure, post cardiac arrest, currently on the vent. 5. Peripheral vascular disease with discoloration of the feet with previous history of angioplasty and stenting of the right iliofemoral artery. 6. Cardiomyopathy ejection fraction 35%-40%. PLAN: Treat the hyperkalemia medically for now. We will reevaluate tomorrow for need for renal replacement therapy if the patient continues to be oliguric. There is no indication to proceed with dialysis today, especially in view of recent multiple cardiac arrests. Overall prognosis is guarded. MMODL / IJN: [id number] /
[2020-01-01] MEDS: methylPREDNISolone SOD SUCCI 40 MG/ML 1 ML VIAL IV SCH (13:24)
[2020-01-01] MEDS: METOPROLOL TARTRATE 25 MG TAB PO SCH (13:25)
[2020-01-01] MEDS: MAGNESIUM OXIDE 400 MG TAB PO SCH (13:25)
[2020-01-01] MEDS: ASPIRIN 81 MG PO SCH (13:25)
[2020-01-01] MEDS: NICOTINE 21MG/24HR PATCH TRANSDERM SCH (13:27)
[2020-01-01] MEDS: MULTIVITAMINS, THERA 1 EACH TAB PO SCH (13:27)
[2020-01-01] MEDS: PANTOPRAZOLE 40 MG/10 ML VIAL IVP SCH (13:27)
[2020-01-01 13:32] VITALS: BP 94/64; PULSE 90; TEMP 97.1
--- NOTE | 2020-01-01 14:18 | PCN ---
PROCEDURE NOTE PROCEDURE: Right radial arterial line placement. PREOPERATIVE DIAGNOSIS: Cardiac arrest with acute hypoxemic respiratory failure. POSTOPERATIVE DIAGNOSIS: Cardiac arrest with acute hypoxemic respiratory failure. Indications: Hemodynamic monitoring. A time-out was completed verifying correct patient, procedure, site, positioning, and implant(s) or special equipment if applicable. Prakash's test was performed to ensure adequate perfusion. The patient's right wrist was prepped and draped in sterile fashion. 1% Lidocaine was used to anesthetize the area. An 18G Arrow arterial line was introduced into the radial artery. The catheter was threaded over the guide wire and the needle was removed with appropriate pulsatile blood return. Blood loss was minimal. The catheter was then sutured in place to the skin and a sterile dressing applied. Perfusion to the extremity distal to the point of catheter insertion was checked and found to be adequate. The patient tolerated the procedure well and there were no immediate complications. Line was sutured in place, good waveform was observed, line was flushed, sterile dressing was placed by the nursing staff. MMODL / IJN: [id number] /
--- NOTE | 2020-01-01 14:27 | P.EN ---
Code Blue Note from Code at 0851 Arrived to room once patient had ROSC. Initial rhythm asystole. 1 amp of epi given and patient converted to junction escape rhythm. He was given 1 amp of sodium bicarb which improved his HR and blood pressure. Therefore he was started on sodium bicarb gtt. Bp stable. Called Dr. Manzano he was made aware patient coded 4 times in total. He states suze brenner is still a full code. Dr. Paz on the floor and aware of code.
--- NOTE | 2020-01-02 14:14 | P.PN ---
Subjective Progress Note Date: 01/01/20 This is a 79-year-old male patient of Drs. Ravin Hatch, Nahomi Shepherd and Evans with past medical history of COPD with chronic hypoxic respiratory failure on home O2 at 2 L, hypertension, hyperlipidemia, coronary artery disease status post 2 vessel CAB[place] [address] Sorto, infrarenal aortic aneurysm and lower extremity claudication of the care of Dr. Krueger, tobacco use and dependence, alcohol abuse. Patient was last hospitalized in August 2019 for new onset atrial fibrillation and hyponatremia and patient was discharged home. Family brought patient into the hospital as he called them last week and injured his right leg now presents with a purple black discoloration that apparently has been going on for one week. He complains of pain to the area, no fever no chills. Patient came into [facility] emergency center for evaluation. Pulse ox 99%, heart rate 68, blood pressure 99/47. EKG was sinus rhythm with left bundle branch block. WBC 17.6, hemoglobin 10.9, platelet count 150. Sodium 130, potassium 4.9, chloride 97, CO2 22, BUN 69 creatinine 2.73, liver function tests normal. Lactic acid 2.0, troponin 0.147. X-ray of the right tib- fib shows an obliquely oriented distal fibular fracture with mild displacement and minimal impaction. Dorsalis pedis is unobtainable by Doppler. Dorsalis pedis palpable. Patient was started on clindamycin and admitted to the [facility] floor with consults to vascular surgeon, orthopedics, nephrology. 3/3: 4 AM this morning, patient was found by his nurse arousable to name but foaming at the mouth. Mouth was suctioned. Pulse ox was low at 79% on room air. O2 was applied and pulse ox came up to 90%. Patient was arousable to sternal rub and oriented to person. A-Team was called and patient was placed on BiPAP and patient became somewhat more alert and arousable. Patient was transferred to the intensive care unit. The patient has been hypotensive status post 500 mL fluid bolus. Patient is having tremors and confusion and narcotics and sedatives of all been discontinued. Patient is not able to take any oral intake or take oral medications. We do have blood culture are ready yet obtained in the emergency center urine culture was never obtained which will be done now and sputum culture added. Temperature max 99.1 axillary, heart rate 93, heart rate 29, blood pressure 103/73, pulse ox 96% on 2 L nasal cannula. Repeat blood work reveals WBC 18.9, hemoglobin 10.2, platelet count 136. Sodium 132, potassium 5.3, chloride 103, CO2 19, BUN 73 and creatinine 2.4. Troponin this morning was 0.483. Urinalysis cloudy, blood large, ketones trace, leukoesterase large, RBCs greater than 182, wbc's 111. Chest x-ray reveals no acute cardio primary process. Ultrasound of the right lower extremity was negative for DVT. Patient is seen and followed by multiple consultants including Dr. Johnson from cardiology. No clear evidence of acute ischemic event. Plavix stopped. Echocardiogram is pending. Patient was seen by vascular surgeon is acute ischemic issue with the right leg is doubtful. Monitor for compartment syndrome from swelling. No Plavix going forward, iliac stent procedure was greater than 6 months ago and resumption of eliquis upon cardiology recommendations. Dr. Ramon has ordered for IV fluids at 75 mL per hour and bolus as needed for blood pressure, sodium bicarb is been added. Renal ultrasound reveals no suspicious acute renal abnormality. The patient has been seen by orthopedics with plan for cam walker boot. For now splint is in place. Discussed patient's condition with the son in detail and discuss CODE STATUS. Son is adamant that he and his father wish for him to be full CODE STATUS and want him to be treated aggressively. 3/4: Patient remains in the intensive care unit. He has been on and off BiPAP as he is not tolerating it very well. Patient is slightly more alert today from yesterday. He knows his name and where he is. He can follow simple commands but is still very agitated, tremorous. Patient has been to Neck. Respiratory rate is been in the 30s. Speech therapy has been consulted due to concern for aspiration. Patient is currently nothing by mouth due to mental status as well. Repeat chest x-ray reveals a right lower lobe 1 cm pulmonary nodule could be further evaluated by CAT scan of the thorax. COPD. Dr. Ramon is recommended IV fluids at 75 and 2 A of bicarb IV push. Arterial study reveals severe bilateral femoral popliteal disease with possible iliac components bilaterally. Eliquis and Plavix remain on hold. Patient is waiting for boot for the right lower extremity. 12/30: Patient remains in the intensive care unit. He did receive several doses of Ativan through the night he is more lethargic today from yesterday. He is unable to follow. He has been nothing by mouth. Urine output has been about 2 5-30 mL per hour T-colored. Temperature has been down to 95.9 currently at 97.5. Patient was on BiPAP during the night. He is currently on nasal cannula pulse ox 98% on 2 L, he remains to Running in the 30s, blood pressure 122/75, heart rate 89. Repeat blood work reveals Doris BC 13.1, hemoglobin 9.1, platelet count 100. Repeat renal function is BUN 71 creatinine 2.21 which is increasing from yesterday, CO2 is 24. Blood sugar 136. Patient is continued on IV fluids. He has a splint in place to the right lower extremity. Repeat chest x-ray reveals new small bilateral layering pleural effusions and associated airspace disease probably atelectasis. Anticoagulation remains on hold. He is not a candidate for ALEX inhibitor due to worsening renal function. 12/31: Patient has had 4 episodes of cardiac arrest and was provided CPR epinephrine, patient was subsequently intubated and placed on mechanical ventilation. Cardiac rhythm is a sinus rhythm with left axis deviation complete or complete bundle branch block is unchanged. Patient is been placed on vasopressors for support. Patient's family members are at bedside and discussed patient's current condition and prognosis, they wish to transition the patient to comfort care and start morphine drip to make him comfortable. Patient will be a terminal extubation. Anticipate the patient will later today. Objective - Vital Signs Vital signs: Vital Signs Temp 97 F L 01/01/20 04:00 Pulse 140 H 01/01/20 07:00 Resp 24 01/01/20 07:00 BP 127/106 01/01/20 07:00 Pulse Ox 86 L 01/01/20 07:00 Intake & Output 12/31/19 01/01/20 01/01/20 18:59 06:59 18:59 Intake Total 1050 1156.312 100 Output Total 350 305 0 Balance 700 851.312 100 Weight 79.3 kg Intake: IV 1050 1075 100 ACETAMINOPHEN IV (For NPO 100 ) 1,000 mg In Empty Bag 1 bag @ 400 mls/hr IVPB Q8HR PRN Rx#:[id number] Clindamycin 600 mg In 50 50 Dextrose 5% in Water 50 ml @ 50 mls/hr IVPB Q8H [facility] Rx#:[id number] Mvi, Adult No.4 with Vit 525 525 K 10 ml Thiamine 100 mg Folic Acid 1 mg In Sodium Chloride 0.9% 1,000 ml @ 75 mls/hr IV .BY DURATION KASSY Rx#: [id number] Sodium Chloride 0.9% 1, 500 100 000 ml @ 100 mls/hr IV . BY DURATION KASSY Rx#: [id number] Sodium Chloride 0.9% 1, 375 000 ml @ 75 mls/hr IV . [id number] [facility] Rx#:[id number] Intake, IV Titration 81.312 Amount Norepinephrine 4 mg In 78.504 Sodium Chloride 0.9% 250 ml @ 0.05 MCG/KG/MIN 14. 859 mls/hr IV .[id number] [facility] Rx#:[id number] Propofol 1,000 mg In 2.808 Empty Bag 1 bag @ Titrate IV .Q0M [facility] Rx#: [id number] Output: Urine 350 305 0 Other: Voiding Method Indwelling Catheter Indwelling Catheter - Exam Review of Systems--unable to be obtained due to intubation Physical examination: Gen: This is a 78-year-old male in the ICU bed. He appears to be comfortable but is noted to be tachypneic. Less accessory muscle usage today. HEENT: Head is atraumatic, normocephalic. Pupils equal, round. Sclerae is anicteric. NECK: Supple. No JVD. No lymphadenopathy. No thyromegaly. LUNGS: Decreased breath sounds with few scattered wheezing. Tachypneic. HEART: regular rate and rhythm. Systolic ejection murmur. ABDOMEN: Soft. Bowel sounds are present. No masses. No tenderness. Olivarez catheter in place with tea-colored urine EXTREMITIES: To the right lower extremity. Posterior tibial is obtainable by Doppler, no dorsalis pedis. Significant edema and ecchymosis from the knee down to his toes with purple ecchymosis, posterior splint with Alex wrap in place. Dorsalis pedis palpable on the left, no edema. NEUROLOGICAL: Patient is unable to answer questions unable to follow simple instructions with known poor short-term memory - Labs CBC & Chem 7: 01/01/20 08:52 01/01/20 08:52 Labs: Abnormal Lab Results - Last 24 Hours (Table) 12/31/19 01/01/20 01/01/20 Range/Units 04:52 03:18 04:02 WBC (3.8-10.6) k/uL RBC (4.30-5.90) m/uL Hgb (13.0-17.5) gm/dL Hct (39.0-53.0) % MCV (80.0-100.0) fL MCH (25.0-35.0) pg MCHC (31.0-37.0) g/dL Plt Count (150-450) k/uL Neutrophils # (Manual) (1.3-7.7) k/uL Lymphocytes # (Manual) (1.0-4.8) k/uL Metamyelocytes # (Man) (0) k/uL Myelocytes # (Manual) (0) k/uL Nucleated RBCs (0-0) /100 WBC Macrocytosis PT (9.0-12.0) sec INR (<1.2) APTT (22.0-30.0) sec ABG pH 7.17 L* (7.35-7.45) ABG pCO2 52 H (35-45) mmHg ABG pO2 206 H (83-108) mmHg ABG HCO3 19 L (21-25) mmol/L ABG O2 Saturation 97.6 H (94-97) % ABG Lactic Acid (0.5-1.6) mmol/L Sodium (137-145) mmol/L Potassium (3.5-5.1) mmol/L Chloride (98-107) mmol/L Carbon Dioxide (22-30) mmol/L BUN (9-20) mg/dL Creatinine (0.66-1.25) mg/dL Glucose (74-99) mg/dL POC Glucose (mg/dL) 154 H (75-99) mg/dL Calcium (8.4-10.2) mg/dL Magnesium (1.6-2.3) mg/dL Total Bilirubin (0.2-1.3) mg/dL AST (17-59) U/L ALT (4-49) U/L Creatine Kinase 5794 H* (55-170) U/L Troponin I (0.000-0.034) ng/mL Total Protein (6.3-8.2) g/dL Albumin (3.5-5.0) g/dL 01/01/20 01/01/20 01/01/20 Range/Units 04:19 04:30 08:12 WBC 13.7 H (3.8-10.6) k/uL RBC 2.70 L (4.30-5.90) m/uL Hgb 9.4 L (13.0-17.5) gm/dL Hct 30.5 L (39.0-53.0) % MCV 113.0 H (80.0-100.0) fL MCH (25.0-35.0) pg MCHC 30.6 L (31.0-37.0) g/dL Plt Count 100 L (150-450) k/uL Neutrophils # (Manual) 12.40 H (1.3-7.7) k/uL Lymphocytes # (Manual) 0.41 L (1.0-4.8) k/uL Metamyelocytes # (Man) 0.55 H (0) k/uL Myelocytes # (Manual) 0.27 H (0) k/uL Nucleated RBCs 4 H (0-0) /100 WBC Macrocytosis Marked A PT (9.0-12.0) sec INR (<1.2) APTT (22.0-30.0) sec ABG pH 7.26 L (7.35-7.45) ABG pCO2 46 H (35-45) mmHg ABG pO2 127 H (83-108) mmHg ABG HCO3 (21-25) mmol/L ABG O2 Saturation 98.1 H (94-97) % ABG Lactic Acid (0.5-1.6) mmol/L Sodium 147 H (137-145) mmol/L Potassium 5.9 H (3.5-5.1) mmol/L Chloride 115 H (98-107) mmol/L Carbon Dioxide (22-30) mmol/L BUN 83 H (9-20) mg/dL Creatinine 2.69 H (0.66-1.25) mg/dL Glucose 170 H (74-99) mg/dL POC Glucose (mg/dL) (75-99) mg/dL Calcium 8.2 L (8.4-10.2) mg/dL Magnesium 2.8 H (1.6-2.3) mg/dL Total Bilirubin (0.2-1.3) mg/dL AST (17-59) U/L ALT (4-49) U/L Creatine Kinase 1356 H* (55-170) U/L Troponin I (0.000-0.034) ng/mL Total Protein (6.3-8.2) g/dL Albumin (3.5-5.0) g/dL 01/01/20 01/01/20 01/01/20 Range/Units 08:52 08:52 08:52 WBC (3.8-10.6) k/uL RBC (4.30-5.90) m/uL Hgb (13.0-17.5) gm/dL Hct (39.0-53.0) % MCV (80.0-100.0) fL MCH (25.0-35.0) pg MCHC (31.0-37.0) g/dL Plt Count (150-450) k/uL Neutrophils # (Manual) (1.3-7.7) k/uL Lymphocytes # (Manual) (1.0-4.8) k/uL Metamyelocytes # (Man) (0) k/uL Myelocytes # (Manual) (0) k/uL Nucleated RBCs (0-0) /100 WBC Macrocytosis PT (9.0-12.0) sec INR (<1.2) APTT (22.0-30.0) sec ABG pH (7.35-7.45) ABG pCO2 (35-45) mmHg ABG pO2 (83-108) mmHg ABG HCO3 (21-25) mmol/L ABG O2 Saturation (94-97) % ABG Lactic Acid 5.0 H* (0.5-1.6) mmol/L Sodium 146 H (137-145) mmol/L Potassium 5.7 H (3.5-5.1) mmol/L Chloride 120 H (98-107) mmol/L Carbon Dioxide 19 L (22-30) mmol/L BUN 82 H (9-20) mg/dL Creatinine 2.80 H (0.66-1.25) mg/dL Glucose 153 H (74-99) mg/dL POC Glucose (mg/dL) (75-99) mg/dL Calcium (8.4-10.2) mg/dL Magnesium (1.6-2.3) mg/dL Total Bilirubin 1.9 H (0.2-1.3) mg/dL AST 1011 H (17-59) U/L ALT 932 H (4-49) U/L Creatine Kinase (55-170) U/L Troponin I 17.800 H* (0.000-0.034) ng/mL Total Protein 4.1 L (6.3-8.2) g/dL Albumin 2.1 L (3.5-5.0) g/dL 01/01/20 01/01/20 Range/Units 08:52 08:52 WBC 16.3 H (3.8-10.6) k/uL RBC 2.33 L (4.30-5.90) m/uL Hgb 8.2 L (13.0-17.5) gm/dL Hct 26.2 L (39.0-53.0) % MCV 112.4 H (80.0-100.0) fL MCH 35.3 H (25.0-35.0) pg MCHC (31.0-37.0) g/dL Plt Count 89 L (150-450) k/uL Neutrophils # (Manual) 14.60 H (1.3-7.7) k/uL Lymphocytes # (Manual) 0.49 L (1.0-4.8) k/uL Metamyelocytes # (Man) 0.65 H (0) k/uL Myelocytes # (Manual) 0.49 H (0) k/uL Nucleated RBCs 3 H (0-0) /100 WBC Macrocytosis Marked A PT 13.5 H (9.0-12.0) sec INR 1.4 H (<1.2) APTT 20.7 L (22.0-30.0) sec ABG pH (7.35-7.45) ABG pCO2 (35-45) mmHg ABG pO2 (83-108) mmHg ABG HCO3 (21-25) mmol/L ABG O2 Saturation (94-97) % ABG Lactic Acid (0.5-1.6) mmol/L Sodium (137-145) mmol/L Potassium (3.5-5.1) mmol/L Chloride (98-107) mmol/L Carbon Dioxide (22-30) mmol/L BUN (9-20) mg/dL Creatinine (0.66-1.25) mg/dL Glucose (74-99) mg/dL POC Glucose (mg/dL) (75-99) mg/dL Calcium (8.4-10.2) mg/dL Magnesium (1.6-2.3) mg/dL Total Bilirubin (0.2-1.3) mg/dL AST (17-59) U/L ALT (4-49) U/L Creatine Kinase (55-170) U/L Troponin I (0.000-0.034) ng/mL Total Protein (6.3-8.2) g/dL Albumin (3.5-5.0) g/dL Microbiology - Last 24 Hours (Table) 12/28/19 14:15 Blood Culture - Preliminary Blood No Growth after 72 hours Assessment and Plan Plan: 1. Toxic encephalopathy secondary to alcohol intoxication with hallucinations and active delirium tremors with hypotension, present on admission. [facility] protocol, continue care in the intensive care unit. Patient is followed by multiple consultants. Consult with social work. 2. Acute right fibular fracture. Splint in place. Consult with orthopedics appreciated. Awaiting cam boot. 3. Acute kidney injury most likely due to poor oral intake, hypotension, lisinopril, Lasix. Continue IV fluids, consult with nephrology appreciated, hold Lasix and lisinopril. 4. Chronic peripheral artery disease with prior right iliofemoral angiogram and transluminal balloon angioplasty of the external iliac artery are and stent placement. Continue clindamycin. Discontinue Plavix. 5. Paroxysmal atrial fibrillation. 6. Hyponatremia most likely secondary to alcohol abuse. 7. Acute hypoxic respiratory failure requiring transfer into the intensive care unit. 8. COPD, exacerbation. 9. Chronic hypoxic respiratory failure on home O2 at 2 L nasal cannula. 10. Coronary artery disease status post CABG. resume aspirin and hold Plavix. Continue simvastatin, Lopressor. 11. Hyperlipidemia. 12. Hypertension. 13. Tobacco use and dependence. 14. DVT prophylaxis. 15. GI prophylaxis. 16. Benign prostatic hypertrophy. Juanis is currently in place. 17. Chronic kidney disease stage III. 18. Elevated troponins. Cardiology consult appreciated. Acute coronary syndrome ruled out. 19. Metabolic acidosis secondary to acute kidney injury. Status post sodium bicarb IV push. 20. Acute cardiopulmonary arrest with episodes of asystole with acute hypoxic respiratory failure requiring intubation and mechanical ventilation, acute lactic acidosis and multi-organ failure CODE STATUS: nol code. CODE STATUS has been changed to no code and patient will be made comfort care. Impression and plan of care have been directed as dictated by the signing physician. Lila Nur nurse practitioner acting as scribe for signing physician.
--- NOTE | 2020-01-02 14:18 | P.DS ---
Providers Date of admission: 12/28/19 12:06 Expected date of discharge: 01/01/20 Attending physician: Mireya Manzano Consults: 12/28/19 11:36 Consult Physician Routine Consulting Provider: Santos Thomas Consult Reason/Comments: right fib fx Do you want consulting provider notified?: Yes 12/28/19 11:46 Consult Physician Routine Consulting Provider: Joceline Olivarez Consult Reason/Comments: PAD with concern for acute vascular compromise Do you want consulting provider notified?: Yes 12/28/19 11:48 Consult Physician Routine Consulting Provider: Ivania Asher Consult Reason/Comments: ARF Do you want consulting provider notified?: Yes 12/28/19 19:36 Consult Physician Routine Consulting Provider: Alexia Johnson Consult Reason/Comments: elevated troponin Do you want consulting provider notified?: Yes 12/29/19 05:45 Consult Physician Routine Consulting Provider: Frederic Shepherd Consult Reason/Comments: ICU Management Do you want consulting provider notified?: Already Contacted Primary care physician: Mahad Hatch [facility] Course: This is a 79-year-old male patient of Drs. Ravin Hatch, Nahomi Shepherd and Evans with past medical history of COPD with chronic hypoxic respiratory failure on home O2 at 2 L, hypertension, hyperlipidemia, coronary artery disease status post 2 vessel CAB[place] [address] Sorto, infrarenal aortic aneurysm and lower extremity claudication of the care of Dr. Krueger, tobacco use and dependence, alcohol abuse. Patient was last hospitalized in August 2019 for new onset atrial fibrillation and hyponatremia and patient was discharged home. Family brought patient into the hospital as he called them last week and injured his right leg now presents with a purple black discoloration that apparently has been going on for one week. He complains of pain to the area, no fever no chills. Patient came into [facility] emergency center for evaluation. Pulse ox 99%, heart rate 68, blood pressure 99/47. EKG was sinus rhythm with left bundle branch block. WBC 17.6, hemoglobin 10.9, platelet count 150. Sodium 130, potassium 4.9, chloride 97, CO2 22, BUN 69 creatinine 2.73, liver function tests normal. Lactic acid 2.0, troponin 0.147. X-ray of the right tib- fib shows an obliquely oriented distal fibular fracture with mild displacement and minimal impaction. Dorsalis pedis is unobtainable by Doppler. Dorsalis pedis palpable. Patient was started on clindamycin and admitted to the [facility] floor with consults to vascular surgeon, orthopedics, nephrology. 3/3: 4 AM this morning, patient was found by his nurse arousable to name but foaming at the mouth. Mouth was suctioned. Pulse ox was low at 79% on room air. O2 was applied and pulse ox came up to 90%. Patient was arousable to sternal rub and oriented to person. A-Team was called and patient was placed on BiPAP and patient became somewhat more alert and arousable. Patient was transferred to the intensive care unit. The patient has been hypotensive status post 500 mL fluid bolus. Patient is having tremors and confusion and narcotics and sedatives of all been discontinued. Patient is not able to take any oral intake or take oral medications. We do have blood culture are ready yet obtained in the emergency center urine culture was never obtained which will be done now and sputum culture added. Temperature max 99.1 axillary, heart rate 93, heart rate 29, blood pressure 103/73, pulse ox 96% on 2 L nasal cannula. Repeat blood work reveals WBC 18.9, hemoglobin 10.2, platelet count 136. Sodium 132, potassium 5.3, chloride 103, CO2 19, BUN 73 and creatinine 2.4. Troponin this morning was 0.483. Urinalysis cloudy, blood large, ketones trace, leukoesterase large, RBCs greater than 182, wbc's 111. Chest x-ray reveals no acute cardio primary process. Ultrasound of the right lower extremity was negative for DVT. Patient is seen and followed by multiple consultants including Dr. Johnson from cardiology. No clear evidence of acute ischemic event. Plavix stopped. Echocardiogram is pending. Patient was seen by vascular surgeon is acute ischemic issue with the right leg is doubtful. Monitor for compartment syndrome from swelling. No Plavix going forward, iliac stent procedure was greater than 6 months ago and resumption of eliquis upon cardiology recommendations. Dr. Ramon has ordered for IV fluids at 75 mL per hour and bolus as needed for blood pressure, sodium bicarb is been added. Renal ultrasound reveals no suspicious acute renal abnormality. The patient has been seen by orthopedics with plan for cam walker boot. For now splint is in place. Discussed patient's condition with the son in detail and discuss CODE STATUS. Son is adamant that he and his father wish for him to be full CODE STATUS and want him to be treated aggressively. 12/29: Patient remains in the intensive care unit. He has been on and off BiPAP as he is not tolerating it very well. Patient is slightly more alert today from yesterday. He knows his name and where he is. He can follow simple commands but is still very agitated, tremorous. Patient has been to Neck. Respiratory rate is been in the 30s. Speech therapy has been consulted due to concern for aspiration. Patient is currently nothing by mouth due to mental status as well. Repeat chest x-ray reveals a right lower lobe 1 cm pulmonary nodule could be further evaluated by CAT scan of the thorax. COPD. Dr. Ramon is recommended IV fluids at 75 and 2 A of bicarb IV push. Arterial study reveals severe bilateral femoral popliteal disease with possible iliac components bilaterally. Eliquis and Plavix remain on hold. Patient is waiting for boot for the right lower extremity. 12/30: Patient remains in the intensive care unit. He did receive several doses of Ativan through the night he is more lethargic today from yesterday. He is unable to follow. He has been nothing by mouth. Urine output has been about 25-30 mL per hour T-colored. Temperature has been down to 95.9 currently at 97.5. Patient was on BiPAP during the night. He is currently on nasal cannula pulse ox 98% on 2 L, he remains to Running in the 30s, blood pressure 122/75, heart rate 89. Repeat blood work reveals Doris BC 13.1, hemoglobin 9.1, platelet count 100. Repeat renal function is BUN 71 creatinine 2.21 which is increasing from yesterday, CO2 is 24. Blood sugar 136. Patient is continued on IV fluids. He has a splint in place to the right lower extremity. Repeat chest x-ray reveals new small bilateral layering pleural effusions and associated airspace disease probably atelectasis. Anticoagulation remains on hold. He is not a candidate for NENITA inhibitor due to worsening renal function. 12/31: Patient has had 4 episodes of cardiac arrest and was provided CPR epinephrine, patient was subsequently intubated and placed on mechanical ventilation. Cardiac rhythm is a sinus rhythm with left axis deviation complete or complete bundle branch block is unchanged. Patient is been placed on vasopressors for support. Patient's family members are at bedside and discussed patient's current condition and prognosis, they wish to transition the patient to comfort care and start morphine drip to make him comfortable. Patient will be a terminal extubation. Anticipate the patient will later today. Patient at 12:04 PM on December 31. Please see nursing documentation for detail. Discharge diagnoses: 1. Toxic encephalopathy secondary to alcohol intoxication with hallucinations and active delirium tremors with hypotension, present on admission. 2. Acute right fibular fracture. 3. Acute kidney injury most likely due to poor oral intake, hypotension, lisinopril, Lasix. 4. Chronic peripheral artery disease with prior right iliofemoral angiogram and transluminal balloon angioplasty of the external iliac artery are and stent placement. 5. Paroxysmal atrial fibrillation. 6. Hyponatremia most likely secondary to alcohol abuse. 7. Acute hypoxic respiratory failure requiring transfer into the intensive care unit. 8. COPD, exacerbation. 9. Chronic hypoxic respiratory failure on home O2 at 2 L nasal cannula. 10. Coronary artery disease status post CABG. 11. Hyperlipidemia. 12. Hypertension. 13. Tobacco use and dependence. 14. Benign prostatic hypertrophy. 15. Chronic kidney disease stage III. 16. Elevated troponins. Acute coronary syndrome ruled out. 17. Metabolic acidosis secondary to acute kidney injury. 18. Acute cardiopulmonary arrest with episodes of asystole with acute hypoxic respiratory failure requiring intubation and mechanical ventilation, acute lactic acidosis and multi-organ failure. Impression and plan of care have been directed as dictated by the signing physician. Lila Nur nurse practitioner acting as scribe for signing physician. Patient Condition at Discharge: Serious Plan - Discharge Summary New Discharge Prescriptions: No Action Simvastatin [Zocor] 20 mg PO HS Lisinopril 5 mg PO DAILY Formoterol Fumarate [Perforomist] 20 mcg INHALATION RT-BID Theophylline 24 Hour [Antoine-24] 400 mg PO HS Metoprolol Tartrate [Lopressor] 25 mg PO DAILY Ipratropium-Albuterol Nebulize [Duoneb 0.5 mg-3 mg/3 ml Soln] 3 ml INHALATION RT-QID Clopidogrel Bisulfate [Plavix] 75 mg PO DAILY Verapamil Sr [Isoptin Sr] 180 mg PO DAILY #30 tablet.er Thiamine [Vitamin B-1] 100 mg PO DAILY predniSONE See Taper PO DIRECTED Apixaban [Eliquis] 5 mg PO BID Albuterol Sulfate [Ventolin HFA] 1 puff INHALATION RT-BID PRN PRN Reason: Shortness Of Breath Potassium Chloride [Klor-Con 10] 10 meq PO DAILY Magnesium 250 mg PO DAILY Famotidine [Pepcid] 20 mg PO BID Furosemide [Lasix] 40 mg PO DAILY Tamsulosin HCl [Flomax] 0.4 mg PO HS Multivitamins, Thera [Multivitamin (formulary)] 1 tab PO DAILY Aspirin EC [Ecotrin] 162.5 mg PO DAILY Budesonide [Pulmicort] 0.5 mg INHALATION RT-BID Discharge Medication List Simvastatin [Zocor] 20 mg PO HS 01/27/15 [History] Lisinopril 5 mg PO DAILY 09/19/16 [History] Clopidogrel Bisulfate [Plavix] 75 mg PO DAILY 09/06/19 [History] Formoterol Fumarate [Perforomist] 20 mcg INHALATION RT-BID 09/06/19 [History] Ipratropium-Albuterol Nebulize [Duoneb 0.5 mg-3 mg/3 ml Soln] 3 ml INHALATION RT-QID 09/06/19 [History] Metoprolol Tartrate [Lopressor] 25 mg PO DAILY 09/06/19 [History] Theophylline 24 Hour [Antoine-24] 400 mg PO HS 09/06/19 [History] Verapamil Sr [Isoptin Sr] 180 mg PO DAILY #30 tablet.er 09/12/19 [Rx] Albuterol Sulfate [Ventolin HFA] 1 puff INHALATION RT-BID PRN 12/28/19 [History] Apixaban [Eliquis] 5 mg PO BID 12/28/19 [History] Aspirin EC [Ecotrin] 162.5 mg PO DAILY 12/28/19 [History] Budesonide [Pulmicort] 0.5 mg INHALATION RT-BID 12/28/19 [History] Famotidine [Pepcid] 20 mg PO BID 12/28/19 [History] Furosemide [Lasix] 40 mg PO DAILY 12/28/19 [History] Magnesium 250 mg PO DAILY 12/28/19 [History] Multivitamins, Thera [Multivitamin (formulary)] 1 tab PO DAILY 12/28/19 [History] Potassium Chloride [Klor-Con 10] 10 meq PO DAILY 12/28/19 [History] Tamsulosin HCl [Flomax] 0.4 mg PO HS 12/28/19 [History] Thiamine [Vitamin B-1] 100 mg PO DAILY 12/28/19 [History] predniSONE See Taper PO DIRECTED 12/28/19 [History] Follow up Appointment(s)/Referral(s): Morgan Hatch MD [STAFF PHYSICIAN] - 1-2 days Discharge Disposition: - Preliminary Cause of Preliminary Cause of : acute delirium tremors with hypotension, multiorgan failure
--- NOTE | 2020-01-05 11:47 | CDI ---
Documentation Clarification Form Date: 01/05/20 From: Charito Somers Phone: If you have a question about this query, please contact Dena Alfonso, [employer] at [phone] between 8am and 5pm. Admit Date: 12/28/19 Discharge Date: 01/02/20 Patient Name: VIJI ACOSTA Visit Number: [id number] ATTENTION: The Clinical Documentation Specialists (CDI) and [facility] Coding Staff appreciate your assistance in clarifying documentation. Please respond to the clarification below the line at the bottom and electronically sign. The CDI & [facility] Coding staff will review the response and follow-up if needed. Please note: Queries are made part of the Legal Health Record. If you have any questions, please contact the author of this message via ITS. Dear Dr. Joceline Olivarez, Chronic peripheral arterial disease with claudication & blisters with prior history of right iliofemoral angiogram and transluminal balloon angioplasty of the external iliac artery and stent placement is documented in the H&P, vascular surgical, ortho, pulm & renal consult, multiple progress notes. Clinical Indicators: S/P fall with right lateral malleous fibula fx, with progressive discoloration. Concern for acute vascular compromise. Doppler done. Doppler/Radiology Reports:Severe bilateral femoral popliteal disease with possible iliac components bilaterally. Plan: Hold Plavix and Eliquis, continue to monitor for sensory motor changes and maintain pain control. In your professional opinion, please specify the type of peripheral artery disease? 1. Is this due to atherosclerosis? NO 2. Can you please clarify the type of vessel if known? N/A [facility] [place] [facility] Graft Autologous vein Nonautologous biological Nonbiological Other, please specify Unable to Determine Other, please specify Unable to determine 3. In your professional opinion, in order to capture the severity of condition; can you please clarify if the above clinical indicators and treatment signify if there were any associated conditions? Gangrene Intermittent Claudication prior to admission Rest Pain Ulceration No related conditions Other, please specify Unable to determine Patient was seen and evaluated initially for possible vascular compromise. After further evaluation his findings were more consistent with ecchymotic changes from fracture. He does have chronic peripheral arterial disease, but currently just prior to admission had no rest pain, ulcerations or gangrene noted, no evidence of this acute problem was due to peripheral arterial disease [facility]
--- NOTE | 2020-01-15 07:47 | CDI ---
Documentation Clarification Form Date: 01/15/20 From: Charito Somers Phone: If you have a question about this query, please contact Dena Alfonso, [employer] at [phone] between 8am and 5pm. Admit Date: 12/28/19 Discharge Date: 01/02/20 Patient Name: VIJI ACOSTA Visit Number: [id number] ATTENTION: The Clinical Documentation Specialists (CDI) and [facility] Coding Staff appreciate your assistance in clarifying documentation. Please respond to the clarification below the line at the bottom and electronically sign. The CDI & [facility] Coding staff will review the response and follow-up if needed. Please note: Queries are made part of the Legal Health Record. If you have any questions, please contact the author of this message via ITS. Dear Dr. Mireya Manzano, Toxic encephalopathy with hallucinations and active delirium tremors with hypotension is documented in the H&P and DS. History/Risk Factors: COPD w chronic hypoxic respiratory failure, home O2, HTN, HDL, CAD s/p CABG, BPH, PAD Clinical Indicators: Patient admits to drinking alcohol today, "drank a few beers". Hallucinations, tremors, per CIWA-mod anxiety, slight increase in agitation, auditory very mild, visual very mild sensitvity, total CIWA-Ar is 9. Labs: Toxicology- serum alcohol <10 EEG: none CT/MRI Brain: none Treatment: CIWA protocal, Ativan, Thiamine, IV fluids, Narcan In your professional opinion, can you please clarify the etiology of the toxic encephalopathy? Alcohol dependence with intoxication w delirium tremors & withdrawal Alcohol dependence with intoxication w delirium tremors Alcohol dependence with withdrawal and delirium tremors Other, please specify Unable to determine Alcohol dependence with intoxication with delirium tremors and withdrawal. MTDD
--- NOTE | 2020-01-15 12:19 | CDI ---
Documentation Clarification Form Date: 01/15/2020 10:02:05 AM From: Kelsea Gauthier RN CCDS Admit Date: 12/28/2019 12:06:00 PM Patient Name: Nas Rivera Visit Number: [id number] Discharge Date: 01/02/2020 04:13:00 AM ATTENTION: The Clinical Documentation Specialists (CDI) and [facility] Coding Staff appreciate your assistance in clarifying documentation. Please respond to the clarification below the line at the bottom and electronically sign. The CDI & [facility] Coding staff will review the response and follow-up if needed. Please note: Queries are made part of the Legal Health Record. If you have any questions, please contact the author of this message via ITS. Dr. Mireya Manzano Clarification is requested regarding the clinical significance If any of the elevated troponins. Elevated troponins. Acute coronary syndrome ruled out is documented in DCS 12/31 History/Risk Factors: 79-year-old male presents to ED via EMS for having purple black discoloration to right leg after a fall approximately one week earlier. Admitted with right distal fibular fracture with mild displacement and minimal impaction and JULIENNE. Medical History CKD 3, Asthma, COPD with chronic respiratory failure on O2, HLD, Paroxysmal Atrial Fib, Chronic PAD, CAD with CABG, Diastolic CHF, Nicotine dependence and Alcoholism. Clinical Indicators: Lab findings: 3/2 Troponin 0.147 to 33 Troponin 0.483 3/2 Cr 2.73, to 3 Cr 2.40 3/3 NT proBNP 5907 EKG 3/2 Sinus rhythm with left bundle branch block. Vital Signs: 3 admission 99/47 68 97.8 18 99% ra 12/28 06:00 103/66 80 18 95% Bipap Other Clinical Indicators: ED Note 3/2 Troponin is elevated which is likely secondary to renal failure / Attending Progress note Acute hypoxic respiratory failure requiring transfer into intensive care unit. Patient has been on BiPaP. 12/28 05:39 Nursing notes Patient was arousable to name, was foaming slightly at the mouth, suctioned mouth. vital signs 109/50 Hr 93, R 28, SPO2 79% on RA. Nasal cannula applied at 6L patient came up to 90% respiratory therapy called. Lungs sounded tight with expiratory wheeze, arousable to sternal rub orientated x1 to person. Breathing tachypneic. 04:20 ATEAM called due to respiratory status change. ICU nurses at bedside to evaluate patient. Patient on bipap, ekg done, labs drawn, chest xray done Patient more alert and arousable SPO2 increased to 95%. Transferred to ICU ECHO 12/28 There is moderate concentric left ventricular hypertrophy. Overall left ventricular systolic function is moderately impaired with, an EF 35-40%. The right ventricle is mildly enlarged. ED Note 12/27 Troponin is elevated which is likely secondary to renal failure Treatment: 12/27 0.9 Ns 500mls bolus x2, 12/28 0.9 Ns 500 mls bolus x3, 12/29 Sodium Bicarbonate 100ml Iv x 1, Consults: 12/28 Cardiology consult: History of coronary artery disease with mild troponin elevation. No clear evidence to suggest acute ischemic event. Stop Plavix. Monitor renal function. Renal 12/28 Progress Note: JULIENNE, hypotension, hypovolemia, metabolic acidosis, chronic DCHF In your professional opinion, can you please clarify the clinical significance, if any, of the elevated Troponin Abnormal lab not clinically significant Demand Ischemia Type 2 DE secondary to demand ischemia in the setting of renal failure Type 2 DE secondary to demand ischemia due to (please specify) Other, please specify Unable to determine (Last Revision: January 2018) Type 2 DE secondary to demand ischemia in the setting of hypotension with ischemic cardiomyopathy. HARID
== END 2020-01-02 04:13 | disposition expired | DRG 896 ==
LOC: EC 08:22 → SUPCPDRO 08:22 → 3SCARD 12:06 → 2SICU 12-29 05:54
PROVIDERS: ADMIT Internal Medicine; ATTEND Internal Medicine
DX: F10.231 Alcohol dependence with withdrawal delirium (principal); J96.21 Acute and chronic respiratory failure with hypoxia; N17.0 Acute kidney failure with tubular necrosis; I21.A1 Myocardial infarction type 2; I47.2 Ventricular tachycardia; E87.1 Hypo-osmolality and hyponatremia; I50.32 Chronic diastolic (congestive) heart failure; I13.0 Hypertensive heart and chronic kidney disease with heart failure and stage 1 through stage 4 chronic kidney disease, or unspecified chronic kidney disease; E87.2 Acidosis; J44.1 Chronic obstructive pulmonary disease with (acute) exacerbation; J98.11 Atelectasis; M62.82 Rhabdomyolysis; N18.3 Chronic kidney disease, stage 3 (moderate); D72.829 Elevated white blood cell count, unspecified; S82.61XA Displaced fracture of lateral malleolus of right fibula, initial encounter for closed fracture; I46.9 Cardiac arrest, cause unspecified; Z66 Do not resuscitate; Z51.5 Encounter for palliative care; I95.9 Hypotension, unspecified; I48.0 Paroxysmal atrial fibrillation; I25.5 Ischemic cardiomyopathy; I44.7 Left bundle-branch block, unspecified; R40.2364 Coma scale, best motor response, obeys commands, 24 hours or more after hospital admission; R40.2144 Coma scale, eyes open, spontaneous, 24 hours or more after hospital admission; R40.2244 Coma scale, best verbal response, confused conversation, 24 hours or more after hospital admission; E87.5 Hyperkalemia; E86.1 Hypovolemia; I71.9 Aortic aneurysm of unspecified site, without rupture; I07.1 Rheumatic tricuspid insufficiency; I49.8 Other specified cardiac arrhythmias; N40.0 Benign prostatic hyperplasia without lower urinary tract symptoms; I25.10 Atherosclerotic heart disease of native coronary artery without angina pectoris; I25.2 Old myocardial infarction; E78.5 Hyperlipidemia, unspecified; H26.9 Unspecified cataract; R91.1 Solitary pulmonary nodule; I73.9 Peripheral vascular disease, unspecified; Y90.0 Blood alcohol level of less than 20 mg/100 ml; F17.210 Nicotine dependence, cigarettes, uncomplicated; Z99.81 Dependence on supplemental oxygen; Z79.01 Long term (current) use of anticoagulants; Z79.82 Long term (current) use of aspirin; Z79.51 Long term (current) use of inhaled steroids; Z79.02 Long term (current) use of antithrombotics/antiplatelets; Z79.899 Other long term (current) drug therapy; Z95.820 Peripheral vascular angioplasty status with implants and grafts; Z95.1 Presence of aortocoronary bypass graft; Z98.890 Other specified postprocedural states; Z98.41 Cataract extraction status, right eye; Z88.0 Allergy status to penicillin; W19.XXXA Unspecified fall, initial encounter; Z82.49 Family history of ischemic heart disease and other diseases of the circulatory system; Z80.9 Family history of malignant neoplasm, unspecified; Z82.5 Family history of asthma and other chronic lower respiratory diseases
CPT/HCPCS: 29515; 36415; 36600; 71045; 76770; 80048; 80053; 80320; 81001; 82140; 82550; 82805; 83605; 83735; 83880; 84484; 85025; 85379; 85610; 85730; 87040; 87086; 93005; 93306; 93922; 94002; 94640; 94660; 96361; 96365; 96375; 99285